=== PATIENT | male | born 1945 | race Caucasian/White ===

== ENCOUNTER 2017-10-11 11:28 | Emergency (ER) | payer OTHER, SELFPAY ==
[2017-10-11 12:47] LABS: #Basophils 0.1 thou/uL (0.0-0.2); #Eosinphils 0.1 thou/uL (0.0-0.7); #Lymphocytes 2.5 thou/uL (1.20-3.40); #Monocytes 0.5 thou/uL (0.11-0.59); %Basophils 0.9 % (0.0-1.0); %Eosinophils 1.6 % (0.0-10.0); %Lymphocytes 40.7 % (21.0-51.0); %Monocytes 8.4 % (0.0-10.0); %Neutrophils 48.5 % (42.0-75.0); Hemoglobin 15.3 g/dL (14.0-18.0); Mean Corpuscular HGB CONC 32.8 g/dL (32.0-36.0); Mean Corpuscular Hemoglobin 33.9 pg (27.0-31.0); Platelet Count 167 thou/uL (130-400); RBC Distribution Width 12.1 % (11.5-14.5); Red Blood Cell (RBC) Count 4.51 mill/uL (4.70-6.10); White Blood Cell (WBC) Count 6.2 thou/uL (4.8-10.8)
[2017-10-11 12:52] LABS: INR-International Normal Ratio 1.1; Prothrombin Time 13.9 SEC (12.0-14.7)
[2017-10-11 13:04] LABS: ALT (SGPT) 10 U/L (8-55); AST (SGOT) 25 U/L (5-34); Albumin 4.2 g/dL (3.4-4.8); Alkaline Phosphatase 84 U/L (40-150); Anion Gap 12 mmol/L (10-20); BUN (Urea Nitrogen) 14 mg/dL (8.4-25.7); Bilirubin, Total 1.1 mg/dL (0.2-1.2); Calc. Creatinine Clearance 0 mL/min (70-130); Calcium 9.5 mg/dL (7.8-10.44); Carbon Dioxide 25 mmol/L (23-31); Chloride 105 mmol/L (98-107); Estimated GFR-MDRD Greater than 90; Globulin 2.9 g/dL (2.4-3.5); Glucose 102 mg/dL (83-110); Protein, Total 7.1 g/dL (5.8-8.1); Sodium 138 mmol/L (136-145)
[2017-10-11 13:08] LABS: Troponin I 0.275 ng/mL (< 0.028)
[2017-10-11 13:12] LABS: CKMB 6.2 ng/mL (0-6.6)
--- NOTE | 2017-10-11 13:17 | RAD ---
RADIOGRAPH CHEST 1 VIEW: HISTORY: A 72-year-old male with chest pain and dyspnea. FINDINGS: The thoracic aorta is tortuous and ectatic. There is no evidence of air space density, pneumothorax, or pulmonary edema. The lateral costophrenic angles are sharp. There is a dual-lead left subclavia n pacemaker. IMPRESSION: 1) No acute pulmonary findings. 2) Ectasia of thoracic aorta. 3) Pacemaker. Eddie Coles POS: [facility]
--- NOTE | 2017-11-20 20:16 | EKG ---
Test Reason : Blood Pressure : / mmHG Vent. Rate : 089 BPM Atrial Rate : 256 BPM P-R Int : 000 ms QRS Dur : 090 ms QT Int : 370 ms P-R-T Axes : 043 -38 036 degrees QTc Int : 450 ms Atrial flutter with variable A-V block with premature ventricular or aberrantly conducted complexes Left axis deviation Cannot rule out Anterior infarct , age undetermined Abnormal ECG Confirmed by TO ARCHANA Beard ([id number]), editor continuity and script MALACHI CRUM ([id number]) on 11/20/2017 8:16:38 PM Referred By: Confirmed By:ARCHANA CHASE M.D.
== END 2017-10-11 13:11 | disposition left against medical advice (07) ==
LOC: ERS 11:28
DX: R07.9 Chest pain, unspecified (principal); I48.91 Unspecified atrial fibrillation; I10 Essential (primary) hypertension; Z79.899 Other long term (current) drug therapy
CPT/HCPCS: 36415; 71045; 80053; 82553; 84484; 85025; 85610; 93005

== ENCOUNTER 2017-10-14 19:29 | Observation (INO) | payer OTHER ==
[2017-10-14 20:38] LABS: #Lymphocytes 0.7 thou/uL (1.20-3.40); #Monocytes 0.6 thou/uL (0.11-0.59); #Neutrophils 2.7 thou/uL (1.40-6.50); %Basophils 0.4 % (0.0-1.0); %Eosinophils 0.5 % (0.0-10.0); %Lymphocytes 16.3 % (21.0-51.0); %Monocytes 14.8 % (0.0-10.0); %Neutrophils 68.1 % (42.0-75.0); Hemoglobin 15.2 g/dL (14.0-18.0); Mean Corpuscular Hemoglobin 34.4 pg (27.0-31.0); Mean Platelet Volume 6.9 fL (7.4-10.4); Platelet Count 150 thou/uL (130-400); RBC Distribution Width 12.3 % (11.5-14.5); Red Blood Cell (RBC) Count 4.43 mill/uL (4.70-6.10)
[2017-10-14 20:58] LABS: ALT (SGPT) 9 U/L (8-55); AST (SGOT) 26 U/L (5-34); Albumin 4.2 g/dL (3.4-4.8); Alkaline Phosphatase 91 U/L (40-150); Anion Gap 12 mmol/L (10-20); BUN (Urea Nitrogen) 13 mg/dL (8.4-25.7); Bilirubin, Total 1.7 mg/dL (0.2-1.2); Calc. Creatinine Clearance 0 mL/min (70-130); Calcium 9.7 mg/dL (7.8-10.44); Carbon Dioxide 28 mmol/L (23-31); Chloride 100 mmol/L (98-107); Estimated GFR-MDRD 79; Glucose 100 mg/dL (83-110); Potassium 3.9 mmol/L (3.5-5.1); Protein, Total 7.2 g/dL (5.8-8.1); Sodium 136 mmol/L (136-145)
--- NOTE | 2017-10-14 20:59 | RAD ---
CHEST ONE VIEW 10/14/17 HISTORY: Cough, congestion. Symptoms x4 days. COMPARISON: 10/11/17. FINDINGS: Persistent cardiomegaly. Stable left sided transvenous pacemaker. Pulmonary vessels and hilum are nor mal. Costophrenic angles are clear. No mass. No consolidation. No pneumothorax or osseous abnormaliti es. IMPRESSION: Cardiomegaly. No acute cardiopulmonary process. POS: [facility]
[2017-10-14 21:02] LABS: CKMB 4.1 ng/mL (0-6.6); Troponin I 0.264 ng/mL (< 0.028)
[2017-10-15 00:24] LABS: Troponin I 0.264 ng/mL (< 0.028)
[2017-10-15] MEDS ORDERED: ISOVUE-370 76%-LOCM 1 ML ONE (06:16)
[2017-10-15 06:20] LABS: Troponin I 0.249 ng/mL (< 0.028)
--- NOTE | 2017-10-15 08:01 | CT ---
PRELIMINARY REPORT/[facility]/EMERGENCY AFTER HOURS PROCEDURE: EXAM: CT Angiography Chest With Intravenous Contrast CLINICAL HISTORY: 72 years old, male; Signs and symptoms; Dyspnea; Patient HX: R/O pe TECHNIQUE: Axial computed tomographic angiography images of the chest with intravenous contrast using pulmonary embolism protocol. CONTRAST: 100 mL of ISOVUE administered intravenously. COMPARISON: No relevant prior studies available. FINDINGS: Pulmonary arteries: No acute findings. No pulmonary embolism. Aorta: There are atheromatous calcifications of the aorta without visible aneurysm. Lungs: No acute findings. No mass. No consolidation. Pleural space: No acute findings. No significant effusion. No pneumothorax. Heart: No acute findings. No cardiomegaly. No significant pericardial effusion. No evidence of RV dys function. Bones/joints: Chronic degenerative spinal changes without acute fracture or dislocation. Soft tissues: No acute findings. Lymph nodes: No acute findings. No enlarged lymph nodes. Tubes, lines and devices: Devices: Left sided pacemaker device is intact and in satisfactory position . IMPRESSION: No acute findings. Thank you for allowing us to participate in the care of your patient. Dictated and Authenticated by: Baldemar Schneider MD 10/15/2017 4:10 AM Central Time ([place] & [place]) FINAL REPORT CT PULMONARY ANGIOGRAM WITH IV CONTRAST AND 3D POST PROCESSING: I agree with the preliminary report given by Dr. Baldemar Schneider of [facility]. POS: [facility]
[2017-10-15] MEDS ORDERED: predniSONE 20 MG TAB PO SCH (10:00)
[2017-10-15] MEDS ORDERED: Oseltamivir 75 MG CAP PO SCH (10:00)
[2017-10-15] MEDS ORDERED: Nitroglycerin 0.4 MG TAB (25 Tab Bottle) PO PRN (10:01)
[2017-10-15] MEDS ORDERED: Acetaminophen 325 MG TAB PO PRN (10:01)
[2017-10-15] MEDS ORDERED: Senokot 8.6 MG TAB PO PRN (10:01)
--- NOTE | 2017-10-15 10:08 | PDOC.EVN ---
Event Note - Event Note Event Note: Note dictated. Full code. Makes his own decisions with the help of his family.
[2017-10-15] MEDS ORDERED: Diabetic Tussin 200 MG/10 ML UDCUP PO PRN (10:09)
[2017-10-15] MEDS ORDERED: cloNIDine 0.1 MG TAB PO PRN (10:09)
[2017-10-15] MEDS ORDERED: hydrALAZINE 20 MG/ML VIAL SLOW IVP PRN (10:09)
[2017-10-15] MEDS ORDERED: cefTRIAXone\\ROCEPHIN 1 GM in Sodium Chloride 0.9% 100 ML IVPB SCH (10:15)
--- NOTE | 2017-10-15 10:27 | HP ---
DATE OF ADMISSION: 10/15/2017 PRIMARY CARE PHYSICIAN: [facility]. CHIEF COMPLAINT: Cough, shortness of breath, and wheezing of 3 days duration. HISTORY OF PRESENT ILLNESS: The patient is a 72-year-old male with negative cardiac catheterization in 2016 and sinus node dysfunction status post pacemaker, who presented to the emergency room with ab ove complaints. He was seen in the emergency room three days ago for similar illness. However, left against medical advice. Over the last 3-4 days, the patient developed gradual worsening shortness of breath along with chest tightness and wheezing. The cough was productive of scanty phlegm. He also felt febrile without chi lls. He denies any sick contacts. He denies any chest pain, palpitations, lightheadedness, or synco pe. He felt generally weak and fatigued. In the emergency room, his vital signs showed temperature 100.1 with a pulse rate of 114, blood press ure of 139/92, respiration of 26, and O2 saturation 96% on room air. His CT angiogram of the chest w as negative for pulmonary embolism. His flu testing was negative. His EKG showed sinus rhythm with nonspecific ST-T wave changes, left axis deviation. He received nebulizer treatment along with aspir in in the emergency room. PAST MEDICAL HISTORY: 1. Paroxysmal atrial flutter. Patient declined cardiac ablation. 2. Negative cardiac catheterization in 2016. 3. Questionable atrial fibrillation. Anticoagulation was discontinued by his primary cement car dumper kana BARRIGA. 4. Hypertension. 5. Hyperlipidemia. 6. History of tobacco dependence. 7. Normal left ventricular ejection fraction 50% to 55% with mild anterior hypokinesis in 2016. 8. Bipolar disorder. PAST SURGICAL HISTORY: 1. Cardiac catheterization. 2. Surgery for hydrocele. ALLERGIES: No known drug allergies. CURRENT HOME MEDICATIONS: The patient takes Depakote and Wellbutrin. He is unable to recall the exa ct dose. Again, anticoagulation was discontinued by his primary cement car dumper. He used to be on jeana nopril and metoprolol that was discontinued by his primary cement car dumper at [place] per patient report. SOCIAL HISTORY: The patient currently lives at home and drinks alcohol socially. Denies current use of smoking or drug use. FAMILY HISTORY: Positive for heart disease. REVIEW OF SYSTEMS: The following complete review of systems was negative, unless otherwise mentioned in the HPI or below: Constitutional: Weight loss or gain, ability to conduct usual activities. Skin: Rash, itching. Eyes: Double vision, pain. ENT/Mouth: Nose bleeding, neck stiffness, pain, tenderness. Cardiovascular: Palpitations, dyspnea on exertion, orthopnea. Respiratory: Shortness of breath, wheezing, cough, hemoptysis, fever or night sweats. Gastrointestinal: Poor appetite, abdominal pain, heartburn, nausea, vomiting, constipation, or diarrh ea. Genitourinary: Urgency, frequency, dysuria, nocturia. Musculoskeletal: Pain, swelling. Neurologic/Psychiatric: Anxiety, depression. Allergy/Immunologic: Skin rash, bleeding tendency. PHYSICAL EXAMINATION: VITAL SIGNS: As discussed above. GENERAL: A 72-year-old male in minimal respiratory distress. He has bouts of coughing. HEENT: Head is atraumatic, normocephalic. Sclerae anicteric. Dry mucous membranes. No oral lesion . NECK: Supple, no JVD appreciated. No carotid bruit. LUNGS: Showed coarse breath sounds bilaterally with scattered wheezing. Trachea was in midline. Sy mmetrical. HEART: S1 and S2 present. Regular, tachycardic. ABDOMEN: Soft, nontender, bowel sounds present. EXTREMITIES: No edema or calf tenderness. NEUROLOGIC: Grossly nonfocal, moves all four extremities. PSYCHIATRY: Alert, awake, oriented x3. SKIN: Warm and dry. LYMPH NODES: No palpable lymph nodes in the neck. PERIPHERAL VASCULAR: Radial pulses palpable bilaterally. MUSCULOSKELETAL: No joint swelling or tenderness. LABORATORY FINDINGS: CBC showed WBC of 4.0 with hemoglobin 15.2, lymphocyte of 16.3. D-dimer was 0. 31. Troponins maximum was 0.264, BUN 13, creatinine 0.94. Sodium was 136, potassium 3.9. Influenza testing was negative. CT angiogram of the chest by my review as discussed above. EKG by my review as discussed above. IMPRESSION: 1. Systemic inflammatory response syndrome, suspected secondary to viral illness. 2. Elevated troponins, probably secondary to demand ischemia. The patient had a negative cardiac ca theterization in 2016. 3. History of paroxysmal atrial flutter. The patient declined cardiac ablation last admission. 4. Sinus node dysfunction status post pacemaker. 5. Bipolar disorder. 6. Respiratory distress, probably secondary to #1. 7. Hypertension. Please note the patient does not take any antihypertensives. 8. History of paroxysmal atrial fibrillation. Please note anticoagulation was discontinued by his p rimary cement car dumper per patient report. 9. Dehydration, mild. 10. Leukopenia, probably secondary to viral illness. PLAN: The patient will be monitored on the telemetry unit as 23-hour observation. We will start him on Tamiflu along with antibiotics. We will keep him on droplet isolation for suspected flu. We ted l continue nebulizer treatments every 4 hourly. I think the patient will benefit from steroids. We will resume Depakote and Wellbutrin once doses are confirmed. Telemetry monitoring for now due to po ssible atrial flutter. We will also interrogate his pacemaker. Plan of care was discussed with the patient in detail. He stated understanding.
[2017-10-15] MEDS ORDERED: predniSONE 20 MG TAB ONE ×2 (11:59→12:07)
[2017-10-15 14:13] VITALS: BMI 30.4
[2017-10-15] MEDS: cefTRIAXone\\ROCEPHIN 1 GM, Syringe 0.4 ML in Sterile Water 9.6 ML SLOW IVP SCH (14:28)
[2017-10-15] MEDS: Sodium Chloride 0.9% 1,000 ML IV SCH ×2 (14:28→20:13)
[2017-10-15] MEDS: predniSONE 20 MG TAB PO SCH (17:48)
[2017-10-15] MEDS: Divalproex Sodium DR 500 MG TAB PO SCH (20:18)
[2017-10-15] MEDS: buPROPion 75 MG TAB PO SCH (20:18)
[2017-10-15] MEDS: guaiFENesin ER 600 MG TAB PO SCH (20:18)
[2017-10-15] MEDS: Oseltamivir 75 MG CAP PO SCH (20:18)
[2017-10-15] MEDS: Folic Acid 1 MG TAB PO SCH (20:18)
[2017-10-15] MEDS: Docusate 100 MG CAP PO SCH (20:18)
[2017-10-15] MEDS: Doxycycline 100 MG CAP PO SCH (20:18)
[2017-10-15] MEDS: Cyanocobalamin (Vitamin B-12) 1,000 MCG TAB PO SCH (20:18)
[2017-10-15] MEDS ORDERED: FLU VACC TS2017-18 (>65YR) 0.5 ML SYRINGE IM ONE (21:00)
[2017-10-15] MEDS ORDERED: Prevnar 13-Val Conj/PF 0.5 ML SYRINGE IM ONE (21:00)
[2017-10-16] MEDS: HYDROcodone/Acetaminophen 5/325 mg Tablet PO PRN ×2 (01:53→22:48)
[2017-10-16] MEDS ORDERED: Enoxaparin Sodium 40 MG/0.4 ML SYRINGE SC SCH (09:00)
[2017-10-16] MEDS ORDERED: Aspirin 325 MG TAB PO SCH (09:00)
[2017-10-16] MEDS: Divalproex Sodium DR 500 MG TAB PO SCH ×2 (09:17→21:45)
[2017-10-16] MEDS: guaiFENesin ER 600 MG TAB PO SCH ×2 (09:18→21:45)
[2017-10-16] MEDS: Doxycycline 100 MG CAP PO SCH ×2 (09:18→21:45)
[2017-10-16] MEDS: Docusate 100 MG CAP PO SCH ×2 (09:18→21:45)
[2017-10-16] MEDS: predniSONE 20 MG TAB PO SCH ×2 (09:18→17:39)
[2017-10-16] MEDS: buPROPion 75 MG TAB PO SCH ×2 (09:18→21:45)
[2017-10-16] MEDS: Oseltamivir 75 MG CAP PO SCH ×2 (09:18→21:45)
[2017-10-16] MEDS: cefTRIAXone\\ROCEPHIN 1 GM, Syringe 0.4 ML in Sterile Water 9.6 ML SLOW IVP SCH (13:37)
--- NOTE | 2017-10-16 17:01 | PDOC.PN ---
- Subjective Encounter Start Date: 10/16/17 Encounter Start Time: 14:00 Patient seen and examined. Feeling better. Intermittent cough/SOB/Wheezing +. No overnight events - Objective Resuscitation Status: Resuscitation Status FULL:Full Resuscitation MAR Reviewed: Yes Vital Signs & Weight: Vital Signs (12 hours) Temp Pulse Resp BP Pulse Ox 10/16/17 15:35 97.9 F 105 H 18 126/81 97 10/16/17 09:29 97 10/16/17 09:24 88 20 97 10/16/17 08:10 98.1 F 78 16 10/16/17 08:06 98.1 F 78 16 132/75 97 Weight Weight 196 lb 1.6 oz I&O: 10/15/17 10/16/17 10/17/17 06:59 06:59 06:59 Intake Total 1371 775 Output Total 1999 Balance -629 775 Result Diagrams: 10/14/17 20:29 10/14/17 20:29 EKG Reviewed by me: Yes (Tele ST) Phys Exam - Physical Examination Constitutional: NAD Respiratory: no wheezing, no rales Scat rhonchi, Symmetrical Cardiovascular: RRR, no rub no heaves/pulsations Gastrointestinal: soft, non-tender, no distention, positive bowel sounds Musculoskeletal: no edema Neurological: non-focal, normal sensation, moves all 4 limbs Psychiatric: normal affect, A&O x 3 Dx/Plan - Plan DVT proph w/SCDs IMPRESSION: 1. Systemic inflammatory response syndrome due to Influenza A 2. Elevated troponins, probably secondary to demand ischemia. The patient had a negative cardiac catheterization in 2016. 3. History of paroxysmal atrial flutter. The patient declined cardiac ablation last admission. 4. Sinus node dysfunction status post pacemaker. 5. Bipolar disorder. 6. Respiratory distress, probably secondary to #1. 7. Hypertension. 8. History of paroxysmal atrial fibrillation. Please note anticoagulation was discontinued by his primary per diem nurse per patient report. He refuses anticoagulation. 9. Dehydration, mild. Resolved. 10. Leukopenia, probably secondary to viral illness. PLAN: * cont Tamiflu * Taper Prednisone * DC in AM if stable * Cont current meds as below * Cont Nebs PRN Review of Systems - Review of Systems Cardiovascular: negative: chest pain, palpitations, orthopnea, paroxysmal nocturnal dyspnea, edema, light headedness Gastrointestinal: negative: Nausea, Vomiting, Abdominal Pain, Diarrhea, Constipation, Melena, Hematochezia - Medications/Allergies Allergies/Adverse Reactions: Allergies Allergy/AdvReac Type Severity Reaction Status Date / Time No Known Allergies Allergy Unverified 08/11/16 15:54 Medications: Current Medications Acetaminophen (Tylenol) 650 mg PO Q4H PRN PRN Reason: Headache/Fever or Pain Last Admin: 10/15/17 22:08 Dose: 650 mg Hydrocodone Bitart/Acetaminophen ([place] 5/325) 1 tab PO Q6H PRN PRN Reason: Moderate Pain (4-6) Last Admin: 10/16/17 01:53 Dose: 1 tab Albuterol/Ipratropium (Duoneb) 3 ml NEB [id number] PRN PRN Reason: SOB &/or Wheezing Albuterol/Ipratropium (Duoneb) 3 ml NEB [id number] [facility] Last Admin: 10/16/17 09:24 Dose: 3 ml Albuterol/Ipratropium (Duoneb) 3 ml NEB Q6H PRN PRN Reason: SOB &/or Wheezing Aspirin (Aspirin) 325 mg PO DAILY [facility] Last Admin: 10/16/17 09:18 Dose: 325 mg Bupropion HCl (Wellbutrin) 75 mg PO BID [facility] Last Admin: 10/16/17 09:18 Dose: 75 mg Clonidine (Catapres) 0.1 mg PO Q4H PRN PRN Reason: Systolic BP > 180 Cyanocobalamin (Vitamin B-12) 1,000 mcg PO HS [facility] Last Admin: 10/15/17 20:18 Dose: 1,000 mcg Divalproex Sodium (Depakote) 500 mg PO BID [facility] Last Admin: 10/16/17 09:17 Dose: 500 mg Docusate Sodium (Colace) 100 mg PO BID [facility] Last Admin: 10/16/17 09:18 Dose: 100 mg Doxycycline Hyclate (Vibramycin) 100 mg PO BID [facility] Last Admin: 10/16/17 09:18 Dose: 100 mg Folic Acid (Folvite) 1 mg PO HS [facility] Last Admin: 10/15/17 20:18 Dose: 1 mg Guaifenesin (Robitussin Sf) 200 mg PO Q4H PRN PRN Reason: Cough Guaifenesin (Mucinex) 600 mg PO Q12HR [facility] Last Admin: 10/16/17 09:18 Dose: 600 mg Hydralazine HCl (Apresoline) 10 mg SLOW IVP Q4H PRN PRN Reason: SBP Greater Than 180 Nitroglycerin (Nitrostat) 0.4 mg PO Q5MIN PRN PRN Reason: Chest Pain Oseltamivir Phosphate (Tamiflu) 75 mg PO BID [facility] Stop: 10/19/17 21:01 Last Admin: 10/16/17 09:18 Dose: 75 mg Prednisone (Prednisone) 20 mg PO BID-[facility] Stop: 10/16/17 23:59 Last Admin: 10/16/17 09:18 Dose: 20 mg Prednisone (Prednisone) 20 mg PO QAM-[facility] Senna (Senokot) 2 tab PO HSPRN PRN PRN Reason: Constipation
[2017-10-16] MEDS: Folic Acid 1 MG TAB PO SCH (21:45)
[2017-10-16] MEDS: Cyanocobalamin (Vitamin B-12) 1,000 MCG TAB PO SCH (21:45)
[2017-10-17] MEDS: HYDROcodone/Acetaminophen 5/325 mg Tablet PO PRN (04:41)
[2017-10-17] MEDS ORDERED: predniSONE 20 MG TAB PO SCH (08:00)
[2017-10-17 08:24] VITALS: BP 138/88; TEMP 97.5
[2017-10-17] MEDS ORDERED: Acetaminophen 325 MG TAB PO PRN (09:52)
[2017-10-17] MEDS ORDERED: Diabetic Tussin DM 5 ML UDCUP PO PRN (09:52)
[2017-10-17] MEDS ORDERED: Mag-Al 1200 mg/1200 mg/30 ML UDCUP PO PRN (09:52)
[2017-10-17] MEDS ORDERED: Nitroglycerin 0.4 MG TAB (25 Tab Bottle) SL PRN (09:52)
[2017-10-17] MEDS ORDERED: Aspirin 325 MG TAB PO SCH (10:00)
[2017-10-17] MEDS ORDERED: Aspirin 300 MG Suppository PR SCH (10:00)
[2017-10-17] MEDS ORDERED: Bisacodyl 5 MG TAB PO PRN (10:00)
[2017-10-17] MEDS ORDERED: Heparin 10,000 UNITS/ 10 ML VIAL SLOW IVP SCH (10:00)
[2017-10-17] MEDS ORDERED: Zolpidem Tartrate 5 MG TAB PO PRN (10:00)
[2017-10-17] MEDS ORDERED: Bisacodyl 10 MG SUPP PR PRN (10:00)
[2017-10-17] MEDS ORDERED: Clopidogrel Bisulfate 300 MG TAB PO SCH (10:00)
[2017-10-17] MEDS ORDERED: Clopidogrel Bisulfate 75 MG TAB PO SCH (10:00)
[2017-10-17] MEDS ORDERED: Milk Of Magnesia 30 ML UDCUP PO PRN (10:00)
[2017-10-17] MEDS ORDERED: Aspirin 325 mg Enteric Coated Tablet PO SCH (10:00)
[2017-10-17] MEDS ORDERED: Heparin 25,000 units/D5W 500 ML IV SCH (10:00)
[2017-10-17] MEDS ORDERED: Ondansetron HCl/PF 4 MG/2 ML Vial IVP PRN (10:00)
--- NOTE | 2017-10-17 10:14 | PDOC.PN ---
- Subjective Encounter Start Date: 10/17/17 Encounter Start Time: 10:11 Patient seen at bedside. No overnight events, denies Chest pain, SOB. Ambulating without difficulty. - Objective Resuscitation Status: Resuscitation Status FULL:Full Resuscitation MAR Reviewed: Yes Vital Signs & Weight: Vital Signs (12 hours) Temp Pulse Resp BP BP Pulse Ox 10/17/17 09:02 97 10/17/17 09:01 78 20 97 10/17/17 08:00 97.5 F L 92 20 138/88 96 10/17/17 07:40 97.5 F L 92 20 10/17/17 04:00 98.3 F 106 H 22 H 131/73 97 Weight Weight 184 lb 3.2 oz I&O: 10/16/17 10/17/17 10/18/17 06:59 06:59 06:59 Intake Total 1371 2004 300 Output Total 1999 1375 Balance -629 630 300 Result Diagrams: 10/14/17 20:29 10/14/17 20:29 Phys Exam - Physical Examination Constitutional: NAD HEENT: moist MMs Neck: no JVD Respiratory: no rales Cardiovascular: RRR Gastrointestinal: soft Musculoskeletal: pulses present Neurological: moves all 4 limbs Psychiatric: A&O x 3 Dx/Plan (1) Influenza A Code(s): J10.1 - FLU DUE TO OTH IDENT INFLUENZA VIRUS W OTH RESP MANIFEST Status: Acute (2) Atrial flutter Code(s): I48.92 - UNSPECIFIED ATRIAL FLUTTER Status: Chronic Qualifiers: Atrial flutter type: typical Qualified Code(s): I48.3 - Typical atrial flutter (3) HTN (hypertension) Code(s): I10 - ESSENTIAL (PRIMARY) HYPERTENSION Status: Chronic Qualifiers: Hypertension type: essential hypertension Qualified Code(s): I10 - Essential (primary) hypertension - Plan cont current plan of care, continue antibiotics, out of bed/ambulate * Continue with Doxycycline and Tamiflu. * Prednisone Taper. * Spoke to the patient at length about cardiac enzymes. Offered to have cardiology here evaluate the patient given his cardiac history. He would prefer to see his own customer resource specialist in [place] and will follow up after discharge. * D/C Home
[2017-10-17] MEDS: Doxycycline 100 MG CAP PO SCH (10:43)
[2017-10-17] MEDS: Divalproex Sodium DR 500 MG TAB PO SCH (10:43)
[2017-10-17] MEDS: buPROPion 75 MG TAB PO SCH (10:43)
[2017-10-17] MEDS: Oseltamivir 75 MG CAP PO SCH ×2 (10:43→10:44)
--- NOTE | 2017-10-17 10:51 | DIS ---
DATE OF ADMISSION: 10/15/2017 DATE OF DISCHARGE: 10/17/2017 DISCHARGE DISPOSITION: Home. DISCHARGE FOLLOWUP: [facility] at [place]. DISCHARGE DIAGNOSES: 1. Influenza A. 2. Paroxysmal atrial flutter, the patient has refused anticoagulation. 3. Bipolar disorder. 4. History of sinus node dysfunction status post pacemaker. 5. Hypertension. DISCHARGE MEDICATIONS: 1. Aspirin 325 mg p.o. daily. 2. Wellbutrin 50 mg p.o. b.i.d. 3. Depakote 2000 mg p.o. 4 times a day. 4. Doxycycline 100 mg p.o. b.i.d. for next 3 days. 5. Tamiflu 75 mg p.o. b.i.d. for next 3 days. 6. Prednisone taper. INPATIENT CONSULTATIONS: None. INPATIENT PROCEDURES: None. INPATIENT RADIOGRAPHIC EXAMINATIONS: 1. Chest x-ray, which revealed cardiomegaly with no acute cardiopulmonary process. 2. CTA of the chest, which revealed no pulmonary embolism, no acute findings, no aneurysm. BRIEF HOSPITAL COURSE: Mr. Terence Farrar is a 72-year-old male who presented to the emergency room complaining of cough and shortness of breath. He was then subsequently placed into observation onto the telemetry floor. His influenza swabs came back negative for influenza A and he was put on Tamif mercedes. He was given prednisone as well as doxycycline. The patient's clinical status improved. He did have elevated troponins while here and given his history of a pacemaker, this was interrogated and w as in working condition. His elevated troponin was most likely secondary to demand ischemia from his viral illness. I have offered the patient a cardiology evaluation here; however, he wishes to go se e his manager quality at the [facility] in [place]. He understands this and will make his own appointment. The patient is clinically appropriate for discharge. His vital signs have been stable. He is ambulating in the halls without any difficulty. His saturations have improved and his physical exam is within normal limits. He is resting comfortably and will be discharged home later today in stable condition with the medications above. DISCHARGE DIET: Heart healthy. ACTIVITY: As tolerated. RESTRICTIONS: None. CODE STATUS: FULL CODE. ALLERGIES: No known drug allergies. DISCHARGE FOLLOWUP: With his [facility] physician in [place]. I have explained all this to the patient at bedside. He is agreeable to the plan of discharge. All questions have been answered. Total discharge time 33 minutes.
[2017-10-17] MEDS ORDERED: Nitroglycerin 2% Ointment 1 INCH/1 GM Packet TOP SCH (14:00)
[2017-10-17] MEDS ORDERED: Docusate 100 MG CAP PO SCH (21:00)
[2017-10-18] MEDS ORDERED: Aspirin 300 MG Suppository PR SCH (09:00)
[2017-10-18] MEDS ORDERED: Aspirin 325 MG TAB PO SCH (09:00)
[2017-10-18] MEDS ORDERED: Clopidogrel Bisulfate 75 MG TAB PO SCH (09:00)
[2017-10-18] MEDS ORDERED: Aspirin 325 mg Enteric Coated Tablet PO SCH (09:00)
== END 2017-10-17 12:23 | disposition home or self-care (01) ==
LOC: ERS 19:29 → ERHOLD 10-15 02:40 → 2SW 10-15 13:46
PROVIDERS: ADMIT Internal Medicine; ATTEND Internal Medicine
DX: J10.1 Influenza due to other identified influenza virus with other respiratory manifestations (principal); I48.3 Typical atrial flutter; F31.9 Bipolar disorder, unspecified; I10 Essential (primary) hypertension; I51.7 Cardiomegaly; E78.5 Hyperlipidemia, unspecified; R06.03 Acute respiratory distress; I48.0 Paroxysmal atrial fibrillation; E86.0 Dehydration; D72.819 Decreased white blood cell count, unspecified; Z79.82 Long term (current) use of aspirin; Z79.899 Other long term (current) drug therapy; Z95.0 Presence of cardiac pacemaker; Z98.890 Other specified postprocedural states
CPT/HCPCS: 36415; 71045; 71275; 80053; 82553; 84484; 85025; 85379; 87633; 87798; 93005; 94640; 94760; 96361; 96374; 96376; A4216; G0378; J0696; J1644; J1650; J7506; J7620

== ENCOUNTER 2017-12-24 00:24 | Emergency (ER) | payer OTHER | END 2017-12-24 02:18 | disposition home or self-care (01) | LOC: ERS 00:24 | DX: M17.0 Bilateral primary osteoarthritis of knee (principal); I48.91 Unspecified atrial fibrillation; I10 Essential (primary) hypertension; F31.9 Bipolar disorder, unspecified; Z79.82 Long term (current) use of aspirin; Z79.899 Other long term (current) drug therapy | CPT/HCPCS: 99283 ==

== ENCOUNTER 2018-02-18 06:38 | Emergency (ER) | payer OTHER ==
--- NOTE | 2018-02-18 08:53 | RAD ---
PORTABLE CHEST: DATE: 02/18/18. PROVIDED CLINICAL HISTORY: Cough. FINDINGS: Comparison 10/14/17. The cardiac silhouette appears enlarged. Lungs appear clear. There is no pleura l fluid or pneumothorax apparent. Left subclavian cardiac pacing device is again noted within simila r position. IMPRESSION: Cardiomegaly without evidence for an acute cardiopulmonary process. POS: [facility]
== END 2018-02-18 07:21 | disposition home or self-care (01) ==
LOC: ERS 06:38
DX: J20.9 Acute bronchitis, unspecified (principal); F31.9 Bipolar disorder, unspecified; I48.91 Unspecified atrial fibrillation; I10 Essential (primary) hypertension; Z79.01 Long term (current) use of anticoagulants; Z79.82 Long term (current) use of aspirin; Z79.899 Other long term (current) drug therapy
CPT/HCPCS: 71045

== ENCOUNTER 2018-03-09 05:22 | Inpatient (IN) | payer MEDICARE, OTHER, SELFPAY ==
[2018-03-09 06:08] LABS: #Basophils 0.1 thou/uL (0.0-0.2); #Eosinphils 0.1 thou/uL (0.0-0.7); #Lymphocytes 1.2 thou/uL (1.20-3.40); #Monocytes 0.4 thou/uL (0.11-0.59); #Neutrophils 4.2 thou/uL (1.40-6.50); %Basophils 0.9 % (0.0-1.0); %Eosinophils 1.1 % (0.0-10.0); %Lymphocytes 19.7 % (21.0-51.0); %Monocytes 7.4 % (0.0-10.0); %Neutrophils 70.9 % (42.0-75.0); Mean Corpuscular HGB CONC 32.1 g/dL (32.0-36.0); Mean Corpuscular Hemoglobin 32.9 pg (27.0-31.0); Mean Platelet Volume 7.7 fL (7.4-10.4); Platelet Count 134 thou/uL (130-400); Red Blood Cell (RBC) Count 4.25 mill/uL (4.70-6.10)
[2018-03-09 06:31] LABS: ALT (SGPT) 12 U/L (8-55); AST (SGOT) 42 U/L (5-34); Alkaline Phosphatase 94 U/L (40-150); Anion Gap 10 mmol/L (10-20); BUN (Urea Nitrogen) 19 mg/dL (8.4-25.7); Bilirubin, Total 2.2 mg/dL (0.2-1.2); Calc. Creatinine Clearance 0 mL/min (70-130); Calcium 9.4 mg/dL (7.8-10.44); Carbon Dioxide 28 mmol/L (23-31); Chloride 104 mmol/L (98-107); Estimated GFR-MDRD 74; Globulin 2.8 g/dL (2.4-3.5); Glucose 113 mg/dL (83-110); Potassium 3.6 mmol/L (3.5-5.1); Protein, Total 6.8 g/dL (5.8-8.1); Sodium 138 mmol/L (136-145)
[2018-03-09 06:47] LABS: CKMB 9.4 ng/mL (0-6.6); Troponin I 0.634 ng/mL (< 0.028)
[2018-03-09] MEDS ORDERED: Enoxaparin Sodium 100 MG/ML SYRINGE ONE (07:20)
[2018-03-09] MEDS ORDERED: Furosemide 40 MG/4 ML VIAL ONE (07:20)
[2018-03-09 08:18] LABS: Bilirubin Negative (Negative); Blood, Urine Negative (Negative); Clarity Clear (Clear); Glucose, Urine (Dipstick) Negative (Negative); Leukocyte Negative (Negative); Nitrite Negative (Negative); Protein, Urine (Dipstick) Negative (Neg-Trace); Specific Gravity, Urine 1.025 (1.005-1.030); Urobilinogen 0.2 mg/dL (0.2-1.0)
[2018-03-09 09:13] LABS: Troponin I 0.637 ng/mL (< 0.028)
--- NOTE | 2018-03-09 09:25 | RAD ---
ONE VIEW CHEST: HISTORY: Pain. COMPARISON: 02/18/18. FINDINGS: Stable left-sided transvenous pacemaker. There is cardiomegaly. Pulmonary vessels are normal. Cost ophrenic angles are clear. No consolidation or mass. No pneumothorax or osseous abnormalities. IMPRESSION: Cardiomegaly. No evidence of congestive heart failure. POS: [facility]
--- NOTE | 2018-03-09 09:28 | ULT ---
LEFT LOWER EXTREMITY VENOUS ULTRASOUND WITH DOPPLER: HISTORY: Pain. Edema. COMPARISON: None. TECHNIQUE: Ch scale, color flow, Doppler imaging, with spectral waveform analysis is performed of the left low er extremity venous system. FINDINGS: There is edema at the level of the ankle. There is compressibility, presence of flow, and augmentation of the common femoral vein, femoral vein , and popliteal vein. There is flow in the greater saphenous vein, profunda vein, and posterior tibi al vein. IMPRESSION: No evidence of thrombus in the left lower extremity deep venous system. Left lower extremity edema. POS: [facility]
[2018-03-09 10:22] LABS: CKMB 7.4 ng/mL (0-6.6)
[2018-03-09] MEDS ORDERED: Milk Of Magnesia 30 ML UDCUP PO PRN (10:45)
[2018-03-09] MEDS ORDERED: Acetaminophen 650 MG Suppository PR PRN (10:45)
[2018-03-09] MEDS ORDERED: Calcium Carbonate 500 MG ChewTAB PO PRN (10:45)
[2018-03-09] MEDS ORDERED: Ondansetron HCl/PF 4 MG/2 ML Vial IVP PRN (10:45)
[2018-03-09] MEDS ORDERED: Ondansetron ODT 4 MG TAB PO PRN (10:45)
[2018-03-09] MEDS ORDERED: Nitroglycerin 0.4 MG TAB (25 Tab Bottle) PO PRN (10:47)
[2018-03-09] MEDS ORDERED: Morphine 4 MG/ML VIAL IV PRN (11:04)
--- NOTE | 2018-03-09 11:25 | CT ---
CT PULMONARY ANGIO CHEST INCLUDING 3D RENDERING: HISTORY: A 72-year-old male with a history of left leg pain and chronic lower extremity edema, who presents th is morning with sharp shooting pain in the leg. The patient does complain of chest pain as well. FINDINGS: No significant CT evidence for acute pulmonary embolus. Minimal linear parenchymal changes in the ri ght base and less so in the left base, new since 10/15/2017, probably some mild subsegmental atelecta sis, as well as some vascular crowding and dependent position change. IMPRESSION: 1. No CT evidence for acute pulmonary embolism. 2. Minimal linear parenchymal changes in the basis, probably subsegmental atelectasis. 3. No other significant acute process. POS: [facility]
[2018-03-09 11:29] VITALS: BMI 31.4
--- NOTE | 2018-03-09 11:40 | PDOC.FPRHP ---
- History of Present Illness Chief Complaint: leg pain History of Present Illness: 72 yo CM with pmhx afib s/p [employer] dual-chamber pacer, and bipolar disorder presents to [facility] c/o left leg pain. Pt endorses a 1 week hx of increasing b/l LE edema (Left > Right) and scrotal swelling. Denies any h/o orthopnea, PND, or SOB; but does say he has been "expectorating" and coughing more than normal. Unsure what the sputum looks like. Denies fevers, chills, abd pain, n/v/d. No chest pain, palpitations, diaphoresis , lightheadedness. At baseline, pt endorses a healthy diet and regular CV exercise including walking 3-4 miles daily. Normally follows up at [facility], but has been without his car for the last few weeks so he has been unable to follow up. He also states he was previously placed on lasix for LE edema, but was taken off 1 year prior and is unsure why. By review of records, pt had cardiac catheterization in [address] Hazel which was negative for CAD. EF at that time noted to be 50-55% with mild hypokinesis. No CAD hx otherwise. He also has had indeterminate troponins previously. No h/o echocardiogram at this facility previously. ED Course: 40mg IV lasix, CT PE protocol neg for PE, and LLE doppler neg for DVT - Allergies/Adverse Reactions Allergies Allergy/AdvReac Type Severity Reaction Status Date / Time No Known Allergies Allergy Verified 03/09/18 11:41 - Home Medications Medication Instructions Recorded Confirmed Type Divalproex Sodium DR [Depakote] 500 mg PO QID 10/15/17 03/09/18 History buPROPion HCl [Wellbutrin] 50 mg PO BID 10/15/17 03/09/18 History - History PMHx: Afib s/p dual-chamber pacer (approx 8 yrs prior)- [employer] pacer, bipolar disorder PSHx: hydrocele repain, left knee repair, and pacer placement FHx: no family hx CAD, CHF, or early cardiac demise Social: Denies smoking tobacco but has chewed tobacco for most of his adult life. Social ETOH use. Denies illicit drug use. - Review of Systems General: reports: fatigue. denies: fever/chills, weight/appetite/sleep changes , night sweats Eyes: denies: eye pain, vision changes ENT: denies: nasal congestion, rhinorrhea Respiratory: reports: cough, congestion. denies: shortness of breath, exercise intolerance Cardiovascular: reports: edema. denies: chest pain, palpitation, paroxysmal nocturnal dyspnea, orthopnea Gastrointestinal: denies: nausea, vomiting, diarrhea, constipation, abdominal pain, GI bleeding Genitourinary: denies: incontinence, dysuria, polyuria Skin: reports: rashes. denies: lesions Musculoskeletal: reports: pain, tenderness, swelling. denies: stiffness, arthritis/arthralgias Neurological: denies: numbness, syncope, weakness Psychological: reports: other (bipolar disorder). denies: anxiety, depression - Vital signs VITALS: 03/09/18 10:00 Temperature 97.5 F L Pulse Rate 80 Blood Pressure 120/75 [Semi-Fowlers] Respiratory 18 Rate O2 Sat by Pulse 100 Oximetry Oxygen Delivery Room Air Method - Physical Exam Constitutional: NAD, awake, alert and oriented, well developed -Constitutional: falls asleep frequently during interview HEENT: normocephalic and atraumatic, PERRLA, EOMI, conjunctiva clear, no scleral icterus, grossly normal hearing, normal nasal mucosa, MMM, oropharynx clear Neck: supple, trachea midline, no LAD, no JVD, no thyromegaly, no bruits Chest: no-tender to palpation, no lesions Heart: RRR, normal S1/S2, no murmurs/rubs/gallops, pulses present -Heart: 2+ pitting edema to bilateral lower extremities, L>R & scrotal swelling Lungs: CTAB, no respiratory distress, good air movement, no rales/rhonchi, no wheezing Abdomen: soft, non-tender, bowel sounds present, no masses/distention Musculoskeletal: normal structure, normal tone Neurological: no focal deficit, normal sensation Skin: capillary refill <2 seconds, no jaundice -Skin: LLE leiva erythematous, warm, and tender to palpation Heme/Lymphatic: no unusual bruising or bleeding, no LAD Psychiatric: intact recent and remote memory -Psychiatric: bizarre affect FMR H&P: Results - Labs Result Diagrams: 03/09/18 06:05 03/09/18 06:05 Lab results: WBC 6.0 thou/uL (4.8-10.8) 03/09/18 06:05 Hgb 14.0 g/dL (14.0-18.0) 03/09/18 06:05 Hct 43.7 % (42.0-52.0) 03/09/18 06:05 MCV 103.0 fl (80.0-94.0) H 03/09/18 06:05 Plt Count 134 thou/uL (130-400) 03/09/18 06:05 Neutrophils % 70.9 % (42.0-75.0) 03/09/18 06:05 Sodium 138 mmol/L (136-145) 03/09/18 06:05 Potassium 3.6 mmol/L (3.5-5.1) 03/09/18 06:05 Chloride 104 mmol/L (98-107) 03/09/18 06:05 Carbon Dioxide 28 mmol/L (23-31) 03/09/18 06:05 BUN 19 mg/dL (8.4-25.7) 03/09/18 06:05 Creatinine 0.99 mg/dL (0.6-1.3) 03/09/18 06:05 Glucose 113 mg/dL (83-110) H 03/09/18 06:05 Calcium 9.4 mg/dL (7.8-10.44) 03/09/18 06:05 Total Bilirubin 2.2 mg/dL (0.2-1.2) H 03/09/18 06:05 AST 42 U/L (5-34) H 03/09/18 06:05 ALT 12 U/L (8-55) 03/09/18 06:05 Alkaline Phosphatase 94 U/L (40-150) 03/09/18 06:05 CK-MB (CK-2) 7.4 ng/mL (0-6.6) H* 03/09/18 08:35 B-Natriuretic Peptide 785.6 pg/mL (0-100) H 03/09/18 06:05 Serum Total Protein 6.8 g/dL (5.8-8.1) 03/09/18 06:05 Albumin 4.0 g/dL (3.4-4.8) 03/09/18 06:05 Urine Ketones Negative mg/dL (Negative) 03/09/18 07:49 Urine Blood Negative (Negative) 03/09/18 07:49 Urine Nitrite Negative (Negative) 03/09/18 07:49 Ur Leukocyte Esterase Negative (Negative) 03/09/18 07:49 Additional comment: Elevated D-Dimer, BNP, Troponin & CKMB - EKG Interpretation EKG: V-paced in 60s, no signs of acute ischemia - Radiology Interpretation US - venous Status: report reviewed by me Additional comment: negative for LLE DVT CT scan - chest Status: report reviewed by me Additional comment: negative for PE FMR H&P: A/P - Problem List (1) New onset of congestive heart failure Current Visit: Yes Status: Acute Priority: High Code(s): I50.9 - HEART FAILURE, UNSPECIFIED (2) Non-ST elevated myocardial infarction Current Visit: Yes Status: Acute Priority: High Code(s): I21.4 - NON-ST ELEVATION (NSTEMI) MYOCARDIAL INFARCTION Comment: s/p therapeutic lovenox (3) Cellulitis and abscess of left leg Current Visit: Yes Status: Acute Priority: High Code(s): L03.116 - CELLULITIS OF LEFT LOWER LIMB; L02.416 - CUTANEOUS ABSCESS OF LEFT LOWER LIMB (4) Atrial fibrillation Current Visit: Yes Status: Chronic Priority: Medium Code(s): I48.91 - UNSPECIFIED ATRIAL FIBRILLATION Qualifiers: Atrial fibrillation type: chronic Qualified Code(s): I48.2 - Chronic atrial fibrillation Comment: s/p dual-chamber pacer (5) Artificial cardiac pacemaker Current Visit: Yes Status: Chronic Priority: Medium Code(s): Z95.0 - PRESENCE OF CARDIAC PACEMAKER (6) Bipolar disorder Current Visit: Yes Status: Chronic Priority: Low Code(s): F31.9 - BIPOLAR DISORDER, UNSPECIFIED Qualifiers: Active/Remission status: currently active Current episode severity: unspecified - Plan 72yo CM with pmhx long-standing Afib w/ pacer presents with increase in LE pain & edema- 1) New onset CHF, presumed- cardiomegaly + LE & scrotal edema with hx of dual lead right sided pacer for chronic Afib may be etiology. elevated cardiac enzymes likely due to cardiac strain. treated in ED with therapeutic lovenox. will continue to trend. Echo ordered and is pending at this time. Will give IV lasix bid and monitor strict I&O, daily wts, fluid restriction. Monitor on telemetry. Cards consulted & Dr. Carmona will see pt. Anticipate need for heart failure meds required to include ACEI, BB, ASA. Possibly will add statin, although pt had clean coronaries 2 yrs prior. 2) NSTEMI- likely demand ischemia from #1. asymptomatic from an ACS standpoint. continue to trend enzymes. s/p therapeutic lovenox in ED, continue per cards recommendations. 3) LLE Cellulitis- likely overlying cellulitis in light of increased LE edema and stasis dermatitis. extremity is tender, red & hot. Will treat empirically with Vanc & Rocephin. no signs of systemic infection. 4) Afib with pacer- interrogate pacer ([employer]) and assure function. Pt is currently V-paced. 5) Bipolar disorder- continue home meds. DO Rock (PGY-3) Attending- Dr. Fran Kwong FMR H&P: Upper Level - Plan Date/Time: 03/09/18 0914. I, [Magy Dey], am the upper level resident (PGY3). Attending Addendum - Attending Addendum Date/Time: 03/09/18 8226 I personally evaluated the patient and discussed the management with Dr. Dey. I agree with and repeated the History, Examination, Assessment and Plan documented above with any addition or exceptions noted below. Antibiotics, therapeutic lovenox pending rec's, risk factor management, diuresis.
[2018-03-09 12:27] LABS: CKMB 4.7 ng/mL (0-6.6)
[2018-03-09 12:32] LABS: Critical Call Chem Troponin I RESULT DECREASING; Troponin I 0.593 ng/mL (< 0.028)
[2018-03-09] MEDS: Acetaminophen 325 MG TAB PO PRN ×3 (12:53→22:31)
[2018-03-09] MEDS ORDERED: ISOVUE-370 76%-LOCM 1 ML ONE (13:34)
[2018-03-09] MEDS ORDERED: cefTRIAXone\\ROCEPHIN 1 GM in Sodium Chloride 0.9% 100 ML IVPB SCH (14:00)
[2018-03-09] MEDS: Furosemide 40 MG/4 ML VIAL SLOW IVP SCH (14:34)
[2018-03-09] MEDS: Vancomycin HCl 1.25 GM in Sodium Chloride 0.9% 250 ML 250 ML IVPB SCH ×2 (14:36→20:35)
[2018-03-09 15:34] LABS: Magnesium 1.7 mg/dL (1.6-2.6); Phosphorus 3.4 mg/dL (2.3-4.7)
[2018-03-09] MEDS ORDERED: Carvedilol 3.125 MG TAB PO SCH (17:00)
[2018-03-09] MEDS: buPROPion HCl 100 MG TAB PO SCH (20:30)
[2018-03-09] MEDS: Atorvastatin Calcium 40 MG TAB PO SCH (20:30)
[2018-03-09] MEDS: Enoxaparin Sodium 100 MG/ML SYRINGE SC SCH (20:31)
[2018-03-09] MEDS: Docusate 100 MG CAP PO SCH (20:31)
[2018-03-09] MEDS: Divalproex Sodium DR 500 MG TAB PO SCH (20:31)
--- NOTE | 2018-03-10 04:09 | CON ---
DATE OF CONSULTATION: 03/09/2018 Please refer to the notes already dictated, although will be dictated by the nurse practitioner, refer to for the full history as well as the physical examination and plan. INDICATION FOR CONSULTATION: A 72-year-old gentleman with congestive heart failure which appears to be diastolic in nature with chronic atrial fibrillation , status post pacemaker insertion, who was admitted with lower extremity edema which is rather significant. HISTORY OF PRESENT ILLNESS: This very unfortunate 72-year-old gentleman was seen actually back in 08/2016 where he underwent a cardiac catheterization and was found to have normal coronary arteries, at that time was diagnosed with atrial fibrillation or flutter. He has been seen and consultation was obtained with Electrophysiology at that time and he refused to undergo an ablation. Since that time and prior to that, he has been followed by the [place]. [facility] the last year or two. He was incarcerated and actually was out of state also, he did report back to the hospital a few months ago here with the pneumonia and device was interrogated at that time. We do not have those results. We will re-interrogate his device, which appears to be [employer] pacemaker. It appears that is functioning normally, but he is pacing 100% at the time, but he was admitted at this time with significant lower extremity edema. He certainly may have diastolic dysfunction or may have severe systolic dysfunction if he is pacing all the time. He may need to undergo further evaluation by the qa architect and may need to have an upgrade to a biventricular device. At that time of his cardiac catheterization, it was documented that he had a decrease in left ventricular systolic function but an exact ejection fraction I believe was not sedated, but I believe it was stated as mild anterior hypokinesis with ejection fraction of 50-55% and this was from 08/2016 with normal coronary arteries. At this time, he has been given diuretics. He has been diuresing quite significantly. He says the swelling is somewhat improved. He still has significant lower extremity edema, the left lower extremity is worse than the right and does have some probably early cellulitis. He has not had any new symptoms of chest pain or significant shortness of breath, but does admit to some shortness of breath. For his past medical history, social history, review of systems, medications, allergies, family history, and social history, please refer to the notes dictated by the nurse practitioner. PHYSICAL EXAMINATION: GENERAL: Reveals a middle-aged gentleman who is in no acute distress at this time. He is alert and he is oriented. He is aware of the situation. VITAL SIGNS: Stable, blood pressure 120/75. He is afebrile, respiratory rate was about 18. He is pacing approximately with a heart rate 80 beats per minute. HEENT: Unremarkable. CHEST: Clear to auscultation. I did not hear any significant rales, rhonchi or wheezing. CARDIOVASCULAR: Reveals an irregular, irregular rhythm. There were no gross murmurs noted. ABDOMEN: Soft and nontender. Positive bowel sounds are present. EXTREMITIES: Showed 3+ lower extremity edema of the entire lower legs extending up into the scrotal area. Pedal pulses are palpable. NEUROLOGIC: The patient appears to be intact. IMPRESSION AND PLAN: 1. Congestive heart failure exacerbation which may very well be diastolic in nature. We are still awaiting an echocardiogram to be performed and further information will be based on the echocardiogram and also further recommendations , he may need to undergo upgrade to a biventricular device or he may just need diuresis and further medical management. 2. Chronic atrial fibrillation, the rate is under good control at this time. We will interrogate the device to see whether or not he has had a significant burden of atrial fibrillation and to see whether or not he is chronically pacing. 3. History of pacemaker insertion. We will interrogate the device today. It appears to be functioning normally. 4. Lower extremity edema and mild possible cellulitis of the left lower extremity. We will continue to monitor this. I have advised him to elevate the leg. We will continue diuretics at this time. 5. History of hypercholesterolemia. We will continue his medications. I believe recently he has not been taking his medications correctly. He has not [facility] able to [facility] nor has he had transportation to get his medications and hopefully once he resumes his medications, his overall situation may improve. SHANTHI
[2018-03-10] MEDS: Furosemide 40 MG/4 ML VIAL SLOW IVP SCH ×2 (05:04→15:03)
[2018-03-10] MEDS: Vancomycin HCl 1.25 GM in Sodium Chloride 0.9% 250 ML 250 ML IVPB SCH ×3 (05:07→22:34)
[2018-03-10 05:29] LABS: Band 10 % (5-11); Hemoglobin 13.6 g/dL (14.0-18.0); Lymphocytes 14 % (21-51); MDiff Complete? YES; Mean Corpuscular HGB CONC 33.2 g/dL (32.0-36.0); Mean Corpuscular Hemoglobin 33.4 pg (27.0-31.0); Mean Platelet Volume 7.4 fL (7.4-10.4); Monocytes 6 % (0-10); Neutrophil 70 % (42-75); PLT Morphology Comment Appears Decreased; Platelet Count 117 thou/uL (130-400); RBC Distribution Width 13.1 % (11.5-14.5); Red Blood Cell (RBC) Count 4.07 mill/uL (4.70-6.10); White Blood Cell (WBC) Count 9.7 thou/uL (4.8-10.8)
[2018-03-10 05:33] LABS: ALT (SGPT) 9 U/L (8-55); AST (SGOT) 28 U/L (5-34); Albumin 3.2 g/dL (3.4-4.8); Alkaline Phosphatase 82 U/L (40-150); Anion Gap 7 mmol/L (10-20); BUN (Urea Nitrogen) 16 mg/dL (8.4-25.7); Bilirubin, Total 3.7 mg/dL (0.2-1.2); Calc. Creatinine Clearance 97 mL/min (70-130); Calcium 8.8 mg/dL (7.8-10.44); Carbon Dioxide 32 mmol/L (23-31); Cardiac Risk 2.1 (Less than 4.5); Chloride 99 mmol/L (98-107); Cholesterol 96 mg/dl (< 200 Desired); Estimated GFR-MDRD 86; Globulin 2.5 g/dL (2.4-3.5); Glucose 84 mg/dL (83-110); HDL Cholesterol 46 mg/dL (>60 Neg Risk); LDL Cholesterol, Calculated 42 mg/dL; Potassium 3.6 mmol/L (3.5-5.1); Protein, Total 5.7 g/dL (5.8-8.1); Sodium 134 mmol/L (136-145); Triglycerides 39 mg/dL (Less than 150)
--- NOTE | 2018-03-10 08:54 | PDOC.FM ---
- Subjective Subjective: No acute events overnight. Pt denies cp, nvdc, diaphoresis, palpitations. Does report occasional SOB and cough occasionally productive of sputum. Reports improvement in b/l LE edema and pain has improved in LLE. Scrotal edema also improved. Had pacer interrogated yesterday which was normal. - Objective Vital Signs & Weight: Vital Signs (12 hours) Temp Pulse Resp BP Pulse Ox 03/10/18 04:00 98.9 F 82 17 114/70 96 Weight Weight 89.131 kg I&O: 03/09/18 03/10/18 03/11/18 06:59 06:59 06:59 Intake Total 820 Output Total 2850 Balance Result Diagrams: 03/10/18 04:52 03/10/18 04:52 <Shailesh Zuluaga - Last Filed: 03/10/18 08:53> - Objective Vital Signs & Weight: Vital Signs (12 hours) Temp Pulse Resp BP Pulse Ox 03/10/18 09:46 83 03/10/18 08:00 99.4 F 83 16 117/62 99 03/10/18 04:00 98.9 F 82 17 114/70 96 Weight Weight 89.131 kg I&O: 03/09/18 03/10/18 03/11/18 06:59 06:59 06:59 Intake Total 820 Output Total 2850 Balance Result Diagrams: 03/10/18 04:52 03/10/18 04:52 <Keron Reeves - Last Filed: 03/10/18 12:09> Phys Exam - Physical Examination Constitutional: NAD pt wearing aviator sunglasses Neck: no nodes, no JVD Respiratory: no wheezing, no rales, no rhonchi, clear to auscultation bilateral Cardiovascular: RRR, no significant murmur, no rub Gastrointestinal: soft, non-tender, no distention, positive bowel sounds Musculoskeletal: pulses present, edema present 2+ pitting to knees b/l L>R Neurological: non-focal, moves all 4 limbs Deviation from normal: poor insight Skin: cap refill <2 seconds Deviation from normal: erythematous LLE with associated warmth to touch, no streaking <Shailesh Zuluaga - Last Filed: 03/10/18 08:53> Dx/Plan (1) New onset of congestive heart failure Code(s): I50.9 - HEART FAILURE, UNSPECIFIED Status: Acute (2) Cellulitis and abscess of left leg Code(s): L03.116 - CELLULITIS OF LEFT LOWER LIMB; L02.416 - CUTANEOUS ABSCESS OF LEFT LOWER LIMB Status: Acute (3) Non-ST elevated myocardial infarction Code(s): I21.4 - NON-ST ELEVATION (NSTEMI) MYOCARDIAL INFARCTION Status: Acute (4) Artificial cardiac pacemaker Code(s): Z95.0 - PRESENCE OF CARDIAC PACEMAKER Status: Chronic (5) Atrial fibrillation Code(s): I48.91 - UNSPECIFIED ATRIAL FIBRILLATION Status: Chronic QualifierTitle: Atrial fibrillation type: chronic Qualified Code(s): I48.2 - Chronic atrial fibrillation (6) Bipolar disorder Code(s): F31.9 - BIPOLAR DISORDER, UNSPECIFIED Status: Chronic QualifierTitle: Active/Remission status: currently active Current episode severity: unspecified - Plan Plan: 1) New onset CHF, presumed- cardiomegaly + LE & scrotal edema with hx of dual lead right sided pacer for chronic Afib. -Cont asa, statin -Pacer interrogation was normal -Echo showed EF of 30-35% -Continue medical management and strict Is/Os with continued diuresis -Cards consulted, appreciate recs 2) NSTEMI- likely demand ischemia from #1. asymptomatic from an ACS standpoint. continue to trend enzymes. s/p therapeutic lovenox in ED, continue per cards recommendations. -cont therapeutix lovenox for now - Cards consulted, appreciate recs 3) LLE Cellulitis- likely overlying cellulitis in light of increased LE edema and stasis dermatitis. -symptomatic improvement from yesterday - will cotinue IV abx, in addition to diuresis - likely infectious componene tin addition to stasis dermatitis 4) Afib with pacer- interrogate pacer ([employer]) and assure function. A sensed v paced overnight -normal pacer interrogation - cards consulted, appreciate recs 5) Bipolar disorder- continue home meds. <Shailesh Zuluaga - Last Filed: 03/10/18 08:53> Attending Addendum - Attending Addendum Date/Time: 03/10/18 1206 I personally evaluated the patient and discussed the management with Dr. Zuluaga. I agree with the History, Examination, Assessment and Plan documented above with any addition or exceptions noted below. Patient improved after 2L diuresis overnight. Continue IV Lasix and await further recs from Cardiology. He does have some worsening in his EF from previous documentation. Continue Vanc for likely LLE cellulitis. Will d/c Rocephin due to minimal extra benefit from it. <Keron Reeves R - Last Filed: 03/10/18 12:09>
[2018-03-10] MEDS: buPROPion HCl 100 MG TAB PO SCH ×2 (09:45→21:10)
[2018-03-10] MEDS: Docusate 100 MG CAP PO SCH ×2 (09:46→21:04)
[2018-03-10] MEDS: Lisinopril 2.5 MG TAB PO SCH (09:46)
[2018-03-10] MEDS: Enoxaparin Sodium 100 MG/ML SYRINGE SC SCH ×2 (09:47→21:04)
[2018-03-10] MEDS: Divalproex Sodium DR 500 MG TAB PO SCH ×4 (09:48→21:04)
--- NOTE | 2018-03-10 10:36 | CON ---
DATE OF CONSULTATION: 03/09/2018 DICTATED BY: Rochelle Das, Nurse Practioner Student ATTENDING PHYSICIAN: Dr. Carmona, Cardiology. HISTORY OF PRESENT ILLNESS: A 72-year-old white male who states he has had lower leg swelling and edema and scrotal swelling for the last 1 week. He denies shortness of breath or chest pain, and states that he has been able to do any vigorous activity that he works out on his workout equipment and nothing has changed. For the last couple of days, he has had increased pain, especially to the left lower extremity where he has been unable to ambulate. He reports he thinks he has had atrial fibrillation all of his life. He had a dual pacemaker placed 8 years ago. He was seen in [address] Hazel and had refused to have an ablation done. He was catheterized at that time in 2016 and was found to have normal coronary arteries. He had an EF of 50-55% with mild left ventricular dysfunction. He reports being off all of his medications including Lasix and hypertension medications for the last year and a half due to losing over 100 pounds while he was in prison and his [facility] doctor in [place], said that he did not need his medications anymore due to the weight loss. PAST MEDICAL HISTORY: Hypertension, which he has not been taking any medications for. He also reported to be in bipolar and that is the only medication he is taking. He does have a dual chamber pacemaker. SOCIAL HISTORY: He does admit to smoking cigarettes occasionally cigars. He states that he stopped smoking 10 years ago, but continues to use oral tobacco. He does drink alcohol 3-4 times a week and states he does live at home alone and recently has not had a vehicle to take [facility] to [facility] in [facility] to get his followup appointments. He did have a normal catheterization in 2016 without any coronary artery disease. ALLERGIES: He has no known drug allergies. REVIEW OF SYSTEMS: He denies any headaches, vision changes, vertigo. He does report having flu-like symptoms a couple of weeks ago and was placed on an albuterol inhaler, steroids and antibiotics, although he does state that he has had the flu-like symptoms in the past several times, but he has never had the lower extremity edema when he has had this cough and symptoms. He denies any increased shortness of breath or chest pain, but does state that about a year ago, he had shortness of breath due to his flu which made him pass out. He denies any palpitations, no chest pain, no chest pressure and no dyspnea on exertion. He reports normal appetite, although he did change his diet, and he is a vegetarian at this time, denies any nausea, vomiting, diarrhea or general weakness. He denies any joint swelling, but he does report the severe lower extremity swelling and scrotal swelling. He denies any seizures, syncope or general weakness. PHYSICAL EXAMINATION: VITAL SIGNS: Blood pressure 120/70, heart rate 80 and paced, respirations 18 unlabored, and 100% SpO2 on room air. HEENT: He is normocephalic, atraumatic. He has carotids +2. I could not hear any bruits. CHEST: Clear to auscultation. He has no rales. He is slightly diminished in bilateral bases and there is no rhonchi or wheezing. He denies any shortness of breath and there is no distress at this time. CARDIOVASCULAR: Reveals a regular rate and rhythm with a normal S1 and S2 and I cannot hear any S4 or S3 sounds. There were no significant murmurs, heaves, thrills, or rubs noted. ABDOMEN: Soft, nontender, bowel sounds throughout and there were no bruits or palpable masses. There is also no umbilical hernia. EXTREMITIES: He has not been able to walk due to the severe swelling. He has been using a cane. He does have 3+ pedal edema to both lower extremities, although left side seems to be worse with increased redness to the left side and very sensitive to touch. He does report that has improved with Lasix on the left side, but still continues to be sensitive. He does have pedal pulses present. He has got good muscle tone. There is no cyanosis and no clubbing. NEUROLOGICAL: Unremarkable. He is alert and oriented and aware of the situation. DIAGNOSTICS: Chest x-ray, he has a dual pacemaker. Patient states it is a [employer] pacemaker. He does have some mild cardiomegaly. EKG is ventricular paced. He has a BNP of 785.6. Initial troponin was elevated at 0.634, the last troponin has gone down to 0.593. CK-MB has also gone down the initial was 9.4, which is high and the second was 7.4, which continues to be high and then the last one was 4.7. His D-dimer was 1.04, sodium 138, potassium 3.6, chloride 104, CO2 of 28, anion gap is 10, BUN is 19, creatinine 0.99, GFR estimated is 74. Glucose 113, calcium 9.4, total bilirubin 2.2, which is elevated and AST 42 which is elevated, alkaline phosphatase is 94. Serum total protein is 6.8, albumin 4.0, globulin 2.8, albumin globulin ratio is 1.4. Thyroid TSH third generation is 1.0427. UA is normal. He did have a vascular ultrasound to the lower extremities that reveals to be normal with no DVT. There is also a CT chest which was normal. IMPRESSION AND PLAN: 1. Congestive heart failure, pedal edema. We will get an echo to determine if this is diastolic dysfunction. 2. Early cellulitis, worse on the left lower extremity than the right. We will continue to monitor and continue to diurese him. 3. Chronic atrial fibrillation. We have consulted to get a pacemaker interrogation. We have also instructed the patient to keep his legs elevated and we will continue diuresing the patient. SHANTHI
[2018-03-10 13:38] LABS: Vancomycin, Trough 21.8 ug/mL
[2018-03-10] MEDS: Atorvastatin Calcium 40 MG TAB PO SCH (21:04)
[2018-03-10] MEDS: Acetaminophen 325 MG TAB PO PRN (21:18)
[2018-03-11 05:32] LABS: Anion Gap 13 mmol/L (10-20); BUN (Urea Nitrogen) 21 mg/dL (8.4-25.7); Calc. Creatinine Clearance 104 mL/min (70-130); Calcium 9.4 mg/dL (7.8-10.44); Carbon Dioxide 30 mmol/L (23-31); Chloride 96 mmol/L (98-107); Estimated GFR-MDRD Greater than 90; Glucose 92 mg/dL (83-110); Potassium 3.7 mmol/L (3.5-5.1); Sodium 135 mmol/L (136-145)
[2018-03-11 05:38] LABS: Band 3 % (5-11); Hemoglobin 14.5 g/dL (14.0-18.0); Lymphocytes 18 % (21-51); MDiff Complete? YES; Macrocytosis SLIGHT = 6-15 cells (100X) (0-5/hpf); Mean Corpuscular HGB CONC 32.4 g/dL (32.0-36.0); Mean Corpuscular Hemoglobin 33.1 pg (27.0-31.0); Mean Platelet Volume 7.7 fL (7.4-10.4); Monocytes 2 % (0-10); Neutrophil 76 % (42-75); PLT Morphology Comment Appears Adequate; Platelet Count 140 thou/uL (130-400); RBC Distribution Width 12.9 % (11.5-14.5); Reactive Lymphocytes 1 % (0-10); White Blood Cell (WBC) Count 7.9 thou/uL (4.8-10.8)
[2018-03-11] MEDS: Furosemide 40 MG/4 ML VIAL SLOW IVP SCH ×2 (06:38→15:10)
[2018-03-11] MEDS: Vancomycin HCl 1.25 GM in Sodium Chloride 0.9% 250 ML 250 ML IVPB SCH ×3 (06:38→21:38)
[2018-03-11] MEDS ORDERED: Metolazone 5 MG TAB PO SCH ×2 (08:33→09:15)
--- NOTE | 2018-03-11 08:39 | PDOC.FM ---
- Subjective Subjective: No acute events overnight. Pt reports his swelling in his legs and scrotum has improved. Reports some scrotal irritation associated with swelling and chafing. Otherwise, denies cp, sob, nvdc. Pain in his leg is improving as well. - Objective Vital Signs & Weight: Vital Signs (12 hours) Temp Pulse Resp BP Pulse Ox 03/11/18 04:00 96.5 F L 125 H 18 118/73 96 03/10/18 21:02 99.4 F 115 H 20 129/94 H 96 Weight Weight 88.314 kg I&O: 03/10/18 03/11/18 03/12/18 06:59 06:59 06:59 Intake Total 820 1690 Output Total 2850 2800 Balance -2030 -1110 Result Diagrams: 03/11/18 04:55 03/11/18 04:55 <Shailesh Zuluaga - Last Filed: 03/11/18 08:36> - Objective Vital Signs & Weight: Vital Signs (12 hours) Temp Pulse Resp BP Pulse Ox 03/11/18 08:42 93 03/11/18 04:00 96.5 F L 125 H 18 118/73 96 Weight Weight 88.314 kg I&O: 03/10/18 03/11/18 03/12/18 06:59 06:59 06:59 Intake Total 820 1690 Output Total 2850 2800 Balance -2030 -1110 Result Diagrams: 03/11/18 04:55 03/11/18 04:55 <[address] - Last Filed: 03/11/18 12:11> Phys Exam - Physical Examination Constitutional: NAD HEENT: PERRLA, sclera anicteric Neck: no nodes, no JVD, supple Respiratory: no wheezing, no rhonchi scattered rales in bases Cardiovascular: RRR, no significant murmur, no rub Gastrointestinal: soft, non-tender, no distention, positive bowel sounds Musculoskeletal: pulses present, edema present 2+ pitting to knees b/l Neurological: non-focal, normal sensation, moves all 4 limbs Psychiatric: normal affect Skin: cap refill <2 seconds Deviation from normal: Erythema worsened from yesterday on LLE. Associated warmth slighlty improve <Shailesh Zuluaga - Last Filed: 03/11/18 08:36> Dx/Plan (1) New onset of congestive heart failure Code(s): I50.9 - HEART FAILURE, UNSPECIFIED Status: Acute (2) Cellulitis and abscess of left leg Code(s): L03.116 - CELLULITIS OF LEFT LOWER LIMB; L02.416 - CUTANEOUS ABSCESS OF LEFT LOWER LIMB Status: Acute (3) Non-ST elevated myocardial infarction Code(s): I21.4 - NON-ST ELEVATION (NSTEMI) MYOCARDIAL INFARCTION Status: Acute (4) Artificial cardiac pacemaker Code(s): Z95.0 - PRESENCE OF CARDIAC PACEMAKER Status: Chronic (5) Atrial fibrillation Code(s): I48.91 - UNSPECIFIED ATRIAL FIBRILLATION Status: Chronic QualifierTitle: Atrial fibrillation type: chronic Qualified Code(s): I48.2 - Chronic atrial fibrillation (6) Bipolar disorder Code(s): F31.9 - BIPOLAR DISORDER, UNSPECIFIED Status: Chronic QualifierTitle: Active/Remission status: currently active Current episode severity: unspecified - Plan Plan: 1) New onset CHF -Cont asa, statin -Pacer interrogation was normal -Echo showed EF of 30-35% -Continue medical management and strict Is/Os with continued diuresis - Add metolazone QAM in addition to lasix. Fluid and salt restriction diet. -Cards consulted, appreciate recs 2) NSTEMI- likely demand ischemia from #1. asymptomatic from an ACS standpoint. - Cardiac enzymes trended down - Will DC therapeutic lovenox - PPX lovenox continued 3) LLE Cellulitis- likely overlying cellulitis in light of increased LE edema and stasis dermatitis. -symptomatic improvement comp[ared to yesterday - will cotinue IV abx, in addition to diuresis -rocephin DC'd yesterday, pt has mildly worsening erythema, will resume rocephin in addition to vancomycin 4) Afib with pacer- interrogate pacer ([employer]) and assure function. -normal pacer interoogation -cardiology consulted, appreciate recs 5) Bipolar disorder- continue home meds. Dispo: Stable. Pt continues to diurese. Medical management with IV lasix, BB, caitlyn-i and continued IV abx therapy for LLE cellulitis. Will add metolazone for increased diuretic effect. <Shailesh Zuluaga - Last Filed: 03/11/18 08:36> Attending Addendum - Attending Addendum Date/Time: 03/11/18 1211 I personally evaluated the patient and discussed the management with Dr. Zuluaga. I agree with the History, Examination, Assessment and Plan documented above with any addition or exceptions noted below. <Mason St - Last Filed: 03/11/18 12:11>
[2018-03-11] MEDS: Docusate 100 MG CAP PO SCH ×2 (08:40→21:38)
[2018-03-11] MEDS: buPROPion HCl 100 MG TAB PO SCH ×2 (08:40→21:37)
[2018-03-11] MEDS: Carvedilol 3.125 MG TAB PO SCH ×2 (08:41→18:52)
[2018-03-11] MEDS: Divalproex Sodium DR 500 MG TAB PO SCH ×4 (08:41→21:37)
[2018-03-11] MEDS: Lisinopril 2.5 MG TAB PO SCH (08:42)
[2018-03-11 09:18] LABS: ALT (SGPT) 9 U/L (8-55); AST (SGOT) 28 U/L (5-34); Albumin 3.6 g/dL (3.4-4.8); Alkaline Phosphatase 89 U/L (40-150); Bilirubin, Direct 1.2 mg/dL (0.1-0.3); Bilirubin, Total 2.2 mg/dL (0.2-1.2); Protein, Total 6.6 g/dL (5.8-8.1)
[2018-03-11] MEDS: cefTRIAXone\\ROCEPHIN 1 GM in Sodium Chloride 0.9% 100 ML IVPB SCH (09:32)
[2018-03-11] MEDS: Enoxaparin Sodium 40 MG/0.4 ML SYRINGE SC SCH (09:32)
[2018-03-11] MEDS: Acetaminophen 325 MG TAB PO PRN ×2 (15:25→21:55)
[2018-03-11] MEDS: Atorvastatin Calcium 40 MG TAB PO SCH (21:37)
[2018-03-12] MEDS ORDERED: OLANZapine 10 MG VIAL IM SCH (05:15)
[2018-03-12 05:29] LABS: Anion Gap 13 mmol/L (10-20); BUN (Urea Nitrogen) 19 mg/dL (8.4-25.7); Calc. Creatinine Clearance 89 mL/min (70-130); Calcium 9.3 mg/dL (7.8-10.44); Carbon Dioxide 34 mmol/L (23-31); Chloride 91 mmol/L (98-107); Estimated GFR-MDRD 79; Glucose 84 mg/dL (83-110); Potassium 3.5 mmol/L (3.5-5.1); Sodium 134 mmol/L (136-145)
[2018-03-12] MEDS: Vancomycin HCl 1.25 GM in Sodium Chloride 0.9% 250 ML 250 ML IVPB SCH (05:35)
[2018-03-12 05:36] LABS: Band 1 % (5-11); Eosinophils 1 % (0-10); Hemoglobin 14.2 g/dL (14.0-18.0); Lymphocytes 19 % (21-51); MDiff Complete? YES; Mean Corpuscular HGB CONC 32.7 g/dL (32.0-36.0); Mean Corpuscular Hemoglobin 33.2 pg (27.0-31.0); Mean Platelet Volume 7.5 fL (7.4-10.4); Monocytes 5 % (0-10); Neutrophil 74 % (42-75); PLT Morphology Comment Appears Adequate; Platelet Count 147 thou/uL (130-400); RBC Distribution Width 12.9 % (11.5-14.5); RBC Morphology Normal; Red Blood Cell (RBC) Count 4.27 mill/uL (4.70-6.10); White Blood Cell (WBC) Count 6.5 thou/uL (4.8-10.8)
[2018-03-12] MEDS: Furosemide 40 MG/4 ML VIAL SLOW IVP SCH ×2 (05:36→13:21)
--- NOTE | 2018-03-12 06:22 | PDOC.FM ---
Addendum entered and electronically signed by Dom Briggs MD 03/12/18 07:43: Will stop vancomycin and transition to clindamycin for cellulitus Stopped metolazone 2/2 increasing bicarb and low Cl, diuresising well, 2L yesterday, continue with lasix at 40mg IV BID Original Note: - Subjective Subjective: This morning the patient reports that he is feeling well overall. He denies any respiratory distress, fevers, chills, or sweats. He states that he started walking the hallway yesterday. He is anxious to go home but understands that he will need to get the lifevest before he can go. - Objective Vital Signs & Weight: Vital Signs (12 hours) Temp Pulse Resp BP Pulse Ox 03/12/18 03:30 97.5 F L 80 20 99/56 L 97 03/11/18 20:07 98.0 F 96 20 90/60 95 Weight Weight 88.314 kg I&O: 03/10/18 03/11/18 03/12/18 06:59 06:59 06:59 Intake Total 820 1690 1050 Output Total 2850 2800 3000 Balance -2029 -1109 -1950 Result Diagrams: 03/12/18 04:52 03/12/18 04:52 <Dom Briggs - Last Filed: 03/12/18 07:16> - Objective Vital Signs & Weight: Vital Signs (12 hours) Temp Pulse Resp BP Pulse Ox 03/12/18 03:30 97.5 F L 80 20 99/56 L 97 Weight Weight 192 lb 8 oz I&O: 03/11/18 03/12/18 03/13/18 06:59 06:59 06:59 Intake Total 1690 1050 Output Total 2800 3000 Balance -1950 Result Diagrams: 03/12/18 04:52 03/12/18 04:52 <Kyle Cohen - Last Filed: 03/12/18 09:35> Phys Exam - Physical Examination Constitutional: NAD HEENT: PERRLA, moist MMs Respiratory: no wheezing, clear to auscultation bilateral Cardiovascular: RRR, no significant murmur, no rub Gastrointestinal: soft, non-tender, no distention, positive bowel sounds Musculoskeletal: pulses present +2 pitting edema to the mid calf, no warmth to touch, mild tenderness redness to mid-calf Neurological: non-focal, moves all 4 limbs Psychiatric: normal affect, A&O x 3 Skin: no rash, cap refill <2 seconds <Dom Briggs - Last Filed: 03/12/18 07:16> Dx/Plan (1) Cellulitis and abscess of left leg Code(s): L03.116 - CELLULITIS OF LEFT LOWER LIMB; L02.416 - CUTANEOUS ABSCESS OF LEFT LOWER LIMB Status: Acute (2) New onset of congestive heart failure Code(s): I50.9 - HEART FAILURE, UNSPECIFIED Status: Acute (3) Non-ST elevated myocardial infarction Code(s): I21.4 - NON-ST ELEVATION (NSTEMI) MYOCARDIAL INFARCTION Status: Acute (4) Artificial cardiac pacemaker Code(s): Z95.0 - PRESENCE OF CARDIAC PACEMAKER Status: Chronic (5) Atrial fibrillation Code(s): I48.91 - UNSPECIFIED ATRIAL FIBRILLATION Status: Chronic QualifierTitle: Atrial fibrillation type: chronic Qualified Code(s): I48.2 - Chronic atrial fibrillation (6) Bipolar disorder Code(s): F31.9 - BIPOLAR DISORDER, UNSPECIFIED Status: Chronic QualifierTitle: Active/Remission status: currently active Current episode severity: unspecified (7) Anticoagulant long-term use Code(s): 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 -Cards consulted, appreciate recs # NSTEMI- likely demand ischemia from #1. asymptomatic from an ACS standpoint. - Cardiac enzymes trended down - No chest pain, or SOB w/ exertion # LLE Cellulitis- likely overlying cellulitis in light of increased LE edema and stasis dermatitis. - pitting to mid-calf rather than as was yesterday - will cotinue IV abx, in addition to diuresis -rocephin DC'd 5/31, erythema worsed 03/11 so was resumed - laura martínez # Afib with pacer- interrogate pacer ([employer]) and assure function. -normal pacer interrogation -cardiology consulted, appreciate recs - no events on tele overnight # Bipolar disorder- continue home meds. Dispo: Stable. barriers to d/c: lifevest, diuresis. <Dom Briggs - Last Filed: 03/12/18 07:16> Attending Addendum - Attending Addendum Date/Time: 03/12/18 7695 I personally evaluated the patient and discussed the management with Dr. Briggs I agree with the History, Examination, Assessment and Plan documented above with any addition or exceptions noted below. Continue would care, diuresis for new onset CHF-Systolic type. <Kyle Cohen - Last Filed: 03/12/18 09:35>
[2018-03-12] MEDS ORDERED: Metolazone 5 MG TAB PO SCH (08:30)
[2018-03-12] MEDS ORDERED: Clindamycin 150 MG CAP PO SCH ×2 (08:30→09:00)
[2018-03-12] MEDS ORDERED: Furosemide 40 MG/4 ML VIAL SLOW IVP SCH (08:30)
[2018-03-12] MEDS ORDERED: Furosemide 20 MG TAB PO SCH (09:00)
[2018-03-12] MEDS ORDERED: Furosemide 80 MG TAB PO SCH (09:00)
[2018-03-12] MEDS: Carvedilol 3.125 MG TAB PO SCH ×2 (10:01→18:37)
[2018-03-12] MEDS: Lisinopril 2.5 MG TAB PO SCH (10:01)
[2018-03-12] MEDS: Docusate 100 MG CAP PO SCH ×2 (10:02→20:39)
[2018-03-12] MEDS: Enoxaparin Sodium 40 MG/0.4 ML SYRINGE SC SCH (10:03)
[2018-03-12] MEDS: Divalproex Sodium DR 500 MG TAB PO SCH ×4 (10:03→20:39)
[2018-03-12] MEDS: cefTRIAXone\\ROCEPHIN 1 GM in Sodium Chloride 0.9% 100 ML IVPB SCH (12:00)
[2018-03-12] MEDS: Clindamycin 150 MG CAP PO SCH ×3 (13:19→23:30)
[2018-03-12] MEDS: buPROPion HCl 100 MG TAB PO SCH ×2 (13:20→20:38)
--- NOTE | 2018-03-12 20:02 | PDOC.CTH ---
Cardiology Progress Note - Subjective Doing better. breathing is at baseline. - Objective Vital Signs Temp Pulse Resp BP Pulse Ox 03/12/18 16:00 97.5 F L 82 12 103/63 95 03/12/18 12:00 97.7 F 88 12 127/68 03/12/18 10:01 80 Weight 192 lb 8 oz 03/11/18 03/12/18 03/13/18 06:59 06:59 06:59 Intake Total 1690 1050 200 Output Total 2800 3000 3000 Balance -1110 -1950 -2800 - Physical Examination General/Neuro: NAD Neck: no JVD present Lungs: unlabored respirations Heart: other: (Irreg) Abdomen: NT/ND Extremities: + edema B (2+ with erythema.) - Telemetry Telemetry Rhythm: Afib - Labs Result Diagrams: 03/12/18 04:52 03/12/18 04:52 Troponin/CKMB CK-MB (CK-2) 4.7 ng/mL (0-6.6) 03/09/18 11:52 Troponin I 0.593 ng/mL (< 0.028) H* 03/09/18 11:52 - Assessment/Plan 1. Chronic afib. 2. Dilated CM EF at 25-30%. 3. LE celulitis. PLAN: - Continue IV lasix - Abx per primary team - Lifevest before discharge. - BB and ACEI up titrate as BP allows.
[2018-03-12] MEDS: Atorvastatin Calcium 40 MG TAB PO SCH (20:38)
[2018-03-13 05:44] LABS: BUN (Urea Nitrogen) 22 mg/dL (8.4-25.7); Calc. Creatinine Clearance 76 mL/min (70-130); Estimated GFR-MDRD 66; Glucose 129 mg/dL (83-110)
[2018-03-13] MEDS: Clindamycin 150 MG CAP PO SCH ×4 (05:44→23:08)
[2018-03-13] MEDS: Furosemide 40 MG/4 ML VIAL SLOW IVP SCH (05:44)
[2018-03-13 05:53] LABS: Anion Gap 16 mmol/L (10-20); Carbon Dioxide 35 mmol/L (23-31); Chloride 88 mmol/L (98-107); Potassium 3.1 mmol/L (3.5-5.1); Sodium 136 mmol/L (136-145)
[2018-03-13 06:17] LABS: Band 2 % (5-11); Hemoglobin 13.4 g/dL (14.0-18.0); Lymphocytes 16 % (21-51); MDiff Complete? YES; Macrocytosis SLIGHT = 6-15 cells (100X) (0-5/hpf); Mean Corpuscular HGB CONC 31.5 g/dL (32.0-36.0); Mean Corpuscular Hemoglobin 31.9 pg (27.0-31.0); Mean Platelet Volume 7.4 fL (7.4-10.4); Monocytes 5 % (0-10); Neutrophil 76 % (42-75); PLT Morphology Comment Appears Adequate; Platelet Count 151 thou/uL (130-400); RBC Distribution Width 12.9 % (11.5-14.5); Reactive Lymphocytes 1 % (0-10); White Blood Cell (WBC) Count 4.2 thou/uL (4.8-10.8)
--- NOTE | 2018-03-13 07:20 | PDOC.FM ---
- Subjective Subjective: This morning patient states he is feeling "almost back to normal." He is very happy with his ability to walk 2-3 times yesterday. Denies fevers, chills, sweats. N/V/D. Denies any pain at time of visit. - Objective Vital Signs & Weight: Vital Signs (12 hours) Temp Pulse Resp BP Pulse Ox 03/13/18 04:16 97.1 F L 97 18 124/78 95 03/13/18 00:00 98.7 F 72 18 107/60 96 03/12/18 20:00 96.6 F L 80 18 155/67 H 100 Weight Weight 81.737 kg I&O: 03/12/18 03/13/18 03/14/18 06:59 06:59 06:59 Intake Total 1050 200 Output Total 3000 3000 Balance -1950 -2800 Result Diagrams: 03/13/18 05:00 03/13/18 05:00 <Dom Briggs - Last Filed: 03/13/18 07:18> - Objective Vital Signs & Weight: Vital Signs (12 hours) Temp Pulse Resp BP BP Pulse Ox 03/13/18 09:20 112/74 03/13/18 09:14 84 112/74 03/13/18 08:50 97.7 F 84 17 112/74 97 03/13/18 04:16 97.1 F L 97 18 124/78 95 03/13/18 00:00 98.7 F 72 18 107/60 96 Weight Weight 180 lb 3.2 oz I&O: 03/12/18 03/13/18 03/14/18 06:59 06:59 06:59 Intake Total 1050 200 Output Total 3000 3000 Balance -1949 -2800 Result Diagrams: 03/13/18 05:00 03/13/18 05:00 <Kyle Cohen - Last Filed: 03/13/18 09:35> Phys Exam - Physical Examination Constitutional: NAD HEENT: PERRLA, moist MMs Neck: no nodes, full ROM Respiratory: no wheezing, clear to auscultation bilateral Cardiovascular: no significant murmur irregularly irregular Gastrointestinal: soft, non-tender, no distention, positive bowel sounds Musculoskeletal: pulses present +1 pitting edema to the mid-calf bilaterally Neurological: non-focal, moves all 4 limbs Psychiatric: normal affect, A&O x 3 Skin: cap refill <2 seconds Deviation from normal: mild redness worse on the L <MarlenajenniferDom - Last Filed: 03/13/18 07:18> Dx/Plan (1) Cellulitis and abscess of left leg Code(s): L03.116 - CELLULITIS OF LEFT LOWER LIMB; L02.416 - CUTANEOUS ABSCESS OF LEFT LOWER LIMB Status: Acute (2) New onset of congestive heart failure Code(s): I50.9 - HEART FAILURE, UNSPECIFIED Status: Acute (3) Non-ST elevated myocardial infarction Code(s): I21.4 - NON-ST ELEVATION (NSTEMI) MYOCARDIAL INFARCTION Status: Acute (4) Artificial cardiac pacemaker Code(s): Z95.0 - PRESENCE OF CARDIAC PACEMAKER Status: Chronic (5) Atrial fibrillation Code(s): I48.91 - UNSPECIFIED ATRIAL FIBRILLATION Status: Chronic QualifierTitle: Atrial fibrillation type: chronic Qualified Code(s): I48.2 - Chronic atrial fibrillation (6) Bipolar disorder Code(s): F31.9 - BIPOLAR DISORDER, UNSPECIFIED Status: Chronic QualifierTitle: Active/Remission status: currently active Current episode severity: unspecified (7) Anticoagulant long-term use 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 - increased Carvedilol to 6.25 BID on 03/13 -Cards consulted, appreciate recs # Metabolic alkalosis - bicarb to 35, cl to 88 - likely 2/2 aggressive diuresis - will continue to monitor # NSTEMI- likely demand ischemia from #1. asymptomatic from an ACS standpoint. - Cardiac enzymes trended down - No chest pain, or SOB w/ exertion # LLE Cellulitis- likely overlying cellulitis in light of increased LE edema and stasis dermatitis. - +1 pitting to mid-calf, was +2 to knee on 03/11 - will cotinue IV abx, in addition to diuresis -rocephin DC'd 03/10, erythema worsened 03/11 so was resumed - rocephin, clindamycin # Afib with pacer- interrogate pacer ([employer]) and assure function. -normal pacer interrogation -cardiology consulted, appreciate recs - few runs of atrial flutter overnight, BB increased # Bipolar disorder - continue home meds. - 5mg of Zyprexa overly sedated the patient on 03/12 - plan for 2.5 mg if needed for breakthrough gillian Dispo: Stable. ready for d/c pending lifevest and cardiology approval <Dom Briggs - Last Filed: 03/13/18 07:18> Attending Addendum - Attending Addendum Date/Time: 03/13/18 8734 I personally evaluated the patient and discussed the management with Dr. Briggs. I agree with the History, Examination, Assessment and Plan documented above with any addition or exceptions noted below. continue iv diuresis, iv antibiotics. <Kyle Cohen - Last Filed: 03/13/18 09:35>
[2018-03-13] MEDS: Docusate 100 MG CAP PO SCH ×2 (09:13→20:51)
[2018-03-13] MEDS: Divalproex Sodium DR 500 MG TAB PO SCH ×4 (09:14→20:51)
[2018-03-13] MEDS: Lisinopril 2.5 MG TAB PO SCH (09:14)
[2018-03-13] MEDS: cefTRIAXone\\ROCEPHIN 1 GM in Sodium Chloride 0.9% 100 ML IVPB SCH (09:15)
[2018-03-13] MEDS: Enoxaparin Sodium 40 MG/0.4 ML SYRINGE SC SCH (09:17)
[2018-03-13] MEDS: Carvedilol 6.25 MG TAB PO SCH ×2 (09:20→16:16)
[2018-03-13] MEDS: buPROPion HCl 100 MG TAB PO SCH ×2 (09:20→20:51)
--- NOTE | 2018-03-13 10:01 | PDOC.EVN ---
Event Note - Event Note Event Note: switched to lasix PO 40mg BID and Kelfex 250mg q6hr + clindamycin in anticipation of d/c once lifevest obtained pending cardiology approval
--- NOTE | 2018-03-13 16:06 | PDOC.CTH ---
Cardiology Progress Note - Subjective Doing much better overall. Walking around without issues. - Objective Vital Signs Temp Pulse Resp BP BP Pulse Ox 03/13/18 12:24 97.7 F 79 18 107/70 98 03/13/18 09:20 112/74 03/13/18 09:14 84 112/74 03/13/18 08:50 97.7 F 84 17 112/74 97 03/13/18 04:16 97.1 F L 97 18 124/78 95 Weight 180 lb 3.2 oz 03/12/18 03/13/18 03/14/18 06:59 06:59 06:59 Intake Total 1050 200 Output Total 3000 3000 Balance -1950 -2800 - Physical Examination General/Neuro: alert & oriented x3, NAD Neck: no JVD present Lungs: unlabored respirations Heart: RRR Abdomen: NT/ND Extremities: + edema B (1+) - Telemetry Telemetry Rhythm: NSR - Labs Result Diagrams: 03/13/18 05:00 03/13/18 05:00 Troponin/CKMB CK-MB (CK-2) 4.7 ng/mL (0-6.6) 03/09/18 11:52 Troponin I 0.593 ng/mL (< 0.028) H* 03/09/18 11:52 - Assessment/Plan 1. Chronic afib. 2. Dilated CM EF at 25-30%. 3. LE celulitis. PLAN: - Switch to PO lasix. - Abx per primary team - Replace K - Lifevest before discharge. - BB and ACEI up titrate as BP allows.
[2018-03-13] MEDS: Furosemide 40 MG TAB PO SCH (16:17)
[2018-03-13] MEDS: Cephalexin 250 MG CAP PO SCH ×2 (18:48→23:10)
[2018-03-13] MEDS: Atorvastatin Calcium 40 MG TAB PO SCH (20:51)
--- NOTE | 2018-03-13 20:57 | PDOC.EVN ---
Event Note - Event Note Event Note: Transfer of Care note Admitting Attending: Dr Fran Kwong Hospital course: 72 yo CM with pmhx afib s/p [employer] dual-chamber pacer, and bipolar disorder presented to [facility] c/o left leg pain. Pt endorsed a 1 week hx of increasing b/l LE edema (Left > Right) and scrotal swelling. Denied any h/o orthopnea, PND, or SOB; but did say he had been "expectorating" and coughing more than normal. Denied fevers, chills, abd pain, n/v/d. No chest pain, palpitations, diaphoresis , lightheadedness. At baseline, pt endorses a healthy diet and regular CV exercise including walking 3-4 miles daily. Cardiac cath in 2016 negative for CAD, EF at that time noted to be 50-55%. Echo on this admission showed EF 30-35%, doppler showed no DVT, and pacer interrogation was normal. Patient was treat with antibiotic for cellulitus vs stasis dermatitis. Never spiked a fever during the admission. He was diuresed aggressively and lost over 6 lbs during the course of the admission. The edema in the legs improved from +2 pitting edema above the legs to +1 at the mid- calfs. The patient was fitted for a lifevest and will follow-up with Cardiology at the [facility] for implantation of a ICD. Follow up: patient should f/u with PCP in 2-3 days. Evaluate fluid status as well as blood pressure 2/2 increasing HTN meds. F/u with Cardiology at [facility] for evaluation for placement of ICD.
[2018-03-13] MEDS: Acetaminophen 325 MG TAB PO PRN (23:10)
[2018-03-14] MEDS: Clindamycin 150 MG CAP PO SCH ×3 (05:02→17:10)
[2018-03-14] MEDS: Cephalexin 250 MG CAP PO SCH ×3 (05:02→17:10)
[2018-03-14 06:06] LABS: Band 1 % (5-11); Eosinophils 1 % (0-10); Lymphocytes 43 % (21-51); MDiff Complete? YES; Mean Corpuscular HGB CONC 31.8 g/dL (32.0-36.0); Mean Corpuscular Hemoglobin 32.5 pg (27.0-31.0); Mean Platelet Volume 7.8 fL (7.4-10.4); Metamyelocyte 1 % (0-0); Monocytes 12 % (0-10); Neutrophil 42 % (42-75); PLT Morphology Comment Appears Adequate; Platelet Count 172 thou/uL (130-400); RBC Distribution Width 12.7 % (11.5-14.5)
[2018-03-14 06:08] LABS: BUN (Urea Nitrogen) 21 mg/dL (8.4-25.7); Calc. Creatinine Clearance 71 mL/min (70-130); Calcium 9.4 mg/dL (7.8-10.44); Estimated GFR-MDRD 66; Glucose 110 mg/dL (83-110)
[2018-03-14 06:17] LABS: Anion Gap 19 mmol/L (10-20); Carbon Dioxide 34 mmol/L (23-31); Chloride 87 mmol/L (98-107); Potassium 3.6 mmol/L (3.5-5.1); Sodium 136 mmol/L (136-145)
--- NOTE | 2018-03-14 06:40 | PDOC.FM ---
- Subjective Subjective: Patient is up shaving his face this morning. He reports no pain. He expresses significant improvement in LE edema and SOB. He is wearing compression stockings and awaiting life vest. - Objective MAR Reviewed: Yes Vital Signs & Weight: Vital Signs (12 hours) Temp Pulse Resp BP BP Pulse Ox 03/14/18 04:53 97.6 F 82 20 166/79 H 98 03/14/18 00:00 95.7 F L 80 18 121/81 97 03/13/18 20:00 97.4 F L 84 20 110/61 94 L Weight Weight 81.737 kg I&O: 03/12/18 03/13/18 03/14/18 06:59 06:59 06:59 Intake Total 6752 306 2225 Output Total 3000 3000 3530 Balance -1949 Result Diagrams: 03/14/18 05:10 03/14/18 05:10 <Stormy Moss - Last Filed: 03/14/18 12:38> - Objective Vital Signs & Weight: Vital Signs (12 hours) Temp Pulse Pulse Pulse Resp BP BP 03/14/18 17:11 105/60 03/14/18 15:59 97.9 F 81 16 03/14/18 11:53 97.9 F 80 16 03/14/18 10:58 82 84 106/76 03/14/18 08:59 108/72 03/14/18 08:58 81 108/72 03/14/18 08:00 98.3 F 81 18 BP BP Pulse Ox Pulse Ox Pulse Ox 03/14/18 17:11 03/14/18 15:59 96/59 L 100 03/14/18 11:53 99/62 98 03/14/18 10:58 115/78 98 96 03/14/18 08:59 03/14/18 08:58 03/14/18 08:00 108/72 95 Weight Weight 81.737 kg I&O: 03/13/18 03/14/18 03/15/18 06:59 06:59 06:59 Intake Total 200 1500 1200 Output Total 3000 3530 187 -2029 -675 Result Diagrams: 03/14/18 05:10 03/14/18 05:10 <Maria G Cavazos - Last Filed: 03/14/18 19:34> Phys Exam - Physical Examination Constitutional: NAD HEENT: moist MMs Respiratory: no wheezing, no rales, clear to auscultation bilateral Cardiovascular: RRR systolic murmur Gastrointestinal: soft, non-tender 1+ edema bilaterally (L>R) up to knee Neurological: moves all 4 limbs Psychiatric: normal affect, A&O x 3 Deviation from normal: erythema of L LE <Stormy Moss - Last Filed: 03/14/18 12:38> Dx/Plan (1) New onset of congestive heart failure Code(s): I50.9 - HEART FAILURE, UNSPECIFIED Status: Acute (2) Non-ST elevated myocardial infarction Code(s): I21.4 - NON-ST ELEVATION (NSTEMI) MYOCARDIAL INFARCTION Status: Acute (3) Cellulitis and abscess of left leg Code(s): L03.116 - CELLULITIS OF LEFT LOWER LIMB; L02.416 - CUTANEOUS ABSCESS OF LEFT LOWER LIMB Status: Acute (4) Artificial cardiac pacemaker Code(s): Z95.0 - PRESENCE OF CARDIAC PACEMAKER Status: Chronic (5) HTN (hypertension) Code(s): I10 - ESSENTIAL (PRIMARY) HYPERTENSION Status: Chronic QualifierTitle: Hypertension type: essential hypertension Qualified Code( s): I10 - Essential (primary) hypertension (6) Bipolar disorder Code(s): F31.9 - BIPOLAR DISORDER, UNSPECIFIED Status: Chronic QualifierTitle: Active/Remission status: currently active Current episode severity: unspecified - Plan Plan: # New onset CHF -Cont asa, statin - down 6kg from admission -Pacer interrogation was normal -Echo showed EF of 30-35% - Cont lasix 40mg BID -Fluid and salt restriction diet. - increased Carvedilol to 6.25 BID on 03/13 - will need dual pacer, [facility] - awaiting lifevest # Metabolic alkalosis - bicarb to 35, cl to 88 - likely 2/2 aggressive diuresis - will continue to monitor # NSTEMI- likely demand ischemia from #1. asymptomatic from an ACS standpoint. - Cardiac enzymes trended down - No chest pain, or SOB w/ exertion # LLE Cellulitis- likely overlying cellulitis in light of increased LE edema and stasis dermatitis. - +1 pitting to mid-calf, was +2 to knee on 03/11 - on PO abx, continue for 7 day course, to be d/c'd on 03/15 -rocephin DC'd 03/10, erythema worsened 03/11 so was resumed # Afib with pacer- interrogated pacer ([employer]) -normal pacer interrogation -cardiology consulted, appreciate recs - NSR # Bipolar disorder - continue home meds. - 5mg of Zyprexa overly sedated the patient on 03/12 - plan for 2.5 mg if needed for breakthrough gillian Dispo: Stable. ready for d/c pending lifevest and cardiology approval <Stormy Moss - Last Filed: 03/14/18 12:38> Attending Addendum - Attending Addendum Date/Time: 03/14/181932 I personally evaluated the patient and discussed the management with Dr. Moss. I agree with the History, Examination, Assessment and Plan documented above with any addition or exceptions noted below. Pt is waiting on a life vest. His plan after getting the life vest is to d/c and f[facility]u [facility] get [facility] dual defibrillator/pacemaker <Maria G Cavazos - Last Filed: 03/14/18 19:34>
[2018-03-14] MEDS: buPROPion HCl 100 MG TAB PO SCH ×2 (08:57→20:23)
[2018-03-14] MEDS: Lisinopril 2.5 MG TAB PO SCH (08:58)
[2018-03-14] MEDS: Enoxaparin Sodium 40 MG/0.4 ML SYRINGE SC SCH (08:59)
[2018-03-14] MEDS: Furosemide 40 MG TAB PO SCH ×2 (08:59→14:17)
[2018-03-14] MEDS: Docusate 100 MG CAP PO SCH ×2 (08:59→20:22)
[2018-03-14] MEDS: Carvedilol 6.25 MG TAB PO SCH ×2 (08:59→17:11)
[2018-03-14] MEDS: Divalproex Sodium DR 500 MG TAB PO SCH ×4 (08:59→20:22)
[2018-03-14] MEDS: Atorvastatin Calcium 40 MG TAB PO SCH (20:22)
[2018-03-15] MEDS: Clindamycin 150 MG CAP PO SCH ×2 (00:03→05:27)
[2018-03-15] MEDS: Cephalexin 250 MG CAP PO SCH ×2 (00:03→05:27)
[2018-03-15 05:51] LABS: BUN (Urea Nitrogen) 20 mg/dL (8.4-25.7); Calc. Creatinine Clearance 68 mL/min (70-130); Calcium 9.7 mg/dL (7.8-10.44); Estimated GFR-MDRD 61; Glucose 130 mg/dL (83-110)
[2018-03-15 06:00] LABS: Anion Gap 14 mmol/L (10-20); Carbon Dioxide 40 mmol/L (23-31); Chloride 86 mmol/L (98-107); Potassium 3.7 mmol/L (3.5-5.1); Sodium 136 mmol/L (136-145)
[2018-03-15 06:32] LABS: Hemoglobin 14.8 g/dL (14.0-18.0); Mean Corpuscular HGB CONC 32.5 g/dL (32.0-36.0); Mean Corpuscular Hemoglobin 32.9 pg (27.0-31.0); Mean Platelet Volume 6.9 fL (7.4-10.4); Platelet Count 183 thou/uL (130-400); RBC Distribution Width 12.5 % (11.5-14.5); Red Blood Cell (RBC) Count 4.51 mill/uL (4.70-6.10); White Blood Cell (WBC) Count 4.1 thou/uL (4.8-10.8)
--- NOTE | 2018-03-15 07:37 | PDOC.FM ---
Addendum entered and electronically signed by Stormy Moss DO 03/15/18 09:29: Addendum: DAISY: -likely 2/2 diuresis, will follow outpatient Original Note: - Subjective Subjective: Patient is doing well this morning. He is dressed and walking around his room. He is anxiously awaiting the time he gets to go home. He reports improved swelling overnight, decreased pain in his legs, and decreased redness in his legs. NAEO. - Objective MAR Reviewed: Yes Vital Signs & Weight: Vital Signs (12 hours) Temp Pulse Resp BP Pulse Ox 03/15/18 04:00 98.4 F 82 18 117/77 03/14/18 20:00 97.6 F 79 20 119/63 96 Weight Weight 84.822 kg I&O: 03/14/18 03/15/18 03/16/18 06:59 06:59 06:59 Intake Total 1500 1784 Output Total 3530 2425 Balance -2029 -779 Result Diagrams: 03/15/18 05:28 03/15/18 05:28 <Stormy Moss - Last Filed: 03/15/18 09:23> - Objective Vital Signs & Weight: Vital Signs (12 hours) Temp Pulse Resp BP BP BP Pulse Ox 03/15/18 10:14 80 126/91 H 03/15/18 07:30 97.8 F 80 22 H 96 03/15/18 07:15 97.8 F 80 22 H 126/91 H 96 03/15/18 04:00 98.4 F 82 18 117/77 Weight Weight 84.822 kg I&O: 03/14/18 03/15/18 03/16/18 06:59 06:59 06:59 Intake Total 1500 1784 Output Total 3530 2425 Balance -2029 -80 Result Diagrams: 03/15/18 05:28 03/15/18 05:28 <Maria G Cavazos - Last Filed: 03/15/18 14:36> Phys Exam - Physical Examination Constitutional: NAD HEENT: moist MMs, sclera anicteric Respiratory: no wheezing, no rales, clear to auscultation bilateral Cardiovascular: RRR, no significant murmur 1+ pitting edema in L leg predominately up to mid calf, improved erythema Neurological: moves all 4 limbs Psychiatric: A&O x 3 <Stormy Moss - Last Filed: 03/15/18 09:23> Dx/Plan (1) New onset of congestive heart failure Code(s): I50.9 - HEART FAILURE, UNSPECIFIED Status: Acute (2) Non-ST elevated myocardial infarction Code(s): I21.4 - NON-ST ELEVATION (NSTEMI) MYOCARDIAL INFARCTION Status: Acute (3) Cellulitis and abscess of left leg Code(s): L03.116 - CELLULITIS OF LEFT LOWER LIMB; L02.416 - CUTANEOUS ABSCESS OF LEFT LOWER LIMB Status: Acute (4) Artificial cardiac pacemaker Code(s): Z95.0 - PRESENCE OF CARDIAC PACEMAKER Status: Chronic (5) HTN (hypertension) Code(s): I10 - ESSENTIAL (PRIMARY) HYPERTENSION Status: Chronic QualifierTitle: Hypertension type: essential hypertension Qualified Code( s): I10 - Essential (primary) hypertension (6) Bipolar disorder Code(s): F31.9 - BIPOLAR DISORDER, UNSPECIFIED Status: Chronic QualifierTitle: Active/Remission status: currently active Current episode severity: unspecified - Plan Plan: # New onset CHF -much improved since admission, continue PO lasix and fluid restriction -Cont asa, statin -Echo showed EF of 30-35%, awaiting lifevest and [facility] once discharged -continue carvedilol # Metabolic alkalosis - bicarb to 40, cl to 86 - likely 2/2 aggressive diuresis - will continue to monitor # NSTEMI- likely demand ischemia from #1. asymptomatic from an ACS standpoint. - Cardiac enzymes trended down - No chest pain, or SOB w/ exertion # LLE Cellulitis- likely overlying cellulitis in light of increased LE edema and stasis dermatitis, resolved - completed abx regimen, much improved from admission # Afib with pacer- interrogated pacer ([employer]) -normal pacer interrogation - [id number] -4, start anticoagulation with xarelto # Bipolar disorder - continue home meds. - 5mg of Zyprexa overly sedated the patient on 03/12 - plan for 2.5 mg if needed for breakthrough gillian Dispo: Stable. ready for d/c pending lifevest <Stormy Moss - Last Filed: 03/15/18 09:23> Attending Addendum - Attending Addendum Date/Time: 03/15/18 2621 I personally evaluated the patient and discussed the management with Dr. Moss. I agree with the History, Examination, Assessment and Plan documented above with any addition or exceptions noted below. The patient received his life vest this morning. Bicarb 40. will give dose of acetazolamide and recheck bmp. If improving, likely d/c home with close follow- up. <Maria G Cavazos - Last Filed: 03/15/18 14:36>
[2018-03-15 08:47] LABS: Eosinophils 1 % (0-10); Lymphocytes 24 % (21-51); MDiff Complete? YES; Macrocytosis SLIGHT = 6-15 cells (100X) (0-5/hpf); Monocytes 8 % (0-10); Neutrophil 46 % (42-75); PLT Morphology Comment Appears Adequate; Reactive Lymphocytes 19 % (0-10)
[2018-03-15] MEDS ORDERED: Rivaroxaban 10 MG TAB PO SCH (09:00)
[2018-03-15] MEDS ORDERED: AcetaZOLAMIDE ER 500 MG CAP PO SCH (10:00)
[2018-03-15] MEDS: Lisinopril 2.5 MG TAB PO SCH (10:14)
[2018-03-15] MEDS: Carvedilol 6.25 MG TAB PO SCH ×2 (10:14→17:18)
[2018-03-15] MEDS: Divalproex Sodium DR 500 MG TAB PO SCH ×3 (10:14→17:18)
[2018-03-15] MEDS: Furosemide 40 MG TAB PO SCH ×2 (10:14→13:00)
[2018-03-15] MEDS: Docusate 100 MG CAP PO SCH (10:14)
[2018-03-15] MEDS: Carvedilol 3.125 MG TAB PO SCH ×2 (10:15→17:18)
[2018-03-15] MEDS: buPROPion HCl 100 MG TAB PO SCH (10:18)
[2018-03-15] MEDS ORDERED: Nicotine 21 MG PATCH TD SCH (11:00)
[2018-03-15 15:56] LABS: BUN (Urea Nitrogen) 22 mg/dL (8.4-25.7); Calc. Creatinine Clearance 65 mL/min (70-130); Calcium 10.2 mg/dL (7.8-10.44); Estimated GFR-MDRD 57; Glucose 95 mg/dL (83-110)
[2018-03-15 16:04] LABS: Anion Gap 18 mmol/L (10-20); Carbon Dioxide 36 mmol/L (23-31); Chloride 86 mmol/L (98-107); Potassium 3.8 mmol/L (3.5-5.1); Sodium 136 mmol/L (136-145)
[2018-03-15 17:19] VITALS: BP 105/74
[2018-03-15 17:48] VITALS: TEMP 98.1
[2018-03-16] MEDS ORDERED: Nicotine 21 MG PATCH TD SCH ×2 (09:00)
--- NOTE | 2018-03-17 15:09 | PQF ---
DEANNA HOWARD GILBERT MD [id number] [facility] [id number] CLINICAL DOCUMENTATION CLARIFICATION FORM: POST DISCHARGE Addendum to original discharge summary date: ____ Late entry note date: __ Please exercise your independent, professional judgment in responding to the clarification form. Clinical indicators are provided on the bottom of this form for your review Please check appropriate box(s): HEART FAILURE: A. TYPE: [ ] Systolic / HFrEF [ ] Diastolic / HFpEF [ ] Combined Systolic / Diastolic B. ACUITY [ ] Acute [ ] Acute on Chronic [ ] Chronic [ ] Other diagnosis [ ] Unable to determine In addition, please specify: Present on Admission (POA): [ ] Yes [ ] No [ ] Unable to determine For continuity of documentation, please document condition throughout progress notes and discharge summary. Thank You. CLINICAL INDICATORS - SIGNS / SYMPTOMS / LABS Ejection Fraction =25-30 % Dyspnea, Hypoxia Peripheral edema scrotal edema Elevated BNP Orthopnea / SOB / dyspnea CXR results RISKS: Hypertension dilated cardiomyopathy TREATMENTS: Administration of GUILLERMO / ARB / BB Cardiac monitoring / telemetry IV diuretics Oxygen PPM (This form is maintained as a part of the permanent medical record) 2014 [employer]. All Rights Reserved Regina [email or web address] [phone] MTDTam
--- NOTE | 2018-03-18 14:52 | EKG ---
Test Reason : Blood Pressure : / mmHG Vent. Rate : 082 BPM Atrial Rate : 082 BPM P-R Int : 156 ms QRS Dur : 150 ms QT Int : 460 ms P-R-T Axes : 036 -83 072 degrees QTc Int : 537 ms Electronic ventricular pacemaker Confirmed by MANDY BARRETT MD ([id number]), editor in chief newspaper MALACHI CRUM ([id number]) on 03/18/2018 2:52:16 PM Referred By: Confirmed By:MANDY BARRETT MD
== END 2018-03-15 18:10 | disposition home or self-care (01) | DRG 281 ==
LOC: ERS 05:22 → 2NO 09:08
PROVIDERS: ADMIT Family Medicine; ATTEND Family Medicine
DX: I11.0 Hypertensive heart disease with heart failure (principal); I21.A1 Myocardial infarction type 2; L03.116 Cellulitis of left lower limb; L02.416 Cutaneous abscess of left lower limb; E87.3 Alkalosis; N17.9 Acute kidney failure, unspecified; I50.31 Acute diastolic (congestive) heart failure; I48.2 Chronic atrial fibrillation; I87.2 Venous insufficiency (chronic) (peripheral); E78.5 Hyperlipidemia, unspecified; L30.4 Erythema intertrigo; I42.0 Dilated cardiomyopathy; F17.220 Nicotine dependence, chewing tobacco, uncomplicated; F31.9 Bipolar disorder, unspecified; F17.211 Nicotine dependence, cigarettes, in remission; T50.2X5A Adverse effect of carbonic-anhydrase inhibitors, benzothiadiazides and other diuretics, initial encounter; Y92.239 Unspecified place in hospital as the place of occurrence of the external cause; Z95.0 Presence of cardiac pacemaker; Z87.39 Personal history of other diseases of the musculoskeletal system and connective tissue; Z87.438 Personal history of other diseases of male genital organs; Z82.49 Family history of ischemic heart disease and other diseases of the circulatory system; Z79.899 Other long term (current) drug therapy; Z79.82 Long term (current) use of aspirin; Z91.14 Patient's other noncompliance with medication regimen
CPT/HCPCS: 36415; 36416; 71045; 71275; 80048; 80053; 80061; 80076; 80202; 81003; 82553; 83735; 83880; 84100; 84145; 84443; 84484; 85007; 85025; 85027; 85379; 87040; 93005; 93306; 93798; 96372; 96374; A4216; J0696; J1650; J1940; J2358; J3370; J7050

== ENCOUNTER 2018-03-18 13:22 | Observation (INO) | payer MEDICARE, OTHER ==
[2018-03-18 13:51] LABS: #Eosinphils 0.1 thou/uL (0.0-0.7); #Lymphocytes 1.6 thou/uL (1.20-3.40); #Monocytes 0.7 thou/uL (0.11-0.59); #Neutrophils 2.6 thou/uL (1.40-6.50); %Basophils 0.9 % (0.0-1.0); %Eosinophils 2.6 % (0.0-10.0); %Lymphocytes 31.3 % (21.0-51.0); %Monocytes 14.6 % (0.0-10.0); %Neutrophils 50.6 % (42.0-75.0); Hemoglobin 14.6 g/dL (14.0-18.0); Mean Corpuscular HGB CONC 32.1 g/dL (32.0-36.0); Mean Corpuscular Volume 99.7 fl (80.0-94.0); Mean Platelet Volume 6.8 fL (7.4-10.4); Platelet Count 238 thou/uL (130-400); RBC Distribution Width 12.6 % (11.5-14.5); Red Blood Cell (RBC) Count 4.56 mill/uL (4.70-6.10)
[2018-03-18 14:13] LABS: ALT (SGPT) 9 U/L (8-55); AST (SGOT) 27 U/L (5-34); Albumin 3.7 g/dL (3.4-4.8); Alkaline Phosphatase 119 U/L (40-150); Anion Gap 13 mmol/L (10-20); BUN (Urea Nitrogen) 30 mg/dL (8.4-25.7); Bilirubin, Total 0.7 mg/dL (0.2-1.2); CK (CPK) 61 U/L (30-200); Calc. Creatinine Clearance 0 mL/min (70-130); Calcium 9.6 mg/dL (7.8-10.44); Carbon Dioxide 32 mmol/L (23-31); Chloride 100 mmol/L (98-107); Estimated GFR-MDRD 69; Globulin 3.6 g/dL (2.4-3.5); Glucose 92 mg/dL (83-110); Potassium 3.7 mmol/L (3.5-5.1); Protein, Total 7.3 g/dL (5.8-8.1); Sodium 141 mmol/L (136-145)
[2018-03-18 14:16] LABS: CKMB 1.8 ng/mL (0-6.6)
[2018-03-18 14:22] LABS: Troponin I 0.428 ng/mL (< 0.028)
[2018-03-18] MEDS ORDERED: Haloperidol 1 MG TAB ONE (14:30)
--- NOTE | 2018-03-18 14:41 | RAD ---
CHEST 1 VIEW: Date: 03/18/18 HISTORY: Syncope. COMPARISON: 03/09/18. FINDINGS: Cardiac silhouette magnified by projection. Pulmonary vasculature unremarkable. Mediastinum midline w ith a dual lead left subclavian cardiac electronic device. No lobar consolidation or evidence of pneu mothorax. vehicle monitor technician leads overlie the chest. IMPRESSION: No active cardiopulmonary abnormalities are demonstrated. POS: [facility]
--- NOTE | 2018-03-18 14:46 | CT ---
CT HEAD NONCONTRAST: Date: 03/18/18 HISTORY: Syncope. COMPARISON: 12/20/14. FINDINGS: There is no evidence of acute intracranial hemorrhage or infarct. Diffuse cortical atrophy and mild c hronic ischemic small vessel disease are apparent. There is no mass effect or shift of midline struct ures. Calcification in the arterial structures at the brain base. IMPRESSION: Chronic-type findings are stable. No acute intracranial abnormalities are demonstrated on noncontrast CT head. POS: [facility]
[2018-03-18] MEDS ORDERED: Lorazepam 1 MG TAB ONE (15:32)
[2018-03-18] MEDS ORDERED: Aspirin 325 MG TAB ONE (15:32)
[2018-03-18 18:10] LABS: Critical Call Chem Troponin I RESULT DECREASING; Troponin I 0.424 ng/mL (< 0.028)
[2018-03-18] MEDS ORDERED: Ondansetron HCl/PF 4 MG/2 ML Vial IVP PRN (19:00)
[2018-03-18] MEDS ORDERED: Ondansetron ODT 4 MG TAB SL PRN (19:00)
[2018-03-18] MEDS ORDERED: Acetaminophen 325 MG TAB PO PRN (19:09)
--- NOTE | 2018-03-18 19:21 | PDOC.FPRHP ---
- History of Present Illness Chief Complaint: "lifevest went off" History of Present Illness: Patient is very sedated on exam, arouses to shaking and answers appropriately but then falls back to sleep. Patient states he had an episode of syncope this afternoon. He was walking around his home and then woke up on the ground with his lifevest beeping at him. He states the vest went off while he was "asleep." This prompted him to walk 1/4 mile until he could find a ride to the ED. He adamantly states that other than the above he feels fine. Denies chest pain, palpitations, or shortness of breath. ED Course: Ativan 2mg, Haldol 5mg 2/2 agitation 500 ml NS ASA - Allergies/Adverse Reactions Allergies Allergy/AdvReac Type Severity Reaction Status Date / Time No Known Allergies Allergy Verified 03/18/18 19:33 - Home Medications Medication Instructions Recorded Confirmed Type Divalproex Sodium DR [Depakote] 500 mg PO QID 10/15/17 03/18/18 History buPROPion HCl [Wellbutrin] 50 mg PO BID 10/15/17 03/18/18 History Aspirin [Aspirin Chewable Tablet] 81 mg PO DAILY 30 Days #30 tab 03/13/18 Rx Atorvastatin Calcium [Lipitor] 40 mg PO HS 30 Days #30 tab 03/13/18 03/18/18 Rx Furosemide [Lasix] 40 mg PO 0900,1400 30 Days #60 tab 03/13/18 03/18/18 Rx Carvedilol [Coreg] 3.125 mg PO BID-WM #30 tab 03/15/18 03/18/18 Rx Carvedilol [Coreg] 6.25 mg PO BID-WM #30 tab 03/15/18 03/18/18 Rx Lisinopril [Zestril] 2.5 mg PO DAILY #30 tab 03/15/18 03/18/18 Rx Rivaroxaban [Xarelto] 20 mg PO DAILY #30 tab 03/15/18 03/18/18 Rx - History PMHx: CHF (EF 30-35%) Afib s/p dual-chamber pacer (approx 8 yrs prior)- [employer] pacer, bipolar disorder PSHx: hydrocele repain, left knee repair, and pacer placement FHx: no family hx CAD, CHF, or early cardiac demise Social: Denies smoking tobacco but has chewed tobacco for most of his adult life. Social ETOH use. Denies illicit drug use. - Review of Systems ROS unobtainable: due to mental status General: denies: fever/chills Respiratory: denies: cough, shortness of breath Cardiovascular: denies: chest pain, palpitation Gastrointestinal: denies: nausea, vomiting, diarrhea, constipation (sedated and uncooperative) - Vital signs BP: 106/65 HR: 85 RR: 24 Tmax: 98.0 Pox: 93% on RA Wt: 84kg - Physical Exam Constitutional: NAD HEENT: normocephalic and atraumatic, PERRLA Neck: supple Heart: RRR, no murmurs/rubs/gallops, pulses present -Heart: +1 pitting edema at the ankles bilaterally, no redness Lungs: CTAB, no respiratory distress, good air movement Abdomen: soft, non-tender, bowel sounds present -Abdomen: bruising from lovenox shots Musculoskeletal: normal structure, ROM grossly normal Neurological: no focal deficit Skin: no rash/lesions, capillary refill <2 seconds -Skin: no redness noted on the extremities -Psychiatric: sedated, awaking with shaking and answers questions appropriately then falls back to sleep FMR H&P: Results - Labs Result Diagrams: 03/19/18 04:09 03/19/18 04:09 Lab results: WBC 5.0 thou/uL (4.8-10.8) 03/18/18 13:41 Hgb 14.6 g/dL (14.0-18.0) 03/18/18 13:41 Hct 45.5 % (42.0-52.0) 03/18/18 13:41 MCV 99.7 fl (80.0-94.0) H 03/18/18 13:41 Plt Count 238 thou/uL (130-400) 03/18/18 13:41 Neutrophils % 50.6 % (42.0-75.0) 03/18/18 13:41 Sodium 141 mmol/L (136-145) 03/18/18 13:41 Potassium 3.7 mmol/L (3.5-5.1) 03/18/18 13:41 Chloride 100 mmol/L (98-107) 03/18/18 13:41 Carbon Dioxide 32 mmol/L (23-31) H 03/18/18 13:41 BUN 30 mg/dL (8.4-25.7) H 03/18/18 13:41 Creatinine 1.05 mg/dL (0.6-1.3) 03/18/18 13:41 Glucose 92 mg/dL (83-110) 03/18/18 13:41 Calcium 9.6 mg/dL (7.8-10.44) 03/18/18 13:41 Total Bilirubin 0.7 mg/dL (0.2-1.2) 03/18/18 13:41 AST 27 U/L (5-34) 03/18/18 13:41 ALT 9 U/L (8-55) 03/18/18 13:41 Alkaline Phosphatase 119 U/L (40-150) 03/18/18 13:41 Creatine Kinase 61 U/L (30-200) 03/18/18 13:41 CK-MB (CK-2) 1.8 ng/mL (0-6.6) 03/18/18 13:41 B-Natriuretic Peptide 289.7 pg/mL (0-100) H 03/18/18 13:41 Serum Total Protein 7.3 g/dL (5.8-8.1) 03/18/18 13:41 Albumin 3.7 g/dL (3.4-4.8) 03/18/18 13:41 FMR H&P: A/P - Problem List (1) Syncope Current Visit: Yes Status: Acute Code(s): R55 - SYNCOPE AND COLLAPSE (2) New onset of congestive heart failure Current Visit: No Status: Acute Priority: High Code(s): I50.9 - HEART FAILURE, UNSPECIFIED (3) Artificial cardiac pacemaker Current Visit: No Status: Chronic Priority: Medium Code(s): Z95.0 - PRESENCE OF CARDIAC PACEMAKER (4) Atrial fibrillation Current Visit: No Status: Chronic Priority: Medium Code(s): I48.91 - UNSPECIFIED ATRIAL FIBRILLATION Qualifiers: Atrial fibrillation type: chronic Qualified Code(s): I48.2 - Chronic atrial fibrillation Comment: s/p dual-chamber pacer (5) Atrial flutter Current Visit: No Status: Chronic Code(s): I48.92 - UNSPECIFIED ATRIAL FLUTTER Qualifiers: Atrial flutter type: typical Qualified Code(s): I48.3 - Typical atrial flutter (6) Bipolar disorder Current Visit: No Status: Chronic Priority: Low Code(s): F31.9 - BIPOLAR DISORDER, UNSPECIFIED Qualifiers: Active/Remission status: currently active Current episode severity: unspecified (7) HTN (hypertension) Current Visit: No Status: Chronic Code(s): I10 - ESSENTIAL (PRIMARY) HYPERTENSION Qualifiers: Hypertension type: essential hypertension Qualified Code(s): I10 - Essential (primary) hypertension - Plan # Syncope - patient thinks his lifevest went off, will need to interrogate this in the AM for rhythm and history - States he did not have chest pain or palpitations - likely 2/2 arrhythmia, will admit to tele and monitor overnight - NSTEMI during last stay, did not get cath - consult cardiology in the AM # New onset CHF -diagnosed on recent admission 1 week ago -Cont asa, statin -Echo showed EF of 30-35% -continue carvedilol # Afib with pacer- interrogated pacer ([employer]) - interrogate pacer in the AM - [id number] -4, continue anticoagulation with xarelto - EKG shows a flutter w/ V-pacing # Prolonged Qtc - 515, recheck EKG in AM # Bipolar disorder - continue home meds. - 5mg of Zyprexa overly sedated the patient on 03/12 - plan for 2.5 mg if needed for breakthrough gillian # HTN - home meds Dispo: <48 hours, interrogate pacer/lifevest, consult cards in AM FMR H&P: Upper Level - Pertinent history Agree with Dr. Briggs's hx. He was not able to give much history due to chemical sedation from ER. - Pertinent findings General: AOx1 (unable to assess as he was very somnolent HEENT: EOMI, MM moist Chest: irregularly irregular, normal rate Lungs: CTA Abdomen: bruises in lower quadrants presumably from lovenox injection LE: LLL red, swollen, warm - Plan Date/Time: 03/18/181920 Damaris Sullivan, have evaluated this patient and agree with findings/plan as outlined by international student counselor resident. Pertinent changes/additions are listed here. 1. Syncope- top differential is cardiac in origin given his hx of afib and new onset CHF with EF of 35%, ordered interrogation, consider consulting cards again after interrogation is received. New onset CHF with possible arrhythmias other than afib developing, may warrant a cardiac cath. Also ordered orthostatics for possible orthostasis. EKG showed rate controlled afib, L axis deviation, prolonged OTc 2. Possible defibrillation by life vest- per patient, will interrogate 3. NSTEMI-continue trending, trops lower than when he left 4. Afib w/ dual chamber pacemaker-continue xarelto for chronic afib 5. Bipolar disorder-per ER they sedated him due to "manic episode" consider MR consult when stable if we agree that he is truly manic 6. LLE cellulitis- treated during last admission, he says it still hurts, consider re-starting abx if spiking fever or other signs of infection develop Attending Addendum - Attending Addendum Date/Time: 03/18/182032 I personally evaluated the patient and discussed the management with Dr. Briggs I agree with the History, Examination, Assessment and Plan documented above with any addition or exceptions noted below. The patient was admitted following his life vest firing. He states he was walking across his living room and then woke up on the floor with his life vest beeping. He doesn't remember feeling it fire. Will interrogate life vest. May need cardiology evaluation. Pt was given ativan and haldol in the ER and is quite sleepy.
[2018-03-18 19:30] VITALS: BMI 26.9
[2018-03-18] MEDS: Sodium Chloride 0.9% 1,000 ML IV SCH (19:53)
[2018-03-18] MEDS: Atorvastatin Calcium 40 MG TAB PO SCH (20:03)
[2018-03-18] MEDS: buPROPion HCl 100 MG TAB PO SCH (20:06)
[2018-03-18] MEDS: Divalproex Sodium DR 500 MG TAB PO SCH (20:07)
[2018-03-18 20:40] LABS: Troponin I 0.457 ng/mL (< 0.028)
[2018-03-18 23:54] LABS: Critical Call Chem Troponin I RESULT DECREASING; Troponin I 0.385 ng/mL (< 0.028)
[2018-03-19 04:57] LABS: #Basophils 0.1 thou/uL (0.0-0.2); #Eosinphils 0.1 thou/uL (0.0-0.7); #Monocytes 0.6 thou/uL (0.11-0.59); #Neutrophils 2.6 thou/uL (1.40-6.50); %Basophils 1.3 % (0.0-1.0); %Eosinophils 1.9 % (0.0-10.0); %Lymphocytes 36.7 % (21.0-51.0); %Monocytes 11.7 % (0.0-10.0); %Neutrophils 48.4 % (42.0-75.0); Hemoglobin 14.9 g/dL (14.0-18.0); Mean Corpuscular HGB CONC 31.8 g/dL (32.0-36.0); Mean Corpuscular Hemoglobin 31.9 pg (27.0-31.0); Mean Platelet Volume 6.7 fL (7.4-10.4); Platelet Count 223 thou/uL (130-400); RBC Distribution Width 12.6 % (11.5-14.5); Red Blood Cell (RBC) Count 4.68 mill/uL (4.70-6.10); White Blood Cell (WBC) Count 5.4 thou/uL (4.8-10.8)
[2018-03-19 05:14] LABS: Anion Gap 11 mmol/L (10-20); BUN (Urea Nitrogen) 25 mg/dL (8.4-25.7); Calc. Creatinine Clearance 82 mL/min (70-130); Calcium 9.2 mg/dL (7.8-10.44); Carbon Dioxide 32 mmol/L (23-31); Chloride 100 mmol/L (98-107); Estimated GFR-MDRD 81; Glucose 82 mg/dL (83-110); Potassium 4.2 mmol/L (3.5-5.1); Sodium 139 mmol/L (136-145)
[2018-03-19] MEDS: Sodium Chloride 0.9% 1,000 ML IV SCH (05:25)
--- NOTE | 2018-03-19 06:37 | PDOC.FM ---
- Subjective Subjective: Patient is doing well this morning without complaints of CP, N/V, SOB, or leg pain. Overnight he had some agitation and apparently was confused a bit after receiving Haldol and Ativan in ED. This morning he is back to his baseline mentation. - Objective MAR Reviewed: Yes Vital Signs & Weight: Vital Signs (12 hours) Temp Pulse Resp BP Pulse Ox 03/19/18 06:14 96 03/19/18 04:00 97.4 F L 82 16 124/86 97 03/18/18 23:33 97.6 F 80 21 H 111/77 96 03/18/18 20:00 97.6 F 77 24 H 03/18/18 19:00 97.6 F 77 24 H 120/77 95 Weight Weight 80.15 kg I&O: 03/17/18 03/18/18 03/19/18 06:59 06:59 06:59 Intake Total 835 Output Total 600 Balance 235 Result Diagrams: 03/19/18 04:09 03/19/18 04:09 <Stormy Moss - Last Filed: 03/19/18 09:22> - Objective Vital Signs & Weight: Vital Signs (12 hours) Temp Pulse Resp BP BP BP BP 03/19/18 09:29 91 03/19/18 08:15 98.3 F 91 18 141/84 H 153/87 H 128/88 03/19/18 06:14 03/19/18 04:00 97.4 F L 82 16 124/86 03/18/18 23:33 97.6 F 80 21 H 111/77 Pulse Ox 03/19/18 09:29 03/19/18 08:15 100 03/19/18 06:14 96 03/19/18 04:00 97 03/18/18 23:33 96 Weight Weight 80.15 kg I&O: 03/18/18 03/19/18 03/20/18 06:59 06:59 06:59 Intake Total 835 Output Total 600 Balance 235 Result Diagrams: 03/19/18 04:09 03/19/18 04:09 <Maria G Cavazos - Last Filed: 03/19/18 10:00> Phys Exam - Physical Examination Constitutional: NAD HEENT: moist MMs Respiratory: no wheezing, no rales, clear to auscultation bilateral Cardiovascular: RRR, no significant murmur Gastrointestinal: soft, non-tender, no distention 1+ pitting edema bilaterally (L>R) up to mid calf Neurological: non-focal, moves all 4 limbs Psychiatric: A&O x 3 Deviation from normal: a bit of pressured speech Skin: cap refill <2 seconds Deviation from normal: L leg with chronic venous stasis skin changes <Stormy Moss - Last Filed: 03/19/18 09:22> Dx/Plan (1) Congestive heart failure (CHF) Code(s): I50.9 - HEART FAILURE, UNSPECIFIED Status: Acute (2) Syncope Code(s): R55 - SYNCOPE AND COLLAPSE Status: Acute (3) Artificial cardiac pacemaker Code(s): Z95.0 - PRESENCE OF CARDIAC PACEMAKER Status: Chronic (4) Atrial fibrillation Code(s): I48.91 - UNSPECIFIED ATRIAL FIBRILLATION Status: Chronic QualifierTitle: Atrial fibrillation type: chronic Qualified Code(s): I48.2 - Chronic atrial fibrillation (5) Bipolar disorder Code(s): F31.9 - BIPOLAR DISORDER, UNSPECIFIED Status: Chronic QualifierTitle: Active/Remission status: currently active Current episode severity: unspecified (6) HTN (hypertension) Code(s): I10 - ESSENTIAL (PRIMARY) HYPERTENSION Status: Chronic QualifierTitle: Hypertension type: essential hypertension Qualified Code( s): I10 - Essential (primary) hypertension - Plan Plan: Syncope - s/p apparent lifevest defibrillation likely 2/2 arrhythmia, no overnight tele events - will interrogate lifevest and pacemaker - NSTEMI during last stay, did not get cath - consult cardiology - remain NPO Recently diagnosed CHF -diagnosed on recent admission 1 week ago with EF 30-35% -Cont asa, statin -continue carvedilol Afib with pacer - interrogate pacer today - [id number] -4, continue anticoagulation with xarelto - EKG shows a flutter w/ V-pacing Prolonged Qtc - 515 - avoid qt prolonging agents Bipolar disorder - continue home meds. - 5mg of Zyprexa overly sedated the patient on 03/12 - plan for 2.5 mg if needed for breakthrough gillian Metabolic Alkalosis - improved from last admission - likely 2/2 aggressive diuresis on last hospitalization - continue to trend HTN - continue Coreg and Lasix - on Lisinopril 2.5 for kidney protection <Stormy Moss - Last Filed: 03/19/18 09:22> (1) Syncope Code(s): R55 - SYNCOPE AND COLLAPSE Status: Acute (2) New onset of congestive heart failure Code(s): I50.9 - HEART FAILURE, UNSPECIFIED Status: Acute (3) Artificial cardiac pacemaker Code(s): Z95.0 - PRESENCE OF CARDIAC PACEMAKER Status: Chronic (4) Atrial fibrillation Code(s): I48.91 - UNSPECIFIED ATRIAL FIBRILLATION Status: Chronic Qualifiers: Atrial fibrillation type: chronic Qualified Code(s): I48.2 - Chronic atrial fibrillation (5) Atrial flutter Code(s): I48.92 - UNSPECIFIED ATRIAL FLUTTER Status: Chronic Qualifiers: Atrial flutter type: typical Qualified Code(s): I48.3 - Typical atrial flutter (6) Bipolar disorder Code(s): F31.9 - BIPOLAR DISORDER, UNSPECIFIED Status: Chronic Qualifiers: Active/Remission status: currently active Current episode severity: unspecified (7) HTN (hypertension) Code(s): I10 - ESSENTIAL (PRIMARY) HYPERTENSION Status: Chronic Qualifiers: Hypertension type: essential hypertension Qualified Code(s): I10 - Essential (primary) hypertension <Maria G Cavazos - Last Filed: 03/19/18 10:00> Attending Addendum - Attending Addendum Date/Time: 03/19/18 0959 I personally evaluated the patient and discussed the management with Dr. Moss. I agree with the History, Examination, Assessment and Plan documented above with any addition or exceptions noted below. The patient is feeling better this morning. Will get life vest interrogated. Cardiology will be consulted. <Maria G Cavazos - Last Filed: 03/19/18 10:00>
[2018-03-19] MEDS ORDERED: Rivaroxaban 10 MG TAB PO SCH (09:00)
[2018-03-19] MEDS ORDERED: Aspirin 325 MG TAB PO SCH (09:00)
[2018-03-19] MEDS ORDERED: Lisinopril 2.5 MG TAB PO SCH (09:00)
[2018-03-19] MEDS: buPROPion HCl 100 MG TAB PO SCH ×2 (09:29→21:12)
[2018-03-19] MEDS: Divalproex Sodium DR 500 MG TAB PO SCH ×4 (09:29→21:12)
[2018-03-19] MEDS: Furosemide 40 MG TAB PO SCH ×2 (09:29→14:13)
[2018-03-19] MEDS ORDERED: Clotrimazole 1 % Cream 30 GM TUBE TOP SCH (10:30)
[2018-03-19 16:47] VITALS: TEMP 98.5
[2018-03-19] MEDS ORDERED: Carvedilol 6.25 MG TAB PO SCH (17:00)
[2018-03-19] MEDS ORDERED: Carvedilol 3.125 MG TAB PO SCH (17:00)
[2018-03-19] MEDS: Atorvastatin Calcium 40 MG TAB PO SCH (21:12)
[2018-03-19 21:14] VITALS: BP 142/73
[2018-03-20] MEDS ORDERED: Carvedilol 6.25 MG TAB PO SCH (17:00)
--- NOTE | 2018-03-21 12:47 | EKG ---
Test Reason : Blood Pressure : / mmHG Vent. Rate : 084 BPM Atrial Rate : 078 BPM P-R Int : 000 ms QRS Dur : 160 ms QT Int : 454 ms P-R-T Axes : 000 264 069 degrees QTc Int : 536 ms Ventricular-paced rhythm with occasional supraventricular complexes Abnormal ECG When compared with ECG of 09-MAR-2018 06:45, Vent. rate has increased BY 2 BPM Confirmed by VENKATESH RENO M.D. ([id number]), newspaper editor managing MALACHI CRUM ([id number]) on 03/21/2018 12:46:55 PM Referred By: BARRY Confirmed By:VENKATESH RENO M.D.
== END 2018-03-19 21:23 | disposition home or self-care (01) ==
LOC: ERS 13:22 → 2SW 17:06
PROVIDERS: ADMIT Family Medicine; ATTEND Family Medicine
DX: R55 Syncope and collapse (principal); I48.2 Chronic atrial fibrillation; I11.0 Hypertensive heart disease with heart failure; I50.9 Heart failure, unspecified; I48.3 Typical atrial flutter; F31.9 Bipolar disorder, unspecified; Z79.82 Long term (current) use of aspirin; Z79.01 Long term (current) use of anticoagulants; Z79.899 Other long term (current) drug therapy; Z95.0 Presence of cardiac pacemaker
CPT/HCPCS: 36415; 70450; 71045; 80048; 80053; 82550; 82553; 83880; 84484; 85025; 93005; 93010; 94760; 96360; 96361; G0378

== ENCOUNTER 2018-04-12 00:20 | Inpatient (IN) | payer MEDICARE ==
[2018-04-12 01:26] LABS: #Basophils 0.1 thou/uL (0.0-0.2); #Eosinphils 0.2 thou/uL (0.0-0.7); #Lymphocytes 1.8 thou/uL (1.20-3.40); #Monocytes 0.5 thou/uL (0.11-0.59); #Neutrophils 2.1 thou/uL (1.40-6.50); %Basophils 1.3 % (0.0-1.0); %Eosinophils 3.3 % (0.0-10.0); %Lymphocytes 39.6 % (21.0-51.0); %Monocytes 9.9 % (0.0-10.0); Mean Corpuscular HGB CONC 32.2 g/dL (32.0-36.0); Mean Corpuscular Volume 99.3 fL (78.0-98.0); Mean Platelet Volume 6.8 fL (7.4-10.4); Platelet Count 131 thou/uL (130-400); RBC Distribution Width 13.4 % (11.5-14.5); Red Blood Cell (RBC) Count 4.36 mill/uL (4.70-6.10); White Blood Cell (WBC) Count 4.5 thou/uL (4.8-10.8)
[2018-04-12 01:43] LABS: ALT (SGPT) 8 U/L (8-55); AST (SGOT) 26 U/L (5-34); Alkaline Phosphatase 88 U/L (40-150); Anion Gap 9 mmol/L (10-20); BUN (Urea Nitrogen) 12 mg/dL (8.4-25.7); Bilirubin, Total 1.1 mg/dL (0.2-1.2); Calc. Creatinine Clearance 0 mL/min (70-130); Calcium 9.4 mg/dL (7.8-10.44); Carbon Dioxide 30 mmol/L (23-31); Chloride 105 mmol/L (98-107); Estimated GFR-MDRD Greater than 90; Globulin 3.2 g/dL (2.4-3.5); Glucose 93 mg/dL (83-110); Lipase 45 U/L (8-78); Potassium 4.2 mmol/L (3.5-5.1); Protein, Total 7.2 g/dL (5.8-8.1); Sodium 140 mmol/L (136-145)
[2018-04-12 01:47] LABS: CKMB 3.3 ng/mL (0-6.6)
[2018-04-12 04:14] LABS: Troponin I 0.248 ng/mL (< 0.028)
[2018-04-12] MEDS ORDERED: Ondansetron ODT 4 MG TAB SL PRN (06:46)
[2018-04-12] MEDS ORDERED: Ondansetron HCl/PF 4 MG/2 ML Vial IVP PRN (06:46)
[2018-04-12 07:11] VITALS: BMI 28.8
[2018-04-12 08:19] LABS: Bilirubin Negative (Negative); Blood, Urine Negative (Negative); Clarity CLEAR (Clear); Glucose, Urine (Dipstick) Negative (Negative); Leukocyte Negative (Negative); Nitrite Negative (Negative); Protein, Urine (Dipstick) Negative (Neg-Trace); Specific Gravity, Urine 1.021 (1.002-1.036); pH, Urine 7.5 (5.0-9.0)
[2018-04-12 08:22] LABS: Amphetamine Not Detected (NotDetected); Barbiturates Screen Not Detected (NotDetected); Benzodiazepine Screen Not Detected (NotDetected); Cocaine Metabolite Screen Not Detected (NotDetected); Medtox Control Line Valid? VALID (VALID); Medtox Reader # READER 1; Methadone Not Detected (NotDetected); Methamphetamine Not Detected (NotDetected); Opiate Screen Not Detected (NotDetected); Oxycodone Screen Not Detected (NotDetected); Phencyclidine (PCP) Not Detected (NotDetected); THC/Cannabinoid Screen Not Detected (NotDetected); Tricyclic Screen Not Detected (NotDetected)
[2018-04-12] MEDS ORDERED: Aspirin 325 MG TAB PO SCH (09:00)
--- NOTE | 2018-04-12 09:22 | RAD ---
PORTABLE AP CHEST RADIOGRAPH: Date: 04-12-18 History: Left arm pain, numbness. Comparison: 03-18-18 FINDINGS: Dual-lead left subclavian cardiac pacemaking device remains in place. The cardiac silhouette is magni fied by projection but does appear borderline enlarged. Pulmonary vasculature is within normal limits . Lungs are clear. Monitor device overlies the chest. IMPRESSION: No acute cardiopulmonary process. POS: [facility]
--- NOTE | 2018-04-12 09:26 | RAD ---
FOUR VIEWS CERVICAL SPINE: Date: 04-12-18 History: Left arm pain and numbness. Neck pain. Comparison: None available. FINDINGS: C1 to the cervicothoracic junction is seen on the lateral view. There does appear to be slight edson listhesis of C7 on T1. Multilevel degenerative changes are seen throughout the cervical spine, includ ing facet degenerative changes at multiple levels. There is fusion of the C4 and C5 vertebral bodies which may be on a congenital basis. Prevertebral soft tissues are within normal limits. IMPRESSION: 1. Anterolisthesis of C7 on T1, although this is partially obscured. There are prominent facet degene rative changes at this level which may account for this finding. No additional level of subluxation i s seen. No fracture is visualized. 2. Multilevel degenerative changes. 3. 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 POS: [facility]
[2018-04-12] MEDS ORDERED: ADENOSINE 60 MG/20 ML VIAL ONE (09:56)
--- NOTE | 2018-04-12 11:39 | PDOC.FPRHP ---
- History of Present Illness Chief Complaint: arm pain History of Present Illness: Mr. Farrar is a 72YO male w/ a PMH significant for chronic atrial fibrillation s/p AICD placement and CHF who presented to the ED on 04/11 with a chief complaint of left arm pain that was present that morning when he woke up. He stated that the pain started at the top of his arm and progressively worsened and spread all the way down to his hand causing some associated hand numbness by that afternoon. He says he has never had left arm pain like this before and given his cardiac history he decided to call an ambulance to take him to the hospital. He denies any other associated symptoms such as nausea, vomiting, chest pain, SOB, or diaphoresis. ED Course: While in the ED the patient had an ECG done that was significant for rate- controlled Atrial fibrillation. He also had a CXR that was unremarkable and troponins were trended up from 0.240 --> 0.248 --> 0.260. He was also given 325mg ASA. - Allergies/Adverse Reactions Allergies Allergy/AdvReac Type Severity Reaction Status Date / Time No Known Allergies Allergy Verified 03/18/18 19:33 - Home Medications Medication Instructions Recorded Confirmed Type Divalproex Sodium DR [Depakote] 1,000 mg PO BID 10/15/17 04/12/18 History buPROPion HCl [Wellbutrin] 75 mg PO BID 10/15/17 04/12/18 History Aspirin [Aspirin Chewable Tablet] 81 mg PO DAILY 30 Days #30 tab 03/13/18 Rx - History PMHx:CHF, Chronic a. fib. s/p AICD placement, Bipolar disorder PSHx: Cervical spine fusion, L knee surgery, AICD placement FHx: None Social: Currently chews tobacco and occasionally drinks. No illicit drug use. - Review of Systems General: denies: fever/chills, weight/appetite/sleep changes, fatigue Respiratory: reports: exercise intolerance. denies: shortness of breath Cardiovascular: reports: edema. denies: chest pain, palpitation Gastrointestinal: denies: nausea, vomiting, abdominal pain Genitourinary: denies: incontinence, dysuria Skin: denies: rashes Musculoskeletal: reports: pain Neurological: reports: numbness Psychological: reports: other (Bipolar disorder) - Vital signs BP: [] HR: [] RR: [] Tmax: [] Pox: []% on [] Wt: [] - Physical Exam Constitutional: NAD HEENT: normocephalic and atraumatic, PERRLA, EOMI, conjunctiva clear, grossly normal vision, oropharynx clear, other Neck: supple, no LAD, no thyromegaly Chest: no-tender to palpation, no lesions Heart: no murmurs/rubs/gallops, pulses present, other (In atrial fibrillation with NL rate. ~1+ pitting edema in B/L LEs) Lungs: CTAB, no respiratory distress, no wheezing Abdomen: soft, non-tender Musculoskeletal: ROM grossly normal Neurological: no focal deficit, CN II-XII intact Skin: no rash/lesions Psychiatric: normal mood and affect, good judgment and insight, intact recent and remote memory FMR H&P: Results - Labs Result Diagrams: 04/12/18 01:03 04/12/18 01:03 Lab results: WBC 4.5 thou/uL (4.8-10.8) L 04/12/18 01:03 Hgb 14.0 g/dL (14.0-18.0) 04/12/18 01:03 Hct 43.3 % (42.0-52.0) 04/12/18 01:03 MCV 99.3 fL (78.0-98.0) H 04/12/18 01:03 Plt Count 131 thou/uL (130-400) 04/12/18 01:03 Neutrophils % 46.0 % (42.0-75.0) 04/12/18 01:03 Sodium 140 mmol/L (136-145) 04/12/18 01:03 Potassium 4.2 mmol/L (3.5-5.1) 04/12/18 01:03 Chloride 105 mmol/L (98-107) 04/12/18 01:03 Carbon Dioxide 30 mmol/L (23-31) 04/12/18 01:03 BUN 12 mg/dL (8.4-25.7) 04/12/18 01:03 Creatinine 0.79 mg/dL (0.6-1.3) 04/12/18 01:03 Glucose 93 mg/dL (83-110) 04/12/18 01:03 Calcium 9.4 mg/dL (7.8-10.44) 04/12/18 01:03 Total Bilirubin 1.1 mg/dL (0.2-1.2) 04/12/18 01:03 AST 26 U/L (5-34) 04/12/18 01:03 ALT 8 U/L (8-55) 04/12/18 01:03 Alkaline Phosphatase 88 U/L (40-150) 04/12/18 01:03 CK-MB (CK-2) 3.3 ng/mL (0-6.6) 04/12/18 01:04 Serum Total Protein 7.2 g/dL (5.8-8.1) 04/12/18 01:03 Albumin 4.0 g/dL (3.4-4.8) 04/12/18 01:03 Lipase 45 U/L (8-78) 04/12/18 01:03 Urine Ketones Negative mg/dL (Negative) 04/12/18 05:56 Urine Blood Negative (Negative) 04/12/18 05:56 Urine Nitrite Negative (Negative) 04/12/18 05:56 Ur Leukocyte Esterase Negative (Negative) 04/12/18 05:56 - EKG Interpretation EKG: Atrial fibrillation with normal HR. - Radiology Interpretation Chest x-ray Status: image reviewed by me (No cardiopulmonary process seen.) FMR H&P: A/P - Problem List (1) Atypical chest pain Current Visit: Yes Status: Acute Code(s): R07.89 - OTHER CHEST PAIN Assessment and Plan: DDx includes MSK vs. cardiac in origin. Patient is not currently in pain but will order a nuclear stress test to further investigate burden of CAD as the patient was recently discharged after suffering from a STEMI and the fact that his troponins trended up from 0.240 to 0.260. - Will make patient NPO for now pending nuclear stress test. - Will continue to monitor with telemetry. - If stress test results are normal patient could potentially go home today. (2) Congestive heart failure (CHF) Current Visit: Yes Status: Chronic Code(s): I50.9 - HEART FAILURE, UNSPECIFIED Qualifiers: Heart failure chronicity: chronic Assessment and Plan: Aware. Patient will continue to wear life vest that he was given at his last discharge. (3) Artificial cardiac pacemaker Current Visit: Yes Status: Chronic Priority: Medium Code(s): Z95.0 - PRESENCE OF CARDIAC PACEMAKER Assessment and Plan: Aware. (4) Atrial fibrillation with controlled ventricular rate Current Visit: Yes Status: Chronic Code(s): I48.91 - UNSPECIFIED ATRIAL FIBRILLATION Assessment and Plan: Aware. Will continue to monitor with telemetry. (5) Bipolar disease, chronic Current Visit: Yes Status: Chronic Code(s): F31.9 - BIPOLAR DISORDER, UNSPECIFIED Assessment and Plan: Will continue home meds including wellbutrin 75mg PO BID & depakote 1000mg PO BID. FMR H&P: Upper Level - Pertinent history Patient is a 72 year old male with a history of non-ischemic cardiomyopathy who presented to the ED with a chief complaint of sudden onset left arm pain that began at rest. There were no other associated symptoms. The began in his upper shoulder and radiated down his arm and into his fingers. Nothing relieved the pain. He denies nausea, vomiting, shortness of breath or palpitations. With his cardiac history, he became concerned that he was having a heart attack which prompted him to go to the ED to seek evaluation. Patient has had a normal cardiac catheterization performed in August 2016 during a previous admission for atypical chest pain. The left ventriculogram showed mild anterior hypokinesis with normal EF. He had an echocardiogram in February 2018 which showed an EF of 30-35%. Pt previously has followed up with Dr. Hazel. - Pertinent findings Physical Exam: General: alert and oriented x 3; In no distres. Currently pain free. HEENT: extraocular muscles intact; moist mucous membranes. No thyromegaly or JVD Heart: irregularly irregular rate; no murmurs, rubs, or gallops identified. Lungs: clear to auscultation bilaterally. Abdomen: soft, non-tender, non-distended; no masses or organomegaly. Extremities: Bilateral 1+ pitting edema with brawny induration. EKG: atrial fibrillation with rate of about 90 beats per minute; no evidence of ischemia. Troponins: 0.240, 0.246, 0.260 CXR: No acute cardiopulmonary abnormalities. - Plan Date/Time: 04/12/18 1137 IAgata, have evaluated this patient and agree with findings/plan as outlined by international project manager resident. Pertinent changes/additions are listed here. 1. Atypical chest pain - likely musculoskeletal in nature, however, given patient's cardiac history and heart score of 4 will proceed with nuclear medicine stress test. - we will admit patient to telemetry for observation - He has already received ASA 324 mg. - If stress test is negative, will discharge him with outpatient follow-up. 2. Non-ischemic cardiomyopathy - EF 30-35%; Pt has a life vest. - Not currently on GUILLERMO-i or beta sharon. He states his dietary server took him off of these medications. Will request records. 3. Sick sinus syndrome/chronic atrial fibrillation - pacemaker in place. - pt previously on Xarelto, however he states he was taken off by his dietary server. 4. Bipolar disorder. - continue home meds.
[2018-04-12] MEDS ORDERED: Acetaminophen 325 MG TAB PO PRN (13:04)
--- NOTE | 2018-04-12 15:58 | NM ---
RADIONUCLIDE STRESS REST MYOCARDIAL PERFUSION SCAN WITH CT ATTENUATION CORRECTION AND SPECT IMAGING LEFT VENTRICULAR WALL MOTION EVALUATION AND EJECTION FRACTION: HISTORY: Chest pain. FINDINGS: There is heterogeneous uptake of radiotracer throughout the left ventricular myocardium. Focal perfu azalia defect or reversibility. Adenosine protocol was used. QGS analysis of gated SPECT images shows no focal wall motion abnormalities, but diffuse hypokinesis. Ejection fraction was calculated at 44%. IMPRESSION: 1. Normal perfusion scan showing no evidence of ischemia. 2. Depressed ejection fraction of 44% without focal wall motion abnormality. POS: [facility]
[2018-04-12 19:24] VITALS: BP 157/60; TEMP 98.1
[2018-04-12] MEDS ORDERED: buPROPion HCl 100 MG TAB PO SCH (21:00)
[2018-04-12] MEDS ORDERED: Divalproex Sodium DR 500 MG TAB PO SCH (21:00)
--- NOTE | 2018-04-13 10:45 | HP ---
I have reviewed the history and physical of Dr. Roya Calero and discussed the case with her. I ag ree with her assessment and plan. HISTORY OF PRESENT ILLNESS: Briefly, Mr. Farrar is a 72-year-old white male patient with a history of heart failure and AICD placement who came in with neck and left arm pain. It seems like he woke w ith some neck pain and began to radiate into his arm. He was seen in the ER with slight elevations o f his troponins, which is not new and he was admitted for observation and further evaluation. PHYSICAL EXAMINATION: GENERAL: When I examined Mr. Farrar, he was completely awake, alert, and in fact quite cheerful and in no distress. VITAL SIGNS: Blood pressure was 130/70, his pulse rate was 100 and irregular, respirations were 14, he was afebrile. EAR, NOSE AND THROAT: No erythema. NECK: Supple. CARDIAC: PMI slightly displaced laterally. Heart rhythm was irregularly irregular rate of approxima tely 100. LUNGS: Breath sounds are diminished, but clear. ABDOMEN: Flat and soft, without guarding, rebound or rigidity. EXTREMITIES: Trace edema. NEUROLOGIC: No focal deficits. LABORATORY DATA AND IMAGING: Tropes were indeterminate. EKG showed atrial fibrillation, but no acut e ischemic changes. ASSESSMENT: Atypical arm pain, likely related to cervical disk disease. PLAN: The patient will be admitted, stressed and evaluated based upon results.
--- NOTE | 2018-04-13 13:18 | PQF ---
LEEGENA FLAHERTY [id number] CLINICAL DOCUMENTATION CLARIFICATION FORM: POST DISCHARGE Please exercise your independent, professional judgment in responding to the clarification form. Clinical indicators are provided on the bottom of this form for your review Please check appropriate box(s): [ ] Costochrondritis [ ] Pleurisy [ ] Angina with known coronary artery disease [ ] Angina:[ ] Stable[ ] Unstable [ ] Accelerated [ ] Pre-Infarction [ ] Prinzmetal [ ] Coronary Spasm Induced [ ] Psychogenic cardiovascular disorder [ ] Arrhythmia (please specify) [ ] Pericarditis [ ] Cholelithiasis / Cholecystitis [ ] GERD [ ] Other diagnosis [ ] Unable to determine In addition, please specify: Present on Admission (POA): [ ] Yes [ ] No [ ] Unable to determine For continuity of documentation, please document condition throughout progress notes and discharge summary. Thank You. CLINICAL INDICATORS - SIGNS / SYMPTOMS /LABS Atypical Chest pain - likely musculoskeletal in nature 04/12/18 Family Medicine Atypical arm pain, likely related to cervical disk disease - [place] C/Spine 04/12/18 Anterolisthesis of C7 on T1, althought this is partially obscured. There are prominent facet degenerative changes at this level which may account for this finidng. Multilevel degenerative changes, Fusion of the C4 and C5 vertebral bodies which may be on congenital basis. Nuclear medicine report 04/12/18 - Normal perfusion scan showing no evidence of ischemia, depressed ejection fraction of 44% without focal wall motion abnormality. RISK FACTORS CHF, atrial fibrillation, nonischemic cardiomyopathy - Family Medicine TREATMENTS: stess test ordered 04/12/18 Apirin 81mg po 04/12/18, Aspirin chewable 81mg po 04/13/18 - MAR Please provide a response below if a more specific term indicating a diagnosis and/or acuity level for this condition can be identified. Please exercise your independent, professional judgment in responding to the clarification form. Clinical indicators are provided at the top of this form for your review. Thank you. [ ] Present on Admission (POA): [ ] Yes [ ] No [ ] Unable to determine [ ] Costochronditis [ ] Pleurisy: [ ] Pleuritic pain [ ] Angina with known coronary artery disease [ ] Angina:[ ] Stable[ ] Unstable [ ] Psychogenic cardiovascular disorder [ ] Chest wall pain [ ] Cholelithiasis / Cholecystitis [ ] GERD [ ] Esophagitis [ ] Unable to determine [ ] Other diagnosis: [ ] Does not apply to this patient (This form is maintained as a part of the permanent medical record) 2014 [employer]. All Rights Reserved Carley Raygoza, CCS, SUPERVISOR ST[employer]TING, CASC [email or web address]
--- NOTE | 2018-04-13 13:44 | DIS-2 ---
DATE OF ADMISSION: 04/12/2018 DATE OF DISCHARGE: 04/12/2018 RESIDENT: Roya Calero MD ADMITTING ATTENDING: Dr. Adria Young. DISCHARGE ATTENDING: Dr. Adria Young. CONSULTS: None. PROCEDURES: 1. Chest x-ray was not significant for any acute cardiopulmonary process. 2. Nuclear stress test significant for global hypokinesis and an ejection fraction of 40%. PRIMARY DIAGNOSIS: Atypical chest pain. SECONDARY DIAGNOSES: 1. Atrial fibrillation. 2. Artificial cardiac pacemaker. 3. Congestive heart failure. 4. Bipolar disorder. DISCHARGE MEDICATIONS: 1. Aspirin 81 mg p.o. daily. 2. Wellbutrin 75 mg p.o. b.i.d. 3. Depakote 1000 mg p.o. b.i.d. 4. Xarelto 20 mg p.o. daily. 5. Zestril 2.5 mg p.o. daily. 6. Lasix 40 mg p.o. b.i.d. 7. Coreg 3.125 mg p.o. b.i.d. 8. Lipitor 40 mg p.o. daily. DISCONTINUED MEDICATIONS: None. HOSPITAL COURSE: Mr. Farrar is a 72-year-old male with a past medical history significant for congestive heart failure, chronic atrial fibrillation s/p AICD placement and a history of NSTEMI, who was recently discharged for evaluation and treatment of an NSTEMI, who presented to the ED with a chief complaint of left arm pain that had been ongoing for approximately 1 day. He reported that the pain progressively worsened over the course of the day and radiated down the entire length of his arm into his hand. Given the patient's history, he was evaluated for atypical chest pain in the ED where an EKG was done which was significant for atrial fibrillation with a controlled ventricular rate of 92. A chest x-ray was also done which was not significant for any acute cardiopulmonary findings and the patient was given 325 mg of aspirin to chew. The patient's troponins were also trended and luis armando from 0.240 to 0.242 up to 0.260. Given the patient's history of recent NSTEMI, the ED decided to admit him for observation overnight. Upon evaluation the next morning, the patient claimed that his pain had totally resolved; however, a nuclear stress test was ordered to rule out any coronary artery disease as a culprit of his arm pain. The nuclear stress test was significant for global hypokinesis and an ejection fraction of 40%. It was otherwise within normal limits. After being monitored via telemetry for several hours post-stress test , the patient was determined to be hemodynamically stable and was discharged home. DISPOSITION: Stable. DISCHARGE INSTRUCTIONS: 1. Location: Home. 2. Diet: Healthy heart diet. 3. Activity: As tolerated, no restrictions. 4. Followup: The patient was instructed to follow up with his senior maintenance mechanic within 1 week following discharge. SHANTHI
== END 2018-04-12 17:59 | disposition home or self-care (01) | DRG 313 ==
LOC: ERS 00:20 → 2NO 05:37 → OBSVTOIN 05:37 → INTOOBSV 05:37 → 2NO 06:25
PROVIDERS: ADMIT Internal Medicine; ATTEND Internal Medicine
DX: R07.89 Other chest pain (principal); I42.8 Other cardiomyopathies; I48.2 Chronic atrial fibrillation; M48.8X2 Other specified spondylopathies, cervical region; F31.9 Bipolar disorder, unspecified; I50.9 Heart failure, unspecified; I49.5 Sick sinus syndrome; F17.220 Nicotine dependence, chewing tobacco, uncomplicated; Z95.810 Presence of automatic (implantable) cardiac defibrillator
CPT/HCPCS: 36415; 71045; 72040; 78452; 80053; 80306; 81003; 82553; 83690; 83735; 84484; 85025; 93005; 93017; A9500; J0153

== ENCOUNTER 2018-08-29 14:01 | Emergency (ER) | payer MEDICARE, OTHER | END 2018-08-29 14:45 | disposition home or self-care (01) | LOC: ERS 14:01 | DX: Z04.3 Encounter for examination and observation following other accident (principal); R06.02 Shortness of breath; M79.89 Other specified soft tissue disorders; I48.91 Unspecified atrial fibrillation; I10 Essential (primary) hypertension; F31.9 Bipolar disorder, unspecified; F17.220 Nicotine dependence, chewing tobacco, uncomplicated; Z79.899 Other long term (current) drug therapy; Z79.82 Long term (current) use of aspirin; W01.0XXA Fall on same level from slipping, tripping and stumbling without subsequent striking against object, initial encounter | CPT/HCPCS: 99283 ==

== ENCOUNTER 2018-09-26 21:18 | Emergency (ER) | payer MEDICARE, OTHER ==
[2018-09-26 21:50] LABS: #Basophils 0.1 thou/uL (0.0-0.2); #Eosinphils 0.1 thou/uL (0.0-0.7); #Lymphocytes 1.5 thou/uL (1.20-3.40); #Monocytes 0.4 thou/uL (0.11-0.59); #Neutrophils 2.3 thou/uL (1.40-6.50); %Basophils 1.6 % (0.0-1.0); %Eosinophils 3.2 % (0.0-10.0); %Lymphocytes 33.8 % (21.0-51.0); %Monocytes 8.6 % (0.0-10.0); %Neutrophils 52.7 % (42.0-75.0); Hemoglobin 14.7 g/dL (14.0-18.0); Mean Platelet Volume 7.8 fL (7.4-10.4); Platelet Count 172 thou/uL (130-400); RBC Distribution Width 12.2 % (11.5-14.5); Red Blood Cell (RBC) Count 4.33 mill/uL (4.70-6.10); White Blood Cell (WBC) Count 4.4 thou/uL (4.8-10.8)
[2018-09-26 22:07] LABS: Anion Gap 15 mmol/L (10-20); BUN (Urea Nitrogen) 24 mg/dL (8.4-25.7); Calc. Creatinine Clearance 0 mL/min (70-130); Carbon Dioxide 28 mmol/L (23-31); Chloride 98 mmol/L (98-107); Estimated GFR-MDRD 52; Potassium 3.1 mmol/L (3.5-5.1); Sodium 138 mmol/L (136-145)
[2018-09-26 22:08] LABS: ALT (SGPT) 10 U/L (8-55); AST (SGOT) 44 U/L (5-34); Alkaline Phosphatase 106 U/L (40-150); Bilirubin, Total 1.5 mg/dL (0.2-1.2); Calcium 9.4 mg/dL (7.8-10.44); Globulin 3.1 g/dL (2.4-3.5); Glucose 147 mg/dL (83-110); Protein, Total 7.1 g/dL (5.8-8.1)
--- NOTE | 2018-09-26 22:26 | CT ---
CT RIGHT KNEE: 09/26/2018 PROVIDED CLINICAL HISTORY: Pain, status post injury. FINDINGS: There is a large soft tissue hematoma at the anterior and anteromedial aspect of the knee. This charli ures approximately 13.3 cm in craniocaudal dimension and approximately 10.9 x 3.5 cm in greatest betancourt sverse dimensions. There is no evidence for fracture. Degenerative changes are seen involving the right knee with small intraarticular bodies and a moderate-sized Dixon's cyst. IMPRESSION: 1. Large soft tissue hematoma. 2. No evidence for fracture. POS: [facility]
[2018-09-26] MEDS ORDERED: Ketorolac Tromethamine 30 MG/ML VIAL ONE (22:38)
[2018-09-27] MEDS ORDERED: Morphine 4 MG/ML VIAL ONE (00:52)
== END 2018-09-27 01:20 | disposition home or self-care (01) ==
LOC: ERS 21:18
DX: S80.01XA Contusion of right knee, initial encounter (principal); I48.91 Unspecified atrial fibrillation; I10 Essential (primary) hypertension; F17.220 Nicotine dependence, chewing tobacco, uncomplicated; Z79.82 Long term (current) use of aspirin; Z79.899 Other long term (current) drug therapy; V89.9XXA Person injured in unspecified vehicle accident, initial encounter
CPT/HCPCS: 36415; 80053; 85025; 85652; 96374; 96375; J1885; J2270

== ENCOUNTER 2018-10-13 16:24 | Inpatient (IN) | payer OTHER ==
[2018-10-13 17:08] LABS: #Eosinphils 0.1 thou/uL (0.0-0.7); #Lymphocytes 1.3 thou/uL (1.20-3.40); #Monocytes 0.5 thou/uL (0.11-0.59); #Neutrophils 3.5 thou/uL (1.40-6.50); %Basophils 0.9 % (0.0-1.0); %Eosinophils 2.1 % (0.0-10.0); %Lymphocytes 23.5 % (21.0-51.0); %Monocytes 8.3 % (0.0-10.0); %Neutrophils 65.1 % (42.0-75.0); Hemoglobin 13.9 g/dL (14.0-18.0); Mean Corpuscular HGB CONC 33.4 g/dL (32.0-36.0); Mean Corpuscular Hemoglobin 34.2 pg (27.0-31.0); Mean Platelet Volume 8.2 fL (7.4-10.4); Platelet Count 134 thou/uL (130-400); RBC Distribution Width 12.3 % (11.5-14.5); Red Blood Cell (RBC) Count 4.08 mill/uL (4.70-6.10); White Blood Cell (WBC) Count 5.3 thou/uL (4.8-10.8)
[2018-10-13 17:28] LABS: ALT (SGPT) 14 U/L (8-55); AST (SGOT) 46 U/L (5-34); Alkaline Phosphatase 102 U/L (40-150); Anion Gap 14 mmol/L (10-20); BUN (Urea Nitrogen) 23 mg/dL (8.4-25.7); Bilirubin, Total 1.9 mg/dL (0.2-1.2); Calc. Creatinine Clearance 0 mL/min (70-130); Calcium 9.5 mg/dL (7.8-10.44); Carbon Dioxide 25 mmol/L (23-31); Chloride 102 mmol/L (98-107); Estimated GFR-MDRD 64; Globulin 3.2 g/dL (2.4-3.5); Glucose 76 mg/dL (83-110); Potassium 3.7 mmol/L (3.5-5.1); Protein, Total 7.2 g/dL (5.8-8.1); Sodium 137 mmol/L (136-145)
[2018-10-13] MEDS ORDERED: Furosemide 40 MG/4 ML VIAL ONE (18:05)
[2018-10-13] MEDS ORDERED: Nitroglycerin 2% Ointment 1 INCH/1 GM Packet ONE (18:05)
[2018-10-13 18:06] LABS: CKMB 12.8 ng/mL (0-6.6)
--- NOTE | 2018-10-13 18:49 | RAD ---
UPRIGHT PORTABLE CHEST ONE VIEW: 10/13/18 HISTORY: 73-year-old male with history of dyspnea, shortness of breath. Tired on exertion. COMPARISON: 04/12/18. FINDINGS: Left ICD. Minimal cardiomegaly. Minimal stable increased bronchovascular markings bilaterally without confluent pneumonia, overt edema, or pleural effusion. IMPRESSION: Stable cardiomegaly and increased markings. No evidence for pneumonia or acute edema. Left ICD. Ather osclerosis of the aorta. POS: [facility]
[2018-10-13] MEDS ORDERED: Enoxaparin Sodium 100 MG/ML SYRINGE ONE (19:32)
[2018-10-13 21:07] LABS: CKMB 12.6 ng/mL (0-6.6); Critical Call CKMB RESULT DECREASING
[2018-10-13] MEDS ORDERED: Ondansetron ODT 4 MG TAB PO PRN (21:47)
[2018-10-13 23:27] VITALS: BMI 32.5
[2018-10-13 23:28] LABS: Critical Call Chem Troponin I RESULT DECREASING
--- NOTE | 2018-10-14 02:03 | PDOC.FPRHP ---
- History of Present Illness Chief Complaint: Shortness of breath History of Present Illness: This is a 73 yo male with a pmh of Afib, CHF, bipolar who presents to the ed with a cc of SOB. He reports his symptoms first started a week ago with worsening bilateral lower extremity swelling. He reports that he began having shortness of breath and exercise intolerance two days ago. He state that he has been out of his lasix since [place]. He reports associated lightheadedness. Pt denies chest pain, palpitations, nausea, vomiting, or syncope. Pt states that [facility] [place] [facility]. 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 Pt denies a vehicle and states that getting a ride to [place] is difficult. ED Course: Therapeutic lovenox, aspirin, nitro, furosemide 40mg - Allergies/Adverse Reactions Allergies Allergy/AdvReac Type Severity Reaction Status Date / Time No Known Allergies Allergy Verified 10/13/18 21:03 - Home Medications Medication Instructions Recorded Confirmed Type Divalproex Sodium DR [Depakote] 1,000 mg PO BID 10/15/17 10/13/18 History buPROPion HCl [Wellbutrin] 75 mg PO BID 10/15/17 10/13/18 History Aspirin [Aspirin Chewable Tablet] 81 mg PO DAILY 30 Days #30 tab 03/13/18 Rx Atorvastatin Calcium [Lipitor] 40 mg PO DAILY #30 tab 04/12/18 10/13/18 Rx Carvedilol [Coreg] 3.125 mg PO BID #60 tab 04/12/18 10/13/18 Rx Furosemide [Lasix] 40 mg PO BID #60 tab 04/12/18 10/13/18 Rx - History PMHx: Afib, hx of HTN, bipolar, CHF PSHx: pacemaker placement, left knee replacement FHx: non contributory Social: Chews tobacco, drinks occasionally, denies drug use, no access to a car - Review of Systems General: reports: fatigue. denies: fever/chills, weight/appetite/sleep changes Eyes: denies: eye pain, vision changes ENT: denies: nasal congestion, rhinorrhea Respiratory: reports: shortness of breath, exercise intolerance. denies: cough Cardiovascular: reports: edema. denies: chest pain, palpitation Gastrointestinal: denies: nausea, vomiting, diarrhea, constipation Genitourinary: denies: incontinence, dysuria Skin: denies: rashes, lesions Musculoskeletal: denies: pain, tenderness Neurological: denies: numbness, syncope, weakness Psychological: reports: depression. denies: anxiety - Vital signs BP: 155/89 HR: 89 RR: 25 Tmax: 97.8 Pox: 98% on ra Wt: 90 - Physical Exam Constitutional: NAD, awake, alert and oriented, well developed HEENT: normocephalic and atraumatic, MMM, other (poor dentition) Neck: supple, trachea midline Chest: no-tender to palpation, no lesions Heart: normal S1/S2, other (regular rate, irregularly irregular rhythm, 2/6 systolic murmur, 2+ pitting edema to lower abdomen) Lungs: CTAB, no respiratory distress, good air movement Abdomen: soft, non-tender, bowel sounds present Musculoskeletal: normal structure, ROM grossly normal Neurological: no focal deficit, CN II-XII intact Skin: no rash/lesions, other (cap refill~4 seconds) Heme/Lymphatic: no unusual bruising or bleeding Psychiatric: normal mood and affect, good judgment and insight, intact recent and remote memory FMR H&P: Results - Labs Result Diagrams: 10/14/18 06:02 10/14/18 06:02 Lab results: WBC 5.3 thou/uL (4.8-10.8) 10/13/18 16:50 Hgb 13.9 g/dL (14.0-18.0) L 10/13/18 16:50 Hct 41.8 % (42.0-52.0) L 10/13/18 16:50 MCV 103.0 fL (78.0-98.0) H 10/13/18 16:50 Plt Count 134 thou/uL (130-400) 10/13/18 16:50 Neutrophils % 65.1 % (42.0-75.0) 10/13/18 16:50 Sodium 137 mmol/L (136-145) 10/13/18 16:50 Potassium 3.7 mmol/L (3.5-5.1) 10/13/18 16:50 Chloride 102 mmol/L (98-107) 10/13/18 16:50 Carbon Dioxide 25 mmol/L (23-31) 10/13/18 16:50 BUN 23 mg/dL (8.4-25.7) 10/13/18 16:50 Creatinine 1.12 mg/dL (0.7-1.3) 10/13/18 16:50 Glucose 76 mg/dL (83-110) L 10/13/18 16:50 Calcium 9.5 mg/dL (7.8-10.44) 10/13/18 16:50 Total Bilirubin 1.9 mg/dL (0.2-1.2) H 10/13/18 16:50 AST 46 U/L (5-34) H 10/13/18 16:50 ALT 14 U/L (8-55) 10/13/18 16:50 Alkaline Phosphatase 102 U/L (40-150) 10/13/18 16:50 CK-MB (CK-2) 12.6 ng/mL (0-6.6) H* 10/13/18 20:10 B-Natriuretic Peptide 779.2 pg/mL (0-100) H 10/13/18 16:50 Serum Total Protein 7.2 g/dL (5.8-8.1) 10/13/18 16:50 Albumin 4.0 g/dL (3.4-4.8) 10/13/18 16:50 - EKG Interpretation EKG: Afib rate controlled, rate 80, no st elevation or depression - Radiology Interpretation Chest x-ray Status: report reviewed by me (no acute cardiopulmonary disease, ICD in place) FMR H&P: A/P - Problem List (1) CHF exacerbation Current Visit: Yes Status: Acute Code(s): I50.9 - HEART FAILURE, UNSPECIFIED (2) Non-ST elevated myocardial infarction Current Visit: No Status: Acute Priority: High Code(s): I21.4 - NON-ST ELEVATION (NSTEMI) MYOCARDIAL INFARCTION Comment: s/p therapeutic lovenox (3) Atrial fibrillation Current Visit: No Status: Chronic Priority: Medium Code(s): I48.91 - UNSPECIFIED ATRIAL FIBRILLATION Qualifiers: Atrial fibrillation type: chronic Qualified Code(s): I48.2 - Chronic atrial fibrillation Comment: s/p dual-chamber pacer (4) Bipolar disorder Current Visit: No Status: Chronic Priority: Low Code(s): F31.9 - BIPOLAR DISORDER, UNSPECIFIED Qualifiers: Active/Remission status: currently active Current episode severity: unspecified (5) HTN (hypertension) Current Visit: No Status: Chronic Code(s): I10 - ESSENTIAL (PRIMARY) HYPERTENSION Qualifiers: Hypertension type: essential hypertension Qualified Code(s): I10 - Essential (primary) hypertension - Plan This is a 73 yo male with a pmh of Afib, CHF, bipolar CHF exacerbation -Admit to tele -Strict I&Os -Fluid restriction, 1500ml/day -Lasix 40mg IV BID -Monitor vitals -Out of medications over [place] NSTEMI -Initial troponin 1.008->1.037->0.94 -Therapeutic lovenox -Cardiology consult, we will appreciate their recommendations Afib rate controlled -Not currently on anticoagulation, reportedly taken off all medications for afib Bipolar -Continue home welbutrin and depakote Social situation, no vehicle with PCP[facility] [place] Code: Full Prophylaxis: none Family: none at bedside Disposition: DC in 2-3 days FMR H&P: Upper Level - Pertinent history 73M p/w SOB over the last week or so that has progressively worsened. He normally takes lasix at home, but has not refilled the medication for roughly one month due to transportation issues. He has noticed some bilateral lower extremity swelling as well. He initially thought he overexerted himself at home , but his fatigue has persisted which prompted the ER visit. He denies any chest pain, trouble breathing at rest, palpitations, n/v, headaches. Patient has a prior history of cardiac related admissions, the last being in April of 2018. Stress test at that time showed global hypokinesis and an EF of 40 %. Last known cardiac catheterization was in August of [address] Hazel which showed no coronary vessel disease. TTE performed in February of 2018 showed an EF of 30-35% with a severaly dilated left atrium. He is s/p AICD placement. ED: lovenox 1 mg/kg, ASA, nitrobid, lasix 40mg IV - Pertinent findings Gen: A&Ox3; patient in no distress during interview, walking around exam room CV: irregular rhythm Pulm: CTA-B Abd: soft; nonTTP; non distended trop: 1.008 CK-MB: 12.8 BNP: 780 AST/ALT: 46/14 T. bili: 1.9 CXR: pulmonary vascular congestion - Plan Date/Time: 10/14/18 0144 I, Edgar Okaley, have evaluated this patient and agree with findings/plan as outlined by hospitality internship resident. Pertinent changes/additions are listed here. NSTEMI: -prior history of NSTEMI -last cath in 2016; last TTE and stress roughly 7 months ago -cardiology consulted, will await further recommendations -patient is adamant that he has no chest pain; EKG continues to be unconcerning for ischemic process -continue anticoagulation of lovenox 1mg/kg -trend cardiac enzymes with repeat EKG -morphine, oxygen, nitrates PRN HFrEF exacerbation -continue diuresis with lasix 40mg IV bid -daily weights and fluid restriction -consider further cardiac w/u with TTE and stress once HF is stable -monitor on telemetry Addendum - Attending - Attending Attestation Date/Time: 10/14/18 0709 I personally evaluated the patient and discussed the management with Dr. Glover last night. I agree with the History, Examination, Assessment and Plan documented above with any addition or exceptions noted below.
[2018-10-14] MEDS: Furosemide 40 MG/4 ML VIAL SLOW IVP SCH ×2 (05:38→13:30)
[2018-10-14 06:15] LABS: #Basophils 0.1 thou/uL (0.0-0.2); #Eosinphils 0.1 thou/uL (0.0-0.7); #Lymphocytes 1.5 thou/uL (1.20-3.40); #Monocytes 0.3 thou/uL (0.11-0.59); #Neutrophils 2.2 thou/uL (1.40-6.50); %Basophils 1.3 % (0.0-1.0); %Eosinophils 2.7 % (0.0-10.0); %Lymphocytes 35.3 % (21.0-51.0); %Monocytes 7.4 % (0.0-10.0); %Neutrophils 53.3 % (42.0-75.0); Hemoglobin 12.5 g/dL (14.0-18.0); Mean Corpuscular HGB CONC 32.5 g/dL (32.0-36.0); Mean Corpuscular Hemoglobin 33.4 pg (27.0-31.0); Mean Platelet Volume 8.1 fL (7.4-10.4); Platelet Count 131 thou/uL (130-400); RBC Distribution Width 12.3 % (11.5-14.5); Red Blood Cell (RBC) Count 3.75 mill/uL (4.70-6.10); White Blood Cell (WBC) Count 4.1 thou/uL (4.8-10.8)
[2018-10-14 06:31] LABS: Anion Gap 13 mmol/L (10-20); BUN (Urea Nitrogen) 20 mg/dL (8.4-25.7); Calc. Creatinine Clearance 82 mL/min (70-130); Calcium 9.2 mg/dL (7.8-10.44); Carbon Dioxide 26 mmol/L (23-31); Chloride 102 mmol/L (98-107); Estimated GFR-MDRD 68; Glucose 93 mg/dL (83-110); Potassium 3.8 mmol/L (3.5-5.1); Sodium 137 mmol/L (136-145)
--- NOTE | 2018-10-14 08:37 | PDOC.FM ---
- Subjective Subjective: Pt reports feeling well this AM, reports his SOB is resolved since admission and has no complaints at this time. No fever/chills, no cp/palpitations, no sob - Objective MAR Reviewed: Yes Vital Signs & Weight: Vital Signs (12 hours) Temp Pulse Resp BP BP Pulse Ox 10/14/18 07:16 96 10/14/18 04:00 97.6 F 81 20 137/61 93 L 10/13/18 21:47 98 10/13/18 21:40 97 10/13/18 21:00 98.2 F 74 20 126/83 98 Weight Weight 93.44 kg Result Diagrams: 10/14/18 06:02 10/14/18 06:02 Phys Exam - Physical Examination Constitutional: NAD HEENT: moist MMs, sclera anicteric Neck: no JVD, supple Respiratory: no wheezing, clear to auscultation bilateral Cardiovascular: no significant murmur, no rub Gastrointestinal: soft, non-tender Musculoskeletal: no edema, pulses present Neurological: normal sensation, moves all 4 limbs Psychiatric: normal affect, A&O x 3 Skin: no rash, normal turgor Dx/Plan (1) CHF exacerbation Code(s): I50.9 - HEART FAILURE, UNSPECIFIED Status: Acute (2) Non-ST elevated myocardial infarction Code(s): I21.4 - NON-ST ELEVATION (NSTEMI) MYOCARDIAL INFARCTION Status: Acute (3) Artificial cardiac pacemaker Code(s): Z95.0 - PRESENCE OF CARDIAC PACEMAKER Status: Chronic (4) Atrial fibrillation with controlled ventricular rate Code(s): I48.91 - UNSPECIFIED ATRIAL FIBRILLATION Status: Chronic (5) Bipolar disease, chronic Code(s): F31.9 - BIPOLAR DISORDER, UNSPECIFIED Status: Chronic (6) HTN (hypertension) Code(s): I10 - ESSENTIAL (PRIMARY) HYPERTENSION Status: Chronic Qualifiers: Hypertension type: essential hypertension Qualified Code(s): I10 - Essential (primary) hypertension - Plan Plan: This is a 73 yo male with a pmh of Afib, CHF, bipolar CHF exacerbation A- Pt reports that he ran out of medications over [place]. BNP in 700s, last Echo 02/2018 shows EF30-35%. P-Strict I&Os -Fluid restriction, 1500ml/day -Lasix 40mg IV BID -Monitor vitals -cards consulted NSTEMI vs. demand ischemia A- Pt has hx of NSTEMI and presented with Initial troponin 1.008->1.037->0.94, though pt denied and still denies CP. P-Therapeutic lovenox -Cardiology consult, we will appreciate their recommendations Afib rate controlled A- Not currently on anticoagulation, reportedly ran out of all medications for afib. Pt has AICD in place P- will hold coreg for now as pt is controlled and for possibility of stress test. HTN A- BP mildly elevated this AM P- will hold coreg as of now as listed above Bipolar -Continue home welbutrin and depakote Social situation, no vehicle with [facility]CP[facility] [place] Code: Full Addendum - Attending - Attending Attestation Date/Time: 10/14/18 1221 I personally evaluated the patient and discussed the management with Dr. Milian I agree with the History, Examination, Assessment and Plan documented above with any addition or exceptions noted below. Significant non compliance history HF Ref with ACID and benefit of BB and ACEI in addition to loop diuretic. Candid discussion ETOH usuage and benefits of cutting down .
[2018-10-14] MEDS ORDERED: buPROPion HCl 100 MG TAB PO SCH (09:00)
[2018-10-14] MEDS ORDERED: Prevnar 13-Val Conj/PF 0.5 ML SYRINGE IM ONE (09:00)
[2018-10-14] MEDS: Enoxaparin Sodium 100 MG/ML SYRINGE SC SCH ×2 (09:04→21:00)
[2018-10-14] MEDS: Acetaminophen 325 MG TAB PO PRN ×2 (09:04→17:24)
[2018-10-14] MEDS: Divalproex Sodium DR 500 MG TAB PO SCH ×2 (09:18→21:04)
[2018-10-14] MEDS: Atorvastatin Calcium 40 MG TAB PO SCH (09:18)
[2018-10-14] MEDS: buPROPion 75 MG TAB PO SCH ×2 (09:18→21:04)
--- NOTE | 2018-10-14 13:23 | PQF ---
CLINICAL DOCUMENTATION IMPROVEMENT CLARIFICATION FORM: ICD-10 Updated PLEASE DO AN ADDENDUM TO THE PROGRESS NOTE WITH ANY DOCUMENTATION UPDATES OR ADDITIONS AND CARRY THROUGH TO DC SUMMARY. THANK YOU. DATE: 10/14/18 ATTN: DR. CELESTE Please exercise your independent, professional judgment in responding to the clarification form. Clinical indicators are provided on the bottom of this form for your review Please check appropriate box(s) to clarify if the following diagnosis has been ruled in or ruled out: "NSTEMI" [ ] Ruled in diagnosis [ ] Continue to treat [ ] Resolved [ ] Ruled out diagnosis [ ] Cannot rule out diagnosis [ ] Other diagnosis [ x] Unable to determine In addition, please specify: Present on Admission (POA): [ x ] Yes [ ] No [ ] Unable to determine For continuity of documentation, please document condition throughout progress notes and discharge summary. Thank You. CLINICAL INDICATORS - SIGNS / SYMPTOMS / LABS H&P: "NSTEMI" PROGRESS NOTE: "NSTEMI VS DEMAND ISCHEMIA" TROPONIN 1.008 / 1.037 / 0.947 RISKS: CHF HYPERTENSION ATRIAL FIBRILLATION TREATMENT: LOVENOX (ER-PRESENT) ASPIRIN (ER-PRESENT) NITRO-BID (ER) SERIAL LABS TELEMETRY MONITORING SAP Hydraulic Lift Driver [employer] Winform Viewer (This form is maintained as a part of the permanent medical record) 2014 [employer]. All Rights Reserved [email or web address] Office: [phone] MTDTam
--- NOTE | 2018-10-14 13:35 | PQF ---
CLINICAL DOCUMENTATION IMPROVEMENT CLARIFICATION FORM: ICD-10 Updated PLEASE DO AN ADDENDUM TO THE PROGRESS NOTE WITH ANY DOCUMENTATION UPDATES OR ADDITIONS AND CARRY THROUGH TO DC SUMMARY. THANK YOU. DATE: 10/14/18 ATTN: DR. CELESTE Please exercise your independent, professional judgment in responding to the clarification form. Clinical indicators are provided on the bottom of this form for your review Please check appropriate box(s): HEART FAILURE: TYPE: [ x ] Systolic / HFrEF [ ] Diastolic / HFpEF [ ] Combined Systolic / Diastolic [ ] Other diagnosis [ ] Unable to determine In addition, please specify: Present on Admission (POA): x[ x ] Yes [ ] No [ ] Unable to determine For continuity of documentation, please document condition throughout progress notes and discharge summary. Thank You. CLINICAL INDICATORS - SIGNS / SYMPTOMS / LABS DX: "ACUTE CHF EXACERBATION" PROGRESS NOTE 10/14: "LAST ECHO 02/2018 SHOWS EF 30-35%" BNP 779.2 RISKS: H/O CHF ATRIAL FIBRILLATION HTN TREATMENT: IV LASIX (ER-PRESENT) COREG TELEMETRY MONITORING FLUID RESTRICTION (This form is maintained as a part of the permanent medical record) SAP Recruiting Assistant Crystal Reports Winform Viewer 2015 [employer]. All Rights Reserved [email or web address] Office: [phone] [facility] CENTERTam
[2018-10-14] MEDS: Carvedilol 3.125 MG TAB PO SCH (21:02)
[2018-10-15] MEDS: Acetaminophen 325 MG TAB PO PRN ×2 (00:22→12:59)
[2018-10-15] MEDS: Furosemide 40 MG/4 ML VIAL SLOW IVP SCH (06:23)
--- NOTE | 2018-10-15 06:29 | PDOC.FM ---
- Subjective Subjective: Feeling well this morning. Concerned about an effusion in his right knee, reports it improved with wrapping yesterday- denies pain of right knee. Reports improvement in lower leg edema. No overnight events. Denies shortness of breath , chest pain. Expresses he would like to go home today if possible. - Objective MAR Reviewed: Yes Vital Signs & Weight: Vital Signs (12 hours) Temp Pulse Resp BP Pulse Ox 10/15/18 03:20 95 10/15/18 03:04 97.6 F 72 16 118/74 95 10/14/18 20:00 97.4 F L 85 20 144/74 H 97 Weight Weight 91.444 kg I&O: 10/13/18 10/14/18 10/15/18 06:59 06:59 06:59 Intake Total 720 Output Total 1300 Balance -580 Result Diagrams: 10/14/18 06:02 10/14/18 06:02 Phys Exam - Physical Examination Constitutional: NAD HEENT: moist MMs Neck: supple Respiratory: no wheezing, clear to auscultation bilateral Cardiovascular: RRR, no significant murmur Gastrointestinal: soft, non-tender, positive bowel sounds Musculoskeletal: pulses present, edema present 2+ pitting edema to knees Neurological: moves all 4 limbs Psychiatric: normal affect, A&O x 3 Skin: cap refill <2 seconds Dx/Plan (1) CHF exacerbation Code(s): I50.9 - HEART FAILURE, UNSPECIFIED Status: Acute (2) Non-ST elevated myocardial infarction Code(s): I21.4 - NON-ST ELEVATION (NSTEMI) MYOCARDIAL INFARCTION Status: Acute (3) Artificial cardiac pacemaker Code(s): Z95.0 - PRESENCE OF CARDIAC PACEMAKER Status: Chronic (4) Atrial fibrillation with controlled ventricular rate Code(s): I48.91 - UNSPECIFIED ATRIAL FIBRILLATION Status: Chronic (5) Bipolar disorder Code(s): F31.9 - BIPOLAR DISORDER, UNSPECIFIED Status: Chronic Qualifiers: Active/Remission status: currently active Current episode severity: unspecified (6) HTN (hypertension) Code(s): I10 - ESSENTIAL (PRIMARY) HYPERTENSION Status: Chronic Qualifiers: Hypertension type: essential hypertension Qualified Code(s): I10 - Essential (primary) hypertension - Plan Plan: CHF exacerbation - Pt reports that he ran out of medications over [place]. BNP 700s, last Echo 02/2018: nonischemic cardiomyopathy EF 30-35%. - Strict I&Os, daily wts and Fluid restriction 1500ml/day - TSH, FLP nml - Transition from IV to PO Lasix 40mg BID - Monitor vitals - Continue statin, coreg, ASA - Restart home Lisinopril NSTEMI vs. demand ischemia - Hx of NSTEMI, Initial troponins 1.008->1.037->0.94, No chest Pain - Discontinue Therapeutic lovenox, no EKG changes, no chest pain - Echo in February 2018 EF 30-35%, stress test neg April 2018 Afib rate controlled - Not currently on chronic anticoagulation, reportedly ran out of all medications for afib. Pt has AICD in place HTN - Continue home meds Bipolar - Continue home wellbutrin and depakote Code Status: Full DVT ppx: Therapeutic Lovenox Addendum - Attending - Attending Attestation Date/Time: 10/15/18 1025 I personally evaluated the patient and discussed the management with Dr. Lagos. I agree with the History, Examination, Assessment and Plan documented above with any addition or exceptions noted below. Patient here for CHF exacerbation due to medication noncompliance. He feels well and requests to go home. He is not requiring O2 though does have fairly significant LE edema. Ambulating without difficulty. Awaiting cardiology clearance but hopeful for discharge later today.
[2018-10-15 07:02] LABS: Cardiac Risk 2.4 (Less than 4.5)
[2018-10-15] MEDS: Enoxaparin Sodium 100 MG/ML SYRINGE SC SCH (08:42)
[2018-10-15] MEDS: Divalproex Sodium DR 500 MG TAB PO SCH (08:42)
[2018-10-15] MEDS: Carvedilol 3.125 MG TAB PO SCH (08:42)
[2018-10-15] MEDS: Atorvastatin Calcium 40 MG TAB PO SCH (08:42)
[2018-10-15] MEDS: buPROPion 75 MG TAB PO SCH (08:49)
[2018-10-15 13:03] VITALS: BP 118/78; TEMP 97.9
[2018-10-15] MEDS ORDERED: Furosemide 40 MG TAB PO SCH (14:00)
--- NOTE | 2018-10-17 08:24 | DIS ---
DATE OF ADMISSION: 10/13/2018 DATE OF DISCHARGE: 10/15/2018 ADMITTING ATTENDING: Mason St MD. DISCHARGE ATTENDING: Keron Reeves MD. CONSULTATIONS: None. PROCEDURES: Chest x-ray, stable cardiomegaly and increased markings. No evidence for pneumonia or acute edema. Left ICD. Atherosclerosis of the aorta. PRIMARY DIAGNOSES: 1. Congestive heart failure exacerbation. 2. Non-ST elevated myocardial infarction versus demand ischemia. SECONDARY DIAGNOSES: 1. AICD. 2. Atrial fibrillation with controlled rate. 3. Bipolar. 4. Hypertension. DISCHARGE MEDICATIONS: 1. Aspirin 81 mg daily. 2. Atorvastatin 40 mg daily. 3. Wellbutrin 75 mg b.i.d. 4. Carvedilol 3.125 b.i.d.(new). 5. Depakote 1000 mg b.i.d. 6. Furosemide 40 mg b.i.d. DISCONTINUED MEDICATIONS: None. HISTORY OF PRESENT ILLNESS AND HOSPITAL COURSE: Mr. Farrar is a 73-year-old male who presented to the ED for shortness of breath over the last week and lower extremity edema. He has a history of heart failure with reduced ejection fraction with AICD placement, follows with at the [facility] in [place] for heart failure medications. He has not had transportation to attend an appointment, therefore has not been taking medications as directed for the last month. At admission, BNP elevated to 779.2. His chest x-ray showed increased markings. He is saturating well on room. His last echo was 02/2018 showed nonischemic cardiomyopathy, ejection fraction 30% to 35%. He had a stress test in April 2018 that was negative. He was started on IV Lasix b.i.d. with improvement of edema and shortness of breath. He was continued on his home medications of statin, beta sharon, aspirin, and lisinopril. TSH and fasting lipid panel were within normal limits. NSTEMI versus demand ischemia. Initial troponin was 1.008, and CK-MB 12.8, troponin decreased to 0.947, and CK-MB decreased to 12.6. His EKG showed no ST changes. As stated above, his stress test in April 2018 was negative for CAD. He received 2 days of therapeutic Lovenox, did not have chest pain during the entire duration of stay. Sandra consult with Cardiology. We recommended he was cleared for discharge. Atrial fibrillation, rate controlled, not on any chronic anticoagulation. The patient has an AICD in place. Hypertension and bipolar were treated with home medications. DISPOSITION: Stable. DISCHARGE INSTRUCTIONS: LOCATION: Home. DIET: Heart healthy, fluid restricted. ACTIVITIES: No restrictions. FOLLOWUP: Follow up with primary care doctor within 3 to 5 days and a industrial pharmacist within 30 days. Job ID: [id number]
== END 2018-10-15 13:04 | disposition home or self-care (01) | DRG 293 ==
LOC: ERS 16:24 → 2NO 19:20
PROVIDERS: ADMIT Family Medicine; ATTEND Family Medicine
DX: I11.0 Hypertensive heart disease with heart failure (principal); I50.23 Acute on chronic systolic (congestive) heart failure; I48.91 Unspecified atrial fibrillation; F31.9 Bipolar disorder, unspecified; Z79.82 Long term (current) use of aspirin; I25.2 Old myocardial infarction; Z95.0 Presence of cardiac pacemaker; Z96.652 Presence of left artificial knee joint
CPT/HCPCS: 36415; 71045; 80048; 80053; 80061; 80307; 82553; 83880; 84443; 84484; 85025; 90471; 90662; 90670; 93005; 93798; 94760; 96372; 96374; G0008; G0009; J1650; J1940

== ENCOUNTER 2018-12-16 16:21 | Emergency (ER) | payer OTHER ==
[2018-12-16 17:17] LABS: #Eosinphils 0.1 thou/uL (0.0-0.7); #Lymphocytes 1.8 thou/uL (1.20-3.40); #Monocytes 0.4 thou/uL (0.11-0.59); #Neutrophils 3.1 thou/uL (1.40-6.50); %Basophils 0.6 % (0.0-1.0); %Eosinophils 1.1 % (0.0-10.0); %Lymphocytes 33.1 % (21.0-51.0); %Monocytes 7.3 % (0.0-10.0); Mean Corpuscular HGB CONC 33.4 g/dL (32.0-36.0); Mean Corpuscular Hemoglobin 34.2 pg (27.0-31.0); Mean Platelet Volume 7.5 fL (7.4-10.4); Platelet Count 145 thou/uL (130-400); Red Blood Cell (RBC) Count 4.39 mill/uL (4.70-6.10); White Blood Cell (WBC) Count 5.3 thou/uL (4.8-10.8)
[2018-12-16 17:39] LABS: ALT (SGPT) 12 U/L (8-55); AST (SGOT) 29 U/L (5-34); Albumin 4.1 g/dL (3.4-4.8); Alkaline Phosphatase 104 U/L (40-150); Anion Gap 14 mmol/L (10-20); BUN (Urea Nitrogen) 20 mg/dL (8.4-25.7); Bilirubin, Total 1.7 mg/dL (0.2-1.2); Calc. Creatinine Clearance 0 mL/min (70-130); Calcium 9.8 mg/dL (7.8-10.44); Carbon Dioxide 26 mmol/L (23-31); Chloride 103 mmol/L (98-107); Estimated GFR-MDRD 84; Globulin 3.1 g/dL (2.4-3.5); Glucose 72 mg/dL (83-110); Potassium 3.7 mmol/L (3.5-5.1); Protein, Total 7.2 g/dL (5.8-8.1); Sodium 139 mmol/L (136-145)
== END 2018-12-16 18:00 | disposition left against medical advice (07) ==
LOC: ERS 16:21
DX: Z53.21 Procedure and treatment not carried out due to patient leaving prior to being seen by health care provider (principal)
CPT/HCPCS: 36415; 80053; 80164; 83735; 85025; 93005; 94760

== ENCOUNTER 2019-01-11 06:41 | Emergency (ER) | payer OTHER ==
[2019-01-11 07:18] LABS: #Basophils 0.1 thou/uL (0.0-0.2); #Eosinphils 0.1 thou/uL (0.0-0.7); #Lymphocytes 1.5 thou/uL (1.20-3.40); #Monocytes 0.8 thou/uL (0.11-0.59); #Neutrophils 3.5 thou/uL (1.40-6.50); %Basophils 0.9 % (0.0-1.0); %Eosinophils 1.9 % (0.0-10.0); %Lymphocytes 25.3 % (21.0-51.0); %Monocytes 13.9 % (0.0-10.0); %Neutrophils 58.1 % (42.0-75.0); Hemoglobin 14.9 g/dL (14.0-18.0); Mean Corpuscular HGB CONC 33.5 g/dL (32.0-36.0); Mean Corpuscular Hemoglobin 33.8 pg (27.0-31.0); Mean Platelet Volume 7.1 fL (7.4-10.4); Platelet Count 165 thou/uL (130-400); RBC Distribution Width 12.2 % (11.5-14.5); Red Blood Cell (RBC) Count 4.41 mill/uL (4.70-6.10)
[2019-01-11 07:25] LABS: ALT (SGPT) 8 U/L (8-55); AST (SGOT) 26 U/L (5-34); Albumin 3.9 g/dL (3.4-4.8); Alkaline Phosphatase 100 U/L (40-150); Anion Gap 12 mmol/L (10-20); BUN (Urea Nitrogen) 15 mg/dL (8.4-25.7); Bilirubin, Total 1.4 mg/dL (0.2-1.2); CK (CPK) 92 U/L (30-200); Calc. Creatinine Clearance 0 mL/min (70-130); Calcium 9.2 mg/dL (7.8-10.44); Carbon Dioxide 30 mmol/L (23-31); Chloride 101 mmol/L (98-107); Estimated GFR-MDRD 61; Glucose 90 mg/dL (83-110); Protein, Total 6.9 g/dL (5.8-8.1); Sodium 139 mmol/L (136-145)
--- NOTE | 2019-01-11 07:41 | RAD ---
FPortable chest radiograph: 01/11/2019 COMPARISON: 10/13/2018 HISTORY:Shortness of breath FINDINGS: Stable dual lead transvenous pacing device inserted via left subclavian approach. Stable pr ominence of the cardiac silhouette. No pneumothorax, pleural fluid, focal consolidation, or alveolar edema. IMPRESSION: No acute findings
[2019-01-11 08:11] LABS: CKMB 2.5 ng/mL (0-6.6)
[2019-01-11] MEDS ORDERED: methylPREDNISolone Sod Succ/PF 125 MG/2 ML VIAL ONE (08:41)
[2019-01-11] MEDS ORDERED: Furosemide 40 MG/4 ML VIAL ONE (08:41)
== END 2019-01-11 09:15 | disposition home or self-care (01) ==
LOC: ERS 06:41
DX: J20.9 Acute bronchitis, unspecified (principal); I48.91 Unspecified atrial fibrillation; I10 Essential (primary) hypertension; F31.9 Bipolar disorder, unspecified; F17.220 Nicotine dependence, chewing tobacco, uncomplicated
CPT/HCPCS: 71045; 80053; 82550; 82553; 83880; 84484; 85025; 93005; 96374; 96375; J1940; J2930

== ENCOUNTER 2019-01-17 11:32 | Emergency (ER) | payer OTHER ==
--- NOTE | 2019-01-17 12:28 | RAD ---
CHEST ONE VIEW: Indication: H/O ANXIETY AND SOB Comparison: 01-11-19 FINDINGS: Mild cardiomegaly. Pacemaker is stable to comparison. Pulmonary vasculature is normal. No pleural eff usion is evident. No acute osseous abnormality is noted. IMPRESSION: No acute cardiopulmonary abnormality. POS: [facility]
[2019-01-17 12:34] LABS: #Basophils 0.1 thou/uL (0.0-0.2); #Eosinphils 0.1 thou/uL (0.0-0.7); #Lymphocytes 1.8 thou/uL (1.20-3.40); #Monocytes 0.5 thou/uL (0.11-0.59); #Neutrophils 2.8 thou/uL (1.40-6.50); %Basophils 1.2 % (0.0-1.0); %Eosinophils 1.5 % (0.0-10.0); %Lymphocytes 34.4 % (21.0-51.0); %Monocytes 8.8 % (0.0-10.0); %Neutrophils 54.2 % (42.0-75.0); Hemoglobin 15.1 g/dL (14.0-18.0); Mean Corpuscular HGB CONC 33.2 g/dL (32.0-36.0); Mean Corpuscular Hemoglobin 33.9 pg (27.0-31.0); Mean Platelet Volume 7.1 fL (7.4-10.4); Platelet Count 193 thou/uL (130-400); RBC Distribution Width 11.9 % (11.5-14.5); Red Blood Cell (RBC) Count 4.44 mill/uL (4.70-6.10); White Blood Cell (WBC) Count 5.2 thou/uL (4.8-10.8)
[2019-01-17 12:50] LABS: ALT (SGPT) 10 U/L (8-55); AST (SGOT) 30 U/L (5-34); Albumin 4.1 g/dL (3.4-4.8); Alkaline Phosphatase 105 U/L (40-150); Anion Gap 16 mmol/L (10-20); BUN (Urea Nitrogen) 26 mg/dL (8.4-25.7); Bilirubin, Total 1.6 mg/dL (0.2-1.2); Calc. Creatinine Clearance 0 mL/min (70-130); Calcium 9.6 mg/dL (7.8-10.44); Carbon Dioxide 27 mmol/L (23-31); Chloride 101 mmol/L (98-107); Estimated GFR-MDRD 51; Globulin 2.8 g/dL (2.4-3.5); Glucose 95 mg/dL (83-110); Potassium 4.5 mmol/L (3.5-5.1); Protein, Total 6.9 g/dL (5.8-8.1); Sodium 139 mmol/L (136-145)
[2019-01-17 13:10] LABS: CKMB 2.5 ng/mL (0-6.6)
[2019-01-17] MEDS ORDERED: Aspirin Chewable 81 MG TAB ONE (14:47)
[2019-01-17 16:06] LABS: CKMB 2.4 ng/mL (0-6.6)
--- NOTE | 2019-01-21 14:19 | EKG ---
Test Reason : Blood Pressure : / mmHG Vent. Rate : 075 BPM Atrial Rate : 238 BPM P-R Int : 000 ms QRS Dur : 088 ms QT Int : 450 ms P-R-T Axes : 211 -43 -44 degrees QTc Int : 502 ms Atrial flutter with variable A-V block Left axis deviation Possible Anterior infarct , age undetermined Prolonged QT Abnormal ECG No change from 01/11/2019 Confirmed by LAUREN MANCILLA DO ([id number]), supervising editor news reel AUGUSTA ROTH ([id number]) on 01/21/2019 2:18:58 PM Referred By: Confirmed By:LAUREN MANCILLA DO
--- NOTE | 2019-01-21 14:20 | EKG ---
Test Reason : ER Blood Pressure : / mmHG Vent. Rate : 081 BPM Atrial Rate : 243 BPM P-R Int : 000 ms QRS Dur : 088 ms QT Int : 444 ms P-R-T Axes : 249 -42 100 degrees QTc Int : 515 ms Atrial flutter with 3:1 A-V conduction Left axis deviation Low voltage QRS Cannot rule out Anterior infarct , age undetermined Abnormal ECG No change Confirmed by LAUREN MANCILLA DO ([id number]), editor continuity and script AUGUSTA ROTH ([id number]) on 01/21/2019 2:20:25 PM Referred By: Confirmed By:LAUREN MANCILLA DO
== END 2019-01-17 16:43 | disposition home or self-care (01) ==
LOC: ERS 11:32
DX: R06.00 Dyspnea, unspecified (principal); I48.91 Unspecified atrial fibrillation; I11.0 Hypertensive heart disease with heart failure; I50.9 Heart failure, unspecified; F31.9 Bipolar disorder, unspecified; F17.220 Nicotine dependence, chewing tobacco, uncomplicated; Z79.899 Other long term (current) drug therapy
CPT/HCPCS: 36415; 71045; 80053; 82553; 83880; 84484; 85025; 93005; 96360

== ENCOUNTER 2019-02-18 20:29 | Emergency (ER) | payer OTHER ==
[2019-02-18] MEDS ORDERED: Aspirin Chewable 81 MG TAB ONE ×2 (20:55→20:57)
[2019-02-18 21:07] LABS: #Basophils 0.1 thou/uL (0.0-0.2); #Eosinphils 0.1 thou/uL (0.0-0.7); #Lymphocytes 1.8 thou/uL (1.20-3.40); #Monocytes 0.5 thou/uL (0.11-0.59); %Eosinophils 1.2 % (0.0-10.0); %Lymphocytes 32.9 % (21.0-51.0); %Monocytes 9.9 % (0.0-10.0); %Neutrophils 55.1 % (42.0-75.0); Hemoglobin 13.8 g/dL (14.0-18.0); Mean Corpuscular Hemoglobin 34.3 pg (27.0-31.0); Mean Platelet Volume 6.8 fL (7.4-10.4); Platelet Count 164 thou/uL (130-400); RBC Distribution Width 11.7 % (11.5-14.5); Red Blood Cell (RBC) Count 4.02 mill/uL (4.70-6.10); White Blood Cell (WBC) Count 5.4 thou/uL (4.8-10.8)
[2019-02-18 21:13] LABS: INR-International Normal Ratio 1.1; PTT 31.2 SEC (22.9-36.1); Prothrombin Time 14.3 SEC (12.0-14.7)
[2019-02-18 21:28] LABS: ALT (SGPT) 9 U/L (8-55); AST (SGOT) 26 U/L (5-34); Albumin 3.9 g/dL (3.4-4.8); Alkaline Phosphatase 109 U/L (40-150); Anion Gap 12 mmol/L (10-20); BUN (Urea Nitrogen) 11 mg/dL (8.4-25.7); Bilirubin, Total 0.8 mg/dL (0.2-1.2); Calc. Creatinine Clearance 0 mL/min (70-130); Calcium 9.5 mg/dL (7.8-10.44); Carbon Dioxide 31 mmol/L (23-31); Chloride 101 mmol/L (98-107); Estimated GFR-MDRD 65; Globulin 3.1 g/dL (2.4-3.5); Glucose 85 mg/dL (83-110); Potassium 3.7 mmol/L (3.5-5.1); Sodium 140 mmol/L (136-145)
[2019-02-18 21:50] LABS: CKMB 4.6 ng/mL (0-6.6)
== END 2019-02-18 23:11 | disposition left against medical advice (07) ==
LOC: ERS 20:29
DX: R06.02 Shortness of breath (principal); R60.0 Localized edema; I11.0 Hypertensive heart disease with heart failure; I50.9 Heart failure, unspecified; I48.91 Unspecified atrial fibrillation; F17.220 Nicotine dependence, chewing tobacco, uncomplicated; Z79.899 Other long term (current) drug therapy
CPT/HCPCS: 36415; 80053; 82553; 84484; 85025; 85610; 85730; 93005

== ENCOUNTER 2019-04-04 21:40 | Inpatient (IN) | payer MEDICARE, OTHER ==
[~2019-04-04 21:40] MED LIST: ISOVUE-370 76%-LOCM 1 ML ONE
[2019-04-04] MEDS ORDERED: Adacel (T-DAP) 0.5 ML SYRINGE ONE (21:47)
[2019-04-04 21:55] LABS: #Eosinphils 0.1 thou/uL (0.0-0.7); #Lymphocytes 2.3 thou/uL (1.20-3.40); #Monocytes 0.5 thou/uL (0.11-0.59); #Neutrophils 3.1 thou/uL (1.40-6.50); %Basophils 0.6 % (0.0-1.0); %Eosinophils 2.3 % (0.0-10.0); %Lymphocytes 38.2 % (21.0-51.0); %Monocytes 8.3 % (0.0-10.0); %Neutrophils 50.7 % (42.0-75.0); Hemoglobin 14.3 g/dL (14.0-18.0); Mean Corpuscular HGB CONC 33.8 g/dL (32.0-36.0); Mean Corpuscular Hemoglobin 34.7 pg (27.0-31.0); Mean Platelet Volume 6.8 fL (7.4-10.4); Platelet Count 175 thou/uL (130-400); RBC Distribution Width 11.9 % (11.5-14.5); Red Blood Cell (RBC) Count 4.11 mill/uL (4.70-6.10)
[2019-04-04 22:02] LABS: INR-International Normal Ratio 1.1; PTT 28.2 SEC (22.9-36.1); Prothrombin Time 14.7 SEC (12.0-14.7)
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
[2019-04-04 22:16] LABS: ALT (SGPT) Less than 7 U/L (8-55); AST (SGOT) 21 U/L (5-34); Albumin 3.8 g/dL (3.4-4.8); Alkaline Phosphatase 85 U/L (40-150); Anion Gap 11 mmol/L (10-20); BUN (Urea Nitrogen) 12 mg/dL (8.4-25.7); Bilirubin, Total 1.9 mg/dL (0.2-1.2); Calc. Creatinine Clearance 0 mL/min (70-130); Calcium 8.8 mg/dL (7.8-10.44); Carbon Dioxide 28 mmol/L (23-31); Chloride 103 mmol/L (98-107); Estimated GFR-MDRD 79; Globulin 2.9 g/dL (2.4-3.5); Glucose 110 mg/dL (83-110); Lipase 31 U/L (8-78); Potassium 3.2 mmol/L (3.5-5.1); Protein, Total 6.7 g/dL (5.8-8.1); Sodium 139 mmol/L (136-145)
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
[2019-04-04 22:20] LABS: Acetaminophen Less than 6.0 mcg/mL (10.0-30.0); Alcohol Less than 10 mg/dL (Less than 10); Salicylate Less than 8.0 mg/dL (15.0-30.0)
[2019-04-04] MEDS ORDERED: Ondansetron PF 4 MG/2 ML Vial ONE (22:22)
[2019-04-04] MEDS ORDERED: Morphine 4 MG/ML VIAL ONE (22:22)
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
[2019-04-04] MEDS ORDERED: hydrALAZINE 20 MG/ML VIAL SLOW IVP PRN (23:19)
[2019-04-04] MEDS ORDERED: Dextrose 5% in Water 1,000 ML IV PRN (23:19)
[2019-04-04] MEDS ORDERED: Ondansetron PF 4 MG/2 ML Vial IVP PRN (23:19)
[2019-04-04] MEDS ORDERED: Dextrose 50% Abboject 50 ML SYRINGE SLOW IVP PRN (23:19)
[2019-04-04] MEDS ORDERED: Promethazine HCl 25 MG/ML VIAL IM PRN (23:19)
[2019-04-04 23:56] VITALS: BMI 25.9
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
[2019-04-05] MEDS: Acetaminophen 1,000 MG in Premix Bag 1 BAG IVPB SCH ×4 (00:41→17:25)
[2019-04-05] MEDS: Cyclobenzaprine 10 MG TAB PO PRN ×2 (00:41→09:28)
[2019-04-05] MEDS: Ibuprofen 600 MG TAB PO SCH ×3 (05:01→20:34)
[2019-04-05] MEDS: traMADol HCl 50 MG TAB PO PRN (05:02)
[2019-04-05 06:01] LABS: Anion Gap 10 mmol/L (10-20); BUN (Urea Nitrogen) 11 mg/dL (8.4-25.7); Calc. Creatinine Clearance 85 mL/min (70-130); Calcium 8.8 mg/dL (7.8-10.44); Carbon Dioxide 29 mmol/L (23-31); Chloride 104 mmol/L (98-107); Estimated GFR-MDRD 88; Glucose 91 mg/dL (83-110); Magnesium 1.9 mg/dL (1.6-2.6); Phosphorus 3.5 mg/dL (2.3-4.7); Potassium 3.7 mmol/L (3.5-5.1); Sodium 139 mmol/L (136-145)
[2019-04-05 06:06] LABS: #Eosinphils 0.1 thou/uL (0.0-0.7); #Lymphocytes 1.7 thou/uL (1.20-3.40); #Monocytes 0.7 thou/uL (0.11-0.59); #Neutrophils 4.1 thou/uL (1.40-6.50); %Basophils 0.5 % (0.0-1.0); %Eosinophils 1.4 % (0.0-10.0); %Lymphocytes 25.2 % (21.0-51.0); %Monocytes 10.9 % (0.0-10.0); Hemoglobin 12.7 g/dL (14.0-18.0); MDiff Complete? YES; Macrocytosis MODERATE=16-30 cells (100X) (0-5/hpf); Mean Corpuscular HGB CONC 32.9 g/dL (32.0-36.0); Mean Corpuscular Hemoglobin 34.6 pg (27.0-31.0); Mean Platelet Volume 6.9 fL (7.4-10.4); Platelet Count 151 thou/uL (130-400); Red Blood Cell (RBC) Count 3.67 mill/uL (4.70-6.10); White Blood Cell (WBC) Count 6.6 thou/uL (4.8-10.8)
[2019-04-05] MEDS ORDERED: Potassium Chloride 20 MEQ TAB PO SCH (08:00)
[2019-04-05] MEDS ORDERED: PHOS-NAK 1 PKT PACK PO SCH ×2 (08:00→18:00)
[2019-04-05] MEDS ORDERED: Magnesium 2 GM/50 ML 2 GM in Premix Bag 1 BAG IVPB SCH (08:00)
[2019-04-05] MEDS: Senokot S 8.6-50 MG TAB PO SCH ×2 (08:18→20:33)
[2019-04-05] MEDS: Polyethylene Glycol 3350 17 GM Packet PO SCH (08:18)
[2019-04-05] MEDS: Atorvastatin Calcium 40 MG TAB PO SCH (09:10)
[2019-04-05] MEDS ORDERED: Lidocaine 1% PF 5 ML VIAL ONE (09:14)
[2019-04-05] MEDS ORDERED: Rocuronium Bromide 10 MG/ML (10ML VIAL) ONE (09:14)
[2019-04-05] MEDS ORDERED: ePHEDrine 50 MG/ML VIAL ONE (09:14)
[2019-04-05] MEDS ORDERED: PROPOFOL 200 MG/20 ML VIAL ONE (09:14)
[2019-04-05] MEDS: buPROPion 75 MG TAB PO SCH ×2 (09:28→20:34)
[2019-04-05] MEDS: Carvedilol 3.125 MG TAB PO SCH ×2 (09:28→20:34)
[2019-04-05] MEDS: Famotidine 20 MG TAB PO SCH ×2 (09:28→20:33)
[2019-04-05] MEDS: Divalproex Sodium DR 500 MG TAB PO SCH ×2 (09:49→20:33)
[2019-04-05] MEDS ORDERED: Fentanyl 100 MCG/2 ML VIAL ONE ×2 (11:17→15:30)
[2019-04-05] MEDS ORDERED: Neomycin-Polymyxin 1 ML AMP ONE (11:54)
--- NOTE | 2019-04-05 14:48 | RAD ---
Radiograph right leg tibia-fibula 2 views: DATE: 04/05/2019 COMPARISON: 04/04/2019 FINDINGS: Fluoroscopic small [id number] spot images obtained with C-arm in the OR. There is a new intramedul haresh nail traversing the proximal femoral diaphyseal fracture and the mid diaphyseal tibial fracture, with proximal and distal stabilization screws. Alignment has significantly improved. There is no longer any angulation. The alignment of the fracture of the mid fibular diaphysis has improved. IMPRESSION: Intramedullary nail fixation of the comminuted tibial shaft fractures, with significant interval impr ovement in alignment.
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
[2019-04-05] MEDS: Morphine 2 MG/ML SYRINGE SLOW IVP PRN (17:24)
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
[2019-04-05] MEDS: CEFAZOLIN 2 GM in Premix Bag 1 BAG IVPB SCH (20:33)
[2019-04-06] MEDS: CEFAZOLIN 2 GM in Premix Bag 1 BAG IVPB SCH ×3 (04:27→20:11)
[2019-04-06 05:07] LABS: #Eosinphils 0.2 thou/uL (0.0-0.7); #Lymphocytes 1.1 thou/uL (1.20-3.40); #Monocytes 0.5 thou/uL (0.11-0.59); #Neutrophils 3.8 thou/uL (1.40-6.50); %Basophils 0.7 % (0.0-1.0); %Eosinophils 3.3 % (0.0-10.0); %Monocytes 9.2 % (0.0-10.0); %Neutrophils 66.8 % (42.0-75.0); Hemoglobin 10.4 g/dL (14.0-18.0); Mean Corpuscular HGB CONC 33.3 g/dL (32.0-36.0); Mean Corpuscular Hemoglobin 35.1 pg (27.0-31.0); Mean Platelet Volume 6.9 fL (7.4-10.4); Platelet Count 124 thou/uL (130-400); Red Blood Cell (RBC) Count 2.96 mill/uL (4.70-6.10); White Blood Cell (WBC) Count 5.7 thou/uL (4.8-10.8)
[2019-04-06 05:21] LABS: Anion Gap 10 mmol/L (10-20); BUN (Urea Nitrogen) 10 mg/dL (8.4-25.7); Calc. Creatinine Clearance 90 mL/min (70-130); Calcium 8.4 mg/dL (7.8-10.44); Carbon Dioxide 28 mmol/L (23-31); Chloride 103 mmol/L (98-107); Estimated GFR-MDRD Greater than 90; Glucose 92 mg/dL (83-110); Magnesium 1.8 mg/dL (1.6-2.6); Phosphorus 3.6 mg/dL (2.3-4.7); Potassium 4.8 mmol/L (3.5-5.1); Sodium 136 mmol/L (136-145)
[2019-04-06] MEDS: Ibuprofen 600 MG TAB PO SCH ×3 (06:04→20:10)
[2019-04-06] MEDS ORDERED: PHOS-NAK 1 PKT PACK PO SCH (07:15)
[2019-04-06] MEDS ORDERED: Magnesium 2 GM/50 ML 2 GM in Premix Bag 1 BAG IVPB SCH (07:15)
[2019-04-06] MEDS: Atorvastatin Calcium 40 MG TAB PO SCH ×2 (10:18→20:10)
[2019-04-06] MEDS: buPROPion 75 MG TAB PO SCH ×2 (10:20→20:10)
[2019-04-06] MEDS: Senokot S 8.6-50 MG TAB PO SCH ×2 (10:20→20:10)
[2019-04-06] MEDS: Carvedilol 3.125 MG TAB PO SCH ×2 (10:24→20:09)
[2019-04-06] MEDS: Polyethylene Glycol 3350 17 GM Packet PO SCH (10:27)
[2019-04-06] MEDS: Enoxaparin Sodium 40 MG/0.4 ML SYRINGE SC SCH (11:09)
[2019-04-06] MEDS: traMADol HCl 50 MG TAB PO PRN ×2 (13:04→20:24)
[2019-04-06] MEDS: Divalproex Sodium DR 500 MG TAB PO SCH ×2 (14:19→20:10)
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
[2019-04-06] MEDS: Morphine 2 MG/ML SYRINGE SLOW IVP PRN (17:54)
[2019-04-06] MEDS: Cyclobenzaprine 10 MG TAB PO PRN (20:25)
[2019-04-07 05:29] LABS: #Basophils 0.1 thou/uL (0.0-0.2); #Eosinphils 0.1 thou/uL (0.0-0.7); #Lymphocytes 1.4 thou/uL (1.20-3.40); #Monocytes 0.4 thou/uL (0.11-0.59); #Neutrophils 3.1 thou/uL (1.40-6.50); %Eosinophils 2.5 % (0.0-10.0); %Lymphocytes 27.1 % (21.0-51.0); %Monocytes 7.9 % (0.0-10.0); %Neutrophils 61.5 % (42.0-75.0); Hemoglobin 9.8 g/dL (14.0-18.0); Mean Corpuscular HGB CONC 33.3 g/dL (32.0-36.0); Platelet Count 120 thou/uL (130-400); RBC Distribution Width 12.1 % (11.5-14.5); Red Blood Cell (RBC) Count 2.81 mill/uL (4.70-6.10)
[2019-04-07 05:48] LABS: Anion Gap 9 mmol/L (10-20); BUN (Urea Nitrogen) 12 mg/dL (8.4-25.7); Calc. Creatinine Clearance 90 mL/min (70-130); Calcium 8.6 mg/dL (7.8-10.44); Carbon Dioxide 30 mmol/L (23-31); Chloride 99 mmol/L (98-107); Estimated GFR-MDRD Greater than 90; Glucose 79 mg/dL (83-110); Phosphorus 3.2 mg/dL (2.3-4.7); Potassium 4.1 mmol/L (3.5-5.1); Sodium 134 mmol/L (136-145)
[2019-04-07] MEDS: Ibuprofen 600 MG TAB PO SCH ×3 (05:55→19:55)
[2019-04-07] MEDS: Polyethylene Glycol 3350 17 GM Packet PO SCH (08:17)
[2019-04-07] MEDS: Senokot S 8.6-50 MG TAB PO SCH ×2 (08:17→19:53)
[2019-04-07] MEDS: traMADol HCl 50 MG TAB PO PRN ×2 (08:18→14:02)
[2019-04-07] MEDS: Divalproex Sodium DR 500 MG TAB PO SCH ×2 (08:20→19:54)
[2019-04-07] MEDS: buPROPion 75 MG TAB PO SCH ×2 (08:20→19:53)
[2019-04-07] MEDS: Enoxaparin Sodium 40 MG/0.4 ML SYRINGE SC SCH (08:20)
[2019-04-07] MEDS: Carvedilol 3.125 MG TAB PO SCH ×2 (08:25→19:54)
[2019-04-07] MEDS: Cyclobenzaprine 10 MG TAB PO PRN (11:04)
[2019-04-07] MEDS ORDERED: PHOS-NAK 1 PKT PACK PO SCH (13:00)
--- NOTE | 2019-04-07 14:05 | EKG ---
Test Reason : Blood Pressure : / mmHG Vent. Rate : 083 BPM Atrial Rate : 234 BPM P-R Int : 000 ms QRS Dur : 098 ms QT Int : 388 ms P-R-T Axes : 070 -43 048 degrees QTc Int : 455 ms Atrial flutter with variable A-V block Left axis deviation Septal infarct , age undetermined Abnormal ECG Confirmed by LEANNE HUGHES DO ([id number]), news editor AUGUSTA ROTH ([id number]) on 04/07/2019 2:05:17 PM Referred By: Confirmed By:LEANNE HUGHES DO
--- NOTE | 2019-04-07 14:06 | EKG ---
Test Reason : Blood Pressure : / mmHG Vent. Rate : 079 BPM Atrial Rate : 079 BPM P-R Int : 226 ms QRS Dur : 098 ms QT Int : 398 ms P-R-T Axes : 050 -41 017 degrees QTc Int : 456 ms Atrial flutter rate controlled Left axis deviation Low voltage QRS Septal infarct , age undetermined Abnormal ECG Confirmed by LEANNE HUGHES DO ([id number]), society editor AUGUSTA ROTH ([id number]) on 04/07/2019 2:06:35 PM Referred By: Confirmed By:LEANNE HUGHES DO
[2019-04-07] MEDS: Atorvastatin Calcium 40 MG TAB PO SCH (19:53)
[2019-04-08] MEDS: Ibuprofen 600 MG TAB PO SCH ×3 (05:48→20:44)
[2019-04-08 06:31] LABS: #Eosinphils 0.1 thou/uL (0.0-0.7); #Lymphocytes 1.3 thou/uL (1.20-3.40); #Monocytes 0.6 thou/uL (0.11-0.59); #Neutrophils 2.8 thou/uL (1.40-6.50); %Basophils 0.5 % (0.0-1.0); %Eosinophils 2.3 % (0.0-10.0); %Lymphocytes 26.6 % (21.0-51.0); %Neutrophils 58.6 % (42.0-75.0); Hemoglobin 9.4 g/dL (14.0-18.0); Mean Corpuscular HGB CONC 32.3 g/dL (32.0-36.0); Mean Platelet Volume 6.9 fL (7.4-10.4); Platelet Count 114 thou/uL (130-400); RBC Distribution Width 12.2 % (11.5-14.5); Red Blood Cell (RBC) Count 2.76 mill/uL (4.70-6.10); White Blood Cell (WBC) Count 4.8 thou/uL (4.8-10.8)
[2019-04-08 06:49] LABS: Anion Gap 9 mmol/L (10-20); BUN (Urea Nitrogen) 16 mg/dL (8.4-25.7); Calc. Creatinine Clearance 87 mL/min (70-130); Calcium 8.3 mg/dL (7.8-10.44); Carbon Dioxide 32 mmol/L (23-31); Chloride 98 mmol/L (98-107); Estimated GFR-MDRD Greater than 90; Glucose 78 mg/dL (83-110); Potassium 4.5 mmol/L (3.5-5.1); Sodium 134 mmol/L (136-145)
[2019-04-08] MEDS: Polyethylene Glycol 3350 17 GM Packet PO SCH (09:32)
[2019-04-08] MEDS: Carvedilol 3.125 MG TAB PO SCH ×2 (09:32→20:43)
[2019-04-08] MEDS: Enoxaparin Sodium 40 MG/0.4 ML SYRINGE SC SCH (09:32)
[2019-04-08] MEDS: buPROPion 75 MG TAB PO SCH ×2 (09:32→20:43)
[2019-04-08] MEDS: Divalproex Sodium DR 500 MG TAB PO SCH ×2 (09:33→20:44)
[2019-04-08] MEDS: Senokot S 8.6-50 MG TAB PO SCH ×2 (09:33→20:44)
[2019-04-08] MEDS ORDERED: Magnesium Citrate 300 ML BOT PO SCH (11:30)
[2019-04-08] MEDS: traMADol HCl 50 MG TAB PO PRN ×2 (12:05→18:36)
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
[2019-04-08] MEDS: Atorvastatin Calcium 40 MG TAB PO SCH (20:44)
[2019-04-09] MEDS: Ibuprofen 600 MG TAB PO SCH ×3 (05:08→21:03)
[2019-04-09] MEDS: Carvedilol 3.125 MG TAB PO SCH ×2 (09:00→21:01)
[2019-04-09] MEDS: buPROPion 75 MG TAB PO SCH ×2 (09:00→21:00)
[2019-04-09] MEDS: Polyethylene Glycol 3350 17 GM Packet PO SCH (09:00)
[2019-04-09] MEDS: Senokot S 8.6-50 MG TAB PO SCH ×2 (09:00→21:02)
[2019-04-09] MEDS: Divalproex Sodium DR 500 MG TAB PO SCH ×2 (09:00→21:02)
[2019-04-09] MEDS: Enoxaparin Sodium 40 MG/0.4 ML SYRINGE SC SCH (09:00)
[2019-04-09] MEDS: traMADol HCl 50 MG TAB PO PRN ×2 (09:04→21:06)
[2019-04-09] MEDS: Atorvastatin Calcium 40 MG TAB PO SCH (21:00)
[2019-04-10] MEDS: traMADol HCl 50 MG TAB PO PRN ×3 (04:50→21:30)
[2019-04-10] MEDS: Ibuprofen 600 MG TAB PO SCH ×3 (05:00→21:27)
[2019-04-10] MEDS: buPROPion 75 MG TAB PO SCH ×2 (09:11→21:27)
[2019-04-10] MEDS: Polyethylene Glycol 3350 17 GM Packet PO SCH (09:11)
[2019-04-10] MEDS: Senokot S 8.6-50 MG TAB PO SCH ×2 (09:11→21:28)
[2019-04-10] MEDS: Divalproex Sodium DR 500 MG TAB PO SCH ×2 (09:11→21:28)
[2019-04-10] MEDS: Carvedilol 3.125 MG TAB PO SCH ×2 (09:11→21:27)
[2019-04-10] MEDS: Enoxaparin Sodium 40 MG/0.4 ML SYRINGE SC SCH (09:11)
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
[2019-04-10] MEDS: Cyclobenzaprine 10 MG TAB PO PRN (18:03)
[2019-04-10] MEDS: Atorvastatin Calcium 40 MG TAB PO SCH (21:27)
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
[2019-04-11] MEDS: Ibuprofen 600 MG TAB PO SCH ×3 (05:48→21:40)
[2019-04-11] MEDS: buPROPion 75 MG TAB PO SCH ×2 (09:00→21:43)
[2019-04-11] MEDS: Carvedilol 3.125 MG TAB PO SCH ×2 (09:00→21:43)
[2019-04-11] MEDS: Divalproex Sodium DR 500 MG TAB PO SCH ×2 (09:01→21:42)
[2019-04-11] MEDS: Enoxaparin Sodium 40 MG/0.4 ML SYRINGE SC SCH (09:01)
[2019-04-11] MEDS: Senokot S 8.6-50 MG TAB PO SCH ×2 (09:01→21:43)
[2019-04-11] MEDS: Polyethylene Glycol 3350 17 GM Packet PO SCH (09:02)
[2019-04-11] MEDS: traMADol HCl 50 MG TAB PO PRN ×2 (15:44→21:46)
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
[2019-04-11] MEDS: Atorvastatin Calcium 40 MG TAB PO SCH (21:40)
[2019-04-12] MEDS: Ibuprofen 600 MG TAB PO SCH ×2 (06:33→13:20)
[2019-04-12] MEDS: Senokot S 8.6-50 MG TAB PO SCH (09:04)
[2019-04-12] MEDS: Carvedilol 3.125 MG TAB PO SCH (09:04)
[2019-04-12] MEDS: Enoxaparin Sodium 40 MG/0.4 ML SYRINGE SC SCH (09:04)
[2019-04-12] MEDS: Divalproex Sodium DR 500 MG TAB PO SCH (09:04)
[2019-04-12] MEDS: buPROPion 75 MG TAB PO SCH (09:04)
[2019-04-12] MEDS: Polyethylene Glycol 3350 17 GM Packet PO SCH (09:05)
[2019-04-12 12:04] VITALS: BP 112/62; TEMP 97.8
[2019-04-12] MEDS ORDERED: Gabapentin 100 MG CAP PO SCH (15:00)
[2019-04-12] MEDS ORDERED: Acetaminophen 325 MG TAB PO SCH (15:00)
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
== END 2019-04-12 13:45 | DRG 494 ==
LOC: ERS 21:40 → SURG B 23:38
PROVIDERS: ADMIT Surgery; ATTEND Surgery
PROC: 0QSG04Z Reposition Right Tibia with Internal Fixation Device, Open Approach (ICD-10-PCS; principal; 2019-04-05)
DX: S82.251B Displaced comminuted fracture of shaft of right tibia, initial encounter for open fracture type I or II (principal); F31.9 Bipolar disorder, unspecified; I48.91 Unspecified atrial fibrillation; E87.6 Hypokalemia; F17.220 Nicotine dependence, chewing tobacco, uncomplicated; I50.9 Heart failure, unspecified; I11.0 Hypertensive heart disease with heart failure; Z79.01 Long term (current) use of anticoagulants; V03.99XA Pedestrian with other conveyance injured in collision with car, pick-up truck or van, unspecified whether traffic or nontraffic accident, initial encounter; Z95.0 Presence of cardiac pacemaker; Y92.410 Unspecified street and highway as the place of occurrence of the external cause; Z98.890 Other specified postprocedural states
CPT/HCPCS: 27502; 27752; 36415; 70450; 71045; 71260; 72125; 72170; 74177; 76000; 80048; 80053; 80307; 83605; 83690; 83735; 84100; 85025; 85610; 85730; 86850; 86900; 86901; 90471; 90715; 93005; 94760; 96361; 96365; 96374; 96375; C1713; C1769; G0390; J0131; J0690; J1650; J2001; J2270; J2405; J2704; J3010; J3475; J3490; Q9966

== ENCOUNTER 2019-05-04 21:32 | Emergency (ER) | payer OTHER ==
--- NOTE | 2019-05-04 22:18 | RAD ---
RIGHT TIBIA AND FIBULA: 05/04/19 Three views. HISTORY: Pain. Comparison made to intraoperative films of 04/05/19. FINDINGS/IMPRESSION: The intramedullary carlin transfixing the tibial fracture is unchanged. The fragments appear unchanged i n alignment. Comminuted displaced fracture of the fibula again noted. The fibular fragments show increased displac ement when compared to the recent exam. POS: [facility]
== END 2019-05-04 22:30 | disposition home or self-care (01) ==
LOC: ERS 21:32
DX: S82.451A Displaced comminuted fracture of shaft of right fibula, initial encounter for closed fracture (principal); I48.91 Unspecified atrial fibrillation; I11.0 Hypertensive heart disease with heart failure; I50.9 Heart failure, unspecified; F17.210 Nicotine dependence, cigarettes, uncomplicated; Z79.899 Other long term (current) drug therapy; F31.9 Bipolar disorder, unspecified; W18.30XA Fall on same level, unspecified, initial encounter

== ENCOUNTER 2019-06-11 16:02 | Emergency (ER) | payer OTHER ==
[2019-06-11] MEDS ORDERED: Magnesium 2 GM/50 ML BAG (IN WATER) ONE (17:50)
--- NOTE | 2019-06-11 17:52 | RAD ---
RIGHT TIBIA AND FIBULA TWO VIEWS: History: Rehab evaluation. Comparison: 05-04-19 FINDINGS: Intramedullary rods stabilizing the fibula with segmental comminuted fractures with some bony callus formation, particularly of the more proximal fracture. Slightly comminuted segmental fibular fracture s are noted with some foreshortening. Generalized soft tissue swelling. IMPRESSION: Segmental tibial fracture stabilized with intramedullary carlin. Segmental fibular fractures. Incomplete healing of all fractures. Soft tissue swelling. POS: [facility]
[2019-06-11 17:54] LABS: #Eosinphils 0.2 thou/uL (0.0-0.7); #Lymphocytes 2.3 thou/uL (1.20-3.40); #Monocytes 0.4 thou/uL (0.11-0.59); #Neutrophils 3.1 thou/uL (1.40-6.50); %Basophils 0.8 % (0.0-1.0); %Eosinophils 2.9 % (0.0-10.0); %Monocytes 7.2 % (0.0-10.0); %Neutrophils 51.2 % (42.0-75.0); Mean Corpuscular HGB CONC 33.8 g/dL (32.0-36.0); Mean Corpuscular Hemoglobin 32.9 pg (27.0-31.0); Mean Corpuscular Volume 97.5 fL (78.0-98.0); Mean Platelet Volume 6.5 fL (7.4-10.4); Platelet Count 221 thou/uL (130-400); RBC Distribution Width 12.5 % (11.5-14.5); Red Blood Cell (RBC) Count 4.55 mill/uL (4.70-6.10); White Blood Cell (WBC) Count 6.1 thou/uL (4.8-10.8)
--- NOTE | 2019-06-11 17:55 | RAD ---
PORTABLE CHEST ONE VIEW: Date: 06-11-19 Time: 5:22 p.m. History: Right ankle pain, rehab evaluation. FINDINGS: Comparison is made with exam of 04-04-19. Left sided pacing device is in place. The heart size is normal. The aorta is tortuous. The lungs are expanded without focal areas of consolidation, pneumothoraces or pleural effusions. There are degener ative changes in the acromioclavicular joints. IMPRESSION: No radiographic evidence of acute cardiopulmonary process. POS: [facility]
[2019-06-11 18:17] LABS: ALT (SGPT) 13 U/L (8-55); AST (SGOT) 25 U/L (5-34); Albumin 4.3 g/dL (3.4-4.8); Alkaline Phosphatase 178 U/L (40-150); Anion Gap 15 mmol/L (10-20); BUN (Urea Nitrogen) 19 mg/dL (8.4-25.7); Bilirubin, Total 0.9 mg/dL (0.2-1.2); Calc. Creatinine Clearance 0 mL/min (70-130); Calcium 9.6 mg/dL (7.8-10.44); Carbon Dioxide 25 mmol/L (23-31); Chloride 100 mmol/L (98-107); Estimated GFR-MDRD 87; Globulin 3.4 g/dL (2.4-3.5); Glucose 82 mg/dL (83-110); Potassium 4.6 mmol/L (3.5-5.1); Protein, Total 7.7 g/dL (5.8-8.1); Sodium 135 mmol/L (136-145)
[2019-06-11 18:38] LABS: CKMB 2.7 ng/mL (0-6.6)
== END 2019-06-11 22:32 | disposition home or self-care (01) ==
LOC: ERS 16:02
DX: M25.571 Pain in right ankle and joints of right foot (principal); I48.91 Unspecified atrial fibrillation; I11.0 Hypertensive heart disease with heart failure; I50.9 Heart failure, unspecified; F17.220 Nicotine dependence, chewing tobacco, uncomplicated; Z79.899 Other long term (current) drug therapy; Z79.01 Long term (current) use of anticoagulants
CPT/HCPCS: 36415; 71045; 80053; 82553; 84484; 85025; 93005; 94760; 96365; J3475

== ENCOUNTER 2019-07-18 10:38 | Emergency (ER) | payer OTHER, SELFPAY ==
--- NOTE | 2019-07-18 12:34 | RAD ---
Chest 2 views HISTORY: Cough. Congestion. COMPARISON: 06/11/2019. FINDINGS: Cardiac silhouette and pulmonary vasculature are unremarkable. Mediastinum is midline. Dual ly left subclavian cardiac electronic device in place. Density over the left apex correlates with the first costochondral junction. No mass was present in t his area on recent CT chest exam. Lungs are slightly hyperinflated. Nipple shadow over the left base. No pleural fluid or pneumothorax. IMPRESSION: Pulmonary hyperinflation. Chronic-type findings are stable.
== END 2019-07-18 12:56 | disposition home or self-care (01) ==
LOC: ERS 10:38
DX: J06.9 Acute upper respiratory infection, unspecified (principal); I48.91 Unspecified atrial fibrillation; I49.9 Cardiac arrhythmia, unspecified; I10 Essential (primary) hypertension; F31.9 Bipolar disorder, unspecified; F17.220 Nicotine dependence, chewing tobacco, uncomplicated; Z79.899 Other long term (current) drug therapy; Z79.01 Long term (current) use of anticoagulants
CPT/HCPCS: 71046; 87804

== ENCOUNTER 2019-08-30 16:40 | Observation (INO) | payer SELFPAY ==
[2019-08-30] MEDS ORDERED: Aspirin Chewable 81 MG TAB ONE ×2 (17:24→17:26)
[2019-08-30 17:46] LABS: #Basophils 0.1 thou/uL (0.0-0.2); #Eosinphils 0.1 thou/uL (0.0-0.7); #Lymphocytes 2.1 thou/uL (1.20-3.40); #Monocytes 0.4 thou/uL (0.11-0.59); #Neutrophils 2.8 thou/uL (1.40-6.50); %Basophils 1.9 % (0.0-1.0); %Eosinophils 1.2 % (0.0-10.0); %Lymphocytes 38.5 % (21.0-51.0); %Monocytes 7.3 % (0.0-10.0); %Neutrophils 51.1 % (42.0-75.0); Mean Corpuscular HGB CONC 33.6 g/dL (32.0-36.0); Mean Corpuscular Hemoglobin 32.4 pg (27.0-31.0); Mean Corpuscular Volume 96.4 fL (78.0-98.0); Mean Platelet Volume 6.6 fL (7.4-10.4); Platelet Count 231 thou/uL (130-400); RBC Distribution Width 13.5 % (11.5-14.5); Red Blood Cell (RBC) Count 4.63 mill/uL (4.70-6.10); White Blood Cell (WBC) Count 5.4 thou/uL (4.8-10.8)
[2019-08-30 17:54] LABS: ALT (SGPT) Less than 7 U/L (8-55); AST (SGOT) 22 U/L (5-34); Albumin 3.9 g/dL (3.4-4.8); Alkaline Phosphatase 193 U/L (40-110); Anion Gap 15 mmol/L (10-20); BUN (Urea Nitrogen) 16 mg/dL (8.4-25.7); Bilirubin, Total 0.9 mg/dL (0.2-1.2); Calc. Creatinine Clearance 0 mL/min (70-130); Carbon Dioxide 25 mmol/L (23-31); Chloride 105 mmol/L (98-107); Estimated GFR-MDRD 67; Globulin 3.3 g/dL (2.4-3.5); Glucose 79 mg/dL (83-110); Potassium 3.5 mmol/L (3.5-5.1); Protein, Total 7.2 g/dL (5.8-8.1); Sodium 141 mmol/L (136-145)
[2019-08-30 18:19] LABS: CKMB 2.2 ng/mL (0-6.6)
--- NOTE | 2019-08-30 19:17 | RAD ---
FRONTAL RADIOGRAPH CHEST: 08/30/19 COMPARISON: 07/18/19 HISTORY: Productive cough with congestion. FINDINGS: There is a dual lead transvenous pacing device inserted via a left subclavian approach. Supine imagin g provided, limiting assessment for pneumothorax and pleural fluid. No focal consolidation or alveola r edema. IMPRESSION: No acute findings. POS: [facility]
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
[2019-08-30] MEDS ORDERED: Lisinopril 5 MG TAB PO SCH (22:30)
[2019-08-30] MEDS ORDERED: Carvedilol 3.125 MG TAB PO SCH (22:30)
[2019-08-30] MEDS ORDERED: Ondansetron ODT 4 MG TAB PO PRN (22:43)
[2019-08-31 01:04] LABS: Troponin I 0.042 ng/mL (< 0.028)
[2019-08-31 04:11] LABS: Hemoglobin A1c 5.3 % (4.0-6.0)
[2019-08-31 04:32] LABS: Cardiac Risk 3.3 (Less than 4.5); Cholesterol 157 mg/dl (< 200 Desired); HDL Cholesterol 48 mg/dL (>60 Neg Risk); LDL Cholesterol, Calculated 79 mg/dL; Magnesium 1.9 mg/dL (1.6-2.6); Phosphorus 2.7 mg/dL (2.3-4.7); Triglycerides 148 mg/dL (Less than 150)
--- NOTE | 2019-08-31 05:46 | PDOC.FM ---
- Subjective Subjective: Pt denies current CP or SOB. Pt denies significant smoking hx, but admits to chewing tobacco. Admits to hx of a fib with palpations regularly. - Objective MAR Reviewed: Yes Vital Signs & Weight: Vital Signs (12 hours) Pulse 08/31/19 02:31 86 Result Diagrams: 08/30/19 17:30 08/30/19 17:30 Phys Exam - Physical Examination Constitutional: NAD HEENT: PERRLA, moist MMs, sclera anicteric Neck: no nodes, no JVD, supple, full ROM Respiratory: no wheezing, no rales, no rhonchi, clear to auscultation bilateral Cardiovascular: no significant murmur, no rub irregularly irregular, rate 60-75's Gastrointestinal: soft, non-tender, no distention, positive bowel sounds Musculoskeletal: pulses present, edema present (RLE, chronic from injury. ) Neurological: non-focal, normal sensation, moves all 4 limbs Psychiatric: normal affect, A&O x 3 Skin: no rash, normal turgor, cap refill <2 seconds Dx/Plan (1) Near syncope Status: Acute (2) Exertional angina Code(s): I20.8 - OTHER FORMS OF ANGINA PECTORIS Status: Acute (3) HFrEF (heart failure with reduced ejection fraction) Code(s): I50.20 - UNSPECIFIED SYSTOLIC (CONGESTIVE) HEART FAILURE Status: Acute (4) Anticoagulant long-term use Code(s): Z79.01 - BARMAID (CURRENT) USE OF ANTICOAGULANTS Status: Chronic (5) Atrial fibrillation with controlled ventricular rate Code(s): I48.91 - UNSPECIFIED ATRIAL FIBRILLATION Status: Chronic (6) Bipolar disease, chronic Code(s): F31.9 - BIPOLAR DISORDER, UNSPECIFIED Status: Chronic (7) HTN (hypertension) Code(s): I10 - ESSENTIAL (PRIMARY) HYPERTENSION Status: Chronic Qualifiers: Hypertension type: essential hypertension Qualified Code(s): I10 - Essential (primary) hypertension - Plan Plan: 74 y/o m admitted to [facility] obs for ACS rule out. 1. Exertional stable angina, Chest pain rule out - Significant cardiac history, heart score of 5 - 04/2018 stress test negative - Sudden onset of exertional, substernal chest pain associated with SOB and near -syncope that relieved with rest. No current CP. - Initial troponin 0.042 (indeterminate) --> 0.042 - Will trend troponins, consider cardiology consult if chest pain recurs - Hypertensive, did not take home meds this morning, will restart home BP medications and monitor. - Ordered Echo and Stress test. 2. Near-syncope - has had several episodes of near syncope in past several days - Will obtain orthostatic vital signs and carotid dopplers. 3. HLD - Continue home statin 4. Bipolar disorder - Continue home medications - previous incarceration - Reports sleeping well. 5. CHF, HFrEF - Continue lasix, will hold IV fluids for now. - 02/2018 echo EF 30-35% 6. Chronic A-fib with AICD - will monitor on telemetry overnight - Rate controlled. - continue eliquis Disposition/LOS: Dispo: Stable, observation (likely LOS <48hours) Code: Full VTE: Yuri IVF: SL
[2019-08-31] MEDS: Acetaminophen 325 MG TAB PO PRN ×3 (06:30→22:20)
[2019-08-31] MEDS ORDERED: Acetaminophen 325 MG TAB ONE (06:35)
[2019-08-31] MEDS ORDERED: Carvedilol 3.125 MG TAB PO SCH ×2 (08:00→09:00)
[2019-08-31 08:53] VITALS: BMI 28.1
[2019-08-31] MEDS ORDERED: Enoxaparin Sodium 40 MG/0.4 ML SYRINGE SC SCH (09:00)
[2019-08-31] MEDS: Furosemide 20 MG TAB PO SCH ×2 (09:41→19:40)
[2019-08-31] MEDS: Lisinopril 5 MG TAB PO SCH (09:41)
[2019-08-31] MEDS: Apixaban 5 MG TAB PO SCH ×2 (09:41→19:40)
--- NOTE | 2019-08-31 11:09 | ULT ---
BILATERAL CAROTID DUPLEX ULTRASOUND: HISTORY: Syncope. TECHNIQUE: Ch-scale ultrasound with color-flow and spectral Doppler imaging of the extracranial carotid artery systems is performed bilaterally. FINDINGS: No significant plaque formation or intimal wall thickening is seen. The peak systolic velocity in the right ICA measures 63 cm per second with an end-diastolic velocity of 19 cm per second and a systolic ratio of 0.78. The peak systolic velocity in the left ICA measures 180 cm per second with an end-diastolic velocity of 47 cm per second and a systolic ratio of 2.09. The left ICA is tortuous. Flow in both vertebral arteries remains antegrade. IMPRESSION: Moderate (50%-69%) stenosis of the left internal carotid artery versus artifactually increased veloci ties due to tortuosity of the left internal carotid artery. Further evaluation with CT angiography wo uld be helpful. POS: [facility]
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
[2019-08-31] MEDS ORDERED: Iopamidol 370 76% 100 ML VIAL ONE (13:40)
--- NOTE | 2019-08-31 15:52 | CT ---
CT ANGIOGRAM OF THE NECK: HISTORY: Left carotid stenosis on Doppler. COMPARISON: None. CORRELATION: Carotid ultrasound 08/31/2019. TECHNIQUE: CT angiogram of the neck is performed in the axial plane. Three-dimensional reformatted images are daniels bmitted for interpretation. FINDINGS: Visualized brain parenchyma does not demonstrate any pathologic enhancement. Bilateral orbits are grossly unremarkable. Sinuses: Mild mucosal thickening of the right maxillary sinus. Aerodigestive tract: Limited evaluation of the oral cavity due to extensive dental amalgam artifact. Midline fatty raphae of the tongue is preserved. No obvious masses. Epiglottis has normal caliber. The epiglottic fat is preserved. Symmetric attenuation of the parotid and submandibular glands. Symmetric attenuation paraspinal muscles and sternocleidomastoid muscles. No evidence of lymphadenopathy by size criteria. Upper mediastinum and lung apices are unremarkable. Cervical spine vertebral body height is maintained. No fracture. Lack of complete segmentation versus fusion at C4-C5. Varying degrees of central canal stenosis and neural foraminal narrowing due to degenerative change. CT ANGIOGRAM: Visualized aortic arch has appropriate enhancement and luminal diameter. Common origin of the carotid arteries. Common carotid artery origin has appropriate enhancement and luminal diameter. Right carotid: Appropriate enhancement and luminal diameter the common carotid artery, carotid bifurc ation and internal carotid artery. No evidence of significant stenosis based on NASCET criteria. Left carotid: Left common carotid artery, carotid bifurcation and internal carotid artery have approp riate enhancement and luminal diameter. No significant stenosis based upon NASCET criteria. Hairpin turn Involving the proximal to mid left internal carotid artery. Bilateral cervical vertebral arteries are patent throughout their course in the neck and are essentia lly codominant. Bilateral subclavian arteries are unremarkable. IMPRESSION: No evidence of significant stenosis based upon NASCET criteria with regards to the left and right cer vical carotid arteries. Transcribed Date/Time: 08/31/2019 4:00 PM
[2019-08-31] MEDS ORDERED: Atorvastatin Calcium 40 MG TAB PO SCH (21:00)
[2019-09-01] MEDS: Acetaminophen 325 MG TAB PO PRN ×2 (04:35→08:11)
--- NOTE | 2019-09-01 06:22 | PDOC.FM ---
- Subjective Subjective: Pt denies CP, SOB, cough. No overnight events. Had to have 2 day stress because he drank a soda. - Objective MAR Reviewed: Yes Vital Signs & Weight: Vital Signs (12 hours) Temp Pulse Resp BP BP BP Pulse Ox 09/01/19 04:00 97.3 F L 64 16 142/84 H 95 08/31/19 22:26 60 18 167/79 H 96 08/31/19 20:00 97.9 F 76 16 169/85 H 93 L Weight Weight 83.915 kg I&O: 08/30/19 08/31/19 09/01/19 06:59 06:59 06:59 Intake Total 570 Output Total 850 Balance -280 Result Diagrams: 08/30/19 17:30 08/30/19 17:30 Phys Exam - Physical Examination Constitutional: NAD HEENT: moist MMs, sclera anicteric Neck: no nodes, no JVD, supple, full ROM Respiratory: no wheezing, no rales, no rhonchi, clear to auscultation bilateral Cardiovascular: RRR, no significant murmur, no rub Gastrointestinal: soft, non-tender, no distention, positive bowel sounds Musculoskeletal: pulses present, edema present (RLE, due to prior injury. ) Neurological: non-focal, moves all 4 limbs Psychiatric: A&O x 3 Skin: no rash, normal turgor, cap refill <2 seconds Dx/Plan (1) Near syncope Status: Acute (2) Exertional angina Code(s): I20.8 - OTHER FORMS OF ANGINA PECTORIS Status: Acute (3) HFrEF (heart failure with reduced ejection fraction) Code(s): I50.20 - UNSPECIFIED SYSTOLIC (CONGESTIVE) HEART FAILURE Status: Acute (4) Anticoagulant long-term use Code(s): Z79.01 - HALF-WAY (CURRENT) USE OF ANTICOAGULANTS Status: Chronic (5) Atrial fibrillation with controlled ventricular rate Code(s): I48.91 - UNSPECIFIED ATRIAL FIBRILLATION Status: Chronic (6) Bipolar disease, chronic Code(s): F31.9 - BIPOLAR DISORDER, UNSPECIFIED Status: Chronic (7) HTN (hypertension) Code(s): I10 - ESSENTIAL (PRIMARY) HYPERTENSION Status: Chronic Qualifiers: Hypertension type: essential hypertension Qualified Code(s): I10 - Essential (primary) hypertension - Plan Plan: 74 y/o m admitted to Tele obs for ACS rule out. 1. Exertional stable angina, Chest pain rule out - Significant cardiac history, heart score of 5 - 04/2018 stress test negative - Sudden onset of exertional, substernal chest pain associated with SOB and near -syncope that relieved with rest. No current CP. - Initial troponin 0.042 (indeterminate) --> 0.042 - Will trend troponins, consider cardiology consult if chest pain recurs - Hypertensive, did not take home meds this morning, will restart home BP medications and monitor. - Ordered Echo and Stress test. Part one of stress on 08/31. part 2 09/01. 2. Near-syncope - has had several episodes of near syncope in past several days - orthostatic vital signs stanging 169/88, seated 150/65, supine 153/77 - carotid dopplers 50-69 % stenosis vs artifact L carotid. - CTA neck: no significant stenosis bilateral carotids. 3. HLD - Continue home statin 4. Bipolar disorder - Continue home medications - previous incarceration - Reports sleeping well. 5. CHF, HFrEF - Continue lasix, will hold IV fluids for now. - 02/2018 echo EF 30-35% - Echo pending 6. Chronic A-fib with AICD - will monitor on telemetry overnight - Rate controlled. - continue eliquis 7. Elevated Alk Phos - Recent RLE fracure with hardware placement earlier this year - Likely increased due to this, as alk phos has gradually increased since this accident. - PSA 1.1 and GGT 41 Disposition/LOS: Dispo: Stable, observation (likely LOS <48hours) Code: Full VTE: Eliquis IVF: IRENA
[2019-09-01 06:41] LABS: Troponin I 0.074 ng/mL (< 0.028)
[2019-09-01] MEDS: Lisinopril 5 MG TAB PO SCH (08:10)
[2019-09-01] MEDS: Furosemide 20 MG TAB PO SCH (08:10)
[2019-09-01] MEDS: Apixaban 5 MG TAB PO SCH (08:10)
--- NOTE | 2019-09-01 11:46 | NM ---
CARDIAC SPECT: CLINICAL HISTORY: 74-year-old male with chest pain, CHF, atrial fibrillation, hypertension, smoker. TECHNIQUE: A myocardial perfusion scan was performed using the single isotope two day protocol with 29 mCi techn etium-99m sestamibi injected intravenously for both stress and rest images. Pharmacologic stress with Adenosine was monitored and interpreted by Melany Shook NP. FINDINGS: Fairly homogeneous tracer distribution is seen in the myocardial segments on stress and rest images w ithout fixed or reversible defects. GATED SPECT LVEF: 62%. WALL MOTION EXAM: Normal. IMPRESSION: Normal myocardial perfusion scan. POS: [facility]
[2019-09-01] MEDS ORDERED: ADENOSINE 60 MG/20 ML VIAL ONE (12:00)
[2019-09-01 12:33] VITALS: BP 144/87; TEMP 97.3
--- NOTE | 2019-09-01 16:14 | PRG ---
DATE OF SERVICE: 09/01/2019 We are awaiting the final report on Mr. Farrar's stress Myoview test, after which he can be discharged if it is negative. Job ID: [id number]
--- NOTE | 2019-09-02 22:05 | DIS ---
DATE OF ADMISSION: 08/30/2019 DATE OF DISCHARGE: 09/01/2019 RESIDENT: Neyda Walton DO ADMITTING ATTENDING: Ray Villegas MD DISCHARGE ATTENDING: Adria Young MD CONSULT: None. PROCEDURES PERFORMED: Carotid doppler study, which showed 50% to 69% stenosis of the left internal carotid artery but no significant stenosis versus artifact of the left carotid artery suggesting a CTA would be useful. CTA of the neck did not show any significant stenosis of bilateral carotid artery. Stress test nuclear medicine showed fairly homogeneous tracer distribution seen in the myocardial segments on stress and rest images without fixed or reversible defect. Echocardiogram resulted with EF of 50% to 55%, and AICD pacer leads in place. DIAGNOSES: 1. Exertional stable angina. 2. Near syncope. 3. Hyperlipidemia. 4. Bipolar disorder. 5. History of heart failure with preserved ejection fraction, resolved now with ejection fraction of 50% to 55%. No heart failure with preserved ejection fraction. 6. Chronic atrial fibrillation with AICD. 7. Elevated alk phos from healing lower extremity fracture and trauma earlier this year. DISCHARGE MEDICATIONS: 1. Eliquis 5 mg p.o. b.i.d. 2. Lipitor 40 mg p.o. at bedtime. 3. Wellbutrin 75 mg p.o. b.i.d. 4. Carvedilol 3.125 mg p.o. b.i.d. 5. Depakote 1000 mg p.o. b.i.d. 6. Furosemide 20 mg p.o. b.i.d. 7. Lisinopril 5 mg p.o. daily. HISTORY OF PRESENT ILLNESS/HOSPITAL COURSE: Mr. Farrar is a 74-year-old male with a history of HFpEF, AFib with AICD, bipolar and hypertension, comes into the emergency department because of chest pain and near syncope. He was worked up via nuclear medicine stress test, which showed no abnormalities. The patient also had a CTA of the neck with no significant carotid stenosis. The patient's orthostatic vital signs were negative for orthostatic hypotension. The patient was given the results of all the testing and very thankful for the care he received in our hospital. DISPOSITION: The patient was stable and eager to go home upon discharge. DISCHARGE MEDICATIONS: 1. Location: Home. 2. Diet: Heart healthy. 3. Activity: As tolerated. Continue home exercise program. 4. Followup: [facility] 7 days. Job ID: [id number]
== END 2019-09-01 14:12 | disposition home or self-care (01) ==
LOC: ERS 16:40 → ERHOLD 23:03 → 2SW 08-31 09:06
PROVIDERS: ADMIT Family Medicine; ATTEND Family Medicine
DX: I65.22 Occlusion and stenosis of left carotid artery (principal); I20.8 Other forms of angina pectoris; E78.5 Hyperlipidemia, unspecified; F31.9 Bipolar disorder, unspecified; I11.0 Hypertensive heart disease with heart failure; I50.9 Heart failure, unspecified; I48.20 Chronic atrial fibrillation, unspecified; S82.90XD Unspecified fracture of unspecified lower leg, subsequent encounter for closed fracture with routine healing; Z79.01 Long term (current) use of anticoagulants; Z95.810 Presence of automatic (implantable) cardiac defibrillator; Z87.891 Personal history of nicotine dependence
CPT/HCPCS: 36415; 70498; 71045; 78452; 80053; 80061; 82553; 82977; 83036; 83735; 84100; 84443; 84484; 85025; 93005; 93017; 93306; 93880; A9500; G0103; G0378; J0153; Q9967

== ENCOUNTER 2019-11-03 16:17 | Inpatient (IN) | payer OTHER ==
[~2019-11-03 16:17] MED LIST changes: -ISOVUE-370 76%-LOCM 1 ML ONE; +Iopamidol-370 76% 500 ML 1 ML ONE
[2019-11-03 17:19] LABS: #Eosinphils 0.1 thou/uL (0.0-0.7); #Lymphocytes 1.6 thou/uL (1.20-3.40); #Monocytes 0.4 thou/uL (0.11-0.59); #Neutrophils 4.8 thou/uL (1.40-6.50); %Basophils 0.4 % (0.0-1.0); %Eosinophils 1.1 % (0.0-10.0); %Lymphocytes 22.4 % (21.0-51.0); %Monocytes 6.3 % (0.0-10.0); %Neutrophils 69.8 % (42.0-75.0); Mean Corpuscular HGB CONC 33.1 g/dL (32.0-36.0); Mean Corpuscular Hemoglobin 33.1 pg (27.0-31.0); Mean Platelet Volume 7.5 fL (7.4-10.4); Platelet Count 216 thou/uL (130-400); Red Blood Cell (RBC) Count 5.13 mill/uL (4.70-6.10); White Blood Cell (WBC) Count 6.9 thou/uL (4.8-10.8)
[2019-11-03 17:40] LABS: ALT (SGPT) 7 U/L (8-55); AST (SGOT) 20 U/L (5-34); Alkaline Phosphatase 139 U/L (40-110); Anion Gap 11 mmol/L (10-20); BUN (Urea Nitrogen) 18 mg/dL (8.4-25.7); Bilirubin, Total 1.6 mg/dL (0.2-1.2); CK (CPK) 55 U/L (30-200); Calc. Creatinine Clearance 0 mL/min (70-130); Calcium 9.8 mg/dL (7.8-10.44); Carbon Dioxide 29 mmol/L (23-31); Chloride 101 mmol/L (98-107); Estimated GFR-MDRD 72; Globulin 3.1 g/dL (2.4-3.5); Glucose 89 mg/dL (83-110); Potassium 4.4 mmol/L (3.5-5.1); Protein, Total 7.1 g/dL (5.8-8.1); Sodium 137 mmol/L (136-145)
[2019-11-03 18:04] LABS: CKMB 1.5 ng/mL (0-6.6)
--- NOTE | 2019-11-03 19:30 | CT ---
CT OF THE BRAIN WITHOUT CONTRAST: 11/03/19 COMPARISON: 11/01/19 HISTORY: Altered mental status. TECHNIQUE: Multiple contiguous axial images were obtained in a CT of the brain without contrast. FINDINGS: There is scattered hypodensities in the subcortical and periventricular white matter, likely secondar y to small vessel ischemic disease. No large confluent infarction is seen. There is no evidence of hy drocephalus, intracranial hemorrhage or extra-axial fluid collection. The calvarium and overlying soft tissues are unremarkable. The visualized paranasal sinuses and masto id air cells are well aerated. IMPRESSION: No evidence of acute intracranial abnormality. POS: [facility]
[2019-11-03] MEDS ORDERED: Dextrose 50% Abboject 50 ML SYRINGE ONE (20:27)
[2019-11-03 20:38] LABS: Magnesium 1.9 mg/dL (1.6-2.6)
[2019-11-03 20:40] LABS: #Eosinphils 0.1 thou/uL (0.0-0.7); #Lymphocytes 1.9 thou/uL (1.20-3.40); #Monocytes 0.6 thou/uL (0.11-0.59); #Neutrophils 5.6 thou/uL (1.40-6.50); %Basophils 0.3 % (0.0-1.0); %Eosinophils 0.9 % (0.0-10.0); %Lymphocytes 23.1 % (21.0-51.0); %Monocytes 7.8 % (0.0-10.0); %Neutrophils 67.9 % (42.0-75.0); Hemoglobin 18.3 g/dL (14.0-18.0); Mean Corpuscular HGB CONC 32.6 g/dL (32.0-36.0); Mean Corpuscular Hemoglobin 32.8 pg (27.0-31.0); Mean Platelet Volume 9.3 fL (7.4-10.4); Platelet Count 225 thou/uL (130-400); RBC Distribution Width 12.4 % (11.5-14.5); Red Blood Cell (RBC) Count 5.58 mill/uL (4.70-6.10); White Blood Cell (WBC) Count 8.2 thou/uL (4.8-10.8)
[2019-11-03 20:42] LABS: INR-International Normal Ratio 1.1; PTT 32.3 SEC (22.9-36.1); Prothrombin Time 14.6 SEC (12.0-14.7)
[2019-11-03 21:36] LABS: ALT (SGPT) Less than 7 U/L (8-55); AST (SGOT) 19 U/L (5-34); Albumin 3.5 g/dL (3.4-4.8); Alkaline Phosphatase 125 U/L (40-110); Anion Gap 15 mmol/L (10-20); BUN (Urea Nitrogen) 18 mg/dL (8.4-25.7); Bilirubin, Total 1.5 mg/dL (0.2-1.2); CK (CPK) 51 U/L (30-200); Calc. Creatinine Clearance 0 mL/min (70-130); Calcium 8.7 mg/dL (7.8-10.44); Carbon Dioxide 21 mmol/L (23-31); Chloride 99 mmol/L (98-107); Estimated GFR-MDRD 66; Globulin 2.9 g/dL (2.4-3.5); Glucose 213 mg/dL (83-110); Potassium 4.3 mmol/L (3.5-5.1); Protein, Total 6.4 g/dL (5.8-8.1); Sodium 131 mmol/L (136-145)
--- NOTE | 2019-11-03 21:37 | CT ---
NONCONTRAST CT HEAD: CT ANGIOGRAM HEAD AND NECK WITH IV CONTRAST AND 3D RECONSTRUCTIONS 11/03/19 HISTORY: Right sided weakness and right sided facial droop. Level II stroke. Altered mental status and confusi on. COMPARISON: Noncontrast CT head on 11/01/19 as well as CTA of the neck on 08/31/19. FINDINGS: NONCONTRAST CT HEAD: Diminished attenuation is seen in the periventricular white matter likely related to chronic small ve ssel ischemic changes. There is no evidence of an acute cortical infarction, hemorrhage, mass effect, or midline shift. Mild cerebral volume loss is present. The ventricular system is normal in size, sh ape and position for the degree of sulcal atrophy. No other interval change. CT ANGIOGRAM HEAD AND NECK: The left common carotid artery arises from the innominate artery and is patent. The innominate artery as well as right common carotid artery are tortuous. Bilateral subclavian arteries are patent. There is significant motion at the level of the carotid artery bifurcations, and the proximal interna l carotid arteries bilaterally are not well assessed and focal narrowing in this region could not be excluded due to significant motion. The remainder of the visualized cervical internal carotid arterie s are patent. The bilateral vertebral arteries are patent. The basilar artery and posterior cerebral arteries are p atent. The bilateral anterior cerebral and middle cerebral arteries are patent without focal stenosis or bra nch occlusion. No intracranial aneurysm is seen within the limitations of the technique of this exami nation. 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 CTA neck is otherwise stable compared to prior study in 2019. IMPRESSION: 1. No acute intracranial abnormalities demonstrated. 2. Mild chronic small vessel ischemic change with cerebral volume loss. 3. There is significant motion seen at the level of the proximal internal carotid arteries bilat erally, and the proximal internal carotid arteries are not able to be assessed on this exam. The inte rnal carotid arteries distal to the level of the motion are patent. 4. There is no focal stenosis or branch occlusion involving the [place] or vertebrobasi lar system. POS: [facility]
[2019-11-03 21:38] LABS: Bilirubin Negative (Negative); Blood, Urine Negative (Negative); Clarity Clear (Clear); Glucose, Urine (Dipstick) Greater than 1000 mg/dL (Negative); Leukocyte Negative Leu/uL (Negative); Nitrite Negative (Negative); Protein, Urine (Dipstick) Negative (Neg-Trace); Urobilinogen Normal mg/dL (Less than 2)
[2019-11-03 22:07] LABS: CKMB 1.3 ng/mL (0-6.6)
[2019-11-04 01:07] LABS: Troponin I 0.078 ng/mL (< 0.028)
[2019-11-04 02:52] VITALS: BMI 24.5
[2019-11-04] MEDS: Dextrose 5 % And 0.9 % NaCl 1,000 ML IV SCH ×2 (03:25→15:18)
[2019-11-04 05:06] LABS: Troponin I 0.078 ng/mL (< 0.028)
--- NOTE | 2019-11-04 10:07 | PDOC.HHP ---
Hospitalist HPI - History of Present Illness Altered mental status History of Present Illness: Mr. Farrar is a 74 y/o gentleman with PMH of chronic afib with pacemaker placement, CKD, dementia, bipolar disorder? who presents to the ED after immediately being discharge for altered mental status. History obtained from chart and nursing staff as patient is unable to provide much history. When asked what brought him to the hospital he is unable He was apparently admitted for recent syncopal episode and upon getting into the car, the assistant cross country coach states he was not back to his baseline and that he was confused. Apparently, he has history of dementia and bipolar documented in the chart but according to his pharmacy has not taken medications since April. On the last admission APS was contacted and they were pending placement at [facility]. It seems there is no family and several social issues that are preventing him from being compliant to medications and obtaining proper follow up for his chronic conditions. Hospitalist ROS - Review of Systems ROS unobtainable: due to mental status - Medication Medications: Active Medications Generic Name Dose Route Start Last Admin Trade Name Codyq PRN Reason Stop Dose Admin Dextrose/Sodium Chloride 1,000 mls @ 75 mls/hr 11/04/19 03:15 11/04/19 03:25 D5 0.9% Ns IV 1,000 mls .[id number] SHILPA Administration Sodium Chloride 10 ml 11/04/19 09:00 11/04/19 08:18 Flush - Normal Saline IVF Not Given Q12HR SHILPA Medication Instructions Recorded Confirmed Type Lisinopril 5 mg PO DAILY #30 tablet 10/15/18 11/01/19 Rx Atorvastatin Calcium [Lipitor] 40 mg PO HS tab 04/12/19 11/01/19 Rx Carvedilol [Coreg] 3.125 mg PO BID tab 04/12/19 11/01/[address] [Depakote] 1,000 mg PO BID tab 04/12/19 11/01/19 Rx buPROPion [Wellbutrin] 75 mg PO BID tab 04/12/19 11/01/19 Rx Apixaban [Eliquis] 5 mg PO BID 08/31/19 11/01/19 History Furosemide [Lasix] 20 mg PO BID 08/31/19 11/01/19 History Acetaminophen [Tylenol Regular 650 mg PO Q4H PRN tab 09/01/19 11/01/19 Rx Strength] Hospitalist History - Past Medical History Cardiac: reports: AFIB, HTN Pulmonary: reports: no pertinent history 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 Gastrointestinal: reports: no pertinent history Heme/Onc: reports: no pertinent history Hepatobiliary: reports: no pertinent history Psych: reports: Bipolar Musculoskeletal: reports: no pertinent history Infectious Disease: reports: no pertinent history ENT: reports: no pertinent history Renal/: reports: no pertinent history Endocrine: reports: no pertinent history Dermatology: reports: no pertinent history - Past Surgical History Past Surgical History: reports: no pertinent history - Family History Family History: reports: no pertinent history - Social History Smoking Status: Unknown if ever smoked Alcohol: reports: None Drugs: reports: none Living Situation: Other (Acute Care Occupational Therapist) - Exam General - other findings: Alert only to person Eye: PERRL, anicteric sclera ENT: normocephalic atraumatic, moist mucosa Neck: supple, no JVD Heart: RRR, no murmur, no gallops, no rubs Respiratory: CTAB, no wheezes, no rales, no ronchi, normal chest expansion Gastrointestinal: soft, non-tender, non-distended, normal bowel sounds, no guarding Extremities: no cyanosis, no clubbing, no edema Neurological: cranial nerve grossly intact, normal sensation to touch, no focal deficits Psychiatric: oriented to person, not oriented Hospitalist Results - Labs Result Diagrams: 11/03/19 20:23 11/03/19 21:05 Lab results: WBC 8.2 thou/uL (4.8-10.8) 11/03/19 20:23 Hgb 18.3 g/dL (14.0-18.0) H 11/03/19 20:23 Hct 56.1 % (42.0-52.0) H 11/03/19 20:23 MCV 101.0 fL (78.0-98.0) H 11/03/19 20:23 Plt Count 225 thou/uL (130-400) 11/03/19 20:23 Neutrophils % 67.9 % (42.0-75.0) 11/03/19 20:23 Sodium 131 mmol/L (136-145) L 11/03/19 21:05 Potassium 4.3 mmol/L (3.5-5.1) 11/03/19 21:05 Chloride 99 mmol/L (98-107) 11/03/19 21:05 Carbon Dioxide 21 mmol/L (23-31) L 11/03/19 21:05 BUN 18 mg/dL (8.4-25.7) 11/03/19 21:05 Creatinine 1.09 mg/dL (0.7-1.3) 11/03/19 21:05 Glucose 213 mg/dL (83-110) H 11/03/19 21:05 Calcium 8.7 mg/dL (7.8-10.44) 11/03/19 21:05 Total Bilirubin 1.5 mg/dL (0.2-1.2) H 11/03/19 21:05 AST 19 U/L (5-34) 11/03/19 21:05 ALT Less than 7 U/L (8-55) L 11/03/19 21:05 Alkaline Phosphatase 125 U/L (40-110) H 11/03/19 21:05 Creatine Kinase 51 U/L (30-200) 11/03/19 21:05 CK-MB (CK-2) 1.3 ng/mL (0-6.6) 11/03/19 21:05 Troponin I 0.078 ng/mL (< 0.028) H 11/04/19 04:16 Serum Total Protein 6.4 g/dL (5.8-8.1) 11/03/19 21:05 Albumin 3.5 g/dL (3.4-4.8) 11/03/19 21:05 Lipase 53 U/L (8-78) 11/03/19 17:08 Urine Ketones 10 mg/dL (Negative) A 11/03/19 21:11 Urine Blood Negative (Negative) 11/03/19 21:11 Urine Nitrite Negative (Negative) 11/03/19 21:11 Ur Leukocyte Esterase Negative Larry/uL (Negative) 11/03/19 21:11 - EKG Interpretation EKG: Vital Signs (24 hours) Temp Pulse Resp BP Pulse Ox 11/04/19 07:47 97.9 F 76 20 108/85 98 11/04/19 04:00 97.5 F L 74 16 123/87 99 11/04/19 03:00 98 01/25/20 01:45 97.8 F 63 20 97/64 98 - Radiology Interpretation CT scan - head Status: report reviewed by me Hospitalist H&P A/P - Problem (1) Acute encephalopathy Code(s): G93.40 - ENCEPHALOPATHY, UNSPECIFIED Status: Acute Assessment and Plan: DDx: Metabolic vs toxic (wernicke encephalopathy) (2) Alcoholism Code(s): F10.20 - ALCOHOL DEPENDENCE, UNCOMPLICATED Status: Acute (3) Artificial cardiac pacemaker Code(s): Z95.0 - PRESENCE OF CARDIAC PACEMAKER Status: Chronic (4) Atrial fibrillation Code(s): I48.91 - UNSPECIFIED ATRIAL FIBRILLATION Status: Chronic Qualifiers: Atrial fibrillation type: chronic (5) Bipolar disorder Code(s): F31.9 - BIPOLAR DISORDER, UNSPECIFIED Status: Chronic Qualifiers: Active/Remission status: currently active Current episode severity: unspecified (6) HTN (hypertension) Code(s): I10 - ESSENTIAL (PRIMARY) HYPERTENSION Status: Chronic Qualifiers: Hypertension type: essential hypertension Qualified Code(s): I10 - Essential (primary) hypertension - Plan Plan: Admit for workup of AMS. Unable to obtain MRI due to pacemaker. CTA shows carotid disease, no evidence of acute intracranial abnormality Apparently has not been compliant with medication, will inquire pharmacy who prescrbied Depakote and Wellbutrin Will continue his elliquis for atrial fibrillation. Continue aspirin and statin. Echo done on previous visit, EF of 50-55% Consult to neurology as patient may have underlying dementia, there is volume loss seen on CT Will likely need placement as APS was contacted on previous admission *Update: found out he drinks pint of liquor quite frequently, probably this is related to wernicke encephalopathy. Will administer Thiamine 100mg IVPB and place on ASE withdrawal protocol. Code Status: Full code ACP: yoselyn is his primary assistant cross country coach. There is no family contacts known at this time Disposition: Admit for workup of AMS. Appreciate neurology reccs.
[2019-11-04 11:46] LABS: Thyroid Stimulating Hormone 0.834 uIU/mL (0.35-4.94)
--- NOTE | 2019-11-04 12:12 | CON ---
DATE OF TELEMEDICINE CONSULTATION: 11-04-2019 CHIEF COMPLAINT: Altered mental status. HISTORY OF PRESENT ILLNESS: I am not sure his history is reliable. The patient is unable to talk much. His history was obtained from the chart. The patient is a 74-year-old man with history of chronic atrial fibrillation and pacemaker placement, chronic kidney disease, dementia, and bipolar disorder, was brought to the emergency room immediately after being discharged. He was brought in by some friend. Per nursing staff that friend is not reachable and the name is incorrect. The patient was unable to answer many questions. He was brought in saying he was confused. He does have history of dementia and seems to me, there is no one, who can look after this man. The patient stated he had right-sided weakness. Adult Protective Services is also being consulted and is waiting placement at [facility]. There is no family history, family available, and social issues exist. PREVIOUS MEDICAL HISTORY: Atrial fibrillation, hypertension, dementia, and bipolar disorder. PAST SURGICAL HISTORY: He has knee surgeries and pacemaker surgery and per ER doctor's chart, he had a hydrocele repair as well. FAMILY HISTORY: The patient has a three siblings, they are all healthy, but I am not sure whether this is accurate. In the chart, there is no clear family history obtainable. SOCIAL HISTORY: Unknown except that he lives alone and has some current caregiver. REVIEW OF SYSTEMS: Unable to obtain. LABORATORY WORKUP: White count 8.2, hemoglobin 18.3, hematocrit 56.1, and platelet count 225. PT 14.6, INR 1.1, and PTT 32.3 and his sodium 131, potassium 4.3, chloride 99, bicarb 21, BUN 18, creatinine 1.09, glucose 213, and liver functions were are normal, except mild elevation of alkaline phosphatase. CT of the head unavailable. CT angiography did not reveal any vascular stenosis other than chronic small-vessel disease with cerebral volume loss. Significant motion seen at the level of ICAs bilaterally. No focal stenosis or occlusion within the [place]. MRI is pending at this time. They are waiting to see if his pacemaker is compatible, I understand. PHYSICAL EXAMINATION: VITAL SIGNS: Temperature 97.9, pulse 76, respiratory rate 20, O2 saturations 98 %, and blood pressure 108/85. GENERAL APPEARANCE: Well-built, well-nourished man whose facial expression is abnormal. He appears somewhat confused and he tries to follow commands and tries to talk, but PE he is in and out throughout that conversation. His right leg seems shorter than the left. He has scars on both knees, CHEST: Clear vesicular breathing. CARDIOVASCULAR: S1 and S2 heard. No murmurs. ABDOMEN: Soft. NEUROLOGIC: Higher intellectual functions, normal orientation to self, not to time and place or person. Cranial nerves, normal extraocular movements when we are able to test it. No facial asymmetry noted. Tongue midline. Pupils are 2 mm and normal hearing. Motor, bulk normal and tone normal. Strength seems to be intact throughout based on limited examination. Deep tendon reflexes are 3+. Sensory normal. Cerebellar normal. IMPRESSION: The patient is a 74-year-old man with altered mental status. Based on his lab workup, he has elevated MCV and I suspect he might have B12 deficiency. I requested B12 and TSH levels as well. His altered mental status is likely metabolic in nature due to hyponatremia and other metabolic factors. He has chronic dementia as well. I am not sure I can contribute much to his case at this point, except stating there is no focal deficits such as unilateral weakness. RECOMMENDATIONS: If possible, please obtain an MRI of the brain and I requested B12, folate, and TSH. We will wait for those results. I will check on the patient again tomorrow. Job ID: [id number] [facility]
[2019-11-04] MEDS ORDERED: Diazepam 5 MG TAB PO PRN (16:54)
[2019-11-04] MEDS ORDERED: Diazepam 5 MG TAB PO SCH (17:00)
[2019-11-04] MEDS ORDERED: Thiamine HCl 200 MG/2 ML VIAL IM SCH (17:00)
[2019-11-04] MEDS: Apixaban 5 MG TAB PO SCH (21:53)
[2019-11-04] MEDS: Atorvastatin Calcium 40 MG TAB PO SCH (21:53)
[2019-11-05] MEDS: Dextrose 5 % And 0.9 % NaCl 1,000 ML IV SCH ×2 (03:16→14:11)
[2019-11-05] MEDS ORDERED: Diazepam 5 MG TAB PO PRN (04:00)
[2019-11-05 05:03] LABS: #Eosinphils 0.1 thou/uL (0.0-0.7); #Lymphocytes 1.7 thou/uL (1.20-3.40); #Monocytes 0.5 thou/uL (0.11-0.59); #Neutrophils 2.6 thou/uL (1.40-6.50); %Basophils 0.4 % (0.0-1.0); %Lymphocytes 34.5 % (21.0-51.0); %Monocytes 9.8 % (0.0-10.0); %Neutrophils 53.3 % (42.0-75.0); Hemoglobin 16.4 g/dL (14.0-18.0); Mean Corpuscular HGB CONC 32.3 g/dL (32.0-36.0); Mean Corpuscular Hemoglobin 32.9 pg (27.0-31.0); Mean Platelet Volume 7.7 fL (7.4-10.4); Platelet Count 176 thou/uL (130-400); Red Blood Cell (RBC) Count 4.97 mill/uL (4.70-6.10); White Blood Cell (WBC) Count 4.9 thou/uL (4.8-10.8)
[2019-11-05 05:25] LABS: ALT (SGPT) Less than 7 U/L (8-55); AST (SGOT) 17 U/L (5-34); Albumin 3.6 g/dL (3.4-4.8); Alkaline Phosphatase 125 U/L (40-110); Anion Gap 9 mmol/L (10-20); BUN (Urea Nitrogen) 10 mg/dL (8.4-25.7); Bilirubin, Total 1.6 mg/dL (0.2-1.2); Calc. Creatinine Clearance 90 mL/min (70-130); Calcium 8.8 mg/dL (7.8-10.44); Carbon Dioxide 28 mmol/L (23-31); Chloride 104 mmol/L (98-107); Estimated GFR-MDRD Greater than 90; Globulin 2.9 g/dL (2.4-3.5); Glucose 103 mg/dL (83-110); Protein, Total 6.5 g/dL (5.8-8.1); Sodium 137 mmol/L (136-145)
[2019-11-05] MEDS: Aspirin 81 mg Enteric Coated Tablet PO SCH (08:19)
[2019-11-05] MEDS: Folic Acid 1 MG TAB PO SCH (08:20)
[2019-11-05] MEDS: Magnesium Oxide 400 MG TAB PO SCH (08:20)
[2019-11-05] MEDS: Thiamine 100 MG TAB PO SCH (08:20)
[2019-11-05] MEDS: Apixaban 5 MG TAB PO SCH ×2 (08:20→20:36)
[2019-11-05] MEDS: Multivitamin W/ Minerals 1 TAB PO SCH (08:20)
--- NOTE | 2019-11-05 14:39 | PDOC.HOSPP ---
- Subjective Subjective: More alert today. Able to participate in conversation. No overnight events. - Objective Vital Signs & Weight: Vital Signs (12 hours) Temp Pulse Resp BP BP Pulse Ox 11/05/19 11:17 97.5 F L 63 12 120/75 96 11/05/19 11:05 120/75 11/05/19 08:20 144/89 H 11/05/19 08:00 97.5 F L 60 14 144/89 H 97 11/05/19 04:00 97.3 F L 80 20 128/89 95 Weight Weight 176 lb I&O: 11/04/19 11/05/19 11/06/19 06:59 06:59 06:59 Intake Total 600 1875 480 Balance 600 1875 480 Result Diagrams: 11/05/19 04:52 11/05/19 04:52 Additional Labs: Accuchecks 11/05/19 11/05/19 11/04/19 10:40 06:10 20:17 POC Glucose 115 H 88 161 H 11/04/19 16:48 POC Glucose 86 Hospitalist ROS - Review of Systems All other systems reviewed; all pertinent +/- noted in HPI/Subj - Medication Medications: Active Medications Generic Name Dose Route Start Last Admin Trade Name Freq PRN Reason Stop Dose Admin Apixaban 5 mg 11/04/19 21:00 11/05/19 08:20 Eliquis PO 5 mg BID SHILPA Administration Aspirin 81 mg 11/05/19 09:00 11/05/19 08:19 Ecotrin PO 81 mg DAILY SHILPA Administration Atorvastatin Calcium 40 mg 11/04/19 21:00 11/04/19 21:53 Lipitor PO 40 mg HS SHILPA Administration Folic Acid 1 mg 11/05/19 09:00 11/05/19 08:20 Folvite PO 1 mg DAILY SHILPA Administration Dextrose/Sodium Chloride 1,000 mls @ 75 mls/hr 11/04/19 03:15 11/05/19 14:11 D5 0.9% Ns IV 1,000 mls .[id number] SHILPA Administration Iron/Minerals/Multivitamins 1 tab 11/05/19 09:00 11/05/19 08:20 Theragran M PO 1 tab DAILY SHILPA Administration Magnesium Oxide 400 mg 11/05/19 09:00 11/05/19 08:20 Magnesium Oxide PO 400 mg DAILY SHILPA Administration Sodium Chloride 10 ml 11/04/19 09:00 11/05/19 09:25 Flush - Normal Saline IVF Not Given Q12HR SHILPA Thiamine HCl 100 mg 11/05/19 09:00 11/05/19 08:20 Thiamine PO 100 mg DAILY SHILPA Administration - Exam General Appearance: NAD, awake alert Eye: PERRL, anicteric sclera ENT: normocephalic atraumatic, no oropharyngeal lesions, moist mucosa Neck: supple, symmetric, no JVD, no thyromegaly, no lymphadenopathy, no carotid bruit Heart: RRR, no murmur, no gallops, no rubs, normal peripheral pulses Respiratory: CTAB, no wheezes, no rales, no ronchi, normal chest expansion, no tachypnea, normal percussion Gastrointestinal: soft, non-tender, non-distended, normal bowel sounds, no palpable masses, no hepatomegaly, no splenomegaly, no bruit Extremities: no cyanosis, no clubbing, no edema Skin: normal turgor, no lesions, no rashes Neurological: cranial nerve grossly intact, normal sensation to touch, no weakness, no focal deficits, no new deficit Musculoskeletal: normal tone, normal strength, no muscle wasting Psychiatric: normal affect, normal behavior, A&O x 3 Hosp A/P (1) Acute encephalopathy Code(s): G93.40 - ENCEPHALOPATHY, UNSPECIFIED Status: Acute Plan: DDx: Likely metabolic or wernicke's related (2) Alcoholism Code(s): F10.20 - ALCOHOL DEPENDENCE, UNCOMPLICATED Status: Acute (3) Artificial cardiac pacemaker Code(s): Z95.0 - PRESENCE OF CARDIAC PACEMAKER Status: Chronic (4) Atrial fibrillation Code(s): I48.91 - UNSPECIFIED ATRIAL FIBRILLATION Status: Chronic Qualifiers: Atrial fibrillation type: chronic (5) Bipolar disorder Code(s): F31.9 - BIPOLAR DISORDER, UNSPECIFIED Status: Chronic Qualifiers: Active/Remission status: currently active Current episode severity: unspecified (6) HTN (hypertension) Code(s): I10 - ESSENTIAL (PRIMARY) HYPERTENSION Status: Chronic Qualifiers: Hypertension type: essential hypertension Qualified Code(s): I10 - Essential (primary) hypertension - Plan CTA shows carotid disease, no evidence of acute intracranial abnormality Apparently has not been compliant with medication, will inquire pharmacy who prescrbied Depakote and Wellbutrin Will continue his elliquis for atrial fibrillation. Continue aspirin and statin. 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 There is no family contacts known at this time Disposition: AMS improving. Continue thiamine IV. Will need some form of placement. Pending CM discussion for placement.
[2019-11-05] MEDS: Atorvastatin Calcium 40 MG TAB PO SCH (20:36)
[2019-11-06] MEDS: Dextrose 5 % And 0.9 % NaCl 1,000 ML IV SCH ×3 (00:51→20:10)
[2019-11-06 04:51] LABS: #Basophils 0.1 thou/uL (0.0-0.2); #Eosinphils 0.1 thou/uL (0.0-0.7); #Lymphocytes 2.1 thou/uL (1.20-3.40); #Monocytes 0.4 thou/uL (0.11-0.59); #Neutrophils 2.4 thou/uL (1.40-6.50); %Basophils 1.3 % (0.0-1.0); %Eosinophils 1.6 % (0.0-10.0); %Lymphocytes 40.7 % (21.0-51.0); %Monocytes 8.4 % (0.0-10.0); Hemoglobin 16.3 g/dL (14.0-18.0); Mean Corpuscular HGB CONC 31.3 g/dL (32.0-36.0); Mean Corpuscular Hemoglobin 31.7 pg (27.0-31.0); Mean Platelet Volume 7.8 fL (7.4-10.4); Platelet Count 175 thou/uL (130-400); Red Blood Cell (RBC) Count 5.14 mill/uL (4.70-6.10)
[2019-11-06 05:13] LABS: Anion Gap 13 mmol/L (10-20); BUN (Urea Nitrogen) 7 mg/dL (8.4-25.7); Calc. Creatinine Clearance 89 mL/min (70-130); Calcium 9.6 mg/dL (7.8-10.44); Carbon Dioxide 27 mmol/L (23-31); Chloride 102 mmol/L (98-107); Estimated GFR-MDRD Greater than 90; Glucose 97 mg/dL (83-110); Potassium 3.7 mmol/L (3.5-5.1); Sodium 138 mmol/L (136-145)
[2019-11-06] MEDS: Magnesium Oxide 400 MG TAB PO SCH (09:39)
[2019-11-06] MEDS: Apixaban 5 MG TAB PO SCH ×2 (09:39→20:10)
[2019-11-06] MEDS: Aspirin 81 mg Enteric Coated Tablet PO SCH (09:41)
[2019-11-06] MEDS: Thiamine 100 MG TAB PO SCH (09:41)
[2019-11-06] MEDS: Folic Acid 1 MG TAB PO SCH (09:41)
[2019-11-06] MEDS: Multivitamin W/ Minerals 1 TAB PO SCH (09:41)
--- NOTE | 2019-11-06 15:39 | PDOC.HOSPP ---
- Subjective Subjective: Seen and examined. Follow-up evaluation on 74-year-old gentleman with past medical history of alcohol abuse, dementia, atrial fibrillation, pacemaker, chronic kidney disease, and bipolar disorder presents with altered mental status. Patient currently confused not able to come up with answers to simple questions. Patient knows his name, does not know he is in the hospital, he is able to tell me that he is in [place]. Patient denies pain. Breathing well. No acute complaints at this time. - Objective Vital Signs & Weight: Vital Signs (12 hours) Temp Pulse Pulse Resp BP BP BP 11/06/19 15:06 11/06/19 14:40 98.6 F 59 L 18 152/89 H 11/06/19 12:00 150/80 H 11/06/19 11:32 98.4 F 60 24 H 150/80 H 11/06/19 10:08 62 160/93 H 11/06/19 07:48 97.4 F L 65 11 L 155/89 H 11/06/19 05:00 69 18 157/100 H 11/06/19 04:00 97.4 F L 70 20 Pulse Ox 11/06/19 15:06 95 11/06/19 14:40 95 11/06/19 12:00 11/06/19 11:32 98 11/06/19 10:08 11/06/19 07:48 99 11/06/19 05:00 97 11/06/19 04:00 97 Weight Weight 176 lb I&O: 11/05/19 11/06/19 11/07/19 06:59 06:59 06:59 Intake Total 1875 1180 Balance 1875 1180 Result Diagrams: 11/06/19 04:36 11/06/19 04:35 Additional Labs: Accuchecks 11/06/19 11/06/19 11/05/19 11:02 06:07 20:13 POC Glucose 128 H 81 111 H 11/05/19 11/04/19 16:51 02:10 POC Glucose 94 62 L Radiology Reviewed by me: Yes Hospitalist ROS - Review of Systems All other systems reviewed; all pertinent +/- noted in HPI/Subj - Medication Medications: Active Medications Generic Name Dose Route Start Last Admin Trade Name Freq PRN Reason Stop Dose Admin Apixaban 5 mg 11/04/19 21:00 11/06/19 09:39 Eliquis PO 5 mg BID SHILPA Administration Aspirin 81 mg 11/05/19 09:00 11/06/19 09:41 Ecotrin PO 81 mg DAILY SHILPA Administration Atorvastatin Calcium 40 mg 11/04/19 21:00 11/05/19 20:36 Lipitor PO 40 mg HS SHILPA Administration Folic Acid 1 mg 11/05/19 09:00 11/06/19 09:41 Folvite PO 1 mg DAILY SHILPA Administration Dextrose/Sodium Chloride 1,000 mls @ 75 mls/hr 11/04/19 03:15 11/06/19 00:51 D5 0.9% Ns IV 1,000 mls .[id number] SHILPA Administration Iron/Minerals/Multivitamins 1 tab 11/05/19 09:00 11/06/19 09:41 Theragran M PO 1 tab DAILY SHILPA Administration Magnesium Oxide 400 mg 11/05/19 09:00 11/06/19 09:39 Magnesium Oxide PO 400 mg DAILY SHILPA Administration Sodium Chloride 10 ml 11/04/19 09:00 11/06/19 09:45 Flush - Normal Saline IVF Not Given Q12HR [facility] Thiamine HCl 100 mg 11/05/19 09:00 11/06/19 09:41 Thiamine PO 100 mg DAILY SHILPA Administration - Exam General Appearance: NAD Eye: anicteric sclera ENT: normocephalic atraumatic, moist mucosa Neck: supple, symmetric, no lymphadenopathy Heart: no murmur, no gallops, no rubs, irregular Respiratory: CTAB, no wheezes, no rales, no ronchi, normal chest expansion Gastrointestinal: soft, non-tender, no guarding, no rigidity Extremities: no edema Skin: no lesions, no rashes Neurological: cranial nerve grossly intact, no focal deficits Musculoskeletal: generalized weakness Psychiatric: oriented to person, somnolent Hosp A/P (1) Acute encephalopathy Code(s): G93.40 - ENCEPHALOPATHY, UNSPECIFIED Status: Acute (2) Alcoholism Code(s): F10.20 - ALCOHOL DEPENDENCE, UNCOMPLICATED Status: Acute (3) HFrEF (heart failure with reduced ejection fraction) Code(s): I50.20 - UNSPECIFIED SYSTOLIC (CONGESTIVE) HEART FAILURE Status: Acute (4) Anticoagulant long-term use Code(s): Z79.01 - SHELTER (CURRENT) USE OF ANTICOAGULANTS Status: Chronic (5) Artificial cardiac pacemaker Code(s): Z95.0 - PRESENCE OF CARDIAC PACEMAKER Status: Chronic (6) Atrial fibrillation with controlled ventricular rate Code(s): I48.91 - UNSPECIFIED ATRIAL FIBRILLATION Status: Chronic (7) Bipolar disease, chronic Code(s): F31.9 - BIPOLAR DISORDER, UNSPECIFIED Status: Chronic (8) Congestive heart failure (CHF) Code(s): I50.9 - HEART FAILURE, UNSPECIFIED Status: Chronic Qualifiers: Heart failure chronicity: chronic (9) HTN (hypertension) Code(s): I10 - ESSENTIAL (PRIMARY) HYPERTENSION Status: Chronic Qualifiers: Hypertension type: essential hypertension Qualified Code(s): I10 - Essential (primary) hypertension - Plan Plan: medical unit neurology consultation, recommendations appreciated further neurologic workup per neurology as indicated no acute neurologic findings, no acute focal neurologic deficits blood pressure control blood sugar control continual home medications is able G.I. prophylaxis next line DVT prophylaxis disposition: DC planning. Case management consultation placed.
[2019-11-06] MEDS: Atorvastatin Calcium 40 MG TAB PO SCH (20:10)
[2019-11-07] MEDS: Thiamine 100 MG TAB PO SCH (08:24)
[2019-11-07] MEDS: Aspirin 81 mg Enteric Coated Tablet PO SCH (08:24)
[2019-11-07] MEDS: Apixaban 5 MG TAB PO SCH ×2 (08:24→20:21)
[2019-11-07] MEDS: Magnesium Oxide 400 MG TAB PO SCH (08:24)
[2019-11-07] MEDS: Folic Acid 1 MG TAB PO SCH (08:25)
[2019-11-07] MEDS: Multivitamin W/ Minerals 1 TAB PO SCH (08:27)
[2019-11-07] MEDS: Dextrose 5 % And 0.9 % NaCl 1,000 ML IV SCH ×2 (10:57→20:21)
--- NOTE | 2019-11-07 14:22 | PDOC.HOSPP ---
- Subjective Subjective: Seen and examined on the medical unit. He is laying in bed comfortably in no apparent distress. Patient breathing comfortably on room air. Patient has no acute complaints. Remains confused to his baseline. Discuss case with nurse case management who is working on discharge planning. - Objective Vital Signs & Weight: Vital Signs (12 hours) Temp Pulse Pulse Resp BP BP BP 11/07/19 12:00 160/91 H 11/07/19 11:36 97.3 F L 61 16 160/91 H 11/07/19 10:21 65 143/98 H 11/07/19 08:00 97.3 F L 65 16 143/98 H 143/98 H 11/07/19 05:20 97.4 F L 83 18 11/07/19 04:00 163/88 H BP Pulse Ox Pulse Ox 11/07/19 12:00 11/07/19 11:36 96 11/07/19 10:21 97 11/07/19 08:00 97 11/07/19 05:20 163/88 H 96 11/07/19 04:00 Weight Weight 176 lb I&O: 11/06/19 11/07/19 11/08/19 06:59 06:59 06:59 Intake Total 1180 1020 Balance 1180 1020 Result Diagrams: 11/06/19 04:36 11/06/19 04:35 Additional Labs: Accuchecks 11/07/19 11/07/19 11/06/19 11:38 05:11 21:05 POC Glucose 89 83 96 11/06/19 16:34 POC Glucose 83 Radiology Reviewed by me: Yes Hospitalist ROS - Review of Systems All other systems reviewed; all pertinent +/- noted in HPI/Subj - Medication Medications: Active Medications Generic Name Dose Route Start Last Admin Trade Name Freq PRN Reason Stop Dose Admin Apixaban 5 mg 11/04/19 21:00 11/07/19 08:24 Eliquis PO 5 mg BID SHILPA Administration Aspirin 81 mg 11/05/19 09:00 11/07/19 08:24 Ecotrin PO 81 mg DAILY SHILPA Administration Atorvastatin Calcium 40 mg 11/04/19 21:00 11/06/19 20:10 Lipitor PO 40 mg HS SHILPA Administration Diazepam 5 mg 11/05/19 04:00 11/06/19 20:17 Valium PO 5 mg Q4H PRN Administration FOR ASE 10 OR GREATER Folic Acid 1 mg 11/05/19 09:00 11/07/19 08:25 Folvite PO 1 mg DAILY SHILPA Administration Dextrose/Sodium Chloride 1,000 mls @ 75 mls/hr 11/04/19 03:15 11/07/19 10:57 D5 0.9% Ns IV Not Given .[id number] SHILPA Iron/Minerals/Multivitamins 1 tab 11/05/19 09:00 11/07/19 08:27 Theragran M PO 1 tab DAILY SHILPA Administration Magnesium Oxide 400 mg 11/05/19 09:00 11/07/19 08:24 Magnesium Oxide PO 400 mg DAILY SHILPA Administration Sodium Chloride 10 ml 11/04/19 09:00 11/07/19 08:25 Flush - Normal Saline IVF 10 ml Q12HR SHILPA Administration Thiamine HCl 100 mg 11/05/19 09:00 11/07/19 08:24 Thiamine PO 100 mg DAILY SHILPA Administration - Exam General Appearance: NAD Eye: anicteric sclera ENT: normocephalic atraumatic, moist mucosa Neck: symmetric, no lymphadenopathy Heart: no murmur, no gallops, no rubs Respiratory: CTAB, no wheezes, no rales, no ronchi, normal chest expansion Gastrointestinal: soft, non-tender, no guarding, no rigidity Extremities: no edema Skin: no lesions, no rashes Neurological: cranial nerve grossly intact, no focal deficits Musculoskeletal: generalized weakness Psychiatric: oriented to person, somnolent Hosp A/P (1) Acute encephalopathy Code(s): G93.40 - ENCEPHALOPATHY, UNSPECIFIED Status: Acute (2) Alcoholism Code(s): F10.20 - ALCOHOL DEPENDENCE, UNCOMPLICATED Status: Acute (3) HFrEF (heart failure with reduced ejection fraction) Code(s): I50.20 - UNSPECIFIED SYSTOLIC (CONGESTIVE) HEART FAILURE Status: Acute (4) Anticoagulant long-term use Code(s): Z79.01 - ALF (CURRENT) USE OF ANTICOAGULANTS Status: Chronic (5) Artificial cardiac pacemaker Code(s): Z95.0 - PRESENCE OF CARDIAC PACEMAKER Status: Chronic (6) Atrial fibrillation with controlled ventricular rate Code(s): I48.91 - UNSPECIFIED ATRIAL FIBRILLATION Status: Chronic (7) Bipolar disease, chronic Code(s): F31.9 - BIPOLAR DISORDER, UNSPECIFIED Status: Chronic (8) Congestive heart failure (CHF) Code(s): I50.9 - HEART FAILURE, UNSPECIFIED Status: Chronic Qualifiers: Heart failure chronicity: chronic (9) HTN (hypertension) Code(s): I10 - ESSENTIAL (PRIMARY) HYPERTENSION Status: Chronic Qualifiers: Hypertension type: essential hypertension Qualified Code(s): I10 - Essential (primary) hypertension - Plan Plan: medical unit neurology consultation, recommendations appreciated further neurologic workup per neurology as indicated no acute neurologic findings, no acute focal neurologic deficits No acute metabolic problems Chronic supplementation of vitamins for alcoholism history blood pressure control blood sugar control continual home medications is able G.I. prophylaxis next line DVT prophylaxis disposition: DC planning. Case management consultation placed.
[2019-11-07] MEDS: Atorvastatin Calcium 40 MG TAB PO SCH (20:21)
[2019-11-08] MEDS: Aspirin 81 mg Enteric Coated Tablet PO SCH (09:07)
[2019-11-08] MEDS: Magnesium Oxide 400 MG TAB PO SCH (09:08)
[2019-11-08] MEDS: Folic Acid 1 MG TAB PO SCH (09:08)
[2019-11-08] MEDS: Multivitamin W/ Minerals 1 TAB PO SCH (09:08)
[2019-11-08] MEDS: Thiamine 100 MG TAB PO SCH (09:08)
[2019-11-08] MEDS: Apixaban 5 MG TAB PO SCH ×2 (09:11→21:01)
--- NOTE | 2019-11-08 13:08 | PDOC.HOSPP ---
- Subjective Encounter Date: 11/08/19 Encounter Time: 13:06 Subjective: Patient seen and examined for Encephalopathy. Somnolent. No new complaints. No overnight events - Objective Vital Signs & Weight: Vital Signs (12 hours) Temp Pulse Resp BP BP BP Pulse Ox 11/08/19 11:29 97.3 F L 86 18 125/78 94 L 11/08/19 08:10 98.0 F 69 16 128/79 94 L 11/08/19 08:00 98.0 F 128/79 11/08/19 04:00 153/90 H 11/08/19 03:54 97.5 F L 77 20 153/90 H 94 L Weight Weight 176 lb I&O: 11/07/19 11/08/19 11/09/19 06:59 06:59 06:59 Intake Total 1020 1320 240 Balance 1020 1320 240 Result Diagrams: 11/06/19 04:36 11/06/19 04:35 Additional Labs: Accuchecks 11/08/19 11/08/19 11/07/19 11:33 04:00 21:26 POC Glucose 99 105 93 11/07/19 16:33 POC Glucose 98 Radiology Reviewed by me: Yes (CT brain - neg) Hospitalist ROS - Review of Systems ROS unobtainable: due to mental status - Medication Medications: Active Medications Generic Name Dose Route Start Last Admin Trade Name Freq PRN Reason Stop Dose Admin Apixaban 5 mg 11/04/19 21:00 11/08/19 09:11 Eliquis PO 5 mg BID SHILPA Administration Aspirin 81 mg 11/05/19 09:00 11/08/19 09:07 Ecotrin PO 81 mg DAILY SHILPA Administration Atorvastatin Calcium 40 mg 11/04/19 21:00 11/07/19 20:21 Lipitor PO 40 mg HS SHILPA Administration Folic Acid 1 mg 11/05/19 09:00 11/08/19 09:08 Folvite PO 1 mg DAILY SHILPA Administration Dextrose/Sodium Chloride 1,000 mls @ 75 mls/hr 11/04/19 03:15 11/07/19 20:21 D5 0.9% Ns IV 1,000 mls .[id number] SHILPA Administration Iron/Minerals/Multivitamins 1 tab 11/05/19 09:00 11/08/19 09:08 Theragran M PO 1 tab DAILY SHILPA Administration Magnesium Oxide 400 mg 11/05/19 09:00 11/08/19 09:08 Magnesium Oxide PO 400 mg DAILY SHILPA Administration Sodium Chloride 10 ml 11/04/19 09:00 11/08/19 09:08 Flush - Normal Saline IVF Not Given Q12HR SHILPA Thiamine HCl 100 mg 11/05/19 09:00 11/08/19 09:08 Thiamine PO 100 mg DAILY SHILPA Administration - Exam General Appearance: NAD General - other findings: Somnolent Neck: supple, no JVD Heart: RRR, no gallops Respiratory: no wheezes, no rales, no ronchi Gastrointestinal: non-tender, non-distended, normal bowel sounds Extremities: no cyanosis, no edema Neurological: no new deficit Hosp A/P - Plan Toxic Metabolic Encephalopathy ?etio Chronic Afib on anticoagulation s/p Pacemaker HTN Bipolar disorder Type 2 OR - POA - resolved Chronic alcoholism PLAN: Await rehab placement Cont Eliquis Unable to verify home meds Cont other meds Cont IVF Cont ASE protocol
[2019-11-08] MEDS: Dextrose 5 % And 0.9 % NaCl 1,000 ML IV SCH (13:29)
[2019-11-08] MEDS: Atorvastatin Calcium 40 MG TAB PO SCH (21:01)
[2019-11-09] MEDS: Dextrose 5 % And 0.9 % NaCl 1,000 ML IV SCH ×3 (02:37→19:03)
[2019-11-09] MEDS: Multivitamin W/ Minerals 1 TAB PO SCH (08:17)
[2019-11-09] MEDS: Apixaban 5 MG TAB PO SCH ×2 (08:17→20:59)
[2019-11-09] MEDS: Magnesium Oxide 400 MG TAB PO SCH (08:17)
[2019-11-09] MEDS: Folic Acid 1 MG TAB PO SCH (08:19)
[2019-11-09] MEDS: Thiamine 100 MG TAB PO SCH (08:19)
[2019-11-09] MEDS: Aspirin 81 mg Enteric Coated Tablet PO SCH (08:20)
--- NOTE | 2019-11-09 19:03 | PDOC.HOSPP ---
- Subjective Encounter Date: 11/09/19 Encounter Time: 15:00 Subjective: Patient seen and examined for encephalopathy. No new complaints. No overnight events - Objective Vital Signs & Weight: Vital Signs (12 hours) Temp Pulse Resp BP BP Pulse Ox 11/09/19 16:00 98.3 F 76 18 136/95 H 136/95 H 97 11/09/19 12:00 97.7 F 69 14 139/94 H 93 L 11/09/19 08:00 97.3 F L 79 20 147/84 H 147/84 H 97 Weight Weight 176 lb I&O: 11/08/19 11/09/19 11/10/19 06:59 06:59 06:59 Intake Total 1320 2850 480 Balance 1320 2850 480 Result Diagrams: 11/06/19 04:36 11/06/19 04:35 Additional Labs: Accuchecks 11/09/19 11/09/19 11/09/19 17:22 11:57 04:39 POC Glucose 109 94 92 11/08/19 21:18 POC Glucose 119 H Hospitalist ROS - Review of Systems Respiratory: denies: cough, dry, shortness of breath, hemoptysis, SOB with excertion, pleuritic pain, sputum, wheezing, other Cardiovascular: denies: chest pain, palpitations, orthopnea, paroxysmal noc. dyspnea, edema, light headedness, other - Medication Medications: Active Medications Generic Name Dose Route Start Last Admin Trade Name Freq PRN Reason Stop Dose Admin Apixaban 5 mg 11/04/19 21:00 11/09/19 08:17 Eliquis PO 5 mg BID SHILPA Administration Aspirin 81 mg 11/05/19 09:00 11/09/19 08:20 Ecotrin PO 81 mg DAILY SHILPA Administration Atorvastatin Calcium 40 mg 11/04/19 21:00 11/08/19 21:01 Lipitor PO 40 mg HS SHILPA Administration Folic Acid 1 mg 11/05/19 09:00 11/09/19 08:19 Folvite PO 1 mg DAILY SHILPA Administration Dextrose/Sodium Chloride 1,000 mls @ 75 mls/hr 11/04/19 03:15 11/09/19 15:36 D5 0.9% Ns IV 1,000 mls .[id number] SHILPA Administration Iron/Minerals/Multivitamins 1 tab 11/05/19 09:00 11/09/19 08:17 Theragran M PO 1 tab DAILY SHILPA Administration Magnesium Oxide 400 mg 11/05/19 09:00 11/09/19 08:17 Magnesium Oxide PO 400 mg DAILY SHILPA Administration Sodium Chloride 10 ml 11/04/19 09:00 11/09/19 08:20 Flush - Normal Saline IVF 10 ml Q12HR SHILPA Administration Thiamine HCl 100 mg 11/05/19 09:00 11/09/19 08:19 Thiamine PO 100 mg DAILY SHILPA Administration - Exam General Appearance: NAD Heart: RRR, no gallops Respiratory: no wheezes, no rales Gastrointestinal: non-tender, non-distended, normal bowel sounds Extremities: no cyanosis Hosp A/P - Plan Toxic Metabolic Encephalopathy - improving Chronic Afib on anticoagulation s/p Pacemaker HTN Bipolar disorder Type 2 NH - POA - resolved Chronic alcoholism PLAN: Cont Eliquis and other meds as above Unable to verify home meds Reduce IVF to 50 ml/hr Cont ASE protocol/Ativan Await rehab placement AM labs
[2019-11-09] MEDS: Atorvastatin Calcium 40 MG TAB PO SCH (20:58)
[2019-11-09] MEDS: Lorazepam 1 MG TAB PO PRN (21:08)
[2019-11-10] MEDS: Lorazepam 1 MG TAB PO PRN ×3 (02:55→19:51)
[2019-11-10] MEDS: Dextrose 5 % And 0.9 % NaCl 1,000 ML IV SCH ×2 (02:57→17:38)
[2019-11-10 06:10] LABS: #Lymphocytes 0.9 thou/uL (1.20-3.40); #Monocytes 0.7 thou/uL (0.11-0.59); #Neutrophils 4.3 thou/uL (1.40-6.50); %Eosinophils 0.5 % (0.0-10.0); %Lymphocytes 15.7 % (21.0-51.0); %Monocytes 11.7 % (0.0-10.0); %Neutrophils 72.2 % (42.0-75.0); Hemoglobin 16.2 g/dL (14.0-18.0); Mean Corpuscular HGB CONC 31.8 g/dL (32.0-36.0); Mean Corpuscular Hemoglobin 31.7 pg (27.0-31.0); Mean Corpuscular Volume 99.9 fL (78.0-98.0); Mean Platelet Volume 8.1 fL (7.4-10.4); Platelet Count 172 thou/uL (130-400); RBC Distribution Width 11.8 % (11.5-14.5); Red Blood Cell (RBC) Count 5.11 mill/uL (4.70-6.10)
[2019-11-10 06:35] LABS: ALT (SGPT) 7 U/L (8-55); AST (SGOT) 20 U/L (5-34); Albumin 3.5 g/dL (3.4-4.8); Alkaline Phosphatase 124 U/L (40-110); Anion Gap 9 mmol/L (10-20); BUN (Urea Nitrogen) 14 mg/dL (8.4-25.7); Bilirubin, Total 1.3 mg/dL (0.2-1.2); Calc. Creatinine Clearance 79 mL/min (70-130); Calcium 9.1 mg/dL (7.8-10.44); Carbon Dioxide 24 mmol/L (23-31); Chloride 106 mmol/L (98-107); Estimated GFR-MDRD 79; Globulin 2.9 g/dL (2.4-3.5); Glucose 108 mg/dL (83-110); Magnesium 1.7 mg/dL (1.6-2.6); Potassium 3.8 mmol/L (3.5-5.1); Protein, Total 6.4 g/dL (5.8-8.1); Sodium 135 mmol/L (136-145)
[2019-11-10] MEDS: Thiamine 100 MG TAB PO SCH (09:16)
[2019-11-10] MEDS: Multivitamin W/ Minerals 1 TAB PO SCH (09:16)
[2019-11-10] MEDS: Folic Acid 1 MG TAB PO SCH (09:16)
[2019-11-10] MEDS: Magnesium Oxide 400 MG TAB PO SCH (09:16)
[2019-11-10] MEDS: Apixaban 5 MG TAB PO SCH ×2 (09:16→20:15)
[2019-11-10] MEDS: Aspirin 81 mg Enteric Coated Tablet PO SCH (09:16)
[2019-11-10] MEDS: Acetaminophen 325 MG TAB PO PRN ×2 (11:23→19:54)
[2019-11-10] MEDS: Atorvastatin Calcium 40 MG TAB PO SCH (20:14)
--- NOTE | 2019-11-10 21:14 | PDOC.HOSPP ---
- Subjective Encounter Date: 11/10/19 Encounter Time: 10:30 Subjective: Patient seen and examined for encephalopathy. No new complaints. No overnight events - Objective Vital Signs & Weight: Vital Signs (12 hours) Temp Pulse Resp BP Pulse Ox 11/10/19 19:46 98.6 F 78 20 132/77 95 11/10/19 16:25 98.3 F 78 18 127/74 95 11/10/19 15:17 98.1 F 69 32 H 103/57 L 96 11/10/19 11:12 98.7 F 78 26 H 141/89 H 97 Weight Weight 176 lb I&O: 11/09/19 11/10/19 11/11/19 06:59 06:59 06:59 Intake Total 2850 2330 800 Balance 2850 2330 800 Result Diagrams: 11/10/19 05:31 11/10/19 05:31 Additional Labs: Accuchecks 11/10/19 11/10/19 11/10/19 20:26 16:33 12:21 POC Glucose 128 H 85 84 11/10/19 11/09/19 05:34 21:06 POC Glucose 123 H 109 Hospitalist ROS - Review of Systems Respiratory: denies: cough, dry, shortness of breath, hemoptysis, SOB with excertion, pleuritic pain, sputum, wheezing, other Cardiovascular: denies: chest pain, palpitations, orthopnea, paroxysmal noc. dyspnea, edema, light headedness, other Gastrointestinal: denies: nausea, vomiting, abdominal pain, diarrhea, constipation, melena, hematochezia, other - Medication Medications: Active Medications Generic Name Dose Route Start Last Admin Trade Name Luis Fernando PRN Reason Stop Dose Admin Acetaminophen 325 mg 11/09/19 19:11 11/10/19 19:54 Tylenol PO 325 mg Q6H PRN Administration Headache/Fever or Pain Apixaban 5 mg 11/04/19 21:00 11/10/19 20:15 Eliquis PO 5 mg BID SHILPA Administration Aspirin 81 mg 11/05/19 09:00 11/10/19 09:16 Ecotrin PO 81 mg DAILY SHILPA Administration Atorvastatin Calcium 40 mg 11/04/19 21:00 11/10/19 20:14 Lipitor PO 40 mg HS SHILPA Administration Folic Acid 1 mg 11/05/19 09:00 11/10/19 09:16 Folvite PO 1 mg DAILY SHILPA Administration Dextrose/Sodium Chloride 1,000 mls @ 50 mls/hr 11/09/19 19:03 11/10/19 17:38 D5 0.9% Ns IV 1,000 mls .Q20H SHILPA Administration Iron/Minerals/Multivitamins 1 tab 11/05/19 09:00 11/10/19 09:16 Theragran M PO 1 tab DAILY SHILPA Administration Lorazepam 1 mg 11/08/19 13:04 11/10/19 19:51 Ativan PO 1 mg Q4H PRN Administration ASE >=9 Magnesium Oxide 400 mg 11/05/19 09:00 11/10/19 09:16 Magnesium Oxide PO 400 mg DAILY SHILPA Administration Sodium Chloride 10 ml 11/04/19 09:00 11/10/19 20:15 Flush - Normal Saline IVF Not Given Q12HR SHILPA Thiamine HCl 100 mg 11/05/19 09:00 11/10/19 09:16 Thiamine PO 100 mg DAILY SHILPA Administration - Exam General Appearance: NAD Heart: RRR, no gallops Respiratory: no wheezes, no ronchi Gastrointestinal: non-tender, non-distended, normal bowel sounds Extremities: no cyanosis Hosp A/P - Plan DVT proph w/SCDs Toxic Metabolic Encephalopathy - improving Chronic Afib on anticoagulation s/p Pacemaker HTN Bipolar disorder Type 2 [place] - POA - resolved Chronic alcoholism PLAN: Cont current meds as above DC IVF when tolerating PO Cont ASE protocol with Ativan Await rehab placement Unable to verify home meds
[2019-11-11] MEDS: Magnesium Oxide 400 MG TAB PO SCH (08:26)
[2019-11-11] MEDS: Aspirin 81 mg Enteric Coated Tablet PO SCH (08:26)
[2019-11-11] MEDS: Multivitamin W/ Minerals 1 TAB PO SCH (08:26)
[2019-11-11] MEDS: Folic Acid 1 MG TAB PO SCH (08:26)
[2019-11-11] MEDS: Apixaban 5 MG TAB PO SCH ×2 (08:26→21:12)
[2019-11-11] MEDS: Thiamine 100 MG TAB PO SCH (08:26)
[2019-11-11] MEDS: traMADol HCl 50 MG TAB PO PRN ×2 (08:26→21:12)
--- NOTE | 2019-11-11 10:36 | PDOC.HOSPP ---
- Subjective Encounter Date: 11/11/19 Encounter Time: 13:50 Subjective: Patient without complaints. Dementia and confused. - Objective Vital Signs & Weight: Vital Signs (12 hours) Temp Pulse Resp BP BP Pulse Ox 11/11/19 08:00 132/74 11/11/19 07:48 98 F 74 18 132/74 96 11/11/19 04:00 124/76 11/11/19 03:56 97.7 F 74 16 124/76 94 L 11/11/19 00:00 98.3 F 87 18 127/81 127/81 95 Weight Weight 176 lb I&O: 11/10/19 11/11/19 11/12/19 06:59 06:59 06:59 Intake Total 2330 800 Balance 2330 800 Result Diagrams: 11/10/19 05:31 11/10/19 05:31 Additional Labs: Accuchecks 11/11/19 11/10/19 11/10/19 03:57 20:26 16:33 POC Glucose 91 128 H 85 11/10/19 12:21 POC Glucose 84 Hospitalist ROS - Review of Systems ROS unobtainable: due to mental status - Medication Medications: Active Medications Generic Name Dose Route Start Last Admin Trade Name Freq PRN Reason Stop Dose Admin Acetaminophen 325 mg 11/09/19 19:11 11/10/19 19:54 Tylenol PO 325 mg Q6H PRN Administration Headache/Fever or Pain Apixaban 5 mg 11/04/19 21:00 11/11/19 08:26 Eliquis PO 5 mg BID SHILPA Administration Aspirin 81 mg 11/05/19 09:00 11/11/19 08:26 Ecotrin PO 81 mg DAILY SHILPA Administration Atorvastatin Calcium 40 mg 11/04/19 21:00 11/10/19 20:14 Lipitor PO 40 mg HS SHILPA Administration Folic Acid 1 mg 11/05/19 09:00 11/11/19 08:26 Folvite PO 1 mg DAILY SHILPA Administration Dextrose/Sodium Chloride 1,000 mls @ 50 mls/hr 11/09/19 19:03 11/10/19 17:38 D5 0.9% Ns IV 1,000 mls .Q20H SHILPA Administration Iron/Minerals/Multivitamins 1 tab 11/05/19 09:00 11/11/19 08:26 Theragran M PO 1 tab DAILY SHILPA Administration Lorazepam 1 mg 11/08/19 13:04 11/10/19 19:51 Ativan PO 1 mg Q4H PRN Administration ASE >=9 Magnesium Oxide 400 mg 11/05/19 09:00 11/11/19 08:26 Magnesium Oxide PO 400 mg DAILY SHILPA Administration Sodium Chloride 10 ml 11/04/19 09:00 11/11/19 08:29 Flush - Normal Saline IVF Not Given Q12HR SHILPA Thiamine HCl 100 mg 11/05/19 09:00 11/11/19 08:26 Thiamine PO 100 mg DAILY SHILPA Administration Tramadol HCl 50 mg 11/10/19 21:12 11/11/19 08:26 Ultram PO 11/11/19 21:13 50 mg Q8H PRN Administration Moderate Pain (4-6) - Exam General Appearance: NAD, awake alert ENT: moist mucosa Heart: RRR, no murmur, no gallops, no rubs Respiratory: CTAB, no wheezes, no rales, no ronchi Gastrointestinal: soft, non-tender, non-distended, normal bowel sounds Neurological: no focal deficits Psychiatric: not oriented Hosp A/P - Plan DVT proph w/SCDs Toxic Metabolic Encephalopathy - improving Chronic Afib on anticoagulation s/p Pacemaker HTN Bipolar disorder Type 2 [place] - POA - resolved Chronic alcoholism PLAN: Cont current meds as above DC IVF when tolerating PO Cont ASE protocol with Ativan Await rehab placement Unable to verify home meds
[2019-11-11] MEDS: Dextrose 5 % And 0.9 % NaCl 1,000 ML IV SCH (11:46)
[2019-11-11] MEDS: Atorvastatin Calcium 40 MG TAB PO SCH (21:12)
[2019-11-11] MEDS: Lorazepam 1 MG TAB PO PRN (21:17)
[2019-11-12] MEDS: Dextrose 5 % And 0.9 % NaCl 1,000 ML IV SCH ×2 (05:30→20:57)
[2019-11-12] MEDS: Acetaminophen 325 MG TAB PO PRN ×2 (05:30→20:58)
[2019-11-12] MEDS: traMADol HCl 50 MG TAB PO PRN ×2 (08:46→16:35)
[2019-11-12] MEDS: Thiamine 100 MG TAB PO SCH (08:47)
[2019-11-12] MEDS: Multivitamin W/ Minerals 1 TAB PO SCH (08:47)
[2019-11-12] MEDS: Magnesium Oxide 400 MG TAB PO SCH (08:47)
[2019-11-12] MEDS: Apixaban 5 MG TAB PO SCH (08:47)
[2019-11-12] MEDS: Folic Acid 1 MG TAB PO SCH (08:47)
--- NOTE | 2019-11-12 16:06 | PDOC.HOSPP ---
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, does not move lower extremity is not oriented not in distress - Objective Vital Signs & Weight: Vital Signs (12 hours) Temp Pulse Resp BP BP Pulse Ox 11/12/19 07:21 98 F 77 18 145/86 H 93 L 11/12/19 04:40 98.2 F 82 20 131/90 95 Weight Weight 176 lb I&O: 11/11/19 11/12/19 11/13/19 06:59 06:59 06:59 Intake Total 800 2049 Balance 800 2049 Result Diagrams: 11/10/19 05:31 11/10/19 05:31 Additional Labs: Accuchecks 11/12/19 11/11/19 11/11/19 04:43 20:15 17:02 POC Glucose 83 97 83 Hospitalist ROS - Medication Medications: Active Medications Generic Name Dose Route Start Last Admin Trade Name Freq PRN Reason Stop Dose Admin Acetaminophen 325 mg 11/09/19 19:11 11/12/19 05:30 Tylenol PO 325 mg Q6H PRN Administration Headache/Fever or Pain Atorvastatin Calcium 40 mg 11/04/19 21:00 11/11/19 21:12 Lipitor PO 40 mg HS SHILPA Administration Folic Acid 1 mg 11/05/19 09:00 11/12/19 08:47 Folvite PO 1 mg DAILY SHILPA Administration Dextrose/Sodium Chloride 1,000 mls @ 50 mls/hr 11/09/19 19:03 11/12/19 05:30 D5 0.9% Ns IV 1,000 mls .Q20H SIHLPA Administration Iron/Minerals/Multivitamins 1 tab 11/05/19 09:00 11/12/19 08:47 Theragran M PO 1 tab DAILY SHILPA Administration Lorazepam 1 mg 11/08/19 13:04 11/11/19 21:17 Ativan PO 1 mg Q4H PRN Administration ASE >=9 Magnesium Oxide 400 mg 11/05/19 09:00 11/12/19 08:47 Magnesium Oxide PO 400 mg DAILY SHILPA Administration Sodium Chloride 10 ml 11/04/19 09:00 11/12/19 09:30 Flush - Normal Saline IVF Not Given Q12HR [facility] Thiamine HCl 100 mg 11/05/19 09:00 11/12/19 08:47 Thiamine PO 100 mg DAILY SHILPA Administration Tramadol HCl 50 mg 11/12/19 08:21 11/12/19 08:46 Ultram PO 50 mg Q8H PRN Administration Moderate Pain (4-6) - Exam General Appearance: awake alert Eye: PERRL, anicteric sclera ENT: no oropharyngeal lesions, moist mucosa Neck: supple, no JVD Heart: RRR, no murmur Respiratory: no wheezes, no rales Gastrointestinal: soft, non-tender, non-distended, normal bowel sounds Extremities: no cyanosis, no edema Neurological - other findings: hypertonia, screams on plantar stroking with pain Hosp A/P (1) Physical deconditioning Code(s): R53.81 - OTHER MALAISE Status: Acute (2) Alcohol abuse Code(s): F10.10 - ALCOHOL ABUSE, UNCOMPLICATED Status: Chronic (3) Acute encephalopathy Code(s): G93.40 - ENCEPHALOPATHY, UNSPECIFIED Status: Acute (4) Artificial cardiac pacemaker Code(s): Z95.0 - PRESENCE OF CARDIAC PACEMAKER Status: Chronic (5) Atrial fibrillation with controlled ventricular rate Code(s): I48.91 - UNSPECIFIED ATRIAL FIBRILLATION Status: Chronic (6) Bipolar disease, chronic Code(s): F31.9 - BIPOLAR DISORDER, UNSPECIFIED Status: Chronic (7) Congestive heart failure (CHF) Code(s): I50.9 - HEART FAILURE, UNSPECIFIED Status: Chronic Qualifiers: Heart failure chronicity: chronic (8) HTN (hypertension) Code(s): I10 - ESSENTIAL (PRIMARY) HYPERTENSION Status: Chronic Qualifiers: Hypertension type: essential hypertension Qualified Code(s): I10 - Essential (primary) hypertension - Plan repeat CT brain and ct cervical spine has pcm not sure if its MRI compatible PT to mobilize as tolerated will dc eliquis in anticipation of lumbar puncture on wednesday if he still remains encephalopathic unclear etiology for encephalopathy, ?alc related wernicke's or new cva or c.spine stenosis or encephalitis has hypertonia, not on any antipsycotics or antidepressants continue lipitor, folic acid, mvi, thiamine and D5NS is tolerating oral diet per staff will need snf not rehab, he cannot communicate and is max assist to sit now. He apparently was walking with rw in aug 2019 per prior records documented by residents, he was communicating well then when he came for chest pain. initial ct brain and cta brain (was suboptimal) did not reveal any cva on admission. encephalopaty has to resolve and mild mobilization before dc plan.
[2019-11-12 16:54] LABS: Acetaminophen Less than 6.0 mcg/mL (10.0-30.0); Alcohol Less than 10 mg/dL (Less than 10); Salicylate Less than 8.0 mg/dL (15.0-30.0)
--- NOTE | 2019-11-12 17:09 | CT ---
CT Brain WO Con: 11/12/2019 3:51 PM CLINICAL HISTORY: History of stroke and fall. Patient is unresponsive. IMAGING TECHNIQUE: Multiple CT images were obtained of the brain without IV contrast. COMPARISON: CT the brain without contrast dated November 03, 2019 FINDINGS: Brain: No acute infarct or hemorrhage is evident. No midline shift. Ventricles: Normal. No hydrocephalus. Skull: Intact. Visualized Paranasal sinuses: Clear. Mastoid air cells:Clear. Extracranial soft tissues:Normal. IMPRESSION: No acute intracranial abnormality.
--- NOTE | 2019-11-12 17:11 | CT ---
CT Cervical Spine WO Con Indication: Fall with possible neck injury COMPARISON: April 04, 2019 FINDINGS: Fracture: None. Spinal alignment: There is slight anterior translation of C3 on C4 with retrolisthesis of C5 on C6. T here is anterior translation of C7 on T1. This is stable to the prior exam. Craniocervical junction: Within normal limits. Vertebral body heights: There is ankylosis of the C4-5 intervertebral level. Cervical spine degenerative change: There is severe stable multilevel cervical spondylosis Lung apices: Clear. IMPRESSION: No acute osseous abnormality.
[2019-11-12 17:51] LABS: Amphetamine Not Detected (NotDetected); Barbiturates Screen Not Detected (NotDetected); Benzodiazepine Screen Detected (NotDetected); Cocaine Metabolite Screen Not Detected (NotDetected); Medtox Control Line Valid? VALID (VALID); Medtox Reader # READER 4; Methadone Not Detected (NotDetected); Methamphetamine Not Detected (NotDetected); Opiate Screen Not Detected (NotDetected); Oxycodone Screen Not Detected (NotDetected); Phencyclidine (PCP) Not Detected (NotDetected); THC/Cannabinoid Screen Not Detected (NotDetected); Tricyclic Screen Not Detected (NotDetected)
[2019-11-12] MEDS: Atorvastatin Calcium 40 MG TAB PO SCH (20:57)
[2019-11-13] MEDS: traMADol HCl 50 MG TAB PO PRN ×3 (03:53→21:25)
[2019-11-13] MEDS: Polyethylene Glycol 3350 17 GM Packet PO SCH (09:05)
[2019-11-13] MEDS: Folic Acid 1 MG TAB PO SCH (09:05)
[2019-11-13] MEDS: Multivitamin W/ Minerals 1 TAB PO SCH (09:05)
[2019-11-13] MEDS: Senokot S 8.6-50 MG TAB PO SCH ×2 (09:05→21:25)
[2019-11-13] MEDS: Thiamine 100 MG TAB PO SCH (09:05)
[2019-11-13] MEDS: Magnesium Oxide 400 MG TAB PO SCH (09:05)
--- NOTE | 2019-11-13 16:23 | PDOC.HOSPP ---
- Subjective Encounter Date: 11/13/19 Encounter Time: 12:00 Subjective: no new changes or complaints still does not move his lower extremities moans in pain when passively moving his extremities - Objective Vital Signs & Weight: Vital Signs (12 hours) Temp Pulse Resp BP BP Pulse Ox 11/13/19 15:51 97.6 F 81 20 140/82 94 L 11/13/19 10:44 94 L 11/13/19 10:34 98.3 F 88 20 155/90 H 91 L 11/13/19 08:00 94 L 11/13/19 07:17 97.7 F 82 20 145/76 H 94 L Weight Weight 176 lb I&O: 11/12/19 11/13/19 11/14/19 06:59 06:59 06:59 Intake Total 2049 980 737 Output Total 50 Balance 2049 930 737 Result Diagrams: 11/10/19 05:31 11/10/19 05:31 Additional Labs: Accuchecks 11/13/19 00:57 POC Glucose 89 Hospitalist ROS - Medication Medications: Active Medications Generic Name Dose Route Start Last Admin Trade Name Freq PRN Reason Stop Dose Admin Acetaminophen 325 mg 11/09/19 19:11 11/12/19 20:58 Tylenol PO 325 mg Q6H PRN Administration Headache/Fever or Pain Atorvastatin Calcium 40 mg 11/04/19 21:00 11/12/19 20:57 Lipitor PO 40 mg HS SHILPA Administration Folic Acid 1 mg 11/05/19 09:00 11/13/19 09:05 Folvite PO 1 mg DAILY SHILPA Administration Dextrose/Sodium Chloride 1,000 mls @ 50 mls/hr 11/09/19 19:03 11/12/19 20:57 D5 0.9% Ns IV 1,000 mls .Q20H SHILPA Administration Iron/Minerals/Multivitamins 1 tab 11/05/19 09:00 11/13/19 09:05 Theragran M PO 1 tab DAILY SHILPA Administration Lorazepam 1 mg 11/08/19 13:04 11/11/19 21:17 Ativan PO 1 mg Q4H PRN Administration ASE >=9 Magnesium Oxide 400 mg 11/05/19 09:00 11/13/19 09:05 Magnesium Oxide PO 400 mg DAILY SHILPA Administration Polyethylene Glycol 17 gm 11/13/19 09:00 11/13/19 09:05 Miralax PO 17 gm DAILY SHILPA Administration Senna/Docusate Sodium 1 tab 11/13/19 09:00 11/13/19 09:05 Senokot S PO 1 tab BID SHILPA Administration Sodium Chloride 10 ml 11/04/19 09:00 11/13/19 12:38 Flush - Normal Saline IVF Not Given Q12HR SHILPA Thiamine HCl 100 mg 11/05/19 09:00 11/13/19 09:05 Thiamine PO 100 mg DAILY SHILPA Administration Tramadol HCl 50 mg 11/12/19 08:21 11/13/19 12:21 Ultram PO 50 mg Q8H PRN Administration Moderate Pain (4-6) - Exam General Appearance: awake alert Eye: PERRL, anicteric sclera ENT: no oropharyngeal lesions, moist mucosa Neck: supple, no JVD Heart: RRR, no murmur Respiratory: no wheezes, no rales Gastrointestinal: soft, non-tender, non-distended, normal bowel sounds Extremities: no cyanosis, no edema Neurological: cranial nerve grossly intact Hosp A/P (1) Physical deconditioning Code(s): R53.81 - OTHER MALAISE Status: Acute (2) Alcohol abuse Code(s): F10.10 - ALCOHOL ABUSE, UNCOMPLICATED Status: Chronic (3) Acute encephalopathy Code(s): G93.40 - ENCEPHALOPATHY, UNSPECIFIED Status: Acute (4) Artificial cardiac pacemaker Code(s): Z95.0 - PRESENCE OF CARDIAC PACEMAKER Status: Chronic (5) Atrial fibrillation with controlled ventricular rate Code(s): I48.91 - UNSPECIFIED ATRIAL FIBRILLATION Status: Chronic (6) Bipolar disease, chronic Code(s): F31.9 - BIPOLAR DISORDER, UNSPECIFIED Status: Chronic (7) Congestive heart failure (CHF) Code(s): I50.9 - HEART FAILURE, UNSPECIFIED Status: Chronic Qualifiers: Heart failure chronicity: chronic (8) HTN (hypertension) Code(s): I10 - ESSENTIAL (PRIMARY) HYPERTENSION Status: Chronic Qualifiers: Hypertension type: essential hypertension Qualified Code(s): I10 - Essential (primary) hypertension - Plan repeat CT brain is -ve for cva/bleed and ct cervical spine shows no signs of discitis or ac fractures. has pcm not sure if its MRI compatible PT to mobilize as tolerated will dc eliquis in anticipation of lumbar puncture on wednesday if he still remains encephalopathic unclear etiology for encephalopathy, ?alc related wernicke's or encephalitis ( has normal wbc and no fever) has hypertonia, not on any antipsycotics or antidepressants continue lipitor, folic acid, mvi, thiamine and D5NS is tolerating oral diet per staff will need snf not rehab, he cannot communicate and is max assist to sit now. He apparently was walking with rw in aug 2019 per prior records documented by residents, he was communicating well then when he came for chest pain. initial ct brain and cta brain (was suboptimal) did not reveal any cva on admission. encephalopaty has to resolve and mild mobilization before dc plan.
--- NOTE | 2019-11-13 17:33 | CT ---
CT THORACIC SPINE WITHOUT CONTRAST: HISTORY: Intractable pain. COMPARISON: None FINDINGS: Visualized mediastinum, heart, aorta, lung parenchyma is, solid organs and paraspinal soft tissue is unremarkable. There are 12 thoracic type vertebra. Thoracic spine vertebral body height is maintained. No fracture. No spondylolisthesis. No spondylolysis. Multilevel loss of disc space height and osteophyte formation. Technique limits evaluation of the contents of the central spinal canal and neural foramina. Througho ut the thoracic spine, there is no evidence of high-grade stenosis. There is mild to moderate central canal stenosis at T7-T8 and T8-T9 predominantly due to osteophyte ridges. Mild to moderate ce ntral canal stenosis at T10-T11 is also noted. The neural foramina appear to be moderately narrowed from T7-T8 through T3 T10-T11. IMPRESSION: Varying degrees of central canal stenosis and neural foraminal narrowing as detailed abov e. No fracture. Transcribed Date/Time: 11/13/2019 6:20 PM
--- NOTE | 2019-11-13 17:36 | CT ---
LUMBAR SPINE CT WITHOUT CONTRAST: HISTORY: Unable to move lower extremity. Pain. FINDINGS: The visualized paraspinal muscles and solid organs are grossly unremarkable. There is evidence of diverticulosis in the visualized sigmoid colon. No diverticulitis. Presacral fat appears to be preserved. Visualized bony pelvis and sacrum are intact. 5 lumbar type vertebra. Lumbar spine vertebral body height is maintained. No acute fracture. Schmorl's node in the superior e ndplate of L2 and inferior endplate of L2. No spondylolisthesis. No spondylolysis. Limited evaluation the contents of the central spinal canal and neural foramina due to technique. T12-L1: Vacuum disc phenomenon. No high-grade central canal stenosis or high-grade neural foraminal n arrowing L1-L2: No high-grade central canal stenosis or high-grade neural foraminal narrowing L2-L3: No high-grade central canal stenosis or high-grade neural foraminal narrowing L3-L4: Broad-based disc bulge, ligament flavum thickening and facet hypertrophy result in mild to mod erate central canal stenosis. Moderate right and left neural foraminal narrowing. L4-L5: Vacuum disc phenomenon. Broad-based disc bulge, ligament flavum thickening and facet hypertrop hy result in moderate central canal stenosis. Moderate bilateral neural foraminal narrowing. L5-S1: Vacuum disc phenomenon. Broad-based disc bulge does encroach upon both subicular zones and pro bably partially obscured bilateral traversing S1 nerve roots. No significant stenosis of the thecal sac. Mild to moderate right and moderate to severe left foraminal narrowing. IMPRESSION: 1. No fracture. 2. Varying degrees of central canal stenosis and neural foraminal brain to be unchanged, as described above. Transcribed Date/Time: 11/13/2019 6:18 PM
[2019-11-13] MEDS: Carvedilol 3.125 MG TAB PO SCH (21:25)
[2019-11-13] MEDS: Atorvastatin Calcium 40 MG TAB PO SCH (21:25)
[2019-11-13] MEDS: buPROPion 75 MG TAB PO SCH (21:26)
[2019-11-13] MEDS: Divalproex Sodium DR 500 MG TAB PO SCH (21:26)
[2019-11-14] MEDS: Acetaminophen 325 MG TAB PO PRN ×2 (03:00→20:00)
[2019-11-14] MEDS: Dextrose 5 % And 0.9 % NaCl 1,000 ML IV SCH ×2 (03:00→19:56)
[2019-11-14] MEDS: traMADol HCl 50 MG TAB PO PRN ×2 (05:36→20:00)
[2019-11-14] MEDS ORDERED: Cyclobenzaprine 10 MG TAB PO SCH (09:00)
[2019-11-14] MEDS ORDERED: Gabapentin 100 MG CAP PO SCH (09:00)
[2019-11-14] MEDS: Carvedilol 3.125 MG TAB PO SCH ×2 (09:22→19:59)
[2019-11-14] MEDS: Divalproex Sodium DR 500 MG TAB PO SCH ×2 (09:22→19:59)
[2019-11-14] MEDS: Senokot S 8.6-50 MG TAB PO SCH ×2 (09:22→19:59)
[2019-11-14] MEDS: Folic Acid 1 MG TAB PO SCH (09:22)
[2019-11-14] MEDS: buPROPion 75 MG TAB PO SCH ×2 (09:22→19:58)
[2019-11-14] MEDS: Magnesium Oxide 400 MG TAB PO SCH (09:22)
[2019-11-14] MEDS: Thiamine 100 MG TAB PO SCH (09:23)
[2019-11-14] MEDS: Multivitamin W/ Minerals 1 TAB PO SCH (09:23)
[2019-11-14] MEDS: Polyethylene Glycol 3350 17 GM Packet PO SCH (09:23)
[2019-11-14] MEDS: Lorazepam 1 MG TAB PO PRN (09:59)
[2019-11-14 12:16] LABS: Color Of CSF Supernatant COLORLESS (Colorless); Tube # 2; Unspun CSF Color COLORLESS (Colorless)
[2019-11-14 12:45] LABS: CSF, Glucose 63 mg/dl (40-70); CSF, Protein 60 mg/dL (15-40)
[2019-11-14 13:19] LABS: CSF Source CSF; Clarity Clear (Clear); Tube # 4
--- NOTE | 2019-11-14 13:50 | RAD ---
LUMBAR PUNCTURE WITH FLUOROSCOPIC GUIDANCE: HISTORY: Altered mental status. Evaluate for meningitis. EXPOSURE: 0.5 minutes, 224.8 mGy^*m2. FINDINGS: Successful lumbar puncture with fluoroscopic guidance. A total of 8 mL of clear CSF was collected. Elton carter tolerated the procedure well. No immediate or postprocedure complications. TECHNIQUE: Initial credit specialist lumbar spine radiograph demonstrates 5 lumbar-type vertebrae. Patient's back was evaluated. The L2-L3 level was deemed appropriate. Skin was prepped and draped in a sterile fashion. 1% lidocaine, buffered with sodium bicarbonate was used for local anesthesia. Under fluoroscopic guidance, a 22-gauge spinal needle was advanced into the CSF space. Via a short tu salvatore catheter, a total of 8 mL of clear CSF was collected. Patient tolerated the procedure well. No immediate or postprocedure complications. IMPRESSION: Successful lumbar puncture. Transcribed Date/Time: 11/14/2019 1:57 PM
--- NOTE | 2019-11-14 15:19 | PDOC.HOSPP ---
- Subjective Encounter Date: 11/14/19 Encounter Time: 09:20 Subjective: awake, doesn't respond well. brother at bedside - Objective Vital Signs & Weight: Vital Signs (12 hours) Temp Pulse Resp BP Pulse Ox 11/14/19 08:00 96 11/14/19 07:22 98.1 F 70 20 104/71 96 Weight Weight 176 lb I&O: 11/13/19 11/14/19 11/15/19 06:59 06:59 06:59 Intake Total 980 1637 240 Output Total 50 Balance 930 1637 240 Result Diagrams: 11/10/19 05:31 11/10/19 05:31 Additional Labs: Accuchecks 11/14/19 10:05 POC Glucose 87 Hospitalist ROS - Medication Medications: Active Medications Generic Name Dose Route Start Last Admin Trade Name Freq PRN Reason Stop Dose Admin Acetaminophen 325 mg 11/09/19 19:11 11/14/19 03:00 Tylenol PO 325 mg Q6H PRN Administration Headache/Fever or Pain Atorvastatin Calcium 40 mg 11/04/19 21:00 11/13/19 21:25 Lipitor PO 40 mg HS SHILPA Administration Bupropion HCl 75 mg 11/13/19 21:00 11/14/19 09:22 Wellbutrin PO 75 mg BID SHILPA Administration Carvedilol 3.125 mg 11/13/19 21:00 11/14/19 09:22 Coreg PO 3.125 mg BID SHILPA Administration Divalproex Sodium 1,000 mg 11/13/19 21:00 11/14/19 09:22 Depakote PO 1,000 mg BID SHILPA Administration Folic Acid 1 mg 11/05/19 09:00 11/14/19 09:22 Folvite PO 1 mg DAILY SHILPA Administration Dextrose/Sodium Chloride 1,000 mls @ 50 mls/hr 11/09/19 19:03 11/14/19 03:00 D5 0.9% Ns IV 1,000 mls .Q20H SHILPA Administration Iron/Minerals/Multivitamins 1 tab 11/05/19 09:00 11/14/19 09:23 Theragran M PO 1 tab DAILY SHILPA Administration Lorazepam 1 mg 11/08/19 13:04 11/14/19 09:59 Ativan PO 1 mg Q4H PRN Administration ASE >=9 Magnesium Oxide 400 mg 11/05/19 09:00 11/14/19 09:22 Magnesium Oxide PO 400 mg DAILY SHILPA Administration Polyethylene Glycol 17 gm 11/13/19 09:00 11/14/19 09:23 Miralax PO 17 gm DAILY SHILPA Administration Senna/Docusate Sodium 1 tab 11/13/19 09:00 11/14/19 09:22 Senokot S PO 1 tab BID SHILPA Administration Sodium Chloride 10 ml 11/04/19 09:00 11/14/19 09:23 Flush - Normal Saline IVF 10 ml Q12HR SHILPA Administration Thiamine HCl 100 mg 11/05/19 09:00 11/14/19 09:23 Thiamine PO 100 mg DAILY SHILPA Administration Tramadol HCl 50 mg 11/12/19 08:21 11/14/19 05:36 Ultram PO 50 mg Q8H PRN Administration Moderate Pain (4-6) - Exam Eye: PERRL, anicteric sclera ENT: no oropharyngeal lesions, moist mucosa Neck: supple, no JVD Heart: RRR, no murmur Respiratory: no wheezes, no rales Gastrointestinal: soft, non-tender, non-distended, normal bowel sounds Extremities: no cyanosis, no edema Neurological: cranial nerve grossly intact, no focal deficits Hosp A/P (1) Physical deconditioning Code(s): R53.81 - OTHER MALAISE Status: Acute (2) Alcohol abuse Code(s): F10.10 - ALCOHOL ABUSE, UNCOMPLICATED Status: Chronic (3) Acute encephalopathy Code(s): G93.40 - ENCEPHALOPATHY, UNSPECIFIED Status: Acute (4) Artificial cardiac pacemaker Code(s): Z95.0 - PRESENCE OF CARDIAC PACEMAKER Status: Chronic (5) Atrial fibrillation with controlled ventricular rate Code(s): I48.91 - UNSPECIFIED ATRIAL FIBRILLATION Status: Chronic (6) Bipolar disease, chronic Code(s): F31.9 - BIPOLAR DISORDER, UNSPECIFIED Status: Chronic (7) Congestive heart failure (CHF) Code(s): I50.9 - HEART FAILURE, UNSPECIFIED Status: Chronic Qualifiers: Heart failure chronicity: chronic (8) HTN (hypertension) Code(s): I10 - ESSENTIAL (PRIMARY) HYPERTENSION Status: Chronic Qualifiers: Hypertension type: essential hypertension Qualified Code(s): I10 - Essential (primary) hypertension (9) Methamphetamine abuse Code(s): F15.10 - OTHER STIMULANT ABUSE, UNCOMPLICATED Status: Chronic - Plan CSF shows no signs of infection. repeat CT brain is -ve for cva/bleed and ct cervical spine shows no signs of discitis or ac fractures. has pcm not sure if its MRI compatible PT to mobilize as tolerated restart eliquis unclear etiology for encephalopathy, ?alc related wernicke's or chronic meth abuse (heavy usage per brother) has hypertonia, not on any antipsycotics or antidepressants continue lipitor, folic acid, mvi, thiamine and D5NS is tolerating oral diet per staff will need snf not rehab, he cannot communicate and is max assist to sit now. ?trial of methadone, not sure if it will work for meth abuse. Became very lethargic with flexeril and low dose gabapentin tid.
[2019-11-14] MEDS: Atorvastatin Calcium 40 MG TAB PO SCH (19:58)
[2019-11-15] MEDS: buPROPion 75 MG TAB PO SCH ×2 (08:30→21:06)
[2019-11-15] MEDS: Carvedilol 3.125 MG TAB PO SCH ×2 (08:31→21:06)
[2019-11-15] MEDS: Cyanocobalamin (Vitamin B-12) 1,000 MCG TAB PO SCH (08:33)
[2019-11-15] MEDS: Thiamine 100 MG TAB PO SCH (08:33)
[2019-11-15] MEDS: Divalproex Sodium DR 500 MG TAB PO SCH ×2 (08:34→21:07)
[2019-11-15] MEDS: Magnesium Oxide 400 MG TAB PO SCH (08:36)
[2019-11-15] MEDS: Multivitamin W/ Minerals 1 TAB PO SCH (08:36)
[2019-11-15] MEDS: Folic Acid 1 MG TAB PO SCH (08:37)
[2019-11-15] MEDS: Senokot S 8.6-50 MG TAB PO SCH ×2 (08:38→21:06)
[2019-11-15] MEDS: Polyethylene Glycol 3350 17 GM Packet PO SCH (10:36)
--- NOTE | 2019-11-15 13:31 | PDOC.HOSPP ---
- Subjective Encounter Date: 11/15/19 Encounter Time: 12:40 Subjective: awake, does not interact with examiner - Objective Vital Signs & Weight: Vital Signs (12 hours) Temp Pulse Resp BP Pulse Ox 11/15/19 08:00 98 11/15/19 07:24 97.9 F 80 20 109/65 98 Weight Weight 176 lb I&O: 11/14/19 11/15/19 11/16/19 06:59 06:59 06:59 Intake Total 1637 240 240 Balance 1637 240 240 Result Diagrams: 11/10/19 05:31 11/10/19 05:31 Hospitalist ROS - Medication Medications: Active Medications Generic Name Dose Route Start Last Admin Trade Name Freq PRN Reason Stop Dose Admin Acetaminophen 325 mg 11/09/19 19:11 11/14/19 20:00 Tylenol PO 325 mg Q6H PRN Administration Headache/Fever or Pain Atorvastatin Calcium 40 mg 11/04/19 21:00 11/14/19 19:58 Lipitor PO 40 mg HS SHILPA Administration Bupropion HCl 75 mg 11/13/19 21:00 11/15/19 08:30 Wellbutrin PO 75 mg BID SHILPA Administration Carvedilol 3.125 mg 11/13/19 21:00 11/15/19 08:31 Coreg PO 3.125 mg BID SHILPA Administration Cyanocobalamin 1,000 mcg 11/15/19 09:00 11/15/19 08:33 Vitamin B-12 PO 1,000 mcg DAILY SHILPA Administration Divalproex Sodium 1,000 mg 11/13/19 21:00 11/15/19 08:34 Depakote PO 1,000 mg BID SHILPA Administration Folic Acid 1 mg 11/05/19 09:00 11/15/19 08:37 Folvite PO 1 mg DAILY SHILPA Administration Dextrose/Sodium Chloride 1,000 mls @ 50 mls/hr 11/09/19 19:03 11/14/19 19:56 D5 0.9% Ns IV 1,000 mls .Q20H SHILPA Administration Iron/Minerals/Multivitamins 1 tab 11/05/19 09:00 11/15/19 08:36 Theragran M PO 1 tab DAILY SHILPA Administration Lorazepam 1 mg 11/08/19 13:04 11/14/19 09:59 Ativan PO 1 mg Q4H PRN Administration ASE >=9 Magnesium Oxide 400 mg 11/05/19 09:00 11/15/19 08:36 Magnesium Oxide PO 400 mg DAILY SHILPA Administration Polyethylene Glycol 17 gm 11/13/19 09:00 11/15/19 10:36 Miralax PO Not Given DAILY SHILPA Senna/Docusate Sodium 1 tab 11/13/19 09:00 11/15/19 08:38 Senokot S PO 1 tab BID SHILPA Administration Sodium Chloride 10 ml 11/04/19 09:00 11/15/19 10:37 Flush - Normal Saline IVF Not Given Q12HR SHILPA Thiamine HCl 100 mg 11/05/19 09:00 11/15/19 08:33 Thiamine PO 100 mg DAILY SHILPA Administration Tramadol HCl 50 mg 11/12/19 08:21 11/14/19 20:00 Ultram PO 50 mg Q8H PRN Administration Moderate Pain (4-6) - Exam General Appearance: awake alert Eye: PERRL, anicteric sclera ENT: no oropharyngeal lesions, moist mucosa Neck: supple, no JVD Heart: RRR, no murmur Respiratory: no wheezes, no rales Gastrointestinal: soft, non-tender, non-distended, normal bowel sounds Extremities: no cyanosis, no edema Neurological: cranial nerve grossly intact, no focal deficits Hosp A/P (1) Physical deconditioning Code(s): R53.81 - OTHER MALAISE Status: Acute (2) Alcohol abuse Code(s): F10.10 - ALCOHOL ABUSE, UNCOMPLICATED Status: Chronic (3) Acute encephalopathy Code(s): G93.40 - ENCEPHALOPATHY, UNSPECIFIED Status: Acute (4) Artificial cardiac pacemaker Code(s): Z95.0 - PRESENCE OF CARDIAC PACEMAKER Status: Chronic (5) Atrial fibrillation with controlled ventricular rate Code(s): I48.91 - UNSPECIFIED ATRIAL FIBRILLATION Status: Chronic (6) Bipolar disease, chronic Code(s): F31.9 - BIPOLAR DISORDER, UNSPECIFIED Status: Chronic (7) Congestive heart failure (CHF) Code(s): I50.9 - HEART FAILURE, UNSPECIFIED Status: Chronic Qualifiers: Heart failure chronicity: chronic (8) HTN (hypertension) Code(s): I10 - ESSENTIAL (PRIMARY) HYPERTENSION Status: Chronic Qualifiers: Hypertension type: essential hypertension Qualified Code(s): I10 - Essential (primary) hypertension (9) Methamphetamine abuse Code(s): F15.10 - OTHER STIMULANT ABUSE, UNCOMPLICATED Status: Chronic - Plan CSF shows no signs of infection. repeat CT brain is -ve for cva/bleed and ct cervical spine shows no signs of discitis or ac fractures. has pcm not sure if its MRI compatible PT to mobilize as tolerated restart eliquis unclear etiology for encephalopathy, ?alc related wernicke's or chronic meth abuse (heavy usage per brother) has hypertonia, not on any antipsycotics or antidepressants continue lipitor, folic acid, mvi, thiamine and D5NS is tolerating oral diet per staff will need snf not rehab, he cannot communicate and is max assist to sit now. Became very lethargic with flexeril and low dose gabapentin tid.
[2019-11-15] MEDS: Dextrose 5 % And 0.9 % NaCl 1,000 ML IV SCH (15:41)
[2019-11-15] MEDS: Lorazepam 1 MG TAB PO PRN (21:06)
[2019-11-15] MEDS: Atorvastatin Calcium 40 MG TAB PO SCH (21:06)
[2019-11-15] MEDS: Apixaban 5 MG TAB PO SCH (21:06)
[2019-11-15] MEDS: Acetaminophen 325 MG TAB PO PRN (21:07)
[2019-11-16] MEDS: Apixaban 5 MG TAB PO SCH ×2 (08:01→20:31)
[2019-11-16] MEDS: Magnesium Oxide 400 MG TAB PO SCH (08:01)
[2019-11-16] MEDS: Carvedilol 3.125 MG TAB PO SCH ×2 (08:01→20:31)
[2019-11-16] MEDS: Folic Acid 1 MG TAB PO SCH (08:01)
[2019-11-16] MEDS: Divalproex Sodium DR 500 MG TAB PO SCH ×2 (08:02→20:31)
[2019-11-16] MEDS: Thiamine 100 MG TAB PO SCH (08:02)
[2019-11-16] MEDS: Cyanocobalamin (Vitamin B-12) 1,000 MCG TAB PO SCH (08:02)
[2019-11-16] MEDS: Polyethylene Glycol 3350 17 GM Packet PO SCH (08:04)
[2019-11-16] MEDS: Multivitamin W/ Minerals 1 TAB PO SCH (08:04)
[2019-11-16] MEDS: Senokot S 8.6-50 MG TAB PO SCH ×2 (08:12→20:31)
[2019-11-16] MEDS: buPROPion 75 MG TAB PO SCH ×2 (08:12→20:36)
[2019-11-16] MEDS: Dextrose 5 % And 0.9 % NaCl 1,000 ML IV SCH (11:43)
--- NOTE | 2019-11-16 16:30 | PDOC.HOSPP ---
- Subjective Encounter Date: 11/16/19 Encounter Time: 10:20 Subjective: awake, not in distress - Objective Vital Signs & Weight: Vital Signs (12 hours) Temp Pulse Resp BP Pulse Ox 11/16/19 08:00 97 11/16/19 07:56 97.1 F L 63 16 160/82 H 97 Weight Admit Weight 176 lb Weight 176 lb I&O: 11/15/19 11/16/19 11/17/19 06:59 06:59 06:59 Intake Total 240 1330 Balance 240 1330 Result Diagrams: 11/10/19 05:31 11/10/19 05:31 Additional Labs: Accuchecks 11/16/19 12:22 POC Glucose 83 Hospitalist ROS - Medication Medications: Active Medications Generic Name Dose Route Start Last Admin Trade Name Freq PRN Reason Stop Dose Admin Acetaminophen 325 mg 11/09/19 19:11 11/15/19 21:07 Tylenol PO 325 mg Q6H PRN Administration Headache/Fever or Pain Apixaban 5 mg 11/15/19 21:00 11/16/19 08:01 Eliquis PO 5 mg BID SHILPA Administration Atorvastatin Calcium 40 mg 11/04/19 21:00 11/15/19 21:06 Lipitor PO 40 mg HS SHILPA Administration Bupropion HCl 75 mg 11/13/19 21:00 11/16/19 08:12 Wellbutrin PO 75 mg BID SHILPA Administration Carvedilol 3.125 mg 11/13/19 21:00 11/16/19 08:01 Coreg PO 3.125 mg BID SHILPA Administration Cyanocobalamin 1,000 mcg 11/15/19 09:00 11/16/19 08:02 Vitamin B-12 PO 1,000 mcg DAILY SHILPA Administration Divalproex Sodium 1,000 mg 11/13/19 21:00 11/16/19 08:02 Depakote PO 1,000 mg BID SHILPA Administration Folic Acid 1 mg 11/05/19 09:00 11/16/19 08:01 Folvite PO 1 mg DAILY SHILPA Administration Dextrose/Sodium Chloride 1,000 mls @ 50 mls/hr 11/09/19 19:03 11/16/19 11:43 D5 0.9% Ns IV 1,000 mls .Q20H SHILPA Administration Iron/Minerals/Multivitamins 1 tab 11/05/19 09:00 11/16/19 08:04 Theragran M PO 1 tab DAILY SHILPA Administration Lorazepam 1 mg 11/08/19 13:04 11/15/19 21:06 Ativan PO 1 mg Q4H PRN Administration ASE >=9 Magnesium Oxide 400 mg 11/05/19 09:00 11/16/19 08:01 Magnesium Oxide PO 400 mg DAILY SHILPA Administration Polyethylene Glycol 17 gm 11/13/19 09:00 11/16/19 08:04 Miralax PO Not Given DAILY SHILPA Senna/Docusate Sodium 1 tab 11/13/19 09:00 11/16/19 08:12 Senokot S PO 1 tab BID SHILPA Administration Sodium Chloride 10 ml 11/04/19 09:00 11/16/19 08:09 Flush - Normal Saline IVF 10 ml Q12HR SHILPA Administration Thiamine HCl 100 mg 11/05/19 09:00 11/16/19 08:02 Thiamine PO 100 mg DAILY SHILPA Administration Tramadol HCl 50 mg 11/12/19 08:21 11/14/19 20:00 Ultram PO 50 mg Q8H PRN Administration Moderate Pain (4-6) - Exam General Appearance: awake alert Eye: PERRL, anicteric sclera ENT: no oropharyngeal lesions, moist mucosa Neck: supple, no JVD Heart: RRR, no murmur Respiratory: no wheezes, no rales Gastrointestinal: soft, non-tender, non-distended, normal bowel sounds Extremities: no cyanosis, no edema Neurological: cranial nerve grossly intact, no focal deficits Hosp A/P (1) Physical deconditioning Code(s): R53.81 - OTHER MALAISE Status: Acute (2) Alcohol abuse Code(s): F10.10 - ALCOHOL ABUSE, UNCOMPLICATED Status: Chronic (3) Acute encephalopathy Code(s): G93.40 - ENCEPHALOPATHY, UNSPECIFIED Status: Acute (4) Artificial cardiac pacemaker Code(s): Z95.0 - PRESENCE OF CARDIAC PACEMAKER Status: Chronic (5) Atrial fibrillation with controlled ventricular rate Code(s): I48.91 - UNSPECIFIED ATRIAL FIBRILLATION Status: Chronic (6) Bipolar disease, chronic Code(s): F31.9 - BIPOLAR DISORDER, UNSPECIFIED Status: Chronic (7) Congestive heart failure (CHF) Code(s): I50.9 - HEART FAILURE, UNSPECIFIED Status: Chronic Qualifiers: Heart failure chronicity: chronic (8) HTN (hypertension) Code(s): I10 - ESSENTIAL (PRIMARY) HYPERTENSION Status: Chronic Qualifiers: Hypertension type: essential hypertension Qualified Code(s): I10 - Essential (primary) hypertension (9) Methamphetamine abuse Code(s): F15.10 - OTHER STIMULANT ABUSE, UNCOMPLICATED Status: Chronic - Plan CSF shows no signs of infection. repeat CT brain is -ve for cva/bleed and ct cervical spine shows no signs of discitis or ac fractures. has pcm PT to mobilize as tolerated back on eliquis from 11/14/2019 unclear etiology for encephalopathy, ?alc related wernicke's or chronic meth abuse (heavy usage per brother) trial of low dose gabapentin. continue lipitor, folic acid, mvi, thiamine and D5NS is tolerating oral diet per staff will need snf or rehab. was able to sit for 4 hrs in chair, still has not ambulated yet.
[2019-11-16] MEDS: Atorvastatin Calcium 40 MG TAB PO SCH (20:31)
[2019-11-16] MEDS: traMADol HCl 50 MG TAB PO PRN (20:49)
[2019-11-17] MEDS: Dextrose 5 % And 0.9 % NaCl 1,000 ML IV SCH ×2 (06:11→16:21)
[2019-11-17] MEDS: buPROPion 75 MG TAB PO SCH ×3 (09:00→21:53)
[2019-11-17] MEDS: Cyanocobalamin (Vitamin B-12) 1,000 MCG TAB PO SCH (09:00)
[2019-11-17] MEDS: Polyethylene Glycol 3350 17 GM Packet PO SCH (09:00)
[2019-11-17] MEDS: Divalproex Sodium DR 500 MG TAB PO SCH ×5 (09:00→21:53)
[2019-11-17] MEDS: Apixaban 5 MG TAB PO SCH ×2 (09:07→21:54)
[2019-11-17] MEDS: Senokot S 8.6-50 MG TAB PO SCH ×2 (09:07→21:54)
[2019-11-17] MEDS: Folic Acid 1 MG TAB PO SCH (09:08)
[2019-11-17] MEDS: Multivitamin W/ Minerals 1 TAB PO SCH (09:08)
[2019-11-17] MEDS: Gabapentin 100 MG CAP PO SCH (09:08)
[2019-11-17] MEDS: Magnesium Oxide 400 MG TAB PO SCH (09:08)
[2019-11-17] MEDS: Carvedilol 3.125 MG TAB PO SCH ×2 (09:08→21:53)
[2019-11-17] MEDS: Thiamine 100 MG TAB PO SCH (09:10)
--- NOTE | 2019-11-17 13:47 | PDOC.HOSPP ---
- Subjective Encounter Date: 11/17/19 Encounter Time: 12:30 Subjective: awake, not in distress. - Objective Vital Signs & Weight: Vital Signs (12 hours) Temp Pulse Resp BP Pulse Ox 11/17/19 08:15 84 11/17/19 08:00 97.6 F 68 22 H 118/71 100 Weight Admit Weight 176 lb Weight 176 lb I&O: 11/16/19 11/17/19 11/18/19 06:59 06:59 06:59 Intake Total 1330 880 Balance 1330 880 Result Diagrams: 11/10/19 05:31 11/10/19 05:31 Additional Labs: Accuchecks 11/16/19 16:55 POC Glucose 102 Hospitalist ROS - Medication Medications: Active Medications Generic Name Dose Route Start Last Admin Trade Name Freq PRN Reason Stop Dose Admin Acetaminophen 325 mg 11/09/19 19:11 11/15/19 21:07 Tylenol PO 325 mg Q6H PRN Administration Headache/Fever or Pain Apixaban 5 mg 11/15/19 21:00 11/17/19 09:07 Eliquis PO 5 mg BID SHILPA Administration Atorvastatin Calcium 40 mg 11/04/19 21:00 11/16/19 20:31 Lipitor PO 40 mg HS SHILPA Administration Bupropion HCl 75 mg 11/13/19 21:00 11/16/19 20:36 Wellbutrin PO 75 mg BID SHILPA Administration Carvedilol 3.125 mg 11/13/19 21:00 11/17/19 09:08 Coreg PO 3.125 mg BID SHILPA Administration Cyanocobalamin 1,000 mcg 11/15/19 09:00 11/16/19 08:02 Vitamin B-12 PO 1,000 mcg DAILY SHILPA Administration Divalproex Sodium 1,000 mg 11/13/19 21:00 11/16/19 20:31 Depakote PO 1,000 mg BID SHILPA Administration Folic Acid 1 mg 11/05/19 09:00 11/17/19 09:08 Folvite PO 1 mg DAILY SHILPA Administration Gabapentin 100 mg 11/17/19 09:00 11/17/19 09:08 Neurontin PO 100 mg DAILY SHILPA Administration Dextrose/Sodium Chloride 1,000 mls @ 50 mls/hr 11/09/19 19:03 11/17/19 06:11 D5 0.9% Ns IV Not Given .Q20H SHILPA Iron/Minerals/Multivitamins 1 tab 11/05/19 09:00 11/17/19 09:08 Theragran M PO 1 tab DAILY SHILPA Administration Lorazepam 1 mg 11/08/19 13:04 11/15/19 21:06 Ativan PO 1 mg Q4H PRN Administration ASE >=9 Magnesium Oxide 400 mg 11/05/19 09:00 11/17/19 09:08 Magnesium Oxide PO 400 mg DAILY SHILPA Administration Polyethylene Glycol 17 gm 11/13/19 09:00 11/16/19 08:04 Miralax PO Not Given DAILY SHILPA Senna/Docusate Sodium 1 tab 11/13/19 09:00 11/17/19 09:07 Senokot S PO 1 tab BID SHILPA Administration Sodium Chloride 10 ml 11/04/19 09:00 11/16/19 20:32 Flush - Normal Saline IVF Not Given Q12HR SHILPA Thiamine HCl 100 mg 11/05/19 09:00 11/17/19 09:10 Thiamine PO 100 mg DAILY SHILPA Administration Tramadol HCl 50 mg 11/12/19 08:21 11/16/19 20:49 Ultram PO 50 mg Q8H PRN Administration Moderate Pain (4-6) - Exam General Appearance: awake alert Eye: PERRL, anicteric sclera ENT: no oropharyngeal lesions, moist mucosa Neck: supple, no JVD Heart: RRR, no murmur Respiratory: no wheezes, no rales Gastrointestinal: soft, non-tender, non-distended, normal bowel sounds Extremities: no cyanosis, no edema Neurological: cranial nerve grossly intact, no focal deficits Psychiatric: normal affect, A&O x 3 Hosp A/P (1) Physical deconditioning Code(s): R53.81 - OTHER MALAISE Status: Acute (2) Alcohol abuse Code(s): F10.10 - ALCOHOL ABUSE, UNCOMPLICATED Status: Chronic (3) Acute encephalopathy Code(s): G93.40 - ENCEPHALOPATHY, UNSPECIFIED Status: Acute (4) Artificial cardiac pacemaker Code(s): Z95.0 - PRESENCE OF CARDIAC PACEMAKER Status: Chronic (5) Atrial fibrillation with controlled ventricular rate Code(s): I48.91 - UNSPECIFIED ATRIAL FIBRILLATION Status: Chronic (6) Bipolar disease, chronic Code(s): F31.9 - BIPOLAR DISORDER, UNSPECIFIED Status: Chronic (7) Congestive heart failure (CHF) Code(s): I50.9 - HEART FAILURE, UNSPECIFIED Status: Chronic Qualifiers: Heart failure chronicity: chronic (8) HTN (hypertension) Code(s): I10 - ESSENTIAL (PRIMARY) HYPERTENSION Status: Chronic Qualifiers: Hypertension type: essential hypertension Qualified Code(s): I10 - Essential (primary) hypertension (9) Methamphetamine abuse Code(s): F15.10 - OTHER STIMULANT ABUSE, UNCOMPLICATED Status: Chronic - Plan CSF shows no signs of infection. repeat CT brain is -ve for cva/bleed and ct cervical spine shows no signs of discitis or ac fractures. has pcm PT to mobilize as tolerated back on eliquis from 11/14/2019 unclear etiology for encephalopathy, ?alc related wernicke's or chronic meth abuse (heavy usage per brother) trial of low dose gabapentin. continue lipitor, folic acid, mvi, thiamine and D5NS is tolerating oral diet per staff will need snf or rehab. was able to sit for 4 hrs in chair, still has not ambulated yet. trial of low dose seroquel bid
[2019-11-17] MEDS: Atorvastatin Calcium 40 MG TAB PO SCH (21:53)
[2019-11-18 07:29] LABS: #Eosinphils 0.1 thou/uL (0.0-0.7); #Lymphocytes 1.2 thou/uL (1.20-3.40); #Monocytes 0.4 thou/uL (0.11-0.59); #Neutrophils 4.3 thou/uL (1.40-6.50); %Basophils 0.8 % (0.0-1.0); %Eosinophils 1.1 % (0.0-10.0); %Lymphocytes 20.3 % (21.0-51.0); %Monocytes 7.1 % (0.0-10.0); %Neutrophils 70.7 % (42.0-75.0); Mean Corpuscular HGB CONC 33.9 g/dL (32.0-36.0); Mean Corpuscular Hemoglobin 33.9 pg (27.0-31.0); Mean Platelet Volume 7.5 fL (7.4-10.4); Platelet Count 210 thou/uL (130-400); RBC Distribution Width 11.5 % (11.5-14.5); Red Blood Cell (RBC) Count 4.71 mill/uL (4.70-6.10); White Blood Cell (WBC) Count 6.1 thou/uL (4.8-10.8)
[2019-11-18 07:46] LABS: ALT (SGPT) 8 U/L (8-55); AST (SGOT) 29 U/L (5-34); Albumin 3.1 g/dL (3.4-4.8); Alkaline Phosphatase 115 U/L (40-110); Anion Gap 11 mmol/L (10-20); BUN (Urea Nitrogen) 19 mg/dL (8.4-25.7); Bilirubin, Total 0.8 mg/dL (0.2-1.2); Calc. Creatinine Clearance 87 mL/min (70-130); Calcium 9.2 mg/dL (7.8-10.44); Carbon Dioxide 27 mmol/L (23-31); Chloride 111 mmol/L (98-107); Estimated GFR-MDRD 89; Glucose 90 mg/dL (83-110); Potassium 3.8 mmol/L (3.5-5.1); Protein, Total 6.1 g/dL (5.8-8.1); Sodium 145 mmol/L (136-145)
[2019-11-18] MEDS: buPROPion 75 MG TAB PO SCH ×2 (09:00→20:14)
--- NOTE | 2019-11-18 10:11 | PDOC.HOSPP ---
- Subjective Encounter Date: 11/18/19 Encounter Time: 07:15 Subjective: awake, does not talk but follows with his eyes he apparently ate well when his girlfriend came yesterday, staff not sure if he was talking to her holds his UE in flexion and LE in extension when tried to touch or move them, is fully awake when he does this. - Objective Vital Signs & Weight: Vital Signs (12 hours) Temp Pulse Resp BP Pulse Ox 11/18/19 08:22 185/104 H 11/18/19 08:00 160/108 H 11/18/19 07:45 97.7 F 84 18 99 Weight Admit Weight 176 lb Weight 176 lb I&O: 11/17/19 11/18/19 11/19/19 06:59 06:59 06:59 Intake Total 880 Balance 880 Result Diagrams: 11/18/19 07:10 11/18/19 07:10 Hospitalist ROS - Medication Medications: Active Medications Generic Name Dose Route Start Last Admin Trade Name Freq PRN Reason Stop Dose Admin Acetaminophen 325 mg 11/09/19 19:11 11/15/19 21:07 Tylenol PO 325 mg Q6H PRN Administration Headache/Fever or Pain Apixaban 5 mg 11/15/19 21:00 11/17/19 21:54 Eliquis PO 5 mg BID SHILPA Administration Atorvastatin Calcium 40 mg 11/04/19 21:00 11/17/19 21:53 Lipitor PO 40 mg HS SHILPA Administration Bupropion HCl 75 mg 11/13/19 21:00 11/17/19 21:53 Wellbutrin PO 75 mg BID SHILPA Administration Carvedilol 3.125 mg 11/13/19 21:00 11/17/19 21:53 Coreg PO 3.125 mg BID SHILPA Administration Cyanocobalamin 1,000 mcg 11/15/19 09:00 11/16/19 08:02 Vitamin B-12 PO 1,000 mcg DAILY SHILPA Administration Divalproex Sodium 1,000 mg 11/13/19 21:00 11/17/19 21:53 Depakote PO 1,000 mg BID SHILPA Administration Folic Acid 1 mg 11/05/19 09:00 11/17/19 09:08 Folvite PO 1 mg DAILY SHILPA Administration Gabapentin 100 mg 11/17/19 09:00 11/17/19 09:08 Neurontin PO 100 mg DAILY SHILPA Administration Dextrose/Sodium Chloride 1,000 mls @ 50 mls/hr 11/09/19 19:03 11/17/19 16:21 D5 0.9% Ns IV 1,000 mls .Q20H SHILPA Administration Iron/Minerals/Multivitamins 1 tab 11/05/19 09:00 11/17/19 09:08 Theragran M PO 1 tab DAILY SHILPA Administration Lorazepam 1 mg 11/08/19 13:04 11/15/19 21:06 Ativan PO 1 mg Q4H PRN Administration ASE >=9 Magnesium Oxide 400 mg 11/05/19 09:00 11/17/19 09:08 Magnesium Oxide PO 400 mg DAILY SHILPA Administration Polyethylene Glycol 17 gm 11/13/19 09:00 11/17/19 09:00 Miralax PO Not Given DAILY SHILPA Quetiapine Fumarate 25 mg 11/17/19 21:00 11/17/19 21:53 Seroquel PO 25 mg BID SHILPA Administration Senna/Docusate Sodium 1 tab 11/13/19 09:00 11/17/19 21:54 Senokot S PO 1 tab BID SHILPA Administration Sodium Chloride 10 ml 11/04/19 09:00 11/17/19 21:54 Flush - Normal Saline IVF 10 ml Q12HR SHILPA Administration Thiamine HCl 100 mg 11/05/19 09:00 11/17/19 09:10 Thiamine PO 100 mg DAILY SHILPA Administration Tramadol HCl 50 mg 11/12/19 08:21 11/16/19 20:49 Ultram PO 50 mg Q8H PRN Administration Moderate Pain (4-6) - Exam General Appearance: awake alert Eye: PERRL, anicteric sclera ENT: no oropharyngeal lesions, moist mucosa Neck: supple, no JVD Heart: RRR, no murmur Respiratory: no wheezes, no rales Gastrointestinal: soft, non-tender, non-distended, normal bowel sounds Extremities: no cyanosis, no edema Neurological: cranial nerve grossly intact, no focal deficits Hosp A/P (1) Physical deconditioning Code(s): R53.81 - OTHER MALAISE Status: Acute (2) Alcohol abuse Code(s): F10.10 - ALCOHOL ABUSE, UNCOMPLICATED Status: Chronic (3) Acute encephalopathy Code(s): G93.40 - ENCEPHALOPATHY, UNSPECIFIED Status: Acute (4) Artificial cardiac pacemaker Code(s): Z95.0 - PRESENCE OF CARDIAC PACEMAKER Status: Chronic (5) Atrial fibrillation with controlled ventricular rate Code(s): I48.91 - UNSPECIFIED ATRIAL FIBRILLATION Status: Chronic (6) Bipolar disease, chronic Code(s): F31.9 - BIPOLAR DISORDER, UNSPECIFIED Status: Chronic (7) Congestive heart failure (CHF) Code(s): I50.9 - HEART FAILURE, UNSPECIFIED Status: Chronic Qualifiers: Heart failure chronicity: chronic (8) HTN (hypertension) Code(s): I10 - ESSENTIAL (PRIMARY) HYPERTENSION Status: Chronic Qualifiers: Hypertension type: essential hypertension Qualified Code(s): I10 - Essential (primary) hypertension (9) Methamphetamine abuse Code(s): F15.10 - OTHER STIMULANT ABUSE, UNCOMPLICATED Status: Chronic - Plan CSF shows no signs of infection. repeat CT brain is -ve for cva/bleed and ct cervical spine shows no signs of discitis or ac fractures. has pcm PT to mobilize as tolerated back on [facility] from 11/14/2019 unclear etiology for encephalopathy, ?alc related wernicke's or chronic meth abuse (heavy usage per brother) trial of low dose gabapentin and seroquel. continue lipitor, folic acid, mvi, thiamine and D5NS is tolerating oral diet per staff will need snf or rehab. was able to sit for 4 hrs in chair, still has not ambulated yet. EEG was done yesterday to r/o subclinical seizures if any, await opinion.
[2019-11-18] MEDS ORDERED: Divalproex Sodium 125 mg Sprinkle Capsule PO SCH (11:15)
--- NOTE | 2019-11-18 11:26 | CON ---
DATE OF CONSULTATION: 11/18/2019 CONSULTING PHYSICIAN: Hospitalist Service. IMPRESSION: The patient is having psychogenic symptoms. PLAN: [facility] consult on Wednesday. HISTORY OF PRESENT ILLNESS: Mr. Farrar is a 74-year-old man who has a past history of alcohol abuse and possibly drug abuse, came in several days ago and was acting inappropriately. He has a CT of the brain, which was negative. A repeat CT was also negative. He has been having some posturing, where he clenches his fist and flexes at the elbows and grimaces with his face. He did this on EEG yesterday, which showed a normal background without any evidence of epileptiform activity. His lab work was reviewed and appears unremarkable. He was willing to eat when his girlfriend fed him, but would not eat per the nursing staff and would bite down on the spoon inappropriately. He refuses to answer any questions. He has remained nonverbal for the last few days. PAST MEDICAL HISTORY: As per chart. SOCIAL HISTORY: Unknown other than the alcohol abuse. ALLERGIES: NONE. MEDICATIONS: Depakote. FAMILY HISTORY: Unknown. REVIEW OF SYSTEMS: Not obtainable due to his uncooperative state. PHYSICAL EXAMINATION: GENERAL: He is a well-nourished elderly man, lying in bed, in no distress. VITAL SIGNS: Have been stable. He is afebrile. HEENT: Pupils are equal. Conjunctivae clear. Cranium, normocephalic and atraumatic. NECK: No lymphadenopathy. EXTREMITIES: No cyanosis or edema. NEUROLOGIC: Appears to be awake and will look at you at times, but I could not get him to follow any commands or answer any questions. His face is symmetric. His tone is symmetric. His plantar responses are downgoing. Gait was not testable. SUMMARY: A 74-year-old man who appears to be acting inappropriately for unknown reason. All his testing is unremarkable. There is no evidence of seizure activity and I do not have anything I can offer. Job ID: [id number]
[2019-11-18] MEDS: Apixaban 5 MG TAB PO SCH ×2 (12:58→20:14)
[2019-11-18] MEDS: Gabapentin 100 MG CAP PO SCH (12:58)
[2019-11-18] MEDS: Cyanocobalamin (Vitamin B-12) 1,000 MCG TAB PO SCH (12:58)
[2019-11-18] MEDS: Folic Acid 1 MG TAB PO SCH (12:58)
[2019-11-18] MEDS: Multivitamin W/ Minerals 1 TAB PO SCH (12:58)
[2019-11-18] MEDS: Magnesium Oxide 400 MG TAB PO SCH (12:58)
[2019-11-18] MEDS: Thiamine 100 MG TAB PO SCH (12:58)
[2019-11-18] MEDS: Carvedilol 3.125 MG TAB PO SCH ×2 (12:59→20:13)
[2019-11-18] MEDS: Senokot S 8.6-50 MG TAB PO SCH ×2 (13:02→20:14)
[2019-11-18] MEDS: Acetaminophen 325 MG TAB PO PRN (13:08)
[2019-11-18] MEDS: Dextrose 5 % And 0.9 % NaCl 1,000 ML IV SCH (13:40)
[2019-11-18] MEDS: Polyethylene Glycol 3350 17 GM Packet PO SCH (13:41)
[2019-11-18] MEDS: Divalproex Sodium DR 500 MG TAB PO SCH (19:42)
[2019-11-18] MEDS: Divalproex Sodium 125 mg Sprinkle Capsule PO SCH (20:14)
[2019-11-18] MEDS: Atorvastatin Calcium 40 MG TAB PO SCH (20:14)
[2019-11-19] MEDS: Divalproex Sodium 125 mg Sprinkle Capsule PO SCH ×2 (09:20→22:20)
[2019-11-19] MEDS: buPROPion 75 MG TAB PO SCH ×2 (09:20→22:19)
[2019-11-19] MEDS: Gabapentin 100 MG CAP PO SCH (09:20)
[2019-11-19] MEDS: Folic Acid 1 MG TAB PO SCH (09:20)
[2019-11-19] MEDS: Apixaban 5 MG TAB PO SCH ×2 (09:20→22:19)
[2019-11-19] MEDS: Thiamine 100 MG TAB PO SCH (09:20)
[2019-11-19] MEDS: Polyethylene Glycol 3350 17 GM Packet PO SCH (09:20)
[2019-11-19] MEDS: Carvedilol 3.125 MG TAB PO SCH ×2 (09:20→22:20)
[2019-11-19] MEDS: Cyanocobalamin (Vitamin B-12) 1,000 MCG TAB PO SCH (09:20)
[2019-11-19] MEDS: Magnesium Oxide 400 MG TAB PO SCH (09:20)
[2019-11-19] MEDS: Multivitamin W/ Minerals 1 TAB PO SCH (09:20)
[2019-11-19] MEDS: Senokot S 8.6-50 MG TAB PO SCH ×2 (09:20→22:20)
--- NOTE | 2019-11-19 11:53 | PDOC.HOSPP ---
- Subjective Encounter Date: 11/19/19 Encounter Time: 08:30 Subjective: awake, no new changes/complaints does not interact with examiner tries to hyperextend his leg and flex his elbows when trying to touch or exam him - Objective Vital Signs & Weight: Vital Signs (12 hours) Temp Pulse Resp BP Pulse Ox 11/19/19 08:00 100.4 F H 108 H 28 H 178/81 H 96 Weight Admit Weight 176 lb Weight 176 lb Result Diagrams: 11/18/19 07:10 11/18/19 07:10 Hospitalist ROS - Medication Medications: Active Medications Generic Name Dose Route Start Last Admin Trade Name Freq PRN Reason Stop Dose Admin Acetaminophen 325 mg 11/09/19 19:11 11/18/19 13:08 Tylenol PO 325 mg Q6H PRN Administration Headache/Fever or Pain Apixaban 5 mg 11/15/19 21:00 11/18/19 20:14 Eliquis PO 5 mg BID [facility]ILPA Administration Atorvastatin Calcium 40 mg 11/04/19 21:00 11/18/19 20:14 Lipitor PO 40 mg HS SHILPA Administration Bupropion HCl 75 mg 11/13/19 21:00 11/18/19 20:14 Wellbutrin PO 75 mg BID [facility]ILPA Administration Carvedilol 3.125 mg 11/13/19 21:00 11/18/19 20:13 Coreg PO 3.125 mg BID [facility]PA Administration Cyanocobalamin 1,000 mcg 11/15/19 09:00 11/18/19 12:58 Vitamin B-12 PO 1,000 mcg DAILY [facility] Administration Divalproex Sodium 1,000 mg 11/18/19 21:00 11/18/19 20:14 Depakote Sprinkle PO 1,000 mg BID [facility]PA Administration Folic Acid 1 mg 11/05/19 09:00 11/18/19 12:58 Folvite PO 1 mg DAILY [facility] Administration Gabapentin 100 mg 11/17/19 09:00 11/18/19 12:58 Neurontin PO 100 mg DAILY [facility] Administration Dextrose/Sodium Chloride 1,000 mls @ 50 mls/hr 11/09/19 19:03 11/18/19 13:40 D5 0.9% Ns IV 1,000 mls .Q20H [facility]PA Administration Iron/Minerals/Multivitamins 1 tab 11/05/19 09:00 11/18/19 12:58 Theragran M PO 1 tab DAILY [facility] Administration Lorazepam 1 mg 11/08/19 13:04 11/15/19 21:06 Ativan PO 1 mg Q4H PRN Administration ASE >=9 Magnesium Oxide 400 mg 11/05/19 09:00 11/18/19 12:58 Magnesium Oxide PO 400 mg DAILY [facility] Administration Polyethylene Glycol 17 gm 11/13/19 09:00 11/18/19 13:41 Miralax PO Not Given DAILY [facility] Senna/Docusate Sodium 1 tab 11/13/19 09:00 11/18/19 20:14 Senokot S PO 1 tab BID [facility] Administration Sodium Chloride 10 ml 11/04/19 09:00 11/18/19 20:15 Flush - Normal Saline IVF Not Given Q12HR [facility] Thiamine HCl 100 mg 11/05/19 09:00 11/18/19 12:58 Thiamine PO 100 mg DAILY [facility] Administration Tramadol HCl 50 mg 11/12/19 08:21 11/16/19 20:49 Ultram PO 50 mg Q8H PRN Administration Moderate Pain (4-6) - Exam General Appearance: awake alert Eye: PERRL, anicteric sclera ENT: no oropharyngeal lesions, moist mucosa Neck: supple, no JVD Heart: RRR, no murmur Respiratory: no wheezes, no rales Gastrointestinal: soft, non-tender, non-distended, normal bowel sounds Extremities: no cyanosis, no edema Neurological: cranial nerve grossly intact, no focal deficits Hosp A/P (1) Physical deconditioning Code(s): R53.81 - OTHER MALAISE Status: Acute (2) Alcohol abuse Code(s): F10.10 - ALCOHOL ABUSE, UNCOMPLICATED Status: Chronic (3) Acute encephalopathy Code(s): G93.40 - ENCEPHALOPATHY, UNSPECIFIED Status: Acute (4) Artificial cardiac pacemaker Code(s): Z95.0 - PRESENCE OF CARDIAC PACEMAKER Status: Chronic (5) Atrial fibrillation with controlled ventricular rate Code(s): I48.91 - UNSPECIFIED ATRIAL FIBRILLATION Status: Chronic (6) Bipolar disease, chronic Code(s): F31.9 - BIPOLAR DISORDER, UNSPECIFIED Status: Chronic (7) Congestive heart failure (CHF) Code(s): I50.9 - HEART FAILURE, UNSPECIFIED Status: Chronic Qualifiers: Heart failure chronicity: chronic (8) HTN (hypertension) Code(s): I10 - ESSENTIAL (PRIMARY) HYPERTENSION Status: Chronic Qualifiers: Hypertension type: essential hypertension Qualified Code(s): I10 - Essential (primary) hypertension (9) Methamphetamine abuse Code(s): F15.10 - OTHER STIMULANT ABUSE, UNCOMPLICATED Status: Chronic - Plan CSF shows no signs of infection. repeat CT brain is -ve for cva/bleed and ct cervical spine shows no signs of discitis or ac fractures. has pcm PT to mobilize as tolerated back on eliquis from 11/14/2019 unclear etiology for encephalopathy, ?alc related wernicke's or chronic meth abuse (heavy usage per brother) trial of low dose gabapentin, seroquel (from 11/15/2019), addition of geodon qhs ( 11/19/2019). continue lipitor, folic acid, mvi, thiamine and D5NS is tolerating oral diet per staff will likely need inpt psych eval, MR consultation. Is medically stable for dc if they find a place for him. was able to sit for 4 hrs in chair (11/17/2019), still has not ambulated yet. EEG was done yesterday to r/o subclinical seizures, there was no seizure activity, has evaluated him 11/18/2019 and when he got admitted. Medically stable for dc to inpt psych facility if accepted.
[2019-11-19] MEDS ORDERED: Ziprasidone 20 MG CAP PO SCH (21:00)
[2019-11-19] MEDS: Acetaminophen 325 MG TAB PO PRN (21:17)
[2019-11-19] MEDS: Atorvastatin Calcium 40 MG TAB PO SCH (22:19)
[2019-11-20] MEDS: Dextrose 5 % And 0.9 % NaCl 1,000 ML IV SCH ×2 (05:47→20:11)
[2019-11-20] MEDS: buPROPion 75 MG TAB PO SCH ×2 (10:44→20:53)
[2019-11-20] MEDS: Apixaban 5 MG TAB PO SCH ×2 (10:44→20:53)
[2019-11-20] MEDS: Multivitamin W/ Minerals 1 TAB PO SCH (10:45)
[2019-11-20] MEDS: Carvedilol 3.125 MG TAB PO SCH ×2 (10:45→20:53)
[2019-11-20] MEDS: Divalproex Sodium 125 mg Sprinkle Capsule PO SCH ×2 (10:45→20:53)
[2019-11-20] MEDS: Gabapentin 100 MG CAP PO SCH (10:45)
[2019-11-20] MEDS: Folic Acid 1 MG TAB PO SCH (10:45)
[2019-11-20] MEDS: Magnesium Oxide 400 MG TAB PO SCH (10:45)
[2019-11-20] MEDS: Cyanocobalamin (Vitamin B-12) 1,000 MCG TAB PO SCH (10:45)
[2019-11-20] MEDS: Senokot S 8.6-50 MG TAB PO SCH ×2 (10:46→20:55)
[2019-11-20] MEDS: Thiamine 100 MG TAB PO SCH (10:46)
[2019-11-20] MEDS: Polyethylene Glycol 3350 17 GM Packet PO SCH (10:46)
--- NOTE | 2019-11-20 11:31 | RAD ---
EXAM: Single view of the chest HISTORY: Tachypnea COMPARISON: None FINDINGS: Single view of the chest shows a normal sized cardiomediastinal silhouette. There is a lef t subclavian pacemaker with its leads in the right atrium and ventricle. There is no evidence of consolidation, mass, or pleural effusion. The bones are unremarkable. IMPRESSION: No evidence of acute cardiopulmonary disease
[2019-11-20 12:29] LABS: Band 3 % (5-11); Hemoglobin 16.4 g/dL (14.0-18.0); Lymphocytes 15 % (21-51); MDiff Complete? YES; Mean Corpuscular HGB CONC 32.5 g/dL (32.0-36.0); Mean Corpuscular Hemoglobin 32.3 pg (27.0-31.0); Mean Corpuscular Volume 99.4 fL (78.0-98.0); Mean Platelet Volume 7.8 fL (7.4-10.4); Metamyelocyte 1 % (0-0); Monocytes 7 % (0-10); Neutrophil 72 % (42-75); Platelet Count 206 thou/uL (130-400); RBC Distribution Width 11.6 % (11.5-14.5); RBC Morphology Normal; Reactive Lymphocytes 2 % (0-10); Red Blood Cell (RBC) Count 5.09 mill/uL (4.70-6.10); White Blood Cell (WBC) Count 6.1 thou/uL (4.8-10.8)
[2019-11-20] MEDS: Ketorolac Tromethamine 30 MG/ML VIAL IVP PRN (13:03)
[2019-11-20 14:41] LABS: Bacteria/HPF None Seen HPF (None Seen); Bilirubin Negative (Negative); Blood, Urine 3+ (Negative); Clarity Turbid (Clear); Glucose, Urine (Dipstick) Normal (Negative); Leukocyte Negative Leu/uL (Negative); Mucous/LPF 2+ LPF (<2+); Nitrite Negative (Negative); Protein, Urine (Dipstick) 30 mg/dL (Neg-Trace); RBC/HPF Greater than 50 HPF (0-3); Squamous Epithelial None Seen HPF (0-3); Urobilinogen Normal mg/dL (Less than 2)
[2019-11-20 14:43] LABS: Urine Culture Reflex Yes Yes
--- NOTE | 2019-11-20 16:23 | PDOC.HOSPP ---
- Subjective Encounter Date: 11/20/19 Subjective: The patient was seen and examined. He has been nonverbal today. However, he wiggled his toes when I commended him to do so. On palpation of his abdomen he grimaced. No p.o. intake was feasible today. Fever was reported by nursing staff. - Objective Vital Signs & Weight: Vital Signs (12 hours) Temp Pulse Resp BP Pulse Ox 11/20/19 07:59 102.0 F H 95 22 H 155/75 H 96 Weight Admit Weight 176 lb Weight 176 lb I&O: 11/19/19 11/20/19 11/21/19 06:59 06:59 06:59 Output Total 20 Balance -20 Result Diagrams: 11/20/19 11:30 11/18/19 07:10 Additional Labs: Accuchecks 11/19/19 19:37 POC Glucose 85 Hospitalist ROS - Medication Medications: Active Medications Generic Name Dose Route Start Last Admin Trade Name Freq PRN Reason Stop Dose Admin Acetaminophen 325 mg 11/09/19 19:11 11/19/19 21:17 Tylenol PO 325 mg Q6H PRN Administration Headache/Fever or Pain Apixaban 5 mg 11/15/19 21:00 11/20/19 10:44 Eliquis PO Not Given BID [facility] Atorvastatin Calcium 40 mg 11/04/19 21:00 11/19/19 22:19 Lipitor PO Not Given HS [facility] Bupropion HCl 75 mg 11/13/19 21:00 11/20/19 10:44 Wellbutrin PO Not Given BID [facility] Carvedilol 3.125 mg 11/13/19 21:00 11/20/19 10:45 Coreg PO Not Given BID [facility] Cyanocobalamin 1,000 mcg 11/15/19 09:00 11/20/19 10:45 Vitamin B-12 PO Not Given DAILY [facility] Divalproex Sodium 1,000 mg 11/18/19 21:00 11/20/19 10:45 Depakote Sprinkle PO Not Given BID [facility] Folic Acid 1 mg 11/05/19 09:00 11/20/19 10:45 Folvite PO Not Given DAILY [facility] Gabapentin 100 mg 11/17/19 09:00 11/20/19 10:45 Neurontin PO Not Given DAILY [facility] Dextrose/Sodium Chloride 1,000 mls @ 50 mls/hr 11/09/19 19:03 11/20/19 05:47 D5 0.9% Ns IV Not Given .Q20H [facility] Iron/Minerals/Multivitamins 1 tab 11/05/19 09:00 11/20/19 10:45 Theragran M PO Not Given DAILY [facility] Ketorolac Tromethamine 15 mg 11/20/19 11:06 11/20/19 13:03 Toradol IVP 11/25/19 11:07 15 mg Q6H PRN Administration Pain Magnesium Oxide 400 mg 11/05/19 09:00 11/20/19 10:45 Magnesium Oxide PO Not Given DAILY [facility] Polyethylene Glycol 17 gm 11/13/19 09:00 11/20/19 10:46 Miralax PO Not Given DAILY [facility] Senna/Docusate Sodium 1 tab 11/13/19 09:00 11/20/19 10:46 Senokot S PO Not Given BID [facility] Sodium Chloride 10 ml 11/04/19 09:00 11/20/19 10:46 Flush - Normal Saline IVF Not Given Q12HR [facility] Thiamine HCl 100 mg 11/05/19 09:00 11/20/19 10:46 Thiamine PO Not Given DAILY [facility] Tramadol HCl 50 mg 11/12/19 08:21 11/16/19 20:49 Ultram PO 50 mg Q8H PRN Administration Moderate Pain (4-6) - Exam General Appearance: ill appearing Eye: PERRL, anicteric sclera ENT: normocephalic atraumatic Neck: supple Heart: RRR Respiratory: CTAB Gastrointestinal: soft Neurological - other findings: The patient is nonverbal. Hosp A/P (1) Fever Code(s): R50.9 - FEVER, UNSPECIFIED Status: Acute (2) Acute encephalopathy Code(s): G93.40 - ENCEPHALOPATHY, UNSPECIFIED Status: Acute (3) Physical deconditioning Code(s): R53.81 - OTHER MALAISE Status: Acute (4) Alcohol abuse Code(s): F10.10 - ALCOHOL ABUSE, UNCOMPLICATED Status: Chronic (5) Methamphetamine abuse Code(s): F15.10 - OTHER STIMULANT ABUSE, UNCOMPLICATED Status: Chronic (6) Artificial cardiac pacemaker Code(s): Z95.0 - PRESENCE OF CARDIAC PACEMAKER Status: Chronic (7) Atrial fibrillation Code(s): I48.91 - UNSPECIFIED ATRIAL FIBRILLATION Status: Chronic Qualifiers: Atrial fibrillation type: chronic (8) Bipolar disease, chronic Code(s): F31.9 - BIPOLAR DISORDER, UNSPECIFIED Status: Chronic - Plan 11/19: CSF shows no signs of infection. repeat CT brain is -ve for cva/bleed and ct cervical spine shows no signs of discitis or ac fractures. has pcm PT to mobilize as tolerated back on eliquis from 11/14/2019 unclear etiology for encephalopathy, ?alc related wernicke's or chronic meth abuse (heavy usage per brother) trial of low dose gabapentin, seroquel (from 11/15/2019), addition of geodon qhs ( 11/19/2019). continue lipitor, folic acid, mvi, thiamine and D5NS is tolerating oral diet per staff will likely need inpt psych eval, [facility] consultation. Is medically stable for dc if they find a place for him. was able to sit for 4 hrs in chair (11/17/2019), still has not ambulated yet. EEG was done yesterday to r/o subclinical seizures, there was no seizure activity, has evaluated him 11/18/2019 and when he got admitted. Medically stable for dc to inpt psych facility if accepted. 11/20: The patient is more unresponsive today. He is able to open his eyes and follow commands but is nonverbal and unable to tolerate any feeding. Fevers were reported today. There is no leukocytosis. We will obtain urine analysis, blood cultures, and chest x-ray. Placement is pending. His prognosis is poor due to advanced dementia. This was discussed with palliative care team. I tried to reach the family without success.
[2019-11-20] MEDS: Atorvastatin Calcium 40 MG TAB PO SCH (20:53)
[2019-11-21 06:06] LABS: Anion Gap 13 mmol/L (10-20); BUN (Urea Nitrogen) 29 mg/dL (8.4-25.7); Calc. Creatinine Clearance 63 mL/min (70-130); Calcium 9.1 mg/dL (7.8-10.44); Carbon Dioxide 27 mmol/L (23-31); Chloride 118 mmol/L (98-107); Estimated GFR-MDRD 62; Glucose 97 mg/dL (83-110); Potassium 3.7 mmol/L (3.5-5.1); Sodium 154 mmol/L (136-145)
[2019-11-21 06:13] LABS: Hemoglobin 16.8 g/dL (14.0-18.0); Lymphocytes 13 % (21-51); MDiff Complete? YES; Mean Corpuscular HGB CONC 32.8 g/dL (32.0-36.0); Mean Corpuscular Hemoglobin 33.3 pg (27.0-31.0); Mean Platelet Volume 7.9 fL (7.4-10.4); Monocytes 12 % (0-10); Neutrophil 75 % (42-75); Platelet Count 198 thou/uL (130-400); Platelet Morphology Comment Appears Adequate; RBC Distribution Width 11.7 % (11.5-14.5); Red Blood Cell (RBC) Count 5.05 mill/uL (4.70-6.10); White Blood Cell (WBC) Count 6.4 thou/uL (4.8-10.8)
[2019-11-21] MEDS: Ketorolac Tromethamine 30 MG/ML VIAL IVP PRN ×2 (06:38→23:35)
[2019-11-21] MEDS: Acetaminophen 650 MG Suppository PR PRN (08:25)
[2019-11-21] MEDS: Folic Acid 1 MG TAB PO SCH (08:33)
[2019-11-21] MEDS: Cyanocobalamin (Vitamin B-12) 1,000 MCG TAB PO SCH (08:33)
[2019-11-21] MEDS: Apixaban 5 MG TAB PO SCH ×2 (08:33→20:39)
[2019-11-21] MEDS: Senokot S 8.6-50 MG TAB PO SCH ×2 (08:33→20:39)
[2019-11-21] MEDS: Thiamine 100 MG TAB PO SCH (08:34)
[2019-11-21] MEDS: Multivitamin W/ Minerals 1 TAB PO SCH (08:34)
[2019-11-21] MEDS: Polyethylene Glycol 3350 17 GM Packet PO SCH (08:34)
[2019-11-21] MEDS: Magnesium Oxide 400 MG TAB PO SCH (08:34)
[2019-11-21] MEDS: Gabapentin 100 MG CAP PO SCH (08:34)
[2019-11-21] MEDS: Carvedilol 3.125 MG TAB PO SCH ×2 (08:34→20:39)
[2019-11-21] MEDS: Dextrose 5 % And 0.9 % NaCl 1,000 ML IV SCH (08:35)
[2019-11-21] MEDS: buPROPion 75 MG TAB PO SCH (08:40)
[2019-11-21] MEDS: traMADol HCl 50 MG TAB PO PRN (08:40)
[2019-11-21] MEDS: Piperacillin/Tazobactam 3.375 GM in Sodium Chloride 0.9% 100 ML IVPB SCH ×3 (12:11→23:36)
[2019-11-21] MEDS: Lorazepam 2 MG/ML VIAL SLOW IVP PRN ×2 (12:11→16:43)
[2019-11-21] MEDS: Divalproex Sodium 125 mg Sprinkle Capsule PO SCH ×2 (12:11→20:39)
[2019-11-21] MEDS: D5 1/2 NS w/10 mEq KCl 1,000 ML/1,000 ML BAG IV SCH ×2 (14:31→16:22)
--- NOTE | 2019-11-21 15:42 | PDOC.HOSPP ---
- Subjective Encounter Date: 11/21/19 non-verbal - Objective Vital Signs & Weight: Vital Signs (12 hours) Temp Pulse Resp BP Pulse Ox 11/21/19 11:03 99.7 F H 81 20 149/82 H 100 11/21/19 08:00 102.3 F H 88 20 185/95 H 93 L Weight Admit Weight 176 lb Weight 176 lb I&O: 11/20/19 11/21/19 11/22/19 06:59 06:59 06:59 Output Total 20 Balance -20 Result Diagrams: 11/21/19 05:21 11/21/19 05:21 Hospitalist ROS - Medication Medications: Active Medications Generic Name Dose Route Start Last Admin Trade Name Freq PRN Reason Stop Dose Admin Acetaminophen 325 mg 11/09/19 19:11 11/19/19 21:17 Tylenol PO 325 mg Q6H PRN Administration Headache/Fever or Pain Acetaminophen 650 mg 11/20/19 10:48 11/21/19 08:25 Tylenol OK 650 mg Q4H PRN Administration Headache/Fever or Pain Apixaban 5 mg 11/15/19 21:00 11/21/19 08:33 Eliquis PO 5 mg BID SHILPA Administration Atorvastatin Calcium 40 mg 11/04/19 21:00 11/20/19 20:53 Lipitor PO Not Given HS [facility] Carvedilol 3.125 mg 11/13/19 21:00 11/21/19 08:34 Coreg PO 3.125 mg BID SHILPA Administration Cyanocobalamin 1,000 mcg 11/15/19 09:00 11/21/19 08:33 Vitamin B-12 PO 1,000 mcg DAILY [facility] Administration Divalproex Sodium 1,000 mg 11/18/19 21:00 11/21/19 12:11 Depakote Sprinkle PO 1,000 mg BID SHILPA Administration Folic Acid 1 mg 11/05/19 09:00 11/21/19 08:33 Folvite PO 1 mg DAILY [facility] Administration Gabapentin 100 mg 11/17/19 09:00 11/21/19 08:34 Neurontin PO 100 mg DAILY [facility] Administration Piperacillin Sod/Tazobactam 100 mls @ 200 mls/hr 11/21/19 12:00 11/21/19 12: 11 Sod 3.375 gm/ Sodium Chloride IVPB 100 mls Q6HR [facility]ILPA Administration Potassium Chloride/Dextrose/Sod Cl 1,000 ml in 1,000 mls @ 125 mls/hr 11:15 11/21/19 14:31 D5 1/2 Ns W/10 Meq Kcl IV 1,000 mls .Q8H [facility]ILPA Administration Iron/Minerals/Multivitamins 1 tab 11/05/19 09:00 11/21/19 08:34 Theragran M PO 1 tab DAILY [facility]PA Administration Ketorolac Tromethamine 15 mg 11/20/19 11:06 11/21/19 06:38 Toradol IVP 11/25/19 11:07 15 mg Q6H PRN Administration Pain Lorazepam 1 mg 11/21/19 11:04 11/21/19 12:11 Ativan SLOW IVP 1 mg Q4H PRN Administration Anxiety/Agitation Magnesium Oxide 400 mg 11/05/19 09:00 11/21/19 08:34 Magnesium Oxide PO 400 mg DAILY [facility]ILPA Administration Polyethylene Glycol 17 gm 11/13/19 09:00 11/21/19 08:34 Miralax PO 17 gm DAILY SHILPA Administration Senna/Docusate Sodium 1 tab 11/13/19 09:00 11/21/19 08:33 Senokot S PO 1 tab BID SHILPA Administration Sodium Chloride 10 ml 11/04/19 09:00 11/21/19 08:34 Flush - Normal Saline IVF Not Given Q12HR [facility] Thiamine HCl 100 mg 11/05/19 09:00 11/21/19 08:34 Thiamine PO 100 mg DAILY [facility]ILPA Administration - Exam Eye: PERRL ENT: normocephalic atraumatic Neck: supple Heart: RRR Respiratory: CTAB Gastrointestinal: soft Neurological - other findings: NON VERBAL AND DOES NOT FOLLOW COMMANDS. MYOCLONIC JERKS NOTED. Hosp A/P (1) Fever Code(s): R50.9 - FEVER, UNSPECIFIED Status: Acute (2) Acute encephalopathy Code(s): G93.40 - ENCEPHALOPATHY, UNSPECIFIED Status: Acute (3) Physical deconditioning Code(s): R53.81 - OTHER MALAISE Status: Acute (4) Alcohol abuse Code(s): F10.10 - ALCOHOL ABUSE, UNCOMPLICATED Status: Chronic (5) Methamphetamine abuse Code(s): F15.10 - OTHER STIMULANT ABUSE, UNCOMPLICATED Status: Chronic (6) Artificial cardiac pacemaker Code(s): Z95.0 - PRESENCE OF CARDIAC PACEMAKER Status: Chronic (7) Atrial fibrillation Code(s): I48.91 - UNSPECIFIED ATRIAL FIBRILLATION Status: Chronic Qualifiers: Atrial fibrillation type: chronic (8) Bipolar disease, chronic Code(s): F31.9 - BIPOLAR DISORDER, UNSPECIFIED Status: Chronic - Plan 11/19: CSF shows no signs of infection. repeat CT brain is -ve for cva/bleed and ct cervical spine shows no signs of discitis or ac fractures. has pcm PT to mobilize as tolerated back on eliquis from 11/14/2019 unclear etiology for encephalopathy, ?alc related wernicke's or chronic meth abuse (heavy usage per brother) trial of low dose gabapentin, seroquel (from 11/15/2019), addition of geodon qhs ( 11/19/2019). continue lipitor, folic acid, mvi, thiamine and D5NS is tolerating oral diet per staff will likely need inpt psych eval, [facility] consultation. Is medically stable for dc if they find a place for him. was able to sit for 4 hrs in chair (11/17/2019), still has not ambulated yet. EEG was done yesterday to r/o subclinical seizures, there was no seizure activity, has evaluated him 11/18/2019 and when he got admitted. Medically stable for dc to inpt psych facility if accepted. 11/20: The patient is more unresponsive today. He is able to open his eyes and follow commands but is nonverbal and unable to tolerate any feeding. Fevers were reported today. There is no leukocytosis. We will obtain urine analysis, blood cultures, and chest x-ray. Placement is pending. His prognosis is poor due to advanced dementia. This was discussed with palliative care team. I tried to reach the family without success. 11/21: The patient's mental status appears to be deteriorating. He is not following commands today. Rapid jerking movements are noted on his extremities. He is persistently febrile. No source of infection has been identified at this moment. Blood culture showing growth of staph epidermidis in 1 of 2 bottles which is possibly contaminant. We will start broad-spectrum IV antibiotics empirically. Differential diagnosis include serotonin syndrome and neuroleptic malignant syndrome due to intake of quetiapine, bupropion, and tramadol. Those medications has been placed on hold. Pramipexole was started per neurology recommendations. This dictation was completed using advanced voice recognition dictation software. There may be some errors in grammar, punctuation, context or verbiage that were not identified and corrected at the time of this dictation. If questions are present, please consult the author of this dictation for further clarification. It is my goal to try to catch these mistakes at the time of dictation but errors may still occur. Thank you for your understanding.
[2019-11-21] MEDS: Pramipexole Di-HCl 0.25 MG TAB PO SCH (16:39)
[2019-11-21] MEDS: Atorvastatin Calcium 40 MG TAB PO SCH (20:39)
--- NOTE | 2019-11-21 22:20 | CON ---
DATE OF CONSULTATION: 11/21/2019 Mr. Farrar has been running some persistent fever. He continued to remain limitedly responsive. He has been able to take in orally from standpoint of medication, but not eating very well. I was called to reassess. He is diffusely rigid in all 4 extremities. I could not get him to verbalize. He has facial expressions that are reasonably appropriate. He has roving eye movements. No other abnormal movements are present. I am going to order a CPK. Otherwise, his clinical picture does appear consistent with neuroleptic malignant syndrome. His tramadol and Seroquel have been discontinued. He had not received his first dose of Mirapex yet. We will follow up to see how he responds. Job ID: [id number]
[2019-11-22] MEDS: Ketorolac Tromethamine 30 MG/ML VIAL IVP PRN ×2 (04:37→11:25)
[2019-11-22] MEDS: D5 1/2 NS w/10 mEq KCl 1,000 ML/1,000 ML BAG IV SCH (04:46)
[2019-11-22] MEDS: D5 1/2 NS w/20 mEq KCL 1,000 ML ONE ×2 (04:47→08:50)
[2019-11-22] MEDS: Piperacillin/Tazobactam 3.375 GM in Sodium Chloride 0.9% 100 ML IVPB SCH ×3 (05:47→17:00)
[2019-11-22 06:00] LABS: Eosinophils 2 % (0-10); Hemoglobin 17.4 g/dL (14.0-18.0); Hypochromia SLIGHT = 6-15 cells (100X) (0-5/hpf); Lymphocytes 17 % (21-51); MDiff Complete? YES; Mean Corpuscular HGB CONC 31.5 g/dL (32.0-36.0); Mean Corpuscular Hemoglobin 32.2 pg (27.0-31.0); Mean Platelet Volume 7.8 fL (7.4-10.4); Monocytes 7 % (0-10); Neutrophil 74 % (42-75); Platelet Count 165 thou/uL (130-400); Platelet Morphology Comment Appears Adequate; RBC Distribution Width 11.8 % (11.5-14.5); Red Blood Cell (RBC) Count 5.39 mill/uL (4.70-6.10); White Blood Cell (WBC) Count 10.1 thou/uL (4.8-10.8)
[2019-11-22 06:04] LABS: Anion Gap 14 mmol/L (10-20); BUN (Urea Nitrogen) 31 mg/dL (8.4-25.7); Calc. Creatinine Clearance 68 mL/min (70-130); Carbon Dioxide 23 mmol/L (23-31); Chloride 119 mmol/L (98-107); Estimated GFR-MDRD 67; Glucose 110 mg/dL (83-110); Potassium 4.3 mmol/L (3.5-5.1); Sodium 152 mmol/L (136-145)
[2019-11-22] MEDS: Polyethylene Glycol 3350 17 GM Packet PO SCH (08:51)
[2019-11-22] MEDS: Magnesium Oxide 400 MG TAB PO SCH (08:51)
[2019-11-22] MEDS: Senokot S 8.6-50 MG TAB PO SCH ×2 (08:52→20:35)
[2019-11-22] MEDS: Gabapentin 100 MG CAP PO SCH (08:52)
[2019-11-22] MEDS: Folic Acid 1 MG TAB PO SCH (08:52)
[2019-11-22] MEDS: Carvedilol 3.125 MG TAB PO SCH ×2 (08:52→20:37)
[2019-11-22] MEDS: Apixaban 5 MG TAB PO SCH ×2 (08:52→20:36)
[2019-11-22] MEDS: Thiamine 100 MG TAB PO SCH (08:52)
[2019-11-22] MEDS: Cyanocobalamin (Vitamin B-12) 1,000 MCG TAB PO SCH (08:52)
[2019-11-22] MEDS: Pramipexole Di-HCl 0.25 MG TAB PO SCH ×2 (08:52→20:36)
[2019-11-22] MEDS: Multivitamin W/ Minerals 1 TAB PO SCH (08:52)
[2019-11-22] MEDS: Acetaminophen 325 MG TAB PO PRN ×2 (09:37→20:35)
[2019-11-22] MEDS: Divalproex Sodium 125 mg Sprinkle Capsule PO SCH ×2 (09:38→20:36)
[2019-11-22] MEDS: Dextrose 5% in Water 1,000 ML IV SCH ×2 (11:19→21:00)
--- NOTE | 2019-11-22 17:01 | PDOC.HOSPP ---
- Subjective Encounter Date: 11/22/19 Subjective: His mental status showing some mild improvement today. He was able to take his medications and have few bites of breakfast earlier today. - Objective Vital Signs & Weight: Vital Signs (12 hours) Temp Pulse Resp BP Pulse Ox 11/22/19 08:52 98 11/22/19 08:00 98.2 F 95 20 147/94 H 98 Weight Admit Weight 176 lb Weight 176 lb I&O: 11/21/19 11/22/19 11/23/19 06:59 06:59 06:59 Intake Total 3055 Output Total - 3055 Result Diagrams: 11/22/19 05:15 11/22/19 05:15 Hospitalist ROS - Medication Medications: Active Medications Generic Name Dose Route Start Last Admin Trade Name Freq PRN Reason Stop Dose Admin Acetaminophen 325 mg 11/09/19 19:11 11/22/19 09:37 Tylenol PO 325 mg Q6H PRN Administration Headache/Fever or Pain Acetaminophen 650 mg 11/20/19 10:48 11/21/19 08:25 Tylenol MA 650 mg Q4H PRN Administration Headache/Fever or Pain Apixaban 5 mg 11/15/19 21:00 11/22/19 08:52 Eliquis PO 5 mg BID SHILPA Administration Atorvastatin Calcium 40 mg 11/04/19 21:00 11/21/19 20:39 Lipitor PO 40 mg HS [facility]PA Administration Carvedilol 3.125 mg 11/13/19 21:00 11/22/19 08:52 Coreg PO 3.125 mg BID SHILPA Administration Cyanocobalamin 1,000 mcg 11/15/19 09:00 11/22/19 08:52 Vitamin B-12 PO 1,000 mcg DAILY [facility] Administration Divalproex Sodium 1,000 mg 11/18/19 21:00 11/22/19 09:38 Depakote Sprinkle PO 1,000 mg BID SHILPA Administration Folic Acid 1 mg 11/05/19 09:00 11/22/19 08:52 Folvite PO 1 mg DAILY [facility] Administration Gabapentin 100 mg 11/17/19 09:00 11/22/19 08:52 Neurontin PO 100 mg DAILY [facility] Administration Piperacillin Sod/Tazobactam 100 mls @ 200 mls/hr 11/21/19 12:00 11/22/19 11: 20 Sod 3.375 gm/ Sodium Chloride IVPB 100 mls Q6HR [facility]PA Administration Dextrose/Water 1,000 mls @ 100 mls/hr 11/22/19 11:00 11/22/19 11:19 D5w IV 1,000 mls .Q10H SHILPA Administration Iron/Minerals/Multivitamins 1 tab 11/05/19 09:00 11/22/19 08:52 Theragran M PO 1 tab DAILY [facility] Administration Ketorolac Tromethamine 15 mg 11/20/19 11:06 11/22/19 11:25 Toradol IVP 11/25/19 11:07 15 mg Q6H PRN Administration Pain Lorazepam 1 mg 11/21/19 11:04 11/21/19 16:43 Ativan SLOW IVP 1 mg Q4H PRN Administration Anxiety/Agitation Magnesium Oxide 400 mg 11/05/19 09:00 11/22/19 08:51 Magnesium Oxide PO 400 mg DAILY [facility] Administration Polyethylene Glycol 17 gm 11/13/19 09:00 11/22/19 08:51 Miralax PO 17 gm DAILY [facility] Administration Pramipexole Dihydrochloride 0.5 mg 11/21/19 21:00 11/22/19 08:52 Mirapex PO 0.5 mg BID [facility] Administration Senna/Docusate Sodium 1 tab 11/13/19 09:00 11/22/19 08:52 Senokot S PO 1 tab BID [facility] Administration Sodium Chloride 10 ml 11/04/19 09:00 11/22/19 08:52 Flush - Normal Saline IVF Not Given Q12HR [facility] Thiamine HCl 100 mg 11/05/19 09:00 11/22/19 08:52 Thiamine PO 100 mg DAILY [facility]ILPA Administration Hosp A/P (1) Fever Code(s): R50.9 - FEVER, UNSPECIFIED Status: Acute (2) Acute encephalopathy Code(s): G93.40 - ENCEPHALOPATHY, UNSPECIFIED Status: Acute (3) Physical deconditioning Code(s): R53.81 - OTHER MALAISE Status: Acute (4) Alcohol abuse Code(s): F10.10 - ALCOHOL ABUSE, UNCOMPLICATED Status: Chronic (5) Methamphetamine abuse Code(s): F15.10 - OTHER STIMULANT ABUSE, UNCOMPLICATED Status: Chronic (6) Artificial cardiac pacemaker Code(s): Z95.0 - PRESENCE OF CARDIAC PACEMAKER Status: Chronic (7) Atrial fibrillation Code(s): I48.91 - UNSPECIFIED ATRIAL FIBRILLATION Status: Chronic Qualifiers: Atrial fibrillation type: chronic (8) Bipolar disease, chronic Code(s): F31.9 - BIPOLAR DISORDER, UNSPECIFIED Status: Chronic (9) Hypernatremia Code(s): E87.0 - HYPEROSMOLALITY AND HYPERNATREMIA Status: Acute - Plan 11/19: CSF shows no signs of infection. repeat CT brain is -ve for cva/bleed and ct cervical spine shows no signs of discitis or ac fractures. has pcm PT to mobilize as tolerated back on eliquis from 11/14/2019 unclear etiology for encephalopathy, ?alc related wernicke's or chronic meth abuse (heavy usage per brother) trial of low dose gabapentin, seroquel (from 11/15/2019), addition of geodon qhs ( 11/19/2019). continue lipitor, folic acid, mvi, thiamine and D5NS is tolerating oral diet per staff will likely need inpt psych eval, [facility] consultation. Is medically stable for dc if they find a place for him. was able to sit for 4 hrs in chair (11/17/2019), still has not ambulated yet. EEG was done yesterday to r/o subclinical seizures, there was no seizure activity, has evaluated him 11/18/2019 and when he got admitted. Medically stable for dc to inpt psych facility if accepted. 11/20: The patient is more unresponsive today. He is able to open his eyes and follow commands but is nonverbal and unable to tolerate any feeding. Fevers were reported today. There is no leukocytosis. We will obtain urine analysis, blood cultures, and chest x-ray. Placement is pending. His prognosis is poor due to advanced dementia. This was discussed with palliative care team. I tried to reach the family without success. 11/21: The patient's mental status appears to be deteriorating. He is not following commands today. Rapid jerking movements are noted on his extremities. He is persistently febrile. No source of infection has been identified at this moment. Blood culture showing growth of staph epidermidis in 1 of 2 bottles which is possibly contaminant. We will start broad-spectrum IV antibiotics empirically. Differential diagnosis include serotonin syndrome and neuroleptic malignant syndrome due to intake of quetiapine, bupropion, and tramadol. Those medications has been placed on hold. Pramipexole was started per neurology recommendations. 11/22: His mental status is slightly improved with implementation of the measures noted above. He appears to be in a state of hypo-volemic hypernatremia at the moment. This has slightly improved with the half-normal saline and D5W IV fluids. I will change the fluid component to D5W at 100 cc/h and monitor sodium level tomorrow. Our goal is to decrease the sodium by no more than 10 mEq per 24 hours. This dictation was completed using advanced voice recognition dictation software. There may be some errors in grammar, punctuation, context or verbiage that were not identified and corrected at the time of this dictation. If questions are present, please consult the author of this dictation for further clarification. It is my goal to try to catch these mistakes at the time of dictation but errors may still occur. Thank you for your understanding.
[2019-11-22] MEDS: Atorvastatin Calcium 40 MG TAB PO SCH (20:36)
[2019-11-23] MEDS: Piperacillin/Tazobactam 3.375 GM in Sodium Chloride 0.9% 100 ML IVPB SCH ×4 (00:13→17:08)
[2019-11-23 06:01] LABS: Anion Gap 11 mmol/L (10-20); BUN (Urea Nitrogen) 28 mg/dL (8.4-25.7); Calc. Creatinine Clearance 59 mL/min (70-130); Calcium 8.9 mg/dL (7.8-10.44); Carbon Dioxide 29 mmol/L (23-31); Chloride 115 mmol/L (98-107); Estimated GFR-MDRD 58; Glucose 101 mg/dL (83-110); Potassium 3.8 mmol/L (3.5-5.1); Sodium 151 mmol/L (136-145)
[2019-11-23 06:02] LABS: Hemoglobin 16.3 g/dL (14.0-18.0); Lymphocytes 24 % (21-51); MDiff Complete? YES; Mean Corpuscular HGB CONC 31.4 g/dL (32.0-36.0); Mean Corpuscular Hemoglobin 32.2 pg (27.0-31.0); Mean Platelet Volume 7.8 fL (7.4-10.4); Monocytes 2 % (0-10); Neutrophil 74 % (42-75); Platelet Count 162 thou/uL (130-400); Platelet Morphology Comment Appears Adequate; RBC Distribution Width 11.8 % (11.5-14.5); Red Blood Cell (RBC) Count 5.07 mill/uL (4.70-6.10); White Blood Cell (WBC) Count 9.3 thou/uL (4.8-10.8)
[2019-11-23] MEDS: Multivitamin W/ Minerals 1 TAB PO SCH (08:28)
[2019-11-23] MEDS: Dextrose 5% in Water 1,000 ML IV SCH ×3 (08:28→18:44)
[2019-11-23] MEDS: Magnesium Oxide 400 MG TAB PO SCH (08:28)
[2019-11-23] MEDS: Acetaminophen 650 MG Suppository PR PRN ×2 (08:28→21:06)
[2019-11-23] MEDS: Pramipexole Di-HCl 0.25 MG TAB PO SCH ×2 (08:28→21:07)
[2019-11-23] MEDS: Gabapentin 100 MG CAP PO SCH (08:29)
[2019-11-23] MEDS: Apixaban 5 MG TAB PO SCH ×2 (08:29→21:07)
[2019-11-23] MEDS: Folic Acid 1 MG TAB PO SCH (08:29)
[2019-11-23] MEDS: Thiamine 100 MG TAB PO SCH (08:29)
[2019-11-23] MEDS: Carvedilol 3.125 MG TAB PO SCH ×2 (08:29→21:08)
[2019-11-23] MEDS: Polyethylene Glycol 3350 17 GM Packet PO SCH (08:29)
[2019-11-23] MEDS: Senokot S 8.6-50 MG TAB PO SCH ×2 (08:29→21:07)
[2019-11-23] MEDS: Cyanocobalamin (Vitamin B-12) 1,000 MCG TAB PO SCH (08:29)
[2019-11-23] MEDS: Ketorolac Tromethamine 30 MG/ML VIAL IVP PRN ×2 (08:47→17:07)
[2019-11-23] MEDS ORDERED: Lorazepam 0.5 MG TAB PO SCH (09:00)
[2019-11-23] MEDS: Divalproex Sodium 125 mg Sprinkle Capsule PO SCH ×2 (11:02→21:06)
[2019-11-23] MEDS: Acetaminophen 325 MG TAB PO PRN (13:49)
--- NOTE | 2019-11-23 15:17 | EEG ---
Referring Physician: Faustino REDDY EEG # [id number] TEST TYPE: ROUTINE PORTABLE INPATIENT REPORT: AN EEG USING THE [employer]NATIONAL TEN-TWENTY SYSTEM OF ELECTRODE PLACEMENT WAS PERFORMED. The waking background is an 8 hertz alpha frequency. The patient appeared to be awake throughout the study. Photic stimulation was unremarkable. There was quite a bit of muscle artifact present. No epileptiform features were present. IMPRESSION: THIS IS A NORMAL AWAKE EEG. Merchandise Flow Team Member: CAMRYN Belting Cutter: [email or web address] MAKI
--- NOTE | 2019-11-23 18:25 | PDOC.HOSPP ---
- Subjective Encounter Date: 11/23/19 non-verbal - Objective Vital Signs & Weight: Vital Signs (12 hours) Temp Pulse Resp BP Pulse Ox 11/23/19 16:03 98.6 F 77 20 159/98 H 97 11/23/19 11:08 98.9 F 76 20 144/96 H 98 11/23/19 08:29 100 11/23/19 08:00 100.8 F H 95 20 199/71 H 100 Weight Admit Weight 176 lb Weight 176 lb I&O: 11/22/19 11/23/19 11/24/19 06:59 06:59 06:59 Intake Total 3055 1420 1130 Balance 3055 1420 1130 Result Diagrams: 11/23/19 05:28 11/23/19 05:28 Hospitalist ROS - Medication Medications: Active Medications Generic Name Dose Route Start Last Admin Trade Name Freq PRN Reason Stop Dose Admin Acetaminophen 325 mg 11/09/19 19:11 11/23/19 13:49 Tylenol PO 325 mg Q6H PRN Administration Headache/Fever or Pain Acetaminophen 650 mg 11/20/19 10:48 11/23/19 08:28 Tylenol [place] 650 mg Q4H PRN Administration Headache/Fever or Pain Apixaban 5 mg 11/15/19 21:00 11/23/19 08:29 Eliquis PO 5 mg BID SHILPA Administration Atorvastatin Calcium 40 mg 11/04/19 21:00 11/22/19 20:36 Lipitor PO 40 mg HS SHILPA Administration Carvedilol 3.125 mg 11/13/19 21:00 11/23/19 08:29 Coreg PO 3.125 mg BID SHILPA Administration Cyanocobalamin 1,000 mcg 11/15/19 09:00 11/23/19 08:29 Vitamin B-12 PO 1,000 mcg DAILY SHILPA Administration Divalproex Sodium 1,000 mg 11/18/19 21:00 11/23/19 11:02 Depakote Sprinkle PO 1,000 mg BID SHILPA Administration Folic Acid 1 mg 11/05/19 09:00 11/23/19 08:29 Folvite PO 1 mg DAILY SHILPA Administration Gabapentin 100 mg 11/17/19 09:00 11/23/19 08:29 Neurontin PO 100 mg DAILY SHILPA Administration Piperacillin Sod/Tazobactam 100 mls @ 200 mls/hr 11/21/19 12:00 11/23/19 17: 08 Sod 3.375 gm/ Sodium Chloride IVPB 100 mls Q6HR SHILPA Administration Dextrose/Water 1,000 mls @ 100 mls/hr 11/22/19 11:00 11/23/19 17:15 D5w IV Not Given .Q10H SHILPA Iron/Minerals/Multivitamins 1 tab 11/05/19 09:00 11/23/19 08:28 Theragran M PO 1 tab DAILY SHILPA Administration Ketorolac Tromethamine 15 mg 11/20/19 11:06 11/23/19 17:07 Toradol IVP 11/25/19 11:07 15 mg Q6H PRN Administration Pain Lorazepam 1 mg 11/21/19 11:04 11/21/19 16:43 Ativan SLOW IVP 1 mg Q4H PRN Administration Anxiety/Agitation Magnesium Oxide 400 mg 11/05/19 09:00 11/23/19 08:28 Magnesium Oxide PO 400 mg DAILY SHILPA Administration Polyethylene Glycol 17 gm 11/13/19 09:00 11/23/19 08:29 Miralax PO 17 gm DAILY SHILPA Administration Pramipexole Dihydrochloride 0.5 mg 11/21/19 21:00 11/23/19 08:28 Mirapex PO 0.5 mg BID SHILPA Administration Senna/Docusate Sodium 1 tab 11/13/19 09:00 11/23/19 08:29 Senokot S PO 1 tab BID SHILPA Administration Sodium Chloride 10 ml 11/04/19 09:00 11/23/19 08:29 Flush - Normal Saline IVF Not Given Q12HR [facility] Thiamine HCl 100 mg 11/05/19 09:00 11/23/19 08:29 Thiamine PO 100 mg DAILY SHILPA Administration - Exam General Appearance: NAD Eye: PERRL ENT: normocephalic atraumatic, no oropharyngeal lesions Neck: supple, no JVD Heart: RRR, no murmur, no gallops, no rubs, normal peripheral pulses Respiratory: CTAB, no wheezes, no rales, no ronchi Hosp A/P (1) Fever Code(s): R50.9 - FEVER, UNSPECIFIED Status: Acute (2) Acute encephalopathy Code(s): G93.40 - ENCEPHALOPATHY, UNSPECIFIED Status: Acute (3) Physical deconditioning Code(s): R53.81 - OTHER MALAISE Status: Acute (4) Alcohol abuse Code(s): F10.10 - ALCOHOL ABUSE, UNCOMPLICATED Status: Chronic (5) Methamphetamine abuse Code(s): F15.10 - OTHER STIMULANT ABUSE, UNCOMPLICATED Status: Chronic (6) Artificial cardiac pacemaker Code(s): Z95.0 - PRESENCE OF CARDIAC PACEMAKER Status: Chronic (7) Atrial fibrillation Code(s): I48.91 - UNSPECIFIED ATRIAL FIBRILLATION Status: Chronic Qualifiers: Atrial fibrillation type: chronic (8) Bipolar disease, chronic Code(s): F31.9 - BIPOLAR DISORDER, UNSPECIFIED Status: Chronic (9) Hypernatremia Code(s): E87.0 - HYPEROSMOLALITY AND HYPERNATREMIA Status: Acute - Plan 11/19: CSF shows no signs of infection. repeat CT brain is -ve for cva/bleed and ct cervical spine shows no signs of discitis or ac fractures. has pcm PT to mobilize as tolerated back on eliquis from 11/14/2019 unclear etiology for encephalopathy, ?alc related wernicke's or chronic meth abuse (heavy usage per brother) trial of low dose gabapentin, seroquel (from 11/15/2019), addition of geodon qhs ( 11/19/2019). continue lipitor, folic acid, mvi, thiamine and D5NS is tolerating oral diet per staff will likely need inpt psych eval, [facility] consultation. Is medically stable for dc if they find a place for him. was able to sit for 4 hrs in chair (11/17/2019), still has not ambulated yet. EEG was done yesterday to r/o subclinical seizures, there was no seizure activity, has evaluated him 11/18/2019 and when he got admitted. Medically stable for dc to inpt psych facility if accepted. 11/20: The patient is more unresponsive today. He is able to open his eyes and follow commands but is nonverbal and unable to tolerate any feeding. Fevers were reported today. There is no leukocytosis. We will obtain urine analysis, blood cultures, and chest x-ray. Placement is pending. His prognosis is poor due to advanced dementia. This was discussed with palliative care team.The patient's mental status continued to slightly improved each day. He remains nonverbal and in a contracted muscular state. He had an episode of elevated blood pressure earlier today which improved after he received ketorolac and half milligram of Ativan. I tried to reach the family without success. 11/21: The patient's mental status appears to be deteriorating. He is not following commands today. Rapid jerking movements are noted on his extremities. He is persistently febrile. No source of infection has been identified at this moment. Blood culture showing growth of staph epidermidis in 1 of 2 bottles which is possibly contaminant. We will start broad-spectrum IV antibiotics empirically. Differential diagnosis include serotonin syndrome and neuroleptic malignant syndrome due to intake of quetiapine, bupropion, and tramadol. Those medications has been placed on hold. Pramipexole was started per neurology recommendations. 11/22: His mental status is slightly improved with implementation of the measures noted above. He appears to be in a state of hypo-volemic hypernatremia at the moment. This has slightly improved with the half-normal saline and D5W IV fluids. I will change the fluid component to D5W at 100 cc/h and monitor sodium level tomorrow. Our goal is to decrease the sodium by no more than 10 mEq per 24 hours. 11/23: His mental status continues to improve slightly. He remains nonverbal. He was hypertensive earlier today but that has improved with Ativan and ketorolac. His hypernatremia improved only by 1 mEq over the past 24 hours. I will increase D5W rate 125 cc/h. This dictation was completed using advanced voice recognition dictation software. There may be some errors in grammar, punctuation, context or verbiage that were not identified and corrected at the time of this dictation. If questions are present, please consult the author of this dictation for further clarification. It is my goal to try to catch these mistakes at the time of dictation but errors may still occur. Thank you for your understanding.
[2019-11-23] MEDS: Atorvastatin Calcium 40 MG TAB PO SCH (21:07)
[2019-11-24] MEDS: Piperacillin/Tazobactam 3.375 GM in Sodium Chloride 0.9% 100 ML IVPB SCH ×5 (00:01→23:46)
[2019-11-24] MEDS: Ketorolac Tromethamine 30 MG/ML VIAL IVP PRN (00:02)
[2019-11-24] MEDS: Dextrose 5% in Water 1,000 ML IV SCH ×5 (00:24→23:44)
[2019-11-24] MEDS: Acetaminophen 650 MG Suppository PR PRN ×3 (04:30→21:41)
[2019-11-24 05:46] LABS: Anion Gap 11 mmol/L (10-20); BUN (Urea Nitrogen) 24 mg/dL (8.4-25.7); Calc. Creatinine Clearance 64 mL/min (70-130); Calcium 8.8 mg/dL (7.8-10.44); Carbon Dioxide 28 mmol/L (23-31); Chloride 111 mmol/L (98-107); Estimated GFR-MDRD 62; Glucose 100 mg/dL (83-110); Sodium 146 mmol/L (136-145)
[2019-11-24 06:37] LABS: Band 2 % (5-11); Eosinophils 1 % (0-10); Hemoglobin 16.6 g/dL (14.0-18.0); Lymphocytes 32 % (21-51); MDiff Complete? YES; Mean Corpuscular HGB CONC 32.3 g/dL (32.0-36.0); Mean Corpuscular Hemoglobin 32.8 pg (27.0-31.0); Mean Platelet Volume 8.1 fL (7.4-10.4); Monocytes 7 % (0-10); Neutrophil 58 % (42-75); Platelet Count 150 thou/uL (130-400); RBC Distribution Width 11.7 % (11.5-14.5); Red Blood Cell (RBC) Count 5.07 mill/uL (4.70-6.10); White Blood Cell (WBC) Count 6.6 thou/uL (4.8-10.8)
[2019-11-24] MEDS: Cyanocobalamin (Vitamin B-12) 1,000 MCG TAB PO SCH (09:03)
[2019-11-24] MEDS: Multivitamin W/ Minerals 1 TAB PO SCH (09:03)
[2019-11-24] MEDS: Gabapentin 100 MG CAP PO SCH (09:03)
[2019-11-24] MEDS: Folic Acid 1 MG TAB PO SCH (09:03)
[2019-11-24] MEDS: Carvedilol 3.125 MG TAB PO SCH ×2 (09:03→21:47)
[2019-11-24] MEDS: Senokot S 8.6-50 MG TAB PO SCH ×2 (09:03→21:47)
[2019-11-24] MEDS: Thiamine 100 MG TAB PO SCH (09:03)
[2019-11-24] MEDS: Pramipexole Di-HCl 0.25 MG TAB PO SCH ×2 (09:03→21:48)
[2019-11-24] MEDS: Magnesium Oxide 400 MG TAB PO SCH (09:03)
[2019-11-24] MEDS: Apixaban 5 MG TAB PO SCH ×2 (09:03→21:47)
[2019-11-24] MEDS: Polyethylene Glycol 3350 17 GM Packet PO SCH (09:04)
[2019-11-24] MEDS: Divalproex Sodium 125 mg Sprinkle Capsule PO SCH ×2 (09:08→21:47)
--- NOTE | 2019-11-24 13:33 | PDOC.HOSPP ---
- Subjective Encounter Date: 11/24/19 non-verbal - Objective Vital Signs & Weight: Vital Signs (12 hours) Temp Pulse Resp BP Pulse Ox 11/24/19 08:24 100.4 F H 78 32 H 168/95 H 98 Weight Admit Weight 176 lb Weight 176 lb I&O: 11/23/19 11/24/19 11/25/19 06:59 06:59 06:59 Intake Total 1420 2330 Balance 1420 2330 Result Diagrams: 11/24/19 05:07 11/24/19 05:07 Hospitalist ROS - Medication Medications: Active Medications Generic Name Dose Route Start Last Admin Trade Name Freq PRN Reason Stop Dose Admin Acetaminophen 325 mg 11/09/19 19:11 11/23/19 13:49 Tylenol PO 325 mg Q6H PRN Administration Headache/Fever or Pain Acetaminophen 650 mg 11/20/19 10:48 11/24/19 12:24 Tylenol [place] 650 mg Q4H PRN Administration Headache/Fever or Pain Apixaban 5 mg 11/15/19 21:00 11/24/19 09:03 Eliquis PO 5 mg BID SHILPA Administration Atorvastatin Calcium 40 mg 11/04/19 21:00 11/23/19 21:07 Lipitor PO 40 mg HS SHILPA Administration Carvedilol 3.125 mg 11/13/19 21:00 11/24/19 09:03 Coreg PO 3.125 mg BID SHILPA Administration Cyanocobalamin 1,000 mcg 11/15/19 09:00 11/24/19 09:03 Vitamin B-12 PO 1,000 mcg DAILY SHILPA Administration Divalproex Sodium 1,000 mg 11/18/19 21:00 11/24/19 09:08 Depakote Sprinkle PO 1,000 mg BID SHILPA Administration Folic Acid 1 mg 11/05/19 09:00 11/24/19 09:03 Folvite PO 1 mg DAILY SHILPA Administration Gabapentin 100 mg 11/17/19 09:00 11/24/19 09:03 Neurontin PO 100 mg DAILY SHILPA Administration Piperacillin Sod/Tazobactam 100 mls @ 200 mls/hr 11/21/19 12:00 11/24/19 12: 21 Sod 3.375 gm/ Sodium Chloride IVPB 100 mls Q6HR SHILPA Administration Iron/Minerals/Multivitamins 1 tab 11/05/19 09:00 11/24/19 09:03 Theragran M PO 1 tab DAILY SHILPA Administration Ketorolac Tromethamine 15 mg 11/20/19 11:06 11/24/19 00:02 Toradol IVP 11/25/19 11:07 15 mg Q6H PRN Administration Pain Lorazepam 1 mg 11/21/19 11:04 11/21/19 16:43 Ativan SLOW IVP 1 mg Q4H PRN Administration Anxiety/Agitation Magnesium Oxide 400 mg 11/05/19 09:00 11/24/19 09:03 Magnesium Oxide PO 400 mg DAILY SHILPA Administration Polyethylene Glycol 17 gm 11/13/19 09:00 11/24/19 09:04 Miralax PO 17 gm DAILY SHILPA Administration Pramipexole Dihydrochloride 0.5 mg 11/21/19 21:00 11/24/19 09:03 Mirapex PO 0.5 mg BID SHILPA Administration Senna/Docusate Sodium 1 tab 11/13/19 09:00 11/24/19 09:03 Senokot S PO 1 tab BID SHILPA Administration Sodium Chloride 10 ml 11/04/19 09:00 11/24/19 09:04 Flush - Normal Saline IVF Not Given Q12HR SHILPA Thiamine HCl 100 mg 11/05/19 09:00 11/24/19 09:03 Thiamine PO 100 mg DAILY SHILPA Administration - Exam General - other findings: Patient is nonverbal. Appears to be slightly agitated today. He does not Eye: PERRL ENT: normocephalic atraumatic Neck: supple Heart: RRR Respiratory: CTAB Gastrointestinal: soft, non-tender, normal bowel sounds Neurological: no focal deficits Hosp A/P (1) Fever Code(s): R50.9 - FEVER, UNSPECIFIED Status: Acute (2) Acute encephalopathy Code(s): G93.40 - ENCEPHALOPATHY, UNSPECIFIED Status: Acute (3) Physical deconditioning Code(s): R53.81 - OTHER MALAISE Status: Acute (4) Alcohol abuse Code(s): F10.10 - ALCOHOL ABUSE, UNCOMPLICATED Status: Chronic (5) Methamphetamine abuse Code(s): F15.10 - OTHER STIMULANT ABUSE, UNCOMPLICATED Status: Chronic (6) Artificial cardiac pacemaker Code(s): Z95.0 - PRESENCE OF CARDIAC PACEMAKER Status: Chronic (7) Atrial fibrillation Code(s): I48.91 - UNSPECIFIED ATRIAL FIBRILLATION Status: Chronic Qualifiers: Atrial fibrillation type: chronic (8) Bipolar disease, chronic Code(s): F31.9 - BIPOLAR DISORDER, UNSPECIFIED Status: Chronic (9) Hypernatremia Code(s): E87.0 - HYPEROSMOLALITY AND HYPERNATREMIA Status: Acute - Plan 11/19: CSF shows no signs of infection. repeat CT brain is -ve for cva/bleed and ct cervical spine shows no signs of discitis or ac fractures. has pcm PT to mobilize as tolerated back on eliquis from 11/14/2019 unclear etiology for encephalopathy, ?alc related wernicke's or chronic meth abuse (heavy usage per brother) trial of low dose gabapentin, seroquel (from 11/15/2019), addition of geodon qhs ( 11/19/2019). continue lipitor, folic acid, mvi, thiamine and D5NS is tolerating oral diet per staff will likely need inpt psych eval, [facility] consultation. Is medically stable for dc if they find a place for him. was able to sit for 4 hrs in chair (11/17/2019), still has not ambulated yet. EEG was done yesterday to r/o subclinical seizures, there was no seizure activity, has evaluated him 11/18/2019 and when he got admitted. Medically stable for dc to inpt psych facility if accepted. 11/20: The patient is more unresponsive today. He is able to open his eyes and follow commands but is nonverbal and unable to tolerate any feeding. Fevers were reported today. There is no leukocytosis. We will obtain urine analysis, blood cultures, and chest x-ray. Placement is pending. His prognosis is poor due to advanced dementia. This was discussed with palliative care team.The patient's mental status continued to slightly improved each day. He remains nonverbal and in a contracted muscular state. He had an episode of elevated blood pressure earlier today which improved after he received ketorolac and half milligram of Ativan. I tried to reach the family without success. 11/21: The patient's mental status appears to be deteriorating. He is not following commands today. Rapid jerking movements are noted on his extremities. He is persistently febrile. No source of infection has been identified at this moment. Blood culture showing growth of staph epidermidis in 1 of 2 bottles which is possibly contaminant. We will start broad-spectrum IV antibiotics empirically. Differential diagnosis include serotonin syndrome and neuroleptic malignant syndrome due to intake of quetiapine, bupropion, and tramadol. Those medications has been placed on hold. Pramipexole was started per neurology recommendations. 11/22: His mental status is slightly improved with implementation of the measures noted above. He appears to be in a state of hypo-volemic hypernatremia at the moment. This has slightly improved with the half-normal saline and D5W IV fluids. I will change the fluid component to D5W at 100 cc/h and monitor sodium level tomorrow. Our goal is to decrease the sodium by no more than 10 mEq per 24 hours. 11/23: His mental status continues to improve slightly. He remains nonverbal. He was hypertensive earlier today but that has improved with Ativan and ketorolac. His hypernatremia improved only by 1 mEq over the past 24 hours. I will increase D5W rate 125 cc/h. 11/24: The patient's mental status is not improving despite all of our treatment measures. This is likely going to be his new baseline. Hypernatremia has improved to 146. I will decrease the rate of D5W to 100 cc/h. The patient is ready for discharge once we have a place for him. This dictation was completed using advanced voice recognition dictation software. There may be some errors in grammar, punctuation, context or verbiage that were not identified and corrected at the time of this dictation. If questions are present, please consult the author of this dictation for further clarification. It is my goal to try to catch these mistakes at the time of dictation but errors may still occur. Thank you for your understanding.
[2019-11-24] MEDS: Atorvastatin Calcium 40 MG TAB PO SCH (21:47)
[2019-11-25 05:49] LABS: Anion Gap 14 mmol/L (10-20); BUN (Urea Nitrogen) 25 mg/dL (8.4-25.7); Calc. Creatinine Clearance 65 mL/min (70-130); Carbon Dioxide 27 mmol/L (23-31); Chloride 108 mmol/L (98-107); Estimated GFR-MDRD 63; Glucose 96 mg/dL (83-110); Potassium 4.2 mmol/L (3.5-5.1); Sodium 145 mmol/L (136-145)
[2019-11-25] MEDS: Piperacillin/Tazobactam 3.375 GM in Sodium Chloride 0.9% 100 ML IVPB SCH ×4 (05:57→23:31)
[2019-11-25 06:02] LABS: Hemoglobin 18.1 g/dL (14.0-18.0); Mean Corpuscular HGB CONC 32.7 g/dL (32.0-36.0); Mean Corpuscular Hemoglobin 32.7 pg (27.0-31.0); Mean Platelet Volume 8.5 fL (7.4-10.4); Platelet Count 169 thou/uL (130-400); RBC Distribution Width 11.7 % (11.5-14.5); Red Blood Cell (RBC) Count 5.52 mill/uL (4.70-6.10); White Blood Cell (WBC) Count 6.7 thou/uL (4.8-10.8)
[2019-11-25 06:50] LABS: Band 1 % (5-11); Eosinophils 1 % (0-10); Lymphocytes 25 % (21-51); MDiff Complete? YES; Monocytes 6 % (0-10); Neutrophil 66 % (42-75); Reactive Lymphocytes 1 % (0-10)
[2019-11-25] MEDS: Carvedilol 3.125 MG TAB PO SCH ×2 (08:54→20:13)
[2019-11-25] MEDS: Apixaban 5 MG TAB PO SCH ×2 (08:54→20:13)
[2019-11-25] MEDS: Divalproex Sodium 125 mg Sprinkle Capsule PO SCH ×2 (08:55→21:07)
[2019-11-25] MEDS: Senokot S 8.6-50 MG TAB PO SCH ×2 (08:56→20:13)
[2019-11-25] MEDS: Magnesium Oxide 400 MG TAB PO SCH (08:56)
[2019-11-25] MEDS: Gabapentin 100 MG CAP PO SCH (08:56)
[2019-11-25] MEDS: Pramipexole Di-HCl 0.25 MG TAB PO SCH ×2 (08:56→20:12)
[2019-11-25] MEDS: Thiamine 100 MG TAB PO SCH (09:01)
[2019-11-25] MEDS: Cyanocobalamin (Vitamin B-12) 1,000 MCG TAB PO SCH (09:01)
[2019-11-25] MEDS: Folic Acid 1 MG TAB PO SCH (09:01)
[2019-11-25] MEDS: Multivitamin W/ Minerals 1 TAB PO SCH (09:01)
[2019-11-25] MEDS: Polyethylene Glycol 3350 17 GM Packet PO SCH (12:05)
--- NOTE | 2019-11-25 14:50 | PDOC.HOSPP ---
- Subjective Encounter Date: 11/25/19 non-verbal (status unchanged) - Objective Vital Signs & Weight: Vital Signs (12 hours) Temp Pulse Resp BP Pulse Ox 11/25/19 08:00 98.4 F 70 24 H 146/96 H 100 Weight Admit Weight 176 lb Weight 176 lb I&O: 11/24/19 11/25/19 11/26/19 06:59 06:59 06:59 Intake Total 2330 1999 Output Total 40 Balance 2330 1960 Result Diagrams: 11/25/19 05:14 11/25/19 05:14 Hospitalist ROS - Medication Medications: Active Medications Generic Name Dose Route Start Last Admin Trade Name Freq PRN Reason Stop Dose Admin Acetaminophen 325 mg 11/09/19 19:11 11/23/19 13:49 Tylenol PO 325 mg Q6H PRN Administration Headache/Fever or Pain Acetaminophen 650 mg 11/20/19 10:48 11/24/19 21:41 Tylenol [place] 650 mg Q4H PRN Administration Headache/Fever or Pain Apixaban 5 mg 11/15/19 21:00 11/25/19 08:54 Eliquis PO 5 mg BID SHILPA Administration Atorvastatin Calcium 40 mg 11/04/19 21:00 11/24/19 21:47 Lipitor PO Not Given HS SHILPA Carvedilol 3.125 mg 11/13/19 21:00 11/25/19 08:54 Coreg PO 3.125 mg BID SHILPA Administration Cyanocobalamin 1,000 mcg 11/15/19 09:00 11/25/19 09:01 Vitamin B-12 PO 1,000 mcg DAILY SHILPA Administration Divalproex Sodium 1,000 mg 11/18/19 21:00 11/25/19 08:55 Depakote Sprinkle PO 1,000 mg BID SHILPA Administration Folic Acid 1 mg 11/05/19 09:00 11/25/19 09:01 Folvite PO 1 mg DAILY SHILPA Administration Gabapentin 100 mg 11/17/19 09:00 11/25/19 08:56 Neurontin PO 100 mg DAILY SHILPA Administration Piperacillin Sod/Tazobactam 100 mls @ 200 mls/hr 11/21/19 12:00 11/25/19 12: 06 Sod 3.375 gm/ Sodium Chloride IVPB 100 mls Q6HR SHILPA Administration Dextrose/Water 1,000 mls @ 100 mls/hr 11/24/19 13:31 11/24/19 23:44 D5w IV 1,000 mls .Q10H SHILPA Administration Iron/Minerals/Multivitamins 1 tab 11/05/19 09:00 11/25/19 09:01 Theragran M PO 1 tab DAILY SHILPA Administration Lorazepam 1 mg 11/21/19 11:04 11/21/19 16:43 Ativan SLOW IVP 1 mg Q4H PRN Administration Anxiety/Agitation Magnesium Oxide 400 mg 11/05/19 09:00 11/25/19 08:56 Magnesium Oxide PO 400 mg DAILY SHILPA Administration Polyethylene Glycol 17 gm 11/13/19 09:00 11/25/19 12:05 Miralax PO Not Given DAILY SHILPA Pramipexole Dihydrochloride 0.5 mg 11/21/19 21:00 11/25/19 08:56 Mirapex PO 0.5 mg BID SHILPA Administration Senna/Docusate Sodium 1 tab 11/13/19 09:00 11/25/19 08:56 Senokot S PO 1 tab BID SHILPA Administration Sodium Chloride 10 ml 11/04/19 09:00 11/25/19 09:01 Flush - Normal Saline IVF 10 ml Q12HR SHILPA Administration Thiamine HCl 100 mg 11/05/19 09:00 11/25/19 09:01 Thiamine PO 100 mg DAILY SHILPA Administration - Exam General Appearance: ill appearing Eye: anicteric sclera ENT: normocephalic atraumatic, no oropharyngeal lesions Neck: supple, no JVD Heart: RRR, no murmur, no gallops, no rubs, normal peripheral pulses Respiratory: CTAB Gastrointestinal: soft, non-tender, non-distended, normal bowel sounds Hosp A/P (1) Fever Code(s): R50.9 - FEVER, UNSPECIFIED Status: Acute (2) Acute encephalopathy Code(s): G93.40 - ENCEPHALOPATHY, UNSPECIFIED Status: Acute (3) Physical deconditioning Code(s): R53.81 - OTHER MALAISE Status: Acute (4) Alcohol abuse Code(s): F10.10 - ALCOHOL ABUSE, UNCOMPLICATED Status: Chronic (5) Methamphetamine abuse Code(s): F15.10 - OTHER STIMULANT ABUSE, UNCOMPLICATED Status: Chronic (6) Artificial cardiac pacemaker Code(s): Z95.0 - PRESENCE OF CARDIAC PACEMAKER Status: Chronic (7) Atrial fibrillation Code(s): I48.91 - UNSPECIFIED ATRIAL FIBRILLATION Status: Chronic Qualifiers: Atrial fibrillation type: chronic (8) Bipolar disease, chronic Code(s): F31.9 - BIPOLAR DISORDER, UNSPECIFIED Status: Chronic (9) Hypernatremia Code(s): E87.0 - HYPEROSMOLALITY AND HYPERNATREMIA Status: Acute - Plan 11/19: CSF shows no signs of infection. repeat CT brain is -ve for cva/bleed and ct cervical spine shows no signs of discitis or ac fractures. has pcm PT to mobilize as tolerated back on eliquis from 11/14/2019 unclear etiology for encephalopathy, ?alc related wernicke's or chronic meth abuse (heavy usage per brother) trial of low dose gabapentin, seroquel (from 11/15/2019), addition of geodon qhs ( 11/19/2019). continue lipitor, folic acid, mvi, thiamine and D5NS is tolerating oral diet per staff will likely need inpt psych eval, [facility] consultation. Is medically stable for dc if they find a place for him. was able to sit for 4 hrs in chair (11/17/2019), still has not ambulated yet. EEG was done yesterday to r/o subclinical seizures, there was no seizure activity, has evaluated him 11/18/2019 and when he got admitted. Medically stable for dc to inpt psych facility if accepted. 11/20: The patient is more unresponsive today. He is able to open his eyes and follow commands but is nonverbal and unable to tolerate any feeding. Fevers were reported today. There is no leukocytosis. We will obtain urine analysis, blood cultures, and chest x-ray. Placement is pending. His prognosis is poor due to advanced dementia. This was discussed with palliative care team.The patient's mental status continued to slightly improved each day. He remains nonverbal and in a contracted muscular state. He had an episode of elevated blood pressure earlier today which improved after he received ketorolac and half milligram of Ativan. I tried to reach the family without success. 11/21: The patient's mental status appears to be deteriorating. He is not following commands today. Rapid jerking movements are noted on his extremities. He is persistently febrile. No source of infection has been identified at this moment. Blood culture showing growth of staph epidermidis in 1 of 2 bottles which is possibly contaminant. We will start broad-spectrum IV antibiotics empirically. Differential diagnosis include serotonin syndrome and neuroleptic malignant syndrome due to intake of quetiapine, bupropion, and tramadol. Those medications has been placed on hold. Pramipexole was started per neurology recommendations. 11/22: His mental status is slightly improved with implementation of the measures noted above. He appears to be in a state of hypo-volemic hypernatremia at the moment. This has slightly improved with the half-normal saline and D5W IV fluids. I will change the fluid component to D5W at 100 cc/h and monitor sodium level tomorrow. Our goal is to decrease the sodium by no more than 10 mEq per 24 hours. 11/23: His mental status continues to improve slightly. He remains nonverbal. He was hypertensive earlier today but that has improved with Ativan and ketorolac. His hypernatremia improved only by 1 mEq over the past 24 hours. I will increase D5W rate 125 cc/h. 11/24: The patient's mental status is not improving despite all of our treatment measures. This is likely going to be his new baseline. Hypernatremia has improved to 146. I will decrease the rate of D5W to 100 cc/h. The patient is ready for discharge once we have a place for him. 11/25: No new events. Awaiting placement. Hypernatremia resolved. Poor oral intake This dictation was completed using advanced voice recognition dictation software. There may be some errors in grammar, punctuation, context or verbiage that were not identified and corrected at the time of this dictation. If questions are present, please consult the author of this dictation for further clarification. It is my goal to try to catch these mistakes at the time of dictation but errors may still occur. Thank you for your understanding.
--- NOTE | 2019-11-25 16:23 | EKG ---
Test Reason : AMS Blood Pressure : / mmHG Vent. Rate : 079 BPM Atrial Rate : 072 BPM P-R Int : 000 ms QRS Dur : 090 ms QT Int : 384 ms P-R-T Axes : 000 -51 002 degrees QTc Int : 440 ms Atrial fibrillation Left anterior fascicular block Possible Anterior infarct , age undetermined Abnormal ECG Confirmed by CHANELLE LORD ([id number]), editor farm journal AUGUSTA ROTH ([id number]) on 11/25/2019 4:22:43 PM Referred By: Confirmed By:CHANELLE LORD
[2019-11-25] MEDS: Dextrose 5% in Water 1,000 ML IV SCH ×2 (17:25→20:12)
[2019-11-25] MEDS: Atorvastatin Calcium 40 MG TAB PO SCH (20:13)
[2019-11-26] MEDS: Piperacillin/Tazobactam 3.375 GM in Sodium Chloride 0.9% 100 ML IVPB SCH ×4 (05:09→23:35)
[2019-11-26] MEDS: Dextrose 5% in Water 1,000 ML IV SCH ×3 (05:11→20:35)
[2019-11-26] MEDS: Divalproex Sodium 125 mg Sprinkle Capsule PO SCH ×2 (09:05→20:49)
[2019-11-26] MEDS: Senokot S 8.6-50 MG TAB PO SCH ×2 (09:05→20:45)
[2019-11-26] MEDS: Gabapentin 100 MG CAP PO SCH (09:05)
[2019-11-26] MEDS: Apixaban 5 MG TAB PO SCH ×2 (09:06→20:45)
[2019-11-26] MEDS: Multivitamin W/ Minerals 1 TAB PO SCH (09:06)
[2019-11-26] MEDS: Thiamine 100 MG TAB PO SCH (09:06)
[2019-11-26] MEDS: Pramipexole Di-HCl 0.25 MG TAB PO SCH ×2 (09:06→20:44)
[2019-11-26] MEDS: Cyanocobalamin (Vitamin B-12) 1,000 MCG TAB PO SCH (09:06)
[2019-11-26] MEDS: Carvedilol 3.125 MG TAB PO SCH ×2 (09:06→20:45)
[2019-11-26] MEDS: Folic Acid 1 MG TAB PO SCH (09:06)
[2019-11-26] MEDS: Magnesium Oxide 400 MG TAB PO SCH (09:06)
[2019-11-26] MEDS: Polyethylene Glycol 3350 17 GM Packet PO SCH (12:24)
--- NOTE | 2019-11-26 14:31 | PDOC.HOSPP ---
- Subjective Encounter Date: 11/26/19 non-verbal - Objective Vital Signs & Weight: Vital Signs (12 hours) Temp Pulse Resp BP BP Pulse Ox 11/26/19 12:04 98.9 F 77 16 131/73 100 11/26/19 08:00 99.9 F H 92 16 153/106 H 100 11/26/19 04:00 98.4 F 72 20 133/72 99 Weight Admit Weight 176 lb Weight 176 lb I&O: 11/25/19 11/26/19 11/27/19 06:59 06:59 06:59 Intake Total 1999 2281 Output Total 40 Balance 19591 Result Diagrams: 11/25/19 05:14 11/25/19 05:14 Hospitalist ROS - Medication Medications: Active Medications Generic Name Dose Route Start Last Admin Trade Name Freq PRN Reason Stop Dose Admin Acetaminophen 325 mg 11/09/19 19:11 11/23/19 13:49 Tylenol PO 325 mg Q6H PRN Administration Headache/Fever or Pain Acetaminophen 650 mg 11/20/19 10:48 11/24/19 21:41 Tylenol OR 650 mg Q4H PRN Administration Headache/Fever or Pain Apixaban 5 mg 11/15/19 21:00 11/26/19 09:06 Eliquis PO 5 mg BID SHILPA Administration Atorvastatin Calcium 40 mg 11/04/19 21:00 11/25/19 20:13 Lipitor PO 40 mg HS SHILPA Administration Carvedilol 3.125 mg 11/13/19 21:00 11/26/19 09:06 Coreg PO 3.125 mg BID SHILPA Administration Cyanocobalamin 1,000 mcg 11/15/19 09:00 11/26/19 09:06 Vitamin B-12 PO 1,000 mcg DAILY SHILPA Administration Divalproex Sodium 1,000 mg 11/18/19 21:00 11/26/19 09:05 Depakote Sprinkle PO 1,000 mg BID SHILPA Administration Folic Acid 1 mg 11/05/19 09:00 11/26/19 09:06 Folvite PO 1 mg DAILY SHILPA Administration Gabapentin 100 mg 11/17/19 09:00 11/26/19 09:05 Neurontin PO 100 mg DAILY SHILPA Administration Piperacillin Sod/Tazobactam 100 mls @ 200 mls/hr 11/21/19 12:00 11/26/19 12: 24 Sod 3.375 gm/ Sodium Chloride IVPB 100 mls Q6HR SHILPA Administration Dextrose/Water 1,000 mls @ 100 mls/hr 11/24/19 13:31 11/26/19 05:11 D5w IV 1,000 mls .Q10H SHILPA Administration Iron/Minerals/Multivitamins 1 tab 11/05/19 09:00 11/26/19 09:06 Theragran M PO 1 tab DAILY SHILPA Administration Lorazepam 1 mg 11/21/19 11:04 11/21/19 16:43 Ativan SLOW IVP 1 mg Q4H PRN Administration Anxiety/Agitation Magnesium Oxide 400 mg 11/05/19 09:00 11/26/19 09:06 Magnesium Oxide PO 400 mg DAILY SHILPA Administration Polyethylene Glycol 17 gm 11/13/19 09:00 11/26/19 12:24 Miralax PO 17 gm DAILY SHILPA Administration Pramipexole Dihydrochloride 0.5 mg 11/21/19 21:00 11/26/19 09:06 Mirapex PO 0.5 mg BID SHILPA Administration Senna/Docusate Sodium 1 tab 11/13/19 09:00 11/26/19 09:05 Senokot S PO 1 tab BID SHILPA Administration Sodium Chloride 10 ml 11/04/19 09:00 11/26/19 09:06 Flush - Normal Saline IVF Not Given Q12HR [facility] Thiamine HCl 100 mg 11/05/19 09:00 11/26/19 09:06 Thiamine PO 100 mg DAILY SHILPA Administration - Exam ENT: normocephalic atraumatic Neck: supple, no JVD Heart: RRR Respiratory: CTAB Gastrointestinal: soft, non-tender, non-distended, normal bowel sounds Musculoskeletal - other findings: HYPERTONIA IN UPPER EXTREMITIES; PT NONVERBAL AND DOES NOT FOLLOW COMMANDS Hosp A/P (1) Fever Code(s): R50.9 - FEVER, UNSPECIFIED Status: Acute (2) Acute encephalopathy Code(s): G93.40 - ENCEPHALOPATHY, UNSPECIFIED Status: Acute (3) Physical deconditioning Code(s): R53.81 - OTHER MALAISE Status: Acute (4) Alcohol abuse Code(s): F10.10 - ALCOHOL ABUSE, UNCOMPLICATED Status: Chronic (5) Methamphetamine abuse Code(s): F15.10 - OTHER STIMULANT ABUSE, UNCOMPLICATED Status: Chronic (6) Artificial cardiac pacemaker Code(s): Z95.0 - PRESENCE OF CARDIAC PACEMAKER Status: Chronic (7) Atrial fibrillation Code(s): I48.91 - UNSPECIFIED ATRIAL FIBRILLATION Status: Chronic Qualifiers: Atrial fibrillation type: chronic (8) Bipolar disease, chronic Code(s): F31.9 - BIPOLAR DISORDER, UNSPECIFIED Status: Chronic (9) Hypernatremia Code(s): E87.0 - HYPEROSMOLALITY AND HYPERNATREMIA Status: Acute - Plan 11/19: CSF shows no signs of infection. repeat CT brain is -ve for cva/bleed and ct cervical spine shows no signs of discitis or ac fractures. has pcm PT to mobilize as tolerated back on eliquis from 11/14/2019 unclear etiology for encephalopathy, ?alc related wernicke's or chronic meth abuse (heavy usage per brother) trial of low dose gabapentin, seroquel (from 11/15/2019), addition of geodon qhs ( 11/19/2019). continue lipitor, folic acid, mvi, thiamine and D5NS is tolerating oral diet per staff will likely need inpt psych eval, [facility] consultation. Is medically stable for dc if they find a place for him. was able to sit for 4 hrs in chair (11/17/2019), still has not ambulated yet. EEG was done yesterday to r/o subclinical seizures, there was no seizure activity, has evaluated him 11/18/2019 and when he got admitted. Medically stable for dc to inpt psych facility if accepted. 11/20: The patient is more unresponsive today. He is able to open his eyes and follow commands but is nonverbal and unable to tolerate any feeding. Fevers were reported today. There is no leukocytosis. We will obtain urine analysis, blood cultures, and chest x-ray. Placement is pending. His prognosis is poor due to advanced dementia. This was discussed with palliative care team.The patient's mental status continued to slightly improved each day. He remains nonverbal and in a contracted muscular state. He had an episode of elevated blood pressure earlier today which improved after he received ketorolac and half milligram of Ativan. I tried to reach the family without success. 2/11: The patient's mental status appears to be deteriorating. He is not following commands today. Rapid jerking movements are noted on his extremities. He is persistently febrile. No source of infection has been identified at this moment. Blood culture showing growth of staph epidermidis in 1 of 2 bottles which is possibly contaminant. We will start broad-spectrum IV antibiotics empirically. Differential diagnosis include serotonin syndrome and neuroleptic malignant syndrome due to intake of quetiapine, bupropion, and tramadol. Those medications has been placed on hold. Pramipexole was started per neurology recommendations. 11/22: His mental status is slightly improved with implementation of the measures noted above. He appears to be in a state of hypo-volemic hypernatremia at the moment. This has slightly improved with the half-normal saline and D5W IV fluids. I will change the fluid component to D5W at 100 cc/h and monitor sodium level tomorrow. Our goal is to decrease the sodium by no more than 10 mEq per 24 hours. 11/23: His mental status continues to improve slightly. He remains nonverbal. He was hypertensive earlier today but that has improved with Ativan and ketorolac. His hypernatremia improved only by 1 mEq over the past 24 hours. I will increase D5W rate 125 cc/h. 11/24: The patient's mental status is not improving despite all of our treatment measures. This is likely going to be his new baseline. Hypernatremia has improved to 146. I will decrease the rate of D5W to 100 cc/h. The patient is ready for discharge once we have a place for him. 11/25: No new events. Awaiting placement. Hypernatremia resolved. Poor oral intake 11/26: Status unchanged. No new events overnight Pending placement This dictation was completed using advanced voice recognition dictation software. There may be some errors in grammar, punctuation, context or verbiage that were not identified and corrected at the time of this dictation. If questions are present, please consult the author of this dictation for further clarification. It is my goal to try to catch these mistakes at the time of dictation but errors may still occur. Thank you for your understanding.
[2019-11-26] MEDS: Lorazepam 2 MG/ML VIAL SLOW IVP PRN (16:22)
[2019-11-27] MEDS: Piperacillin/Tazobactam 3.375 GM in Sodium Chloride 0.9% 100 ML IVPB SCH ×4 (05:05→23:53)
[2019-11-27] MEDS: Polyethylene Glycol 3350 17 GM Packet PO SCH (08:43)
[2019-11-27] MEDS: Magnesium Oxide 400 MG TAB PO SCH (08:43)
[2019-11-27] MEDS: Apixaban 5 MG TAB PO SCH ×2 (08:43→22:43)
[2019-11-27] MEDS: Pramipexole Di-HCl 0.25 MG TAB PO SCH ×2 (08:43→22:43)
[2019-11-27] MEDS: Thiamine 100 MG TAB PO SCH (08:53)
[2019-11-27] MEDS: Carvedilol 3.125 MG TAB PO SCH ×2 (08:53→22:43)
[2019-11-27] MEDS: Multivitamin W/ Minerals 1 TAB PO SCH (08:53)
[2019-11-27] MEDS: Senokot S 8.6-50 MG TAB PO SCH ×2 (08:53→22:43)
[2019-11-27] MEDS: Gabapentin 100 MG CAP PO SCH (08:53)
[2019-11-27] MEDS: Cyanocobalamin (Vitamin B-12) 1,000 MCG TAB PO SCH (08:53)
[2019-11-27] MEDS: Folic Acid 1 MG TAB PO SCH (08:54)
[2019-11-27] MEDS: Divalproex Sodium 125 mg Sprinkle Capsule PO SCH ×2 (09:52→22:43)
[2019-11-27] MEDS: Dextrose 5% in Water 1,000 ML IV SCH ×2 (12:15→23:59)
--- NOTE | 2019-11-27 14:06 | PDOC.HOSPP ---
- Subjective Encounter Date: 11/27/19 Subjective: The patient remains in poor condition. He is unable to eat and drink adequately. - Objective Vital Signs & Weight: Vital Signs (12 hours) Temp Pulse Resp BP Pulse Ox 11/27/19 08:00 100 11/27/19 07:32 97.4 F L 73 19 114/78 100 Weight Admit Weight 176 lb Weight 176 lb I&O: 11/26/19 11/27/19 11/28/19 06:59 06:59 06:59 Intake Total 2281 2552 120 Balance 2281 2552 120 Result Diagrams: 11/25/19 05:14 11/25/19 05:14 Hospitalist ROS - Medication Medications: Active Medications Generic Name Dose Route Start Last Admin Trade Name Freq PRN Reason Stop Dose Admin Acetaminophen 325 mg 11/09/19 19:11 11/23/19 13:49 Tylenol PO 325 mg Q6H PRN Administration Headache/Fever or Pain Acetaminophen 650 mg 11/20/19 10:48 11/24/19 21:41 Tylenol NC 650 mg Q4H PRN Administration Headache/Fever or Pain Apixaban 5 mg 11/15/19 21:00 11/27/19 08:43 Eliquis PO 5 mg BID SHILPA Administration Atorvastatin Calcium 40 mg 11/04/19 21:00 11/25/19 20:13 Lipitor PO 40 mg HS SHILPA Administration Carvedilol 3.125 mg 11/13/19 21:00 11/27/19 08:53 Coreg PO 3.125 mg BID SHILPA Administration Cyanocobalamin 1,000 mcg 11/15/19 09:00 11/27/19 08:53 Vitamin B-12 PO 1,000 mcg DAILY SHILPA Administration Divalproex Sodium 1,000 mg 11/18/19 21:00 11/27/19 09:52 Depakote Sprinkle PO 1,000 mg BID SHILPA Administration Folic Acid 1 mg 11/05/19 09:00 11/27/19 08:54 Folvite PO 1 mg DAILY SHILPA Administration Gabapentin 100 mg 11/17/19 09:00 11/27/19 08:53 Neurontin PO 100 mg DAILY SHILPA Administration Piperacillin Sod/Tazobactam 100 mls @ 200 mls/hr 11/21/19 12:00 11/27/19 12: 25 Sod 3.375 gm/ Sodium Chloride IVPB 100 mls Q6HR SHILPA Administration Dextrose/Water 1,000 mls @ 100 mls/hr 11/24/19 13:31 11/27/19 12:15 D5w IV 1,000 mls .Q10H SHILPA Administration Iron/Minerals/Multivitamins 1 tab 11/05/19 09:00 11/27/19 08:53 Theragran M PO 1 tab DAILY SHILPA Administration Lorazepam 1 mg 11/21/19 11:04 11/26/19 16:22 Ativan SLOW IVP 1 mg Q4H PRN Administration Anxiety/Agitation Magnesium Oxide 400 mg 11/05/19 09:00 11/27/19 08:43 Magnesium Oxide PO 400 mg DAILY SHILPA Administration Polyethylene Glycol 17 gm 11/13/19 09:00 11/27/19 08:43 Miralax PO 17 gm DAILY SHILPA Administration Pramipexole Dihydrochloride 0.5 mg 11/21/19 21:00 11/27/19 08:43 Mirapex PO 0.5 mg BID SHILPA Administration Senna/Docusate Sodium 1 tab 11/13/19 09:00 11/27/19 08:53 Senokot S PO 1 tab BID SHILPA Administration Sodium Chloride 10 ml 11/04/19 09:00 11/27/19 09:07 Flush - Normal Saline IVF 10 ml Q12HR SHILPA Administration Thiamine HCl 100 mg 11/05/19 09:00 11/27/19 08:53 Thiamine PO 100 mg DAILY SHILPA Administration - Exam ENT: normocephalic atraumatic Neck: supple Heart: RRR Respiratory: CTAB Gastrointestinal: soft, non-tender, non-distended, normal bowel sounds Hosp A/P (1) Fever Code(s): R50.9 - FEVER, UNSPECIFIED Status: Acute (2) Acute encephalopathy Code(s): G93.40 - ENCEPHALOPATHY, UNSPECIFIED Status: Acute (3) Physical deconditioning Code(s): R53.81 - OTHER MALAISE Status: Acute (4) Alcohol abuse Code(s): F10.10 - ALCOHOL ABUSE, UNCOMPLICATED Status: Chronic (5) Methamphetamine abuse Code(s): F15.10 - OTHER STIMULANT ABUSE, UNCOMPLICATED Status: Chronic (6) Artificial cardiac pacemaker Code(s): Z95.0 - PRESENCE OF CARDIAC PACEMAKER Status: Chronic (7) Atrial fibrillation Code(s): I48.91 - UNSPECIFIED ATRIAL FIBRILLATION Status: Chronic Qualifiers: Atrial fibrillation type: chronic (8) Bipolar disease, chronic Code(s): F31.9 - BIPOLAR DISORDER, UNSPECIFIED Status: Chronic (9) Hypernatremia Code(s): E87.0 - HYPEROSMOLALITY AND HYPERNATREMIA Status: Acute - Plan 11/19: CSF shows no signs of infection. repeat CT brain is -ve for cva/bleed and ct cervical spine shows no signs of discitis or ac fractures. has pcm PT to mobilize as tolerated back on eliquis from 11/14/2019 unclear etiology for encephalopathy, ?alc related wernicke's or chronic meth abuse (heavy usage per brother) trial of low dose gabapentin, seroquel (from 11/15/2019), addition of geodon qhs ( 11/19/2019). continue lipitor, folic acid, mvi, thiamine and D5NS is tolerating oral diet per staff will likely need inpt psych eval, [facility] consultation. Is medically stable for dc if they find a place for him. was able to sit for 4 hrs in chair (11/17/2019), still has not ambulated yet. EEG was done yesterday to r/o subclinical seizures, there was no seizure activity, has evaluated him 11/18/2019 and when he got admitted. Medically stable for dc to inpt psych facility if accepted. 11/20: The patient is more unresponsive today. He is able to open his eyes and follow commands but is nonverbal and unable to tolerate any feeding. Fevers were reported today. There is no leukocytosis. We will obtain urine analysis, blood cultures, and chest x-ray. Placement is pending. His prognosis is poor due to advanced dementia. This was discussed with palliative care team.The patient's mental status continued to slightly improved each day. He remains nonverbal and in a contracted muscular state. He had an episode of elevated blood pressure earlier today which improved after he received ketorolac and half milligram of Ativan. I tried to reach the family without success. 11/21: The patient's mental status appears to be deteriorating. He is not following commands today. Rapid jerking movements are noted on his extremities. He is persistently febrile. No source of infection has been identified at this moment. Blood culture showing growth of staph epidermidis in 1 of 2 bottles which is possibly contaminant. We will start broad-spectrum IV antibiotics empirically. Differential diagnosis include serotonin syndrome and neuroleptic malignant syndrome due to intake of quetiapine, bupropion, and tramadol. Those medications has been placed on hold. Pramipexole was started per neurology recommendations. 11/22: His mental status is slightly improved with implementation of the measures noted above. He appears to be in a state of hypo-volemic hypernatremia at the moment. This has slightly improved with the half-normal saline and D5W IV fluids. I will change the fluid component to D5W at 100 cc/h and monitor sodium level tomorrow. Our goal is to decrease the sodium by no more than 10 mEq per 24 hours. 11/23: His mental status continues to improve slightly. He remains nonverbal. He was hypertensive earlier today but that has improved with Ativan and ketorolac. His hypernatremia improved only by 1 mEq over the past 24 hours. I will increase D5W rate 125 cc/h. 11/24: The patient's mental status is not improving despite all of our treatment measures. This is likely going to be his new baseline. Hypernatremia has improved to 146. I will decrease the rate of D5W to 100 cc/h. The patient is ready for discharge once we have a place for him. 11/25: No new events. Awaiting placement. Hypernatremia resolved. Poor oral intake 11/26: Status unchanged. No new events overnight Pending placement 11/27: The patient is failing to thrive due to poor oral intake. His condition is not improving. I have consulted palliative care to discuss comfort care versus PEG tube placement with the patient's family. This dictation was completed using advanced voice recognition dictation software. There may be some errors in grammar, punctuation, context or verbiage that were not identified and corrected at the time of this dictation. If questions are present, please consult the author of this dictation for further clarification. It is my goal to try to catch these mistakes at the time of dictation but errors may still occur. Thank you for your understanding.
[2019-11-27] MEDS: Atorvastatin Calcium 40 MG TAB PO SCH (22:43)
[2019-11-28] MEDS: Piperacillin/Tazobactam 3.375 GM in Sodium Chloride 0.9% 100 ML IVPB SCH ×4 (05:21→23:34)
[2019-11-28] MEDS: Thiamine 100 MG TAB PO SCH ×2 (10:00→13:00)
[2019-11-28] MEDS: Divalproex Sodium 125 mg Sprinkle Capsule PO SCH ×3 (10:02→21:03)
[2019-11-28] MEDS: Gabapentin 100 MG CAP PO SCH ×2 (10:03→12:59)
[2019-11-28] MEDS: Magnesium Oxide 400 MG TAB PO SCH ×2 (10:03→12:59)
[2019-11-28] MEDS: Apixaban 5 MG TAB PO SCH ×3 (10:03→21:02)
[2019-11-28] MEDS: Carvedilol 3.125 MG TAB PO SCH ×3 (10:03→21:03)
[2019-11-28] MEDS: Multivitamin W/ Minerals 1 TAB PO SCH ×2 (10:04→12:59)
[2019-11-28] MEDS: Folic Acid 1 MG TAB PO SCH ×2 (10:04→12:59)
[2019-11-28] MEDS: Cyanocobalamin (Vitamin B-12) 1,000 MCG TAB PO SCH ×2 (10:04→12:58)
[2019-11-28] MEDS: Pramipexole Di-HCl 0.25 MG TAB PO SCH ×3 (10:04→21:03)
[2019-11-28] MEDS: Senokot S 8.6-50 MG TAB PO SCH ×3 (10:07→21:03)
[2019-11-28] MEDS: Lorazepam 2 MG/ML VIAL SLOW IVP PRN (12:29)
[2019-11-28] MEDS: Dextrose 5% in Water 1,000 ML IV SCH ×3 (12:36→23:33)
[2019-11-28] MEDS: Polyethylene Glycol 3350 17 GM Packet PO SCH (13:00)
--- NOTE | 2019-11-28 13:31 | PDOC.PALCO ---
Palliative Care Consult - Consult Details Requesting Physician: Dr Bender Reason for Consult: goals of care, assistance with communication prognosis/ disease, complex decision-making Family Members Present: Paitent brother and his - Pertinent HPI Mr Farrar is a 74 year old male who was readmitted on Nov 04, same day as discharge from previous hospital stay. He experienced altered mental status with a syncopal episode. He has a history of afib, CKD, dementia, bi polar, substance abuse. Progressive decline with poor meaningful recovery, new baseline appears to have been established. Mr Farrar is now bedbound, dysphagia , pocketing food, incontinent, total assist for all ADL's, aphagic. - Pertinent PMH Afib with pacemaker placed, CKD, Dementia, Bi Polar, History of substance abuse including drugs and alcohol as reported by brother. - Social History Living Situation: independent (Previously lived on land shared with his brother (strained relationship)) - Medications MAR Reviewed: Yes - Allergies Allergies/Adverse Reactions: Allergies Allergy/AdvReac Type Severity Reaction Status Date / Time No Known Allergies Allergy Verified 11/01/19 22:18 - Subjective Spontaneous opening of eyes, made eye contact with his brother. Pronounced contractions to upper extremities. Aphasia, dysphagia, totally dependent for ADLs. Onable to perform an adequate ROS secondary to AMS - ROS Non Response: due to mental status - Objective Vital Signs: Vital Signs - Most Recent Temp Pulse Resp BP Pulse Ox 97.8 F 79 17 140/93 H 98 11/28/19 07:52 11/28/19 07:52 11/28/19 07:52 11/28/19 08:00 11/28/19 07:52 Palliative Performance Scale: 20 - Physical Exam Constitutional: encephalitic, ill appearing HEENT: moist MMs, sclera anicteric, poor dentition Respiratory: clear to auscultation bilateral, unlabored breathing Cardiovascular: RRR Gastrointestinal: non-tender, positive bowel sounds, incontinent Musculoskeletal: no clubbing, muscle wasting Skin: cap refill <2 seconds, fragile Deviation from normal: encephalopathic - Problem List (1) Palliative care encounter Code(s): Z51.5 - ENCOUNTER FOR PALLIATIVE CARE Current Visit: Yes Status: Acute (2) Dysphagia Code(s): R13.10 - DYSPHAGIA, UNSPECIFIED Current Visit: Yes Status: Acute (3) Acute encephalopathy Code(s): G93.40 - ENCEPHALOPATHY, UNSPECIFIED Current Visit: Yes Status: Acute (4) Physical deconditioning Code(s): R53.81 - OTHER MALAISE Current Visit: Yes Status: Acute (5) Bipolar disorder Code(s): F31.9 - BIPOLAR DISORDER, UNSPECIFIED Current Visit: No Status: Chronic Qualifiers: Active/Remission status: currently active Current episode severity: unspecified (6) HTN (hypertension) Code(s): I10 - ESSENTIAL (PRIMARY) HYPERTENSION Current Visit: No Status: Chronic Qualifiers: Hypertension type: essential hypertension Qualified Code(s): I10 - Essential (primary) hypertension - Plan/Recommendations Plan: Met with Patient brother and [id number], and Dr Bender. Discussed PEG , disease trajectory and poor meaningful recovery. Brother was tearful, but stated that he knew his brother would not desire to live this way. The brother decided not to have a PEG placed, but seek comfort care and diet with risk. It was hoped that he could eventually transition to hospice, however funding is the barrier to this goal of care. Mariya HAMM reaching out to facilities and identifying resources for hopeful transition to custodial facility with hospice care. *Will order Scopolamine Patch to help with oral secretions and dysphagia *Change to Ducolax supp for prevention of constipation *Biotene spray to use with oral care to maintain moist oral mucous membranes *Will communicate with spiritual care, family states Mr Farrar enjoys music and Merlin roger Jose plays the guitar Palliative Care will continue to follow and assist with symptom management as well as support patient and family. Please also refer to Miguel Rodrigues RNassayer notes in note section [60] minutes spent on this encounter with >50% of the time in counseling and coordination of care. Thank you for this very appropriate consult.
[2019-11-28] MEDS ORDERED: Bisacodyl 10 MG SUPP PR PRN (15:09)
[2019-11-28] MEDS: Morphine 2 MG/ML SYRINGE SLOW IVP PRN ×2 (15:23→22:59)
[2019-11-28] MEDS: Scopolamine 1.5 mg/72 hour Patch TD SCH (17:46)
--- NOTE | 2019-11-28 19:44 | PDOC.HOSPP ---
- Subjective Encounter Date: 11/28/19 Subjective: Held family meeting with palliative care team - Objective Vital Signs & Weight: Vital Signs (12 hours) Temp Pulse Pulse Resp BP BP Pulse Ox 11/28/19 11:15 70 141/83 H 11/28/19 08:00 140/93 H 11/28/19 07:52 97.8 F 79 17 178/86 H 98 Pulse Ox 11/28/19 11:15 98 11/28/19 08:00 11/28/19 07:52 Weight Admit Weight 176 lb Weight 176 lb I&O: 11/27/19 11/28/19 11/29/19 06:59 06:59 06:59 Intake Total 2552 3100 1250 Balance 2552 3100 1250 Result Diagrams: 11/25/19 05:14 11/25/19 05:14 Hospitalist ROS - Medication Medications: Active Medications Generic Name Dose Route Start Last Admin Trade Name Freq PRN Reason Stop Dose Admin Acetaminophen 325 mg 11/09/19 19:11 11/23/19 13:49 Tylenol PO 325 mg Q6H PRN Administration Headache/Fever or Pain Acetaminophen 650 mg 11/20/19 10:48 11/24/19 21:41 Tylenol MS 650 mg Q4H PRN Administration Headache/Fever or Pain Apixaban 5 mg 11/15/19 21:00 11/28/19 12:58 Eliquis PO Not Given BID [facility] Atorvastatin Calcium 40 mg 11/04/19 21:00 11/27/19 22:43 Lipitor PO Not Given HS [facility] Carvedilol 3.125 mg 11/13/19 21:00 11/28/19 12:58 Coreg PO Not Given BID [facility] Cyanocobalamin 1,000 mcg 11/15/19 09:00 11/28/19 12:58 Vitamin B-12 PO Not Given DAILY [facility] Divalproex Sodium 1,000 mg 11/18/19 21:00 11/28/19 12:58 Depakote Sprinkle PO Not Given BID [facility] Folic Acid 1 mg 11/05/19 09:00 11/28/19 12:59 Folvite PO Not Given DAILY [facility] Gabapentin 100 mg 11/17/19 09:00 11/28/19 12:59 Neurontin PO Not Given DAILY [facility] Piperacillin Sod/Tazobactam 100 mls @ 200 mls/hr 11/21/19 12:00 11/28/19 17: 39 Sod 3.375 gm/ Sodium Chloride IVPB 100 mls Q6HR [facility] Administration Dextrose/Water 1,000 mls @ 100 mls/hr 11/24/19 13:31 11/28/19 12:36 D5w IV 1,000 mls .Q10H [facility]PA Administration Iron/Minerals/Multivitamins 1 tab 11/05/19 09:00 11/28/19 12:59 Theragran M PO Not Given DAILY [facility] Lorazepam 1 mg 11/21/19 11:04 11/28/19 12:29 Ativan SLOW IVP 1 mg Q4H PRN Administration Anxiety/Agitation Magnesium Oxide 400 mg 11/05/19 09:00 11/28/19 12:59 Magnesium Oxide PO Not Given DAILY [facility] Morphine Sulfate 2 mg 11/28/19 12:31 11/28/19 15:23 Morphine SLOW IVP 2 mg Q4H PRN Administration Pain Polyethylene Glycol 17 gm 11/13/19 09:00 11/28/19 13:00 Miralax PO Not Given DAILY [facility] Pramipexole Dihydrochloride 0.5 mg 11/21/19 21:00 11/28/19 12:59 Mirapex PO Not Given BID [facility] Scopolamine 1.5 mg 11/28/19 15:15 11/28/19 17:46 Transderm Scop TD 1.5 mg Q3D [facility]PA Administration Senna/Docusate Sodium 1 tab 11/13/19 09:00 11/28/19 13:00 Senokot S PO Not Given BID [facility] Sodium Chloride 10 ml 11/04/19 09:00 11/28/19 13:00 Flush - Normal Saline IVF Not Given Q12HR [facility] Thiamine HCl 100 mg 11/05/19 09:00 11/28/19 13:00 Thiamine PO Not Given DAILY [facility] - Exam General Appearance: awake alert ENT: normocephalic atraumatic Neck: supple Heart: RRR Respiratory: no tachypnea Extremities: no cyanosis, no clubbing Hosp A/P (1) Fever Code(s): R50.9 - FEVER, UNSPECIFIED Status: Acute (2) Acute encephalopathy Code(s): G93.40 - ENCEPHALOPATHY, UNSPECIFIED Status: Acute (3) Physical deconditioning Code(s): R53.81 - OTHER MALAISE Status: Acute (4) Alcohol abuse Code(s): F10.10 - ALCOHOL ABUSE, UNCOMPLICATED Status: Chronic (5) Methamphetamine abuse Code(s): F15.10 - OTHER STIMULANT ABUSE, UNCOMPLICATED Status: Chronic (6) Artificial cardiac pacemaker Code(s): Z95.0 - PRESENCE OF CARDIAC PACEMAKER Status: Chronic (7) Atrial fibrillation Code(s): I48.91 - UNSPECIFIED ATRIAL FIBRILLATION Status: Chronic Qualifiers: Atrial fibrillation type: chronic (8) Bipolar disease, chronic Code(s): F31.9 - BIPOLAR DISORDER, UNSPECIFIED Status: Chronic (9) Hypernatremia Code(s): E87.0 - HYPEROSMOLALITY AND HYPERNATREMIA Status: Acute (10) Dementia Code(s): F03.90 - UNSPECIFIED DEMENTIA WITHOUT BEHAVIORAL DISTURBANCE Status: Acute - Plan 11/19: CSF shows no signs of infection. repeat CT brain is -ve for cva/bleed and ct cervical spine shows no signs of discitis or ac fractures. has pcm PT to mobilize as tolerated back on eliquis from 11/14/2019 unclear etiology for encephalopathy, ?alc related wernicke's or chronic meth abuse (heavy usage per brother) trial of low dose gabapentin, seroquel (from 11/15/2019), addition of geodon qhs ( 11/19/2019). continue lipitor, folic acid, mvi, thiamine and D5NS is tolerating oral diet per staff will likely need inpt psych eval, [facility] consultation. Is medically stable for dc if they find a place for him. was able to sit for 4 hrs in chair (11/17/2019), still has not ambulated yet. EEG was done yesterday to r/o subclinical seizures, there was no seizure activity, has evaluated him 11/18/2019 and when he got admitted. Medically stable for dc to inpt psych facility if accepted. 11/20: The patient is more unresponsive today. He is able to open his eyes and follow commands but is nonverbal and unable to tolerate any feeding. Fevers were reported today. There is no leukocytosis. We will obtain urine analysis, blood cultures, and chest x-ray. Placement is pending. His prognosis is poor due to advanced dementia. This was discussed with palliative care team.The patient's mental status continued to slightly improved each day. He remains nonverbal and in a contracted muscular state. He had an episode of elevated blood pressure earlier today which improved after he received ketorolac and half milligram of Ativan. I tried to reach the family without success. 11/21: The patient's mental status appears to be deteriorating. He is not following commands today. Rapid jerking movements are noted on his extremities. He is persistently febrile. No source of infection has been identified at this moment. Blood culture showing growth of staph epidermidis in 1 of 2 bottles which is possibly contaminant. We will start broad-spectrum IV antibiotics empirically. Differential diagnosis include serotonin syndrome and neuroleptic malignant syndrome due to intake of quetiapine, bupropion, and tramadol. Those medications has been placed on hold. Pramipexole was started per neurology recommendations. 11/22: His mental status is slightly improved with implementation of the measures noted above. He appears to be in a state of hypo-volemic hypernatremia at the moment. This has slightly improved with the half-normal saline and D5W IV fluids. I will change the fluid component to D5W at 100 cc/h and monitor sodium level tomorrow. Our goal is to decrease the sodium by no more than 10 mEq per 24 hours. 11/23: His mental status continues to improve slightly. He remains nonverbal. He was hypertensive earlier today but that has improved with Ativan and ketorolac. His hypernatremia improved only by 1 mEq over the past 24 hours. I will increase D5W rate 125 cc/h. 11/24: The patient's mental status is not improving despite all of our treatment measures. This is likely going to be his new baseline. Hypernatremia has improved to 146. I will decrease the rate of D5W to 100 cc/h. The patient is ready for discharge once we have a place for him. 11/25: No new events. Awaiting placement. Hypernatremia resolved. Poor oral intake 11/26: Status unchanged. No new events overnight Pending placement 11/27: The patient is failing to thrive due to poor oral intake. His condition is not improving. I have consulted palliative care to discuss comfort care versus PEG tube placement with the patient's family. 11/28: Met with the family and palliative care team today. Discussed that the patient is having poor oral intake and his condition is not really improving. Discussed the options of comfort care with feeding him with risk of aspiration versus PEG tube placement. The patient's brother stated that the patient would not want to live is 10 days with a feeding tube especially since it might not improve his survival. The decision was made to move towards comfort care and eventually hospice when available. This dictation was completed using advanced voice recognition dictation software. There may be some errors in grammar, punctuation, context or verbiage that were not identified and corrected at the time of this dictation. If questions are present, please consult the author of this dictation for further clarification. It is my goal to try to catch these mistakes at the time of dictation but errors may still occur. Thank you for your understanding.
[2019-11-28] MEDS: Atorvastatin Calcium 40 MG TAB PO SCH (21:02)
[2019-11-29] MEDS: Morphine 2 MG/ML SYRINGE SLOW IVP PRN ×3 (03:29→12:57)
[2019-11-29] MEDS: Dextrose 5% in Water 1,000 ML IV SCH ×3 (04:09→23:18)
[2019-11-29] MEDS: Piperacillin/Tazobactam 3.375 GM in Sodium Chloride 0.9% 100 ML IVPB SCH ×4 (05:46→23:38)
[2019-11-29] MEDS: Apixaban 5 MG TAB PO SCH ×2 (10:31→20:41)
[2019-11-29] MEDS: Folic Acid 1 MG TAB PO SCH (10:32)
[2019-11-29] MEDS: Gabapentin 100 MG CAP PO SCH (10:32)
[2019-11-29] MEDS: Cyanocobalamin (Vitamin B-12) 1,000 MCG TAB PO SCH (10:32)
[2019-11-29] MEDS: Divalproex Sodium 125 mg Sprinkle Capsule PO SCH ×2 (10:32→20:41)
[2019-11-29] MEDS: Carvedilol 3.125 MG TAB PO SCH ×2 (10:32→20:41)
[2019-11-29] MEDS: Magnesium Oxide 400 MG TAB PO SCH (10:32)
[2019-11-29] MEDS: Senokot S 8.6-50 MG TAB PO SCH ×2 (10:33→20:42)
[2019-11-29] MEDS: Multivitamin W/ Minerals 1 TAB PO SCH (10:33)
[2019-11-29] MEDS: Polyethylene Glycol 3350 17 GM Packet PO SCH (10:33)
[2019-11-29] MEDS: Pramipexole Di-HCl 0.25 MG TAB PO SCH ×2 (10:33→20:42)
[2019-11-29] MEDS: Thiamine 100 MG TAB PO SCH (10:34)
[2019-11-29 14:13] LABS: Anion Gap 10 mmol/L (10-20); BUN (Urea Nitrogen) 9 mg/dL (8.4-25.7); Calc. Creatinine Clearance 95 mL/min (70-130); Calcium 8.5 mg/dL (7.8-10.44); Carbon Dioxide 31 mmol/L (23-31); Chloride 100 mmol/L (98-107); Estimated GFR-MDRD Greater than 90; Glucose 99 mg/dL (83-110); Sodium 137 mmol/L (136-145)
--- NOTE | 2019-11-29 15:38 | PDOC.HOSPP ---
- Subjective Encounter Date: 11/29/19 Subjective: No new events - Objective Vital Signs & Weight: Vital Signs (12 hours) Temp Pulse Resp BP Pulse Ox 11/29/19 08:00 98 11/29/19 07:36 97.4 F L 61 18 122/83 98 Weight Admit Weight 176 lb Weight 176 lb I&O: 11/28/19 11/29/19 11/30/19 06:59 06:59 06:59 Intake Total 3100 2450 Balance 3100 2450 Result Diagrams: 11/25/19 05:14 11/29/19 13:54 Additional Labs: Accuchecks 11/29/19 04:53 POC Glucose 107 Hospitalist ROS - Medication Medications: Active Medications Generic Name Dose Route Start Last Admin Trade Name Freq PRN Reason Stop Dose Admin Acetaminophen 325 mg 11/09/19 19:11 11/23/19 13:49 Tylenol PO 325 mg Q6H PRN Administration Headache/Fever or Pain Acetaminophen 650 mg 11/20/19 10:48 11/24/19 21:41 Tylenol [place] 650 mg Q4H PRN Administration Headache/Fever or Pain Apixaban 5 mg 11/15/19 21:00 11/29/19 10:31 Eliquis PO Not Given BID [facility] Atorvastatin Calcium 40 mg 11/04/19 21:00 11/28/19 21:02 Lipitor PO Not Given HS [facility] Carvedilol 3.125 mg 11/13/19 21:00 11/29/19 10:32 Coreg PO Not Given BID [facility] Cyanocobalamin 1,000 mcg 11/15/19 09:00 11/29/19 10:32 Vitamin B-12 PO Not Given DAILY [facility] Divalproex Sodium 1,000 mg 11/18/19 21:00 11/29/19 10:32 Depakote Sprinkle PO Not Given BID [facility] Folic Acid 1 mg 11/05/19 09:00 11/29/19 10:32 Folvite PO Not Given DAILY [facility] Gabapentin 100 mg 11/17/19 09:00 11/29/19 10:32 Neurontin PO Not Given DAILY [facility] Piperacillin Sod/Tazobactam 100 mls @ 200 mls/hr 11/21/19 12:00 11/29/19 13: 00 Sod 3.375 gm/ Sodium Chloride IVPB 100 mls Q6HR [facility] Administration Dextrose/Water 1,000 mls @ 100 mls/hr 11/24/19 13:31 11/29/19 04:09 D5w IV Not Given .Q10H [facility] Iron/Minerals/Multivitamins 1 tab 11/05/19 09:00 11/29/19 10:33 Theragran M PO Not Given DAILY [facility] Lorazepam 1 mg 11/21/19 11:04 11/28/19 12:29 Ativan SLOW IVP 1 mg Q4H PRN Administration Anxiety/Agitation Magnesium Oxide 400 mg 11/05/19 09:00 11/29/19 10:32 Magnesium Oxide PO Not Given DAILY [facility] Morphine Sulfate 2 mg 11/28/19 12:31 11/29/19 12:57 Morphine SLOW IVP 2 mg Q4H PRN Administration Pain Polyethylene Glycol 17 gm 11/13/19 09:00 11/29/19 10:33 Miralax PO Not Given DAILY [facility] Pramipexole Dihydrochloride 0.5 mg 11/21/19 21:00 11/29/19 10:33 Mirapex PO Not Given BID [facility] Scopolamine 1.5 mg 11/28/19 15:15 11/28/19 17:46 Transderm Scop TD 1.5 mg Q3D [facility] Administration Senna/Docusate Sodium 1 tab 11/13/19 09:00 11/29/19 10:33 Senokot S PO Not Given BID [facility] Sodium Chloride 10 ml 11/04/19 09:00 11/29/19 10:34 Flush - Normal Saline IVF Not Given Q12HR [facility] Thiamine HCl 100 mg 11/05/19 09:00 11/29/19 10:34 Thiamine PO Not Given DAILY [facility] - Exam Neck: supple Heart: RRR Respiratory: CTAB Gastrointestinal: soft Neurological: cranial nerve grossly intact Hosp A/P (1) Fever Code(s): R50.9 - FEVER, UNSPECIFIED Status: Acute (2) Acute encephalopathy Code(s): G93.40 - ENCEPHALOPATHY, UNSPECIFIED Status: Acute (3) Physical deconditioning Code(s): R53.81 - OTHER MALAISE Status: Acute (4) Alcohol abuse Code(s): F10.10 - ALCOHOL ABUSE, UNCOMPLICATED Status: Chronic (5) Methamphetamine abuse Code(s): F15.10 - OTHER STIMULANT ABUSE, UNCOMPLICATED Status: Chronic (6) Artificial cardiac pacemaker Code(s): Z95.0 - PRESENCE OF CARDIAC PACEMAKER Status: Chronic (7) Atrial fibrillation Code(s): I48.91 - UNSPECIFIED ATRIAL FIBRILLATION Status: Chronic Qualifiers: Atrial fibrillation type: chronic (8) Bipolar disease, chronic Code(s): F31.9 - BIPOLAR DISORDER, UNSPECIFIED Status: Chronic (9) Hypernatremia Code(s): E87.0 - HYPEROSMOLALITY AND HYPERNATREMIA Status: Acute (10) Dementia Code(s): F03.90 - UNSPECIFIED DEMENTIA WITHOUT BEHAVIORAL DISTURBANCE Status: Acute - Plan 11/19: CSF shows no signs of infection. repeat CT brain is -ve for cva/bleed and ct cervical spine shows no signs of discitis or ac fractures. has pcm PT to mobilize as tolerated back on eliquis from 11/14/2019 unclear etiology for encephalopathy, ?alc related wernicke's or chronic meth abuse (heavy usage per brother) trial of low dose gabapentin, seroquel (from 11/15/2019), addition of geodon qhs ( 11/19/2019). continue lipitor, folic acid, mvi, thiamine and D5NS is tolerating oral diet per staff will likely need inpt psych eval, [facility] consultation. Is medically stable for dc if they find a place for him. was able to sit for 4 hrs in chair (11/17/2019), still has not ambulated yet. EEG was done yesterday to r/o subclinical seizures, there was no seizure activity, has evaluated him 11/18/2019 and when he got admitted. Medically stable for dc to inpt psych facility if accepted. 11/20: The patient is more unresponsive today. He is able to open his eyes and follow commands but is nonverbal and unable to tolerate any feeding. Fevers were reported today. There is no leukocytosis. We will obtain urine analysis, blood cultures, and chest x-ray. Placement is pending. His prognosis is poor due to advanced dementia. This was discussed with palliative care team.The patient's mental status continued to slightly improved each day. He remains nonverbal and in a contracted muscular state. He had an episode of elevated blood pressure earlier today which improved after he received ketorolac and half milligram of Ativan. I tried to reach the family without success. 11/21: The patient's mental status appears to be deteriorating. He is not following commands today. Rapid jerking movements are noted on his extremities. He is persistently febrile. No source of infection has been identified at this moment. Blood culture showing growth of staph epidermidis in 1 of 2 bottles which is possibly contaminant. We will start broad-spectrum IV antibiotics empirically. Differential diagnosis include serotonin syndrome and neuroleptic malignant syndrome due to intake of quetiapine, bupropion, and tramadol. Those medications has been placed on hold. Pramipexole was started per neurology recommendations. 11/22: His mental status is slightly improved with implementation of the measures noted above. He appears to be in a state of hypo-volemic hypernatremia at the moment. This has slightly improved with the half-normal saline and D5W IV fluids. I will change the fluid component to D5W at 100 cc/h and monitor sodium level tomorrow. Our goal is to decrease the sodium by no more than 10 mEq per 24 hours. 11/23: His mental status continues to improve slightly. He remains nonverbal. He was hypertensive earlier today but that has improved with Ativan and ketorolac. His hypernatremia improved only by 1 mEq over the past 24 hours. I will increase D5W rate 125 cc/h. 11/24: The patient's mental status is not improving despite all of our treatment measures. This is likely going to be his new baseline. Hypernatremia has improved to 146. I will decrease the rate of D5W to 100 cc/h. The patient is ready for discharge once we have a place for him. 11/25: No new events. Awaiting placement. Hypernatremia resolved. Poor oral intake 11/26: Status unchanged. No new events overnight Pending placement 11/27: The patient is failing to thrive due to poor oral intake. His condition is not improving. I have consulted palliative care to discuss comfort care versus PEG tube placement with the patient's family. 11/28: Met with the family and palliative care team today. Discussed that the patient is having poor oral intake and his condition is not really improving. Discussed the options of comfort care with feeding him with risk of aspiration versus PEG tube placement. The patient's brother stated that the patient would not want to live is 10 days with a feeding tube especially since it might not improve his survival. The decision was made to move towards comfort care and eventually hospice when available. 11/29: Continue comfort measures. Pending placement. This dictation was completed using advanced voice recognition dictation software. There may be some errors in grammar, punctuation, context or verbiage that were not identified and corrected at the time of this dictation. If questions are present, please consult the author of this dictation for further clarification. It is my goal to try to catch these mistakes at the time of dictation but errors may still occur. Thank you for your understanding.
[2019-11-29] MEDS: Atorvastatin Calcium 40 MG TAB PO SCH (20:41)
[2019-11-29] MEDS: Lorazepam 2 MG/ML VIAL SLOW IVP PRN (23:15)
[2019-11-30] MEDS: Morphine 2 MG/ML SYRINGE SLOW IVP PRN ×4 (02:46→21:44)
[2019-11-30] MEDS: Piperacillin/Tazobactam 3.375 GM in Sodium Chloride 0.9% 100 ML IVPB SCH ×4 (05:32→23:33)
[2019-11-30] MEDS: Polyethylene Glycol 3350 17 GM Packet PO SCH ×2 (08:53→10:32)
[2019-11-30] MEDS: Multivitamin W/ Minerals 1 TAB PO SCH ×2 (08:54→10:32)
[2019-11-30] MEDS: Folic Acid 1 MG TAB PO SCH ×2 (08:54→10:32)
[2019-11-30] MEDS: Carvedilol 3.125 MG TAB PO SCH ×3 (08:54→21:36)
[2019-11-30] MEDS: Cyanocobalamin (Vitamin B-12) 1,000 MCG TAB PO SCH ×2 (08:54→10:32)
[2019-11-30] MEDS: Gabapentin 100 MG CAP PO SCH ×2 (08:54→10:32)
[2019-11-30] MEDS: Thiamine 100 MG TAB PO SCH ×2 (08:54→10:32)
[2019-11-30] MEDS: Apixaban 5 MG TAB PO SCH ×3 (08:54→21:36)
[2019-11-30] MEDS: Magnesium Oxide 400 MG TAB PO SCH ×2 (08:54→10:32)
[2019-11-30] MEDS: Senokot S 8.6-50 MG TAB PO SCH ×3 (08:54→21:36)
[2019-11-30] MEDS: Pramipexole Di-HCl 0.25 MG TAB PO SCH ×2 (10:17→21:36)
[2019-11-30] MEDS: Divalproex Sodium 125 mg Sprinkle Capsule PO SCH ×2 (10:17→21:36)
[2019-11-30] MEDS: Dextrose 5% in Water 1,000 ML IV SCH ×2 (12:24→23:35)
--- NOTE | 2019-11-30 21:02 | PDOC.HOSPP ---
- Subjective Encounter Date: 11/30/19 non-verbal - Objective Vital Signs & Weight: Vital Signs (12 hours) Temp Pulse Resp BP Pulse Ox 11/30/19 12:00 99.1 F 73 18 133/83 96 Weight Admit Weight 176 lb Weight 176 lb I&O: 11/29/19 11/30/19 12/01/19 06:59 06:59 06:59 Intake Total 2450 2400 Balance 2450 2400 Result Diagrams: 11/25/19 05:14 11/29/19 13:54 Hospitalist ROS - Medication Medications: Active Medications Generic Name Dose Route Start Last Admin Trade Name Freq PRN Reason Stop Dose Admin Acetaminophen 325 mg 11/09/19 19:11 11/23/19 13:49 Tylenol PO 325 mg Q6H PRN Administration Headache/Fever or Pain Acetaminophen 650 mg 11/20/19 10:48 11/24/19 21:41 Tylenol FL 650 mg Q4H PRN Administration Headache/Fever or Pain Apixaban 5 mg 11/15/19 21:00 11/30/19 10:27 Eliquis PO Not Given BID [facility] Atorvastatin Calcium 40 mg 11/04/19 21:00 11/29/19 20:41 Lipitor PO Not Given [facility] Carvedilol 3.125 mg 11/13/19 21:00 11/30/19 10:29 Coreg PO Not Given BID [facility] Cyanocobalamin 1,000 mcg 11/15/19 09:00 11/30/19 10:32 Vitamin B-12 PO Not Given DAILY [facility] Divalproex Sodium 1,000 mg 11/18/19 21:00 11/30/19 10:17 Depakote Sprinkle PO Not Given BID [facility] Folic Acid 1 mg 11/05/19 09:00 11/30/19 10:32 Folvite PO Not Given DAILY [facility] Gabapentin 100 mg 11/17/19 09:00 11/30/19 10:32 Neurontin PO Not Given DAILY [facility] Piperacillin Sod/Tazobactam 100 mls @ 200 mls/hr 11/21/19 12:00 11/30/19 17: 57 Sod 3.375 gm/ Sodium Chloride IVPB 100 mls Q6HR SHILPA Administration Dextrose/Water 1,000 mls @ 100 mls/hr 11/24/19 13:31 11/30/19 12:24 D5w IV 1,000 mls .Q10H SHILPA Administration Iron/Minerals/Multivitamins 1 tab 11/05/19 09:00 11/30/19 10:32 Theragran M PO Not Given DAILY [facility] Lorazepam 1 mg 11/21/19 11:04 11/29/19 23:15 Ativan SLOW IVP 1 mg Q4H PRN Administration Anxiety/Agitation Magnesium Oxide 400 mg 11/05/19 09:00 11/30/19 10:32 Magnesium Oxide PO Not Given DAILY [facility] Morphine Sulfate 2 mg 11/28/19 12:31 11/30/19 15:47 Morphine SLOW IVP 2 mg Q4H PRN Administration Pain Polyethylene Glycol 17 gm 11/13/19 09:00 11/30/19 10:32 Miralax PO Not Given DAILY [facility] Pramipexole Dihydrochloride 0.5 mg 11/21/19 21:00 11/30/19 10:17 Mirapex PO Not Given BID [facility] Scopolamine 1.5 mg 11/28/19 15:15 11/28/19 17:46 Transderm Scop TD 1.5 mg Q3D SHILPA Administration Senna/Docusate Sodium 1 tab 11/13/19 09:00 11/30/19 10:32 Senokot S PO Not Given BID [facility] Sodium Chloride 10 ml 11/04/19 09:00 11/30/19 08:55 Flush - Normal Saline IVF Not Given Q12HR [facility] Thiamine HCl 100 mg 11/05/19 09:00 11/30/19 10:32 Thiamine PO Not Given DAILY [facility] - Exam General Appearance: awake alert ENT: normocephalic atraumatic Neck: supple, no JVD Heart: RRR Respiratory: CTAB Hosp A/P (1) Fever Code(s): R50.9 - FEVER, UNSPECIFIED Status: Acute (2) Acute encephalopathy Code(s): G93.40 - ENCEPHALOPATHY, UNSPECIFIED Status: Acute (3) Physical deconditioning Code(s): R53.81 - OTHER MALAISE Status: Acute (4) Alcohol abuse Code(s): F10.10 - ALCOHOL ABUSE, UNCOMPLICATED Status: Chronic (5) Methamphetamine abuse Code(s): F15.10 - OTHER STIMULANT ABUSE, UNCOMPLICATED Status: Chronic (6) Artificial cardiac pacemaker Code(s): Z95.0 - PRESENCE OF CARDIAC PACEMAKER Status: Chronic (7) Atrial fibrillation Code(s): I48.91 - UNSPECIFIED ATRIAL FIBRILLATION Status: Chronic Qualifiers: Atrial fibrillation type: chronic (8) Bipolar disease, chronic Code(s): F31.9 - BIPOLAR DISORDER, UNSPECIFIED Status: Chronic (9) Hypernatremia Code(s): E87.0 - HYPEROSMOLALITY AND HYPERNATREMIA Status: Acute (10) Dementia Code(s): F03.90 - UNSPECIFIED DEMENTIA WITHOUT BEHAVIORAL DISTURBANCE Status: Acute - Plan 11/19: CSF shows no signs of infection. repeat CT brain is -ve for cva/bleed and ct cervical spine shows no signs of discitis or ac fractures. has pcm PT to mobilize as tolerated back on eliquis from 11/14/2019 unclear etiology for encephalopathy, ?alc related wernicke's or chronic meth abuse (heavy usage per brother) trial of low dose gabapentin, seroquel (from 11/15/2019), addition of geodon qhs ( 11/19/2019). continue lipitor, folic acid, mvi, thiamine and D5NS is tolerating oral diet per staff will likely need inpt psych eval, [facility] consultation. Is medically stable for dc if they find a place for him. was able to sit for 4 hrs in chair (11/17/2019), still has not ambulated yet. EEG was done yesterday to r/o subclinical seizures, there was no seizure activity, has evaluated him 11/18/2019 and when he got admitted. Medically stable for dc to inpt psych facility if accepted. 11/20: The patient is more unresponsive today. He is able to open his eyes and follow commands but is nonverbal and unable to tolerate any feeding. Fevers were reported today. There is no leukocytosis. We will obtain urine analysis, blood cultures, and chest x-ray. Placement is pending. His prognosis is poor due to advanced dementia. This was discussed with palliative care team.The patient's mental status continued to slightly improved each day. He remains nonverbal and in a contracted muscular state. He had an episode of elevated blood pressure earlier today which improved after he received ketorolac and half milligram of Ativan. I tried to reach the family without success. 2/11: The patient's mental status appears to be deteriorating. He is not following commands today. Rapid jerking movements are noted on his extremities. He is persistently febrile. No source of infection has been identified at this moment. Blood culture showing growth of staph epidermidis in 1 of 2 bottles which is possibly contaminant. We will start broad-spectrum IV antibiotics empirically. Differential diagnosis include serotonin syndrome and neuroleptic malignant syndrome due to intake of quetiapine, bupropion, and tramadol. Those medications has been placed on hold. Pramipexole was started per neurology recommendations. 11/22: His mental status is slightly improved with implementation of the measures noted above. He appears to be in a state of hypo-volemic hypernatremia at the moment. This has slightly improved with the half-normal saline and D5W IV fluids. I will change the fluid component to D5W at 100 cc/h and monitor sodium level tomorrow. Our goal is to decrease the sodium by no more than 10 mEq per 24 hours. 11/23: His mental status continues to improve slightly. He remains nonverbal. He was hypertensive earlier today but that has improved with Ativan and ketorolac. His hypernatremia improved only by 1 mEq over the past 24 hours. I will increase D5W rate 125 cc/h. 11/24: The patient's mental status is not improving despite all of our treatment measures. This is likely going to be his new baseline. Hypernatremia has improved to 146. I will decrease the rate of D5W to 100 cc/h. The patient is ready for discharge once we have a place for him. 11/25: No new events. Awaiting placement. Hypernatremia resolved. Poor oral intake 11/26: Status unchanged. No new events overnight Pending placement 11/27: The patient is failing to thrive due to poor oral intake. His condition is not improving. I have consulted palliative care to discuss comfort care versus PEG tube placement with the patient's family. 11/28: Met with the family and palliative care team today. Discussed that the patient is having poor oral intake and his condition is not really improving. Discussed the options of comfort care with feeding him with risk of aspiration versus PEG tube placement. The patient's brother stated that the patient would not want to live is 10 days with a feeding tube especially since it might not improve his survival. The decision was made to move towards comfort care and eventually hospice when available. 11/29: Continue comfort measures. Pending placement. 11/30: The patient will be transitioned to hospice today. This dictation was completed using advanced voice recognition dictation software. There may be some errors in grammar, punctuation, context or verbiage that were not identified and corrected at the time of this dictation. If questions are present, please consult the author of this dictation for further clarification. It is my goal to try to catch these mistakes at the time of dictation but errors may still occur. Thank you for your understanding.
[2019-11-30] MEDS: Atorvastatin Calcium 40 MG TAB PO SCH (21:36)
[2019-11-30] MEDS: Lorazepam 2 MG/ML VIAL SLOW IVP PRN (23:33)
[2019-12-01] MEDS: Piperacillin/Tazobactam 3.375 GM in Sodium Chloride 0.9% 100 ML IVPB SCH ×2 (05:16→11:32)
[2019-12-01] MEDS: Morphine 2 MG/ML SYRINGE SLOW IVP PRN ×3 (05:54→14:36)
[2019-12-01] MEDS: Pramipexole Di-HCl 0.25 MG TAB PO SCH (07:49)
[2019-12-01] MEDS: Carvedilol 3.125 MG TAB PO SCH (07:50)
[2019-12-01] MEDS: Folic Acid 1 MG TAB PO SCH (07:50)
[2019-12-01] MEDS: Apixaban 5 MG TAB PO SCH (07:50)
[2019-12-01] MEDS: Magnesium Oxide 400 MG TAB PO SCH (07:50)
[2019-12-01] MEDS: Thiamine 100 MG TAB PO SCH (07:50)
[2019-12-01] MEDS: Senokot S 8.6-50 MG TAB PO SCH (07:50)
[2019-12-01] MEDS: Gabapentin 100 MG CAP PO SCH (07:50)
[2019-12-01] MEDS: Multivitamin W/ Minerals 1 TAB PO SCH (07:51)
[2019-12-01] MEDS: Cyanocobalamin (Vitamin B-12) 1,000 MCG TAB PO SCH (07:51)
[2019-12-01] MEDS: Polyethylene Glycol 3350 17 GM Packet PO SCH (07:51)
[2019-12-01] MEDS: Dextrose 5% in Water 1,000 ML IV SCH (07:56)
[2019-12-01] MEDS: Divalproex Sodium 125 mg Sprinkle Capsule PO SCH (08:06)
[2019-12-01] MEDS: Scopolamine 1.5 mg/72 hour Patch TD SCH (14:36)
[2019-12-01 15:20] VITALS: BP 137/79; TEMP 97.8
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
== END 2019-12-01 16:34 | disposition hospice, inpatient (51) | DRG 91 ==
LOC: ERS 16:17 → 2SE 11-04 02:16 → T4-B 11-06 14:46
PROVIDERS: ADMIT Family Medicine; ATTEND Internal Medicine
PROC: 009U3ZX Drainage of Spinal Canal, Percutaneous Approach, Diagnostic (ICD-10-PCS; principal; 2019-11-04)
PROC: B01BZZZ Fluoroscopy of Spinal Cord (ICD-10-PCS; 2019-11-04)
DX: G92 Toxic encephalopathy (principal); I21.A1 Myocardial infarction type 2; I48.20 Chronic atrial fibrillation, unspecified; I13.0 Hypertensive heart and chronic kidney disease with heart failure and stage 1 through stage 4 chronic kidney disease, or unspecified chronic kidney disease; I50.22 Chronic systolic (congestive) heart failure; E87.0 Hyperosmolality and hypernatremia; E87.1 Hypo-osmolality and hyponatremia; Z51.5 Encounter for palliative care; F31.9 Bipolar disorder, unspecified; F03.90 Unspecified dementia, unspecified severity, without behavioral disturbance, psychotic disturbance, mood disturbance, and anxiety; N18.9 Chronic kidney disease, unspecified; F10.20 Alcohol dependence, uncomplicated; F15.10 Other stimulant abuse, uncomplicated; R50.9 Fever, unspecified; Z87.891 Personal history of nicotine dependence; Z95.0 Presence of cardiac pacemaker; Z79.899 Other long term (current) drug therapy; Z79.01 Long term (current) use of anticoagulants
CPT/HCPCS: 36415; 36416; 51701; 62270; 70450; 70496; 70498; 71045; 72125; 72128; 72131; 80048; 80053; 80306; 80307; 81001; 81003; 82550; 82553; 82607; 82746; 82945; 83690; 83735; 83880; 84157; 84443; 84484; 85007; 85025; 85027; 85610; 85730; 87040; 87070; 87086; 87149; 87205; 87804; 89051; 90471; 90670; 93005; 95816; 95819; 96361; 96374; A4353; G0009; G0378; J1885; J2060; J2270; J2543; J3411; J3475; J3490; Q9967